=== PATIENT | female | born 1955 | race Native Hawaiian/Other Pacific Islander ===

== ENCOUNTER → 2018-02-12 09:27 | Outpatient (CLI) | payer OTHER, MEDICAID, SELFPAY ==
--- NOTE | 2018-02-12 09:29 | DI.NM.S_ITS ---
PROCEDURE: NM BONE SCAN WHOLE BODY RADIOPHARMACEUTICAL: 21.7 mCi Tc-99m MDP IV. INDICATIONS: LEFT KIDNEY MASS TECHNIQUE: Delayed whole-body scintigrams were obtained approximately 3-4 hours after intravenous injection of radiotracer. Anterior and posterior views were acquired from vertex to feet. COMPARISON: None. FINDINGS: A over the axial and appendicular skeleton no abnormal isotope uptake is seen that would indicate presence of metastatic disease. There is urine contamination at the groin area bilaterally, right greater than left, and at the perineum area. A single focus overlying the soft tissues of the lateral right midabdomen is present, presumably urine contamination given the absence of osseous structures in that area. IMPRESSION: No osseous metastatic disease found. Urine contamination at the groin area and presumably also at the right mid abdomen is present. Dictated by: Alexandr Conteh M.D. on 02/12/2018 at 15:34 Approved by: Alexandr Conteh M.D. on 02/12/2018 at 15:48
--- NOTE | 2018-02-12 10:10 | DI.CT.S_ITS ---
PROCEDURE: CT CHEST ABD PEL W CON INDICATIONS: possible metastasis, staging TECHNIQUE: After the administration of oral and intravenous contrast, 5 mm thick sections acquired from the lung apices to the symphysis. 5 mm coronal and sagittal reformats were performed, with additional 7 mm coronal MIP reformats through the lungs. For radiation dose reduction, the following was used: automated exposure control, adjustment of mA and/or kV according to patient size. COMPARISON: [facility], , CT ABDOMEN/PELVIS WITH CONTRAST, 01/08/2018, 14:22. FINDINGS: Image quality: Excellent. CHEST: Lungs and pleura: 1.5 x 1.1 by 1.2 cm nodule with irregular margins is noted in the right lung base (series 3, image 35) which is increased in size compared to prior examination the lesion measured approximately 9 mm in diameter. No pleural effusions or pneumothorax. Central and peripheral airways appear patent and normal in caliber. Mediastinum: Heart size is normal. No pericardial effusion. No mediastinal or hilar adenopathy by size criteria. Thoracic aorta and central pulmonary arteries are normal in size. Esophagus is normal in caliber. No hiatal hernia. Chest wall: No axillary or supraclavicular adenopathy by size criteria. Thyroid gland is within normal limits were visualized. ABDOMEN: Solid organs: Liver is normal in size and enhancement. Gallbladder is absent. Biliary system is non dilated. Pancreas enhances normally. Spleen is normal in size and enhancement. No adrenal nodules. There is a large heterogeneously enhancing mass involving the left kidney which is stable in size and contour compared to 01/08/18 measuring approximately 12.3 x 3.2 x 11.5 cm. Right kidney demonstrates normal size and enhancement, without hydronephrosis. Peritoneum and bowel: Small hiatal hernia is noted. Bowel loops demonstrate normal wall thickness and caliber. Scattered colonic diverticuli without evidence of diverticulitis. No free fluid or air. The appendix is normal. Nodes and vessels: Enlarged left periaortic lymph nodes are noted with largest node measuring 1.4 cm in short axis. Enlarged left common iliac lymph nodes are noted with largest node measuring 1.6 cm in the short axis. No mesenteric adenopathy by size criteria. Aorta and inferior vena cava are normal in size. Scattered atherosclerotic calcifications involving the abdominal and pelvic vasculature. The left renal vein demonstrates normal postcontrast enhancement. Miscellaneous: No ventral hernias. PELVIS: Genitourinary: Bladder wall thickness is normal. Miscellaneous: No inguinal hernias or adenopathy. Bones: No suspicious bony lesions. No vertebral body compression fractures. Spine degenerative disc disease and facet arthropathy. Grade I L4-L5 degenerative spondylolisthesis. IMPRESSION: 1. Large heterogeneously enhancing left renal mass not significantly changed in size or contour compared to 01/08/2018. Lesion has imaging characteristics highly suspicious for renal cell carcinoma. 2. Left leif-aortic retroperitoneal and left common iliac pelvic metastatic lymphadenopathy. 3. 1.5 x 1.1 x 1.2 cm right lower lobe nodule which is increased in size compared to 01/08/2018. Lesion is highly suspicious for lung metastatic disease. Dictated by: Elif Freeman MD, PhD on 02/13/2018 at 16:05 Approved by: Elif Freeman MD, PhD on 02/13/2018 at 16:21
== END ==
PROVIDERS: PCP Family Medicine; Visit Provider Internal Medicine Hematology & Oncology
DX: N28.89 Other specified disorders of kidney and ureter (principal); R91.1 Solitary pulmonary nodule; R59.1 Generalized enlarged lymph nodes
CPT/HCPCS: 71260; 74177; 78306; A9503; Q9967

== ENCOUNTER → 2018-06-24 09:54 | Outpatient (CLI) | payer OTHER, MEDICAID, SELFPAY ==
[2018-06-24 10:58] LABS: Add Manual Diff / Slide Review NO; Basophils Absolute Auto 0 /uL (0-100); Basophils Percent Auto 0.6 % (0-2); Eosinophils Absolute Auto 100 /uL (0-450); Eosinophils Percent Auto 1.5 % (2-4); Hematocrit 40.8 % (36-46); Hemoglobin 13.2 g/dL (12.0-16.0); Lymphocytes Absolute Auto 2100 /uL (1100-4500); Lymphocytes Percent Auto 32.7 % (25-40); Mean Corpuscular HGB Conc 32.4 % (30-36); Mean Corpuscular Hemoglobin 29.7 PG (26-34); Mean Corpuscular Volume 91.6 fL (80-100); Monocytes Absolute Auto 500 /uL (0-900); Monocytes Percent Auto 7.8 % (3-14); Neutrophils Absolute Auto 3700 /uL (1500-7000); Neutrophils Percent Auto 57.4 % (50-75); Platelet Count 245 X10^3/uL (150-400); Red Blood Cell Count 4.46 X10^6/uL (4.0-5.2); Red Cell Distribution Width 14.7 % (11.6-14.8); White Blood Cell Count 6.5 X10^3/uL (4.5-11.0)
[2018-06-24 11:19] LABS: Alanine Aminotransferase 47 IU/L (9-52); Albumin 3.6 g/dL (3.5-5.0); Albumin Globulin Ratio 1.1 (1.0-2.8); Alkaline Phosphatase 84 U/L (38-126); Aspartate Aminotransferase 42 IU/L (14-36); BUN Creatinine Ratio 23.6 (6-22); Bilirubin Total 0.1 mg/dL (0.2-1.3); Blood Urea Nitrogen 26 mg/dL (7-17); Calcium 8.6 mg/dL (8.4-10.2); Carbon Dioxide 26 mmol/L (22-32); Chloride 107 mmol/L (98-107); Estimated Glomerular Filt Rate 50.7 mL/min (>60); Globulin 3.2 g/dL (1.7-4.1); Glucose 82 mg/dL (80-110); HEMOLYSIS < 15 (0-50); Lactate Dehydrogenase 658 U/L (313-618); Potassium 4.3 mmol/L (3.4-5.1); Sodium 141 mmol/L (137-145); Total Protein 6.8 g/dL (6.3-8.2)
== END ==
PROVIDERS: Visit Provider Internal Medicine Hematology & Oncology
DX: D64.9 Anemia, unspecified (principal)
CPT/HCPCS: 36415; 80053; 83615; 85025

== ENCOUNTER 2018-07-13 14:32 | Emergency (ER) | payer OTHER, MEDICAID, SELFPAY ==
[2018-07-13 14:44] VITALS: BP 185/102; PULSE 85; RESP 20; TEMP 37.1; O2SAT 99; BMI 56.2
--- NOTE | 2018-07-13 15:05 | DI.US.S_ITS ---
PROCEDURE: US EXTREMITY NONVASC LOWER RT INDICATIONS: WORSENING HEMATOMA; ON ANTICOAGULANTS TECHNIQUE: Real-time scanning was performed of the right thigh, with image documentation. COMPARISON: None. FINDINGS: At the area of clinical concern, there is a nonvascular hypoechoic focus seen that measures 4.8 x 3 x 10.8 cm. No abnormal vascularity is seen. IMPRESSION: These imaging findings are compatible with a large thigh hematoma, particularly given the patient history. If there is strong clinical concern for active extravasation, please consider a dedicated CT study for further evaluation, as clinically appropriate. Dictated by: Norberto Fritz M.D. on 07/13/2018 at 15:07 Approved by: Norberto Fritz M.D. on 07/13/2018 at 15:08
[2018-07-13] MEDS: OXYCODONE/ACETAMINOPHEN 5/325 TABLET 1 TAB PO (15:14)
--- NOTE | 2018-07-13 15:16 | ED_ITS ---
HPI - Extremity Problem <Elizabeth Adam PA-C - Last Filed: 07/13/18 17:44> General Chief complaint: Extremity Problem,Nontraumatic Stated complaint: Rt leg hematoma Time Seen by Provider: 07/13/18 14:43 Source: patient and family Mode of arrival: ambulatory Limitations: no limitations History of Present Illness HPI Narrative: This 62-year-old female comes to ED secondary to worsening pain from hematoma on her right thigh. She states that this started as a painful lump more in the center of the thigh. Now the lump is better, however the area below it is more bruised, swollen and painful, today worse than before. She states that she was seen at another local ED for this yesterday, along with chest pain from panic attack, and was given some sort of medication to make the swelling go down. She does not know what that was. She states the area underneath the bruising is somewhat more red today, not sure whether from the Wilfred wrap. She had pain and numbness in her foot and calf yesterday but denies any today (also part of the reason for her emergency room visit yesterday). She states that she has been taking Percocet for the pain which does help somewhat. She currently denies any new chest pain or dyspnea, leg does not feel weak or numb, denies other new complaints on systems review. She does note that she had been on Lovenox due to coincidentally discovered PE and had allergic reaction to that with rash, so changed to Xarelto yesterday. Related Data Home Medications Medication Instructions Recorded Confirmed apremilast [Otezla] 30 mg PO DAILY 02/07/18 05/22/18 fluticasone propionate [Flovent 1 puff INHALATION Q12H 02/07/18 05/22/18 HFA] hydroxyzine HCl 25 mg PO QID PRN 02/07/18 05/22/18 minocycline 100 mg PO BID 02/07/18 05/22/18 pramipexole 0.125 mg PO BEDTIME 02/07/18 05/22/18 ranitidine HCl 150 mg PO DAILY 02/07/18 05/22/18 temazepam 15 mg PO BEDTIME PRN 02/07/18 05/22/18 vitamin H41-nrfcw acid 1 tab PO DAILY 04/24/18 05/22/18 citalopram 40 mg PO Q OTHER DAY 07/03/18 07/03/18 Previous Rx's Medication Instructions Recorded cabozantinib [Cabometyx] 60 mg PO DAILY #15 tab 06/05/18 amlodipine 5 mg PO DAILY #30 tab 06/26/18 cyclobenzaprine 5 mg PO TID PRN #30 tab 06/26/18 enoxaparin [Lovenox] 120 mg SUBCUT Q12H 30 Days #48 ml 07/03/18 lidocaine 2 patch TOP Q24H #30 each 07/13/18 Allergies Allergy/AdvReac Type Severity Reaction Status Date / Time bee venom protein (honey bee) Allergy Unknown Verified 07/13/18 14:44 iodine AdvReac Unknown Verified 07/13/18 14:44 MICRO AdvReac Unknown Uncoded 07/13/18 14:44 Review of Systems <Elizabeth Adam PA-C - Last Filed: 07/13/18 17:44> Review of Systems ROS Unobtainable: All systems reviewed & are unremarkable except as noted in HPI and below PFSH <Elizabeth Adam PA-C - Last Filed: 07/13/18 17:44> Medical History (Updated 07/13/18 @ 16:44 by Elizabeth Adam PA-C) Morbid obesity (Chronic) CKD (chronic kidney disease) (Chronic) Renal carcinoma (Chronic) Panic attacks (Chronic) Pulmonary emboli (Acute) Sleep apnea (Chronic) Hypertension (Chronic) Asthma (Chronic) Obesity (Acute) Arthritis (Chronic) Depression (Chronic) Anemia (Chronic) Psoriasis (Chronic) Rheumatoid arthritis (Chronic) Neuropathy (Chronic) Surgical History (Updated 07/13/18 @ 15:11 by Elizabeth Adam PA-C) H/O hernia repair (Resolved) H/O hysterectomy with oophorectomy (Resolved) History of tonsillectomy and adenoidectomy (Resolved) Family History (Updated 02/07/18 @ 11:03 by Marty Burden MD) Unknown Breast cancer Father Colon cancer Social History Smoking Status: Former smoker alcohol intake: current (holiday drinker) substance use type: marijuana Family History (Updated 02/07/18 @ 11:03 by Marty Burden MD) Unknown Breast cancer Father Colon cancer Social History Smoking Status: Former smoker alcohol intake: current (holiday drinker) substance use type: marijuana Exam <Elizabeth Adam PA-C - Last Filed: 07/13/18 17:44> Narrative Exam Narrative: GENERAL APPEARANCE: Patient sitting comfortably, in no distress. NECK/THYROID: Neck supple LUNGS: Clear to auscultation bilaterally. HEART: Regular rate and rhythm without murmur, normal S1, S2, no S3 or S4. EXTREMITIES: No cyanosis, extremities of large girth, no clear pedal or calf edema, no calf tenderness. Pedal pulses intact bilaterally. On the right medial thigh there is an area of circumscribed nodular tenderness, inferior to which there is yellow to purple ecchymoses and the skin is tender. Some faint, pink, erythema inferior to the ecchymoses which is cool to touch NEUROLOGIC: Alert and oriented, normal speech, and coordination. Initial Vital Signs Initial Vital Signs: Vital Signs Temperature 98.7 F 07/13/18 14:44 Pulse Rate 85 07/13/18 14:44 Respiratory Rate 20 07/13/18 14:44 Blood Pressure 185/102 H 07/13/18 14:44 Pulse Oximetry 99 07/13/18 14:44 <Sharon Foote MD - Last Filed: 07/13/18 18:26> Initial Vital Signs Initial Vital Signs: Vital Signs Temperature 98.7 F 07/13/18 14:44 Pulse Rate 85 07/13/18 14:44 Respiratory Rate 20 07/13/18 14:44 Blood Pressure 185/102 H 07/13/18 14:44 Pulse Oximetry 99 07/13/18 14:44 Course <Elizabeth Adam PA-C - Last Filed: 07/13/18 17:44> Additional Information: Records were eventually received, patient has had 6 ED visits in the last week, for abdominal hematoma, which was previously drained and this thigh hematoma, states she was concerned because she was told she had a ?blood clot?. Ultrasound was done and there does not appear to be any acute surgical issue. Discussed findings with her, and she does think she may have had some very minor trauma because of the way she was sitting in a chair, and discussed this can be exacerbated by her blood thinners. She changed to Xarelto 2 days ago. Continue compression dressing as needed. She has Percocet at home as needed for pain. She was given a prescription for Lidoderm patches and will try those today to see if they are helpful. She will return to ED if any acutely worsening symptoms, has follow-up with primary care in a few days. Orders Ordered: ED Orders 07/13/18 15:05 US extremity nonvasc lower rt Stat Discontinued Medications Lidocaine (Lidoderm) 2 each TOP NOW ONE Stop: 07/13/18 15:57 Last Admin: 07/13/18 16:19 Dose: 2 each Oxycodone/Acetaminophen (Percocet 5/325) 1 tab PO NOW ONE Stop: 07/13/18 15:06 Last Admin: 07/13/18 15:14 Dose: 1 tab Vital Signs - 8 hr 07/13/18 14:44 07/13/18 15:39 07/13/18 16:30 Temperature 98.7 F Pulse Rate 85 76 74 Respiratory Rate 20 15 17 Blood Pressure 185/102 H Blood Pressure [Left Wrist] 135/78 142/75 H Pulse Oximetry 99 93 97 <Sharon Foote MD - Last Filed: 07/13/18 18:26> Orders Ordered: ED Orders 07/13/18 15:05 US extremity nonvasc lower rt Stat Discontinued Medications Lidocaine (Lidoderm) 2 each TOP NOW ONE Stop: 07/13/18 15:57 Last Admin: 07/13/18 16:19 Dose: 2 each Oxycodone/Acetaminophen (Percocet 5/325) 1 tab PO NOW ONE Stop: 07/13/18 15:06 Last Admin: 07/13/18 15:14 Dose: 1 tab Vital Signs - 8 hr 07/13/18 14:44 07/13/18 15:39 07/13/18 16:30 Temperature 98.7 F Pulse Rate 85 76 74 Respiratory Rate 20 15 17 Blood Pressure 185/102 H Blood Pressure [Left Wrist] 135/78 142/75 H Pulse Oximetry 99 93 97 MDM - Extremity (Nontraumatic) <Elizabeth Adam PA-C - Last Filed: 07/13/18 17:44> Imaging Data extremity us: Radiologist's impression: [address] [place] [address] Ultrasound Report Signed Patient: Belgica Da Silva R#: [id number] : 8Acct:[id number] Age/Sex: 62 / FDate of Service: 07/13/18 Loc: ED Accession Number: [id number] Procedure: US extremity nonvasc lower rt Ordering Provider: Elizabeth Adam P.A-C PROCEDURE: US EXTREMITY NONVASC LOWER RT INDICATIONS: WORSENING HEMATOMA; ON ANTICOAGULANTS TECHNIQUE: Real-time scanning was performed of the right thigh, with image documentation. COMPARISON: None. FINDINGS: At the area of clinical concern, there is a nonvascular hypoechoic focus seen that measures 4.8 x 3 x 10.8 cm. No abnormal vascularity is seen. IMPRESSION: These imaging findings are compatible with a large thigh hematoma, particularly given the patient history. If there is strong clinical concern for active extravasation, please consider a dedicated CT study for further evaluation, as clinically appropriate. Dictated by: Norberto Fritz M.D. on 07/13/2018 at 15:07 Approved by: Norberto Fritz M.D. on 07/13/2018 at 15:08 Discharge Plan Departure Patient Disposition: Home Clinical Impression: Hematoma of right thigh Qualifiers: Encounter type: initial encounter Qualified Code(s): S70.11XA - Contusion of right thigh, initial encounter Discharge Date/Time: 07/13/18 17:04 Interventions: ED Discharge Assessment Last Done: 07/13/18 17:03 Instructions: DI for Hematoma (Bruise) Activity Restrictions/Additional Instructions: You have a hematoma, a deep bruised area under the skin where the blood has seeped out. This is exacerbated by your blood thinners, and could be caused by very minimal trauma as you were describing, like a minor bump or positioning in a chair. At this time, this does not appear to need any drainage or surgical intervention. Please continue her Percocet as needed for pain. Continue the compression wrap as helpful. Try the Lidoderm patches that we gave you through today as you can wear those for 12 hours daily, and I have today prescription for you to fill if you find these helpful. Please follow-up with your PCP in a few days as you have planned. Please return to the ED if any acutely worsening problems in the interim Prescriptions: New lidocaine 5 % adhesive patch,medicated 2 patch TOP Q24H Qty: 30 RF: 0 No Action minocycline 100 mg Capsule 100 mg PO BID RF: 0 temazepam 15 mg Capsule 15 mg PO BEDTIME PRN (Reason: Pain (Scale Score 1-3)) RF: 0 pramipexole 0.125 mg Tablet 0.125 mg PO BEDTIME RF: 0 hydroxyzine HCl 25 mg Tablet 25 mg PO QID PRN (Reason: Muscle Spasm) RF: 0 ranitidine HCl 150 mg Capsule 150 mg PO DAILY RF: 0 Flovent HFA 110 mcg/actuation Hfa Aerosol Inhaler 1 puff INHALATION Q12H RF: 0 Otezla 30 mg Tablet 30 mg PO DAILY RF: 0 vitamin H17-nabmt acid 500-400 mcg Tablet 1 tab PO DAILY RF: 0 Cabometyx 60 mg Tablet 60 mg PO DAILY Qty: 15 RF: 0 amlodipine 5 mg Tablet 5 mg PO DAILY Qty: 30 RF: 3 cyclobenzaprine 5 mg Tablet 5 mg PO TID PRN (Reason: muscle cramps) Qty: 30 RF: 0 citalopram 40 mg Tablet 40 mg PO Q OTHER DAY RF: 0 enoxaparin [Lovenox] 120 mg/0.8 mL Syringe 120 mg SUBCUT Q12H 30 Days Qty: 48 RF: 1 Referrals: Jurgen Griffin MD [Primary Care Provider] -
[2018-07-13 15:39] VITALS: BP 135/78; PULSE 76; RESP 15; O2SAT 93
[2018-07-13] MEDS: LIDOCAINE PATCH 1 EACH ADH..PATCH 2 EACH TOP (16:19)
[2018-07-13 16:30] VITALS: BP 142/75; PULSE 74; RESP 17; O2SAT 97
--- NOTE | 2018-07-15 10:17 | ONC.SCHED ---
Authoriztion for Enoxaparin from 07/10/18 to 07/10/2019
== END 2018-07-13 17:04 | disposition home or self-care (01) ==
PROVIDERS: Emergency Provider Internal Medicine; PCP Family Medicine
DX: S70.11XA Contusion of right thigh, initial encounter (principal); Z79.01 Long term (current) use of anticoagulants
CPT/HCPCS: 76882; 99282; 99283

== ENCOUNTER → 2018-08-12 13:24 | Outpatient (CLI) | payer OTHER, MEDICAID, SELFPAY | PROVIDERS: Family Provider Family Medicine; PCP Family Medicine; Visit Provider Family Medicine | DX: S31.103A Unspecified open wound of abdominal wall, right lower quadrant without penetration into peritoneal cavity, initial encounter (principal); C64.2 Malignant neoplasm of left kidney, except renal pelvis; Z79.01 Long term (current) use of anticoagulants; Z79.899 Other long term (current) drug therapy; Z92.25 Personal history of immunosuppression therapy | CPT/HCPCS: 87070; 87075; 87077; 87186; 87205; 97597; 99203; 99214 ==

== ENCOUNTER → 2018-08-26 09:47 | Outpatient (CLI) | payer OTHER, MEDICAID, SELFPAY | PROVIDERS: Family Provider Family Medicine; PCP Family Medicine; Visit Provider Family Medicine | DX: S31.103A Unspecified open wound of abdominal wall, right lower quadrant without penetration into peritoneal cavity, initial encounter (principal); C64.2 Malignant neoplasm of left kidney, except renal pelvis; Z79.01 Long term (current) use of anticoagulants; Z79.899 Other long term (current) drug therapy; Z92.25 Personal history of immunosuppression therapy | CPT/HCPCS: 11042; 99213 ==

== ENCOUNTER → 2018-09-02 09:57 | Outpatient (CLI) | payer OTHER, MEDICAID, SELFPAY | PROVIDERS: Family Provider Family Medicine; PCP Family Medicine; Visit Provider Family Medicine | DX: S31.103A Unspecified open wound of abdominal wall, right lower quadrant without penetration into peritoneal cavity, initial encounter (principal); C64.2 Malignant neoplasm of left kidney, except renal pelvis; Z79.01 Long term (current) use of anticoagulants; Z79.899 Other long term (current) drug therapy; Z92.25 Personal history of immunosuppression therapy | CPT/HCPCS: 11042 ==

== ENCOUNTER → 2018-09-09 09:44 | Outpatient (CLI) | payer OTHER, MEDICAID, SELFPAY | PROVIDERS: Family Provider Family Medicine; PCP Family Medicine; Visit Provider Family Medicine | DX: S31.103A Unspecified open wound of abdominal wall, right lower quadrant without penetration into peritoneal cavity, initial encounter (principal); C64.2 Malignant neoplasm of left kidney, except renal pelvis; Z79.01 Long term (current) use of anticoagulants; Z79.899 Other long term (current) drug therapy; Z92.25 Personal history of immunosuppression therapy | CPT/HCPCS: 11043 ==

== ENCOUNTER → 2018-09-11 11:05 | Outpatient (CLI) | payer OTHER, MEDICAID, SELFPAY | PROVIDERS: Family Provider Family Medicine; PCP Family Medicine; Visit Provider Family Medicine | DX: S31.103A Unspecified open wound of abdominal wall, right lower quadrant without penetration into peritoneal cavity, initial encounter (principal) | CPT/HCPCS: 97607 ==

== ENCOUNTER → 2018-09-16 10:27 | Outpatient (CLI) | payer OTHER, MEDICAID, SELFPAY | PROVIDERS: Family Provider Family Medicine; PCP Family Medicine; Visit Provider Family Medicine | DX: S31.103D Unspecified open wound of abdominal wall, right lower quadrant without penetration into peritoneal cavity, subsequent encounter (principal); C64.2 Malignant neoplasm of left kidney, except renal pelvis; Z79.01 Long term (current) use of anticoagulants; Z79.899 Other long term (current) drug therapy; Z92.25 Personal history of immunosuppression therapy | CPT/HCPCS: 99213; 99214 ==

== ENCOUNTER → 2018-09-19 10:56 | Outpatient (CLI) | payer OTHER, MEDICAID, SELFPAY | PROVIDERS: Family Provider Family Medicine; PCP Family Medicine; Visit Provider Family Medicine | DX: T81.31XA Disruption of external operation (surgical) wound, not elsewhere classified, initial encounter (principal); S31.103A Unspecified open wound of abdominal wall, right lower quadrant without penetration into peritoneal cavity, initial encounter | CPT/HCPCS: 97607 ==

== ENCOUNTER → 2018-09-23 13:46 | Outpatient (CLI) | payer OTHER, MEDICAID, SELFPAY | PROVIDERS: Family Provider Family Medicine; PCP Family Medicine; Visit Provider Family Medicine | DX: T81.31XA Disruption of external operation (surgical) wound, not elsewhere classified, initial encounter (principal); S31.103A Unspecified open wound of abdominal wall, right lower quadrant without penetration into peritoneal cavity, initial encounter | CPT/HCPCS: 97607 ==

== ENCOUNTER → 2018-09-26 09:02 | Outpatient (CLI) | payer OTHER, MEDICAID, SELFPAY | PROVIDERS: Family Provider Family Medicine; PCP Family Medicine; Visit Provider Family Medicine | DX: T81.31XA Disruption of external operation (surgical) wound, not elsewhere classified, initial encounter (principal); S31.103A Unspecified open wound of abdominal wall, right lower quadrant without penetration into peritoneal cavity, initial encounter; D64.2 Secondary sideroblastic anemia due to drugs and toxins; Z79.01 Long term (current) use of anticoagulants; Z79.899 Other long term (current) drug therapy; Z92.25 Personal history of immunosuppression therapy | CPT/HCPCS: 97597; 97607 ==

== ENCOUNTER → 2018-09-30 08:52 | Outpatient (CLI) | payer OTHER, MEDICAID, SELFPAY | PROVIDERS: Family Provider Family Medicine; PCP Family Medicine; Visit Provider Family Medicine | DX: S31.103A Unspecified open wound of abdominal wall, right lower quadrant without penetration into peritoneal cavity, initial encounter (principal); C64.2 Malignant neoplasm of left kidney, except renal pelvis; Z79.01 Long term (current) use of anticoagulants; Z79.899 Other long term (current) drug therapy; Z92.25 Personal history of immunosuppression therapy | CPT/HCPCS: 97597; 97607 ==

== ENCOUNTER → 2018-10-03 10:35 | Outpatient (CLI) | payer OTHER, MEDICAID, SELFPAY | PROVIDERS: Family Provider Family Medicine; PCP Family Medicine; Visit Provider Family Medicine | DX: T81.31XA Disruption of external operation (surgical) wound, not elsewhere classified, initial encounter (principal); S31.103A Unspecified open wound of abdominal wall, right lower quadrant without penetration into peritoneal cavity, initial encounter; D64.2 Secondary sideroblastic anemia due to drugs and toxins; Z79.01 Long term (current) use of anticoagulants; Z79.899 Other long term (current) drug therapy; Z92.25 Personal history of immunosuppression therapy; G89.18 Other acute postprocedural pain | CPT/HCPCS: 97607; 99213 ==

== ENCOUNTER → 2018-10-07 10:05 | Outpatient (CLI) | payer OTHER, MEDICAID, SELFPAY | PROVIDERS: Family Provider Family Medicine; PCP Family Medicine; Visit Provider Family Medicine | DX: S31.109A Unspecified open wound of abdominal wall, unspecified quadrant without penetration into peritoneal cavity, initial encounter (principal) | CPT/HCPCS: 99212 ==

== ENCOUNTER → 2018-10-10 09:11 | Outpatient (CLI) | payer OTHER, MEDICAID, SELFPAY | PROVIDERS: Family Provider Family Medicine; PCP Family Medicine; Visit Provider Family Medicine | DX: S31.103A Unspecified open wound of abdominal wall, right lower quadrant without penetration into peritoneal cavity, initial encounter (principal); C64.2 Malignant neoplasm of left kidney, except renal pelvis; Z79.01 Long term (current) use of anticoagulants; Z79.899 Other long term (current) drug therapy; Z92.25 Personal history of immunosuppression therapy | CPT/HCPCS: 11042; 97607 ==

== ENCOUNTER → 2018-10-14 09:23 | Outpatient (CLI) | payer OTHER, MEDICAID, SELFPAY ==
[2018-10-14 10:03] LABS: Add Manual Diff / Slide Review NO; Basophils Absolute Auto 0 /uL (0-100); Basophils Percent Auto 0.4 % (0-2); Eosinophils Absolute Auto 100 /uL (0-450); Eosinophils Percent Auto 0.8 % (2-4); Hematocrit 38.9 % (36-46); Hemoglobin 12.9 g/dL (12.0-16.0); Lymphocytes Absolute Auto 1700 /uL (1100-4500); Lymphocytes Percent Auto 21.5 % (25-40); Mean Corpuscular HGB Conc 33.2 % (30-36); Mean Corpuscular Hemoglobin 34.6 PG (26-34); Mean Corpuscular Volume 104.2 fL (80-100); Monocytes Absolute Auto 700 /uL (0-900); Monocytes Percent Auto 8.6 % (3-14); Neutrophils Absolute Auto 5300 /uL (1500-7000); Neutrophils Percent Auto 68.7 % (50-75); Platelet Count 248 X10^3/uL (150-400); Red Blood Cell Count 3.73 X10^6/uL (4.0-5.2); Red Cell Distribution Width 14.8 % (11.6-14.8); White Blood Cell Count 7.7 X10^3/uL (4.5-11.0)
[2018-10-14 10:40] LABS: Alanine Aminotransferase 28 IU/L (9-52); Albumin 3.7 g/dL (3.5-5.0); Albumin Globulin Ratio 1.2 (1.0-2.8); Alkaline Phosphatase 61 U/L (38-126); Aspartate Aminotransferase 29 IU/L (14-36); Bilirubin Total 0.4 mg/dL (0.2-1.3); Blood Urea Nitrogen 15 mg/dL (7-17); Calcium 9.3 mg/dL (8.4-10.2); Carbon Dioxide 29 mmol/L (22-32); Chloride 107 mmol/L (98-107); Estimated Glomerular Filt Rate 56.4 mL/min (>60); Glucose 79 mg/dL (80-110); HEMOLYSIS < 15 (0-50); Potassium 4.2 mmol/L (3.4-5.1); Sodium 141 mmol/L (137-145); Total Protein 6.7 g/dL (6.3-8.2)
== END ==
PROVIDERS: Family Provider Family Medicine; PCP Family Medicine; Visit Provider Internal Medicine Hematology & Oncology
DX: C64.2 Malignant neoplasm of left kidney, except renal pelvis (principal); D64.9 Anemia, unspecified; I26.99 Other pulmonary embolism without acute cor pulmonale
CPT/HCPCS: 36415; 80053; 85025

== ENCOUNTER → 2018-10-14 09:43 | Outpatient (CLI) | payer OTHER, MEDICAID, SELFPAY | PROVIDERS: Family Provider Family Medicine; PCP Family Medicine; Visit Provider Family Medicine | DX: S31.103A Unspecified open wound of abdominal wall, right lower quadrant without penetration into peritoneal cavity, initial encounter (principal) | CPT/HCPCS: 97607 ==

== ENCOUNTER → 2018-10-17 09:01 | Outpatient (CLI) | payer OTHER, MEDICAID, SELFPAY | PROVIDERS: Family Provider Family Medicine; PCP Family Medicine; Visit Provider Family Medicine | DX: S31.103A Unspecified open wound of abdominal wall, right lower quadrant without penetration into peritoneal cavity, initial encounter (principal); C64.2 Malignant neoplasm of left kidney, except renal pelvis; Z79.01 Long term (current) use of anticoagulants; Z79.899 Other long term (current) drug therapy; Z92.25 Personal history of immunosuppression therapy | CPT/HCPCS: 11042; 97607; 99212 ==

== ENCOUNTER → 2018-10-21 08:32 | Outpatient (CLI) | payer OTHER, MEDICAID, SELFPAY | PROVIDERS: Family Provider Family Medicine; PCP Family Medicine; Visit Provider Family Medicine | DX: E11.621 Type 2 diabetes mellitus with foot ulcer (principal); L97.524 Non-pressure chronic ulcer of other part of left foot with necrosis of bone; M14.672 Charcot's joint, left ankle and foot; Z79.4 Long term (current) use of insulin; L08.9 Local infection of the skin and subcutaneous tissue, unspecified | CPT/HCPCS: 97607; 99213 ==

== ENCOUNTER → 2018-10-24 09:19 | Outpatient (CLI) | payer OTHER, MEDICAID, SELFPAY | PROVIDERS: Family Provider Family Medicine; PCP Family Medicine; Visit Provider Family Medicine | DX: S31.103A Unspecified open wound of abdominal wall, right lower quadrant without penetration into peritoneal cavity, initial encounter (principal); C64.2 Malignant neoplasm of left kidney, except renal pelvis; Z79.01 Long term (current) use of anticoagulants; Z79.899 Other long term (current) drug therapy; Z92.25 Personal history of immunosuppression therapy | CPT/HCPCS: 11042 ==

== ENCOUNTER → 2018-10-31 09:11 | Outpatient (CLI) | payer OTHER, MEDICAID, SELFPAY | PROVIDERS: Family Provider Family Medicine; PCP Family Medicine; Visit Provider Family Medicine | DX: S31.103A Unspecified open wound of abdominal wall, right lower quadrant without penetration into peritoneal cavity, initial encounter (principal); C64.2 Malignant neoplasm of left kidney, except renal pelvis; Z79.01 Long term (current) use of anticoagulants; Z79.899 Other long term (current) drug therapy; Z92.25 Personal history of immunosuppression therapy | CPT/HCPCS: 99213 ==

== ENCOUNTER → 2018-11-07 09:00 | Outpatient (CLI) | payer OTHER, MEDICAID, SELFPAY | PROVIDERS: Family Provider Family Medicine; PCP Family Medicine; Visit Provider Family Medicine | DX: S31.103A Unspecified open wound of abdominal wall, right lower quadrant without penetration into peritoneal cavity, initial encounter (principal); Z79.01 Long term (current) use of anticoagulants; Z79.899 Other long term (current) drug therapy; Z92.25 Personal history of immunosuppression therapy | CPT/HCPCS: 99212 ==

== ENCOUNTER → 2018-11-13 09:08 | Outpatient (CLI) | payer OTHER, MEDICAID, SELFPAY ==
--- NOTE | 2018-11-13 09:22 | DI.CT.S_ITS ---
PROCEDURE: CT CHEST ABD PEL W CON INDICATIONS: KIDNEY CANCER RESTAGING TECHNIQUE: After the administration of oral and intravenous contrast, 5 mm thick sections acquired from the lung apices to the symphysis. 5 mm coronal and sagittal reformats were performed, with additional 7 mm coronal MIP reformats through the lungs. For radiation dose reduction, the following was used: automated exposure control, adjustment of mA and/or kV according to patient size. COMPAR[place]: [facility] ABDOMEN/PELVIS WITH CONTRAST, 01/08/2018, 14:22. [place], [place] BONE SCAN WHOLE BODY, 02/12/2018, 13:12. [place] PET CT FUSION SKULL 2 THIGH, 02/19/2018, 16:51. [facility], CT, CT CHEST ABD PEL W CON, 02/12/2018, 10:20. FINDINGS: Image quality: Excellent. CHEST: Lungs and pleura: The lung 1.5 x 1.1 cm pulmonary nodule in the right lower lobe seen on 02/12/2018 is no longer visualized. No acute airspace opacities. No pleural effusions or pneumothorax. Central and peripheral airways appear patent and normal in caliber. Mediastinum: Heart size is normal. No pericardial effusion. No mediastinal or hilar adenopathy by size criteria. Thoracic aorta and central pulmonary arteries are normal in size. Esophagus is normal in caliber. No hiatal hernia. Chest wall: No axillary or supraclavicular adenopathy by size criteria. Thyroid gland is normal. ABDOMEN: Solid organs: Liver is normal in size and enhancement. Gallbladder is of interest. Biliary system is non dilated. Pancreas enhances normally. Spleen is normal in size and enhancement. No adrenal nodules. Left kidney is surgically resected. Right kidney demonstrates normal size and enhancement, without hydronephrosis. Peritoneum and bowel: Bowel loops demonstrate normal wall thickness and caliber. No free fluid or air. Nodes and vessels: The previously seen enlarged left para-aortic lymph nodes and left common duct lymph nodes are no longer identified. No retroperitoneal or mesenteric adenopathy by size criteria. Aorta and inferior vena cava are normal in size. Miscellaneous: No ventral hernias. PELVIS: Genitourinary: Bladder wall thickness is normal. Miscellaneous: No inguinal hernias or adenopathy. Bones: No suspicious bony lesions. No vertebral body compression fractures. Degenerative changes are noted in thoracic and lumbar spine. IMPRESSION: 1. Left nephrectomy. 2. Resolution of left para-aortic and left common iliac charlene disease. 3. Resolution of right lower lobe lung nodule. 4. No evidence for residual or recurrent disease. Dictated by: Bailey Loo M.D. on 11/13/2018 at 17:22 Approved by: Bailey Loo M.D. on 11/13/2018 at 18:24
[2018-11-13 09:45] LABS: Hematocrit 42.3 % (36-46); Hemoglobin 14.5 g/dL (12.0-16.0); Mean Corpuscular HGB Conc 34.1 % (30-36); Mean Corpuscular Volume 102.5 fL (80-100); Platelet Count 238 X10^3/uL (150-400); Red Blood Cell Count 4.13 X10^6/uL (4.0-5.2); Red Cell Distribution Width 13.2 % (11.6-14.8)
[2018-11-13 10:07] LABS: Alanine Aminotransferase 37 IU/L (9-52); Albumin 4.1 g/dL (3.5-5.0); Albumin Globulin Ratio 1.2 (1.0-2.8); Alkaline Phosphatase 76 U/L (38-126); Aspartate Aminotransferase 38 IU/L (14-36); BUN Creatinine Ratio 16.3 (6-22); Bilirubin Total 0.4 mg/dL (0.2-1.3); Blood Urea Nitrogen 13 mg/dL (7-17); Calcium 9.3 mg/dL (8.4-10.2); Carbon Dioxide 25 mmol/L (22-32); Chloride 108 mmol/L (98-107); Estimated Glomerular Filt Rate > 60.0 mL/min (>60); Globulin 3.5 g/dL (1.7-4.1); Glucose 169 mg/dL (80-110); HEMOLYSIS < 15 (0-50); Lactate Dehydrogenase 591 U/L (313-618); Potassium 3.9 mmol/L (3.4-5.1); Sodium 142 mmol/L (137-145); Total Protein 7.6 g/dL (6.3-8.2)
[2018-11-13 10:19] LABS: Neutrophils Absolute Manual 4000 /uL (3000-5900); Total Cells Counted 100
[2018-11-13 10:22] LABS: Anisocytosis 1+
== END ==
PROVIDERS: Visit Provider Internal Medicine Hematology & Oncology
DX: C64.2 Malignant neoplasm of left kidney, except renal pelvis (principal); D64.9 Anemia, unspecified; Z90.5 Acquired absence of kidney
CPT/HCPCS: 36415; 71260; 74177; 80053; 83615; 85025; Q9967

== ENCOUNTER → 2019-01-20 13:02 | Outpatient (CLI) | payer OTHER, MEDICAID, SELFPAY ==
--- NOTE | 2019-01-20 13:04 | DI.CT.S_ITS ---
PROCEDURE: CT CHEST ABD PEL W CON INDICATIONS: kidney cancer, now with abdominal pain TECHNIQUE: After the administration of oral and intravenous contrast, 5 mm thick sections acquired from the lung apices to the symphysis. 5 mm coronal and sagittal reformats were performed, with additional 7 mm coronal MIP reformats through the lungs. For radiation dose reduction, the following was used: automated exposure control, adjustment of mA and/or kV according to patient size. COMPARISON: [facility], CT, CT CHEST ABD PEL W CON, 02/12/2018, 10:20. [facility], CT, CT CHEST ABD PEL W CON, 11/13/2018, 10:11. FINDINGS: Image quality: Excellent. CHEST: Lungs and pleura: No acute airspace opacities. No pleural effusions or pneumothorax. Central and peripheral airways appear patent and normal in caliber. Mediastinum: Heart size is normal. No pericardial effusion. No mediastinal or hilar adenopathy by size criteria. Thoracic aorta and central pulmonary arteries are normal in size. Esophagus is normal in caliber. No hiatal hernia. Chest wall: No axillary or supraclavicular adenopathy by size criteria. Thyroid gland is unremarkable. ABDOMEN: Solid organs: Liver is normal in size and enhancement. Gallbladder is not visualized and possibly surgically absent. Biliary system is non dilated. Pancreas enhances normally. Spleen is normal in size and enhancement. No adrenal nodules. Right kidney is normal in appearance without hydronephrosis or suspicious mass lesions. Right ureter is normal in course and caliber. Stable postoperative changes from left nephrectomy. No suspicious mass lesions identified in the left renal fossa. No evidence for retroperitoneal adenopathy. Peritoneum and bowel: Extensive scattered colonic diverticulosis without evidence for acute inflammatory changes. Remaining bowel loops demonstrate normal wall thickness and caliber. No free fluid or air. Nodes and vessels: No retroperitoneal or mesenteric adenopathy by size criteria. Aorta and inferior vena cava are normal in size. Miscellaneous: No ventral hernias. PELVIS: Genitourinary: Bladder wall thickness is normal. Miscellaneous: No inguinal hernias or adenopathy. Bones: No suspicious bony lesions. No acute vertebral body compression fractures. Multilevel spondylitic changes throughout the imaged spine. Stable grade 1 anterolisthesis of L4 on L5. IMPRESSION: 1. CT chest, abdomen, and pelvis without acute abnormalities. 2. Status post left nephrectomy. 3. No evidence for residual or recurrent disease. Dictated by: Barrett Reed M.D. on 01/20/2019 at 18:37 Approved by: Barrett Reed M.D. on 01/20/2019 at 18:50
[2019-01-20 13:59] LABS: Alanine Aminotransferase 30 IU/L (<35); Albumin 4.2 g/dL (3.5-5.0); Albumin Globulin Ratio 1.4 (1.0-2.8); Alkaline Phosphatase 61 U/L (38-126); Aspartate Aminotransferase 34 IU/L (14-36); Bilirubin Total 0.6 mg/dL (0.2-1.3); Blood Urea Nitrogen 20 mg/dL (7-17); Calcium 9.5 mg/dL (8.4-10.2); Carbon Dioxide 23 mmol/L (22-32); Chloride 110 mmol/L (98-107); Estimated Glomerular Filt Rate 56.4 mL/min (>60); Globulin 3.1 g/dL (1.7-4.1); Glucose 176 mg/dL (80-110); HEMOLYSIS < 15 (0-50); Potassium 4.6 mmol/L (3.4-5.1); Sodium 141 mmol/L (137-145); Total Protein 7.3 g/dL (6.3-8.2)
== END ==
PROVIDERS: Visit Provider Internal Medicine Hematology & Oncology
DX: C64.2 Malignant neoplasm of left kidney, except renal pelvis (principal); R10.9 Unspecified abdominal pain; K57.90 Diverticulosis of intestine, part unspecified, without perforation or abscess without bleeding; D64.9 Anemia, unspecified; Z90.5 Acquired absence of kidney
CPT/HCPCS: 36415; 71260; 74177; 80053; Q9967

== ENCOUNTER → 2019-07-15 12:20 | Outpatient (CLI) | payer OTHER, MEDICAID, SELFPAY ==
--- NOTE | 2019-07-15 12:27 | DI.CT.S_ITS ---
PROCEDURE: CT CHEST ABD PEL W CON INDICATIONS: metastatic renal cell cancer TECHNIQUE: After the administration of oral and intravenous contrast, 5 mm thick sections acquired from the lung apices to the symphysis. 5 mm coronal and sagittal reformats were performed, with additional 7 mm coronal MIP reformats through the lungs. For radiation dose reduction, the following was used: automated exposure control, adjustment of mA and/or kV according to patient size. COMPARISON: [facility], CT, CT CHEST ABD PEL W CON, 01/20/2019, 14:12. FINDINGS: Image quality: Excellent. CHEST: Lungs and pleura: No acute airspace opacities. No pleural effusions or pneumothorax. Central and peripheral airways appear patent and normal in caliber. Mediastinum: Heart size is normal. No pericardial effusion. No mediastinal or hilar adenopathy by size criteria. Thoracic aorta and central pulmonary arteries are normal in size. Esophagus is normal in caliber. No hiatal hernia. Chest wall: No axillary or supraclavicular adenopathy by size criteria. Thyroid gland is within normal limits. ABDOMEN: Solid organs: Liver is normal in size and enhancement. Gallbladder is absent. Biliary system is non dilated. Pancreas enhances normally. Spleen is normal in size and enhancement. No adrenal nodules. Status post left nephrectomy, as before. Right kidney is within normal limits. Peritoneum and bowel: Bowel loops demonstrate normal wall thickness and caliber. No free fluid or air. Nodes and vessels: No retroperitoneal or mesenteric adenopathy by size criteria. Aorta and inferior vena cava are normal in size. Miscellaneous: No ventral hernias. PELVIS: Genitourinary: Bladder wall thickness is normal. Miscellaneous: No inguinal hernias or adenopathy. Bones: No suspicious bony lesions. No vertebral body compression fractures. IMPRESSION: 1. No evidence of malignancy. Dictated by: Kristy Ram M.D. on 07/15/2019 at 17:07 Approved by: Kristy Ram M.D. on 07/15/2019 at 17:09
[2019-07-15 12:45] LABS: Add Manual Diff / Slide Review NO; Basophils Absolute Auto 0 /uL (0-100); Basophils Percent Auto 0.5 % (0-2); Eosinophils Absolute Auto 200 /uL (0-450); Eosinophils Percent Auto 3.5 % (2-4); Hematocrit 37.8 % (36-46); Hemoglobin 12.5 g/dL (12.0-16.0); Lymphocytes Absolute Auto 2200 /uL (1100-4500); Lymphocytes Percent Auto 35.2 % (25-40); Mean Corpuscular HGB Conc 33.2 % (30-36); Mean Corpuscular Hemoglobin 34.5 PG (26-34); Monocytes Absolute Auto 500 /uL (0-900); Monocytes Percent Auto 8.1 % (3-14); Neutrophils Absolute Auto 3300 /uL (1500-7000); Neutrophils Percent Auto 52.7 % (50-75); Platelet Count 206 X10^3/uL (150-400); Red Blood Cell Count 3.64 X10^6/uL (4.0-5.2); White Blood Cell Count 6.3 X10^3/uL (4.5-11.0)
[2019-07-15 13:02] LABS: Alanine Aminotransferase 37 IU/L (<35); Albumin 3.7 g/dL (3.5-5.0); Albumin Globulin Ratio 1.2 (1.0-2.8); Alkaline Phosphatase 68 U/L (38-126); Aspartate Aminotransferase 40 IU/L (14-36); BUN Creatinine Ratio 16.8 (6-22); Bilirubin Total 0.4 mg/dL (0.2-1.3); Blood Urea Nitrogen 18 mg/dL (7-17); Calcium 9.4 mg/dL (8.4-10.2); Carbon Dioxide 30 mmol/L (22-32); Chloride 107 mmol/L (98-107); Estimated Glomerular Filt Rate 52.1 mL/min (>60); Globulin 3.1 g/dL (1.7-4.1); Glucose 99 mg/dL (80-110); HEMOLYSIS < 15 (0-50); Lactate Dehydrogenase 721 U/L (313-618); Potassium 5.2 mmol/L (3.4-5.1); Sodium 140 mmol/L (137-145); Total Protein 6.8 g/dL (6.3-8.2)
== END ==
PROVIDERS: PCP Family Medicine; Referring Provider Internal Medicine Hematology & Oncology; Visit Provider Internal Medicine Hematology & Oncology
DX: C64.2 Malignant neoplasm of left kidney, except renal pelvis (principal); I26.99 Other pulmonary embolism without acute cor pulmonale; Z90.49 Acquired absence of other specified parts of digestive tract; Z90.5 Acquired absence of kidney
CPT/HCPCS: 36415; 71260; 74177; 80053; 83615; 85025; Q9967

== ENCOUNTER → 2019-09-01 15:28 | Outpatient (CLI) | payer OTHER, MEDICAID, SELFPAY | PROVIDERS: PCP Family Medicine; Referring Provider Family Medicine; Visit Provider Family Medicine | DX: B35.4 Tinea corporis (principal); E66.01 Morbid (severe) obesity due to excess calories; Z79.01 Long term (current) use of anticoagulants; Z79.899 Other long term (current) drug therapy; Z92.25 Personal history of immunosuppression therapy; S81.002A Unspecified open wound, left knee, initial encounter; S31.000A Unspecified open wound of lower back and pelvis without penetration into retroperitoneum, initial encounter | CPT/HCPCS: 11042; 87070; 87075; 87077; 87102; 87205; 99214 ==

== ENCOUNTER → 2019-09-08 16:22 | Outpatient (CLI) | payer OTHER, MEDICAID, SELFPAY | PROVIDERS: PCP Family Medicine; Referring Provider Family Medicine; Visit Provider Family Medicine | DX: B35.4 Tinea corporis (principal); E66.01 Morbid (severe) obesity due to excess calories; Z79.01 Long term (current) use of anticoagulants; Z79.899 Other long term (current) drug therapy; Z92.25 Personal history of immunosuppression therapy; S81.002A Unspecified open wound, left knee, initial encounter; S31.000A Unspecified open wound of lower back and pelvis without penetration into retroperitoneum, initial encounter | CPT/HCPCS: 99213 ==

== ENCOUNTER → 2019-09-15 15:01 | Outpatient (CLI) | payer OTHER, MEDICAID, SELFPAY | PROVIDERS: PCP Family Medicine; Referring Provider Family Medicine; Visit Provider Family Medicine | DX: B35.4 Tinea corporis (principal); E66.01 Morbid (severe) obesity due to excess calories; Z79.01 Long term (current) use of anticoagulants; Z79.899 Other long term (current) drug therapy; Z92.25 Personal history of immunosuppression therapy; S81.002A Unspecified open wound, left knee, initial encounter; S31.000A Unspecified open wound of lower back and pelvis without penetration into retroperitoneum, initial encounter | CPT/HCPCS: 99213 ==

== ENCOUNTER → 2019-09-22 14:37 | Outpatient (CLI) | payer OTHER, MEDICAID, SELFPAY | PROVIDERS: PCP Family Medicine; Referring Provider Family Medicine; Visit Provider Family Medicine | DX: Z48.00 Encounter for change or removal of nonsurgical wound dressing (principal); R21 Rash and other nonspecific skin eruption | CPT/HCPCS: 99212; 99213 ==

== ENCOUNTER → 2019-11-08 13:17 | Outpatient (CLI) | payer OTHER, MEDICAID, SELFPAY ==
[2019-11-09 14:41] LABS: COVID19 Sendout Not Detected (Not Detect)
== END ==
PROVIDERS: PCP Family Medicine; Visit Provider Physician Assistant
DX: Z11.59 Encounter for screening for other viral diseases (principal)
CPT/HCPCS: 87635

== ENCOUNTER 2019-11-11 10:07 | Day surgery (SDC) | payer OTHER, MEDICAID, SELFPAY ==
[2019-11-11] VITALS (7 sets, daily range): BP systolic 123–155; BP diastolic 67–94; PULSE 70–95; RESP 10–18; TEMP 36–36.9; O2SAT 98–100; BMI 61.5
--- NOTE | 2019-11-11 | PATH_ITS ---
[facility] Accession Number: [id number] . 01 Material submitted: . PART A: colon - COLON POLYPS X 2 AT 90 CM PART B: colon - COLON POLYP AT 25 CM . 01 Clinical history: . DX COLONOSCOPY . 02 Diagnosis: A. Colon, Polyps x2 at 90 cm, Biopsy: Sessile serrated adenomas. . B. Colon, Polyp at 25 cm, Biopsy: Hyperplastic polyp. MRV 11/13/2019 1306 Local . 02 Electronically signed: . Taylor Patricia MD, Pathologist NPI- [id number] . 01 Gross description: . Part A: COLON POLYPS X 2 AT 90 CM: Received in formalin are 2 fragment(s) of sorenson, soft tissue measuring 0.2 x 0.2 x 0.2 cm to 0.3 x 0.2 x 0.2 cm submitted entirely in 1 cassette(s) Part B: COLON POLYP AT 25 CM: Received in formalin is 1 fragment(s) of sorenson, soft tissue measuring 0.3 x 0.3 x 0.3 cm submitted entirely in 1 cassette(s) /ERNST 11/12/20192053 Local . 02 Pathologist provided ICD-10: D12.6 . 02 CPT . 912505, [id number] Performed at: 01 [facility] [address], [place], [place] [id number] MD Inocencio Dowd MD Phone: [phone] Performed at: 02 [facility] [address] [place], [place] [id number] MD Taylor Patricia MD Phone: [phone]
--- NOTE | 2019-11-11 12:43 | PM.PREOP ---
Pre-operative Note COVID-19 COVID-19 status: Negative Result date/Date tested (Pos, Neg/Pending): 11/08/19 Interval Note History & Physical reviewed/Exam performed by Physician: Yes Changes to H&P: No
--- NOTE | 2019-11-11 13:41 | P.OP.ENDO_ITS ---
Operative Date/Time/Diagnoses Date of procedure: 11/11/19 Time of procedure: 13:50 Pre-op diagnosis: anemia, history of colon polyps Post-op diagnosis: other (few small colon polyps, extensive diverticulosis) Procedure & Clinicians Study performed: colonoscopy cold forceps biopsy of multiple colon polyps Same procedure as scheduled: Yes Indications: personal history of colon polyps Surgeon: Josee Pérez Procedure Notes SCOAP/Timeout: Performed Procedure in detail: The patient was brought to the room and placed in left lateral decubitus position with all bony prominences padded. A time-out was performed and then the patient was given MAC anesthesia by Dr. Mcnair. Once adequately sedated, the procedure was begun. A rectal exam was performed revealing no abnormalities. The colonoscope was then introduced to the rectum and advanced through the rectum to the sigmoid colon. The patient had extensive diverticulosis, and at the rectosigmoid junction it was quite difficult to insufflate her colon both due to a field of diverticula creating false passages, and due to her body habitus. With prolonged insufflation I was not able to insufflate the colon adequately to identify the lumen. After multiple positio lynda changes, using the stiffener, and counter pressure on the abdomen, I finally switched to a pediatric scope. I tried once again with counter pressure, the stiffener, and it ongoing insufflation pressure, and was finally able to safely traverse this area. Beyond that I was able to get through the rest of the colon and into the distal ileum. The cecum was identified by the appendiceal orifice, the mucosal tri-fold, and the ileocecal valve. The scope was then retracted while rotating side to side and examining each mucosal fold. 2 polyps were removed at 90 cm. They were sent for pathology. An additional polyp was removed at 25 cm. At the conclusion of the procedure retroflexion was performed and moderate grade 2-3 internal hemorrhoids without stigmata of bleeding were seen. The scope was then withdrawn from the rectum the procedure was concluded. The patient tolerated the procedure well and was transferred to the PACU in stable condition. Scope withdrawal time: 15 Findings: diverticulosis (Extensive, involving the sigmoid and descending colon) Specimen(s): other (Polyps from 90 cm, and 25 cm) Complications: none Impression: Very difficult colonoscopy due to severe morbid obesity, and extensive diverticulosis. Polyps appeared small and likely precancerous. Ideally repeat colonoscopy would be done in 5 years, but this is a very difficult procedure and must be done with anesthesiologist. Post-procedure Recommendations: Colonscopy in 5 years (If patient healthy enough to undergo the procedure at that time) Plan for aftercare: We recommend using a fiber supplement due to extensive diverticulosis. Follow up: as needed Disposition: PACU
== END 2019-11-11 14:43 | disposition home or self-care (01) ==
PROVIDERS: PCP Family Medicine; Referring Provider Surgery; Visit Provider Surgery
PROC: 0DJD8ZZ Inspection of Lower Intestinal Tract, Via Natural or Artificial Opening Endoscopic (ICD-10-PCS; CPT 45378; principal; 2019-11-11 12:15)
DX: Z12.11 Encounter for screening for malignant neoplasm of colon (principal); Z86.010 Personal history of colon polyps; J44.9 Chronic obstructive pulmonary disease, unspecified; Z79.01 Long term (current) use of anticoagulants; E66.01 Morbid (severe) obesity due to excess calories; Z68.43 Body mass index [BMI] 50.0-59.9, adult; Z86.711 Personal history of pulmonary embolism; Z85.528 Personal history of other malignant neoplasm of kidney; G47.33 Obstructive sleep apnea (adult) (pediatric); D64.9 Anemia, unspecified; K57.30 Diverticulosis of large intestine without perforation or abscess without bleeding; K64.1 Second degree hemorrhoids; D12.6 Benign neoplasm of colon, unspecified
CPT/HCPCS: 45380; J2250; J2704; J3010

== ENCOUNTER 2019-11-17 14:30 | Outpatient (RCR) | payer OTHER, MEDICAID, SELFPAY ==
--- NOTE | 2019-11-10 11:13 | PT.OIE ---
Current Diagnoses Lymphedema, not elsewhere classified (11/10/19) Difficulty in walking, not elsewhere classified (11/10/19) Weakness (11/10/19) Past Medical History (Last Reviewed 10/29/19 @ 16:54 by Josee Pérez MD) Asthma (Chronic) Depression (Chronic) Hypertension (Chronic) Neuropathy (Chronic) Panic attacks (Chronic) Psoriasis (Chronic) Rheumatoid arthritis (Chronic) Sleep apnea (Chronic) Past Surgical History (Last Reviewed 10/29/19 @ 16:54 by Josee Pérez MD) H/O hernia repair (Resolved) H/O hysterectomy with oophorectomy (Resolved) History of tonsillectomy and adenoidectomy (Resolved) Visit Care Team Role Provider Type Danny Mccullough MD Attending Provider Non-Staff Primary Care Provider Referring Provider Specialty: Family Practice Address: [address] [place] [address], [id number] Email: Physical Therapy Initial Evaluation PT-OP-A Visit Information Start: 11/09/19 16:22 Freq: Status: Active Protocol: Document 11/10/19 14:34 SAK (Rec: 11/10/19 14:[address] [facility] [id number]) Out-Patient Physical Therapy Visit Information Visit Information Visit Type Initial Evaluation Visit Start Time 14:35 Visit Stop Time 15:50 Total Visit Minutes 75 Visit Number 1 Number of LANDSCAPE ENGINEER Visits 0 Evaluation Information Evaluation Date 11/10/19 Precautions Precautions PMH: renal cancer, arthritis, HTN, depression, blood clot lungs, PT-OP-B Current Condition Start: 11/09/19 16:22 Freq: Status: Active Protocol: Document 11/10/19 14:34 SAK (Rec: 11/10/19 14:[address] [facility] [id number]) Current Condition History of Current Condition Onset Date 3 yr Current Complaints 3 yr history jhonny LE swellling History of Current Condition 3 year history of swelling bilateral LE's, no known cause . Was treated with complete decongestive therapy and aquatic therapy at [facility]. States the wraps wore out, was issued some compression stockings and they didn't fit so she hasn't worn any compression stockings. Hasn't been able to get into a pool since Covid19 started. Had wound on each LE behind knee, rquiring wound care, left LE most recently. Noted increase in her LE swelling in June 2019 [place] in [facility], hasn't been able to get it to decrease, can't wear her shoes . Activity level very low due to severe arthritis in knees, sister is caregiver. Patient reports her sister has previously done the lymphedema wrapping for her and would be able to do again to help with home management. Patient able to do bathing and dressing otherwise requires help with everything. Has Brianda power wheelchair, w/c, walker. Prior Treatments and Tests Nephrectomy 2018 due to renal cancer, on jail medication. Treatment Goals Patient/Caregiver Goals Decrease her swelling to allow increase in mobility. PT-OP-C Subjective Start: 11/09/19 16:22 Freq: Status: Active Protocol: Document 11/10/19 14:[address] [facility] (Rec: 11/12/19 11:[address] [facility] [id number]) Patient Questionnaires Lymphedema Life Impact Score Lymphedema Score 68% OP-PT Pain Assessment Location bilateral LE Pain Location Details knees to toes Intensity 9 PT-OP-G Mobility & Gait Start: 11/09/19 16:22 Freq: Status: Active Protocol: Document 11/10/19 14:[address] [facility] (Rec: 11/12/19 11:[address] [facility] [id number]) OP Mobility Evaluation Bed Mobility Rolling SBA Supine to and from Sit min assist Transfers Sit to Stand SBA Bed to Chair Transfers SBA OP Gait Assessment Gait Gait Assistance Required: Standby Assistance Assistive Devices Assistive Device Front Wheeled Walker Gait Deviations General Gait Pattern Antalgic,Decreased Stride Length,Decreased Feet Clearance Factors Limiting Gait Function Factors Limiting Gait Function Decreased Strength PT-OP-M Strength Start: 11/09/19 16:22 Freq: Status: Active Protocol: Document 11/10/19 14:[address] [facility] (Rec: 11/12/19 11:[address] [facility] [id number]) Hip Strength Hip Manual Muscle Testing jhonny Flexion (L2) 3- Fair- Extension (S1) 2+ Poor+ Abduction 3- Fair- External Rotation 3- Fair- Internal Rotation 3- Fair- Knee Strength Knee Manual Muscle Testing jhonny Flexion (S2) 3 Fair Extension (L3) 3 Fair Comments refuses resistance due to pain Ankle/Foot Strength Ankle and Foot Manual Muscle Testing jhonny Dorsiflexion (L4) 4- Good- Plantarflexion (S1) 4- Good- PT-OP-N Lymphedema Start: 11/09/19 16:22 Freq: Status: Active Protocol: Document 11/10/19 14:[address] [facility] (Rec: 11/12/19 11:[address] [facility] [id number]) Lymphedema Measurements Lower Extremity Circumference Measurements Left Affected MT Heads 24.3 cm Medial Malleolus 30.3 cm 10 cm From Medial Malleolus 36.5 cm 20 cm From Medial Malleolus 49.7 cm 30 cm From Medial Malleolus 52 cm 40 cm From Medial Malleolus 68 cm 50 cm From Medial Malleolus 77 cm 60 cm From Medial Malleolus 85.5 cm Right Affected MT Heads 25.2 cm Medial Malleolus 30.8 cm 10 cm From Medial Malleolus 36 cm 20 cm From Medial Malleolus 51.2 cm 30 cm From Medial Malleolus 57.2 cm 40 cm From Medial Malleolus 70.1 cm 50 cm From Medial Malleolus 81.2 cm 60 cm From Medial Malleolus 85 cm PT-OP-Q Treatments Start: 11/09/19 16:22 Freq: Status: Active Protocol: Document 11/10/19 14:[address] [facility] (Rec: 11/12/19 11:[address] [facility] [id number]) Lymphedema Treatment Lymphedema Wrapping Materials Provided patient with Tricofix size G, Artiflex, and Comprilan for bilateral LE wrapping at home; refused wrapping today due to having to drive and not feeling she can when she is wearing the wraps. States her sister will wrap her. Advised patient that PT department provides first set of wraps, and she will need to obtain second set . Sequential Lymphedema Exercises Comments Patient reports exercises hurt too much at this time Patient Education Compression Garments given information about [employer] [facility] [place] for compression garment fittin PT-OP-T Assessment and Plan Start: 11/09/19 16:22 Freq: Status: Active Protocol: Document 11/10/19 14:[address] [facility] (Rec: 11/12/19 11:[address] [facility] [id number]) Physical Therapy Assessment Rehab Potential Rehabilitation Potential Good Evaluation Complexity Number of Personal Factors/Comorbidities 1-2 Number of Body Systems Impaired 3 Clinical Presentation at Evaluation Evolving Impairments Impairments Activity Tolerance,Edema, Functional Mobility,Strength Goals Two Impairment patient limited to use of wheelchair for mobility within her home Assisted Goal (LTG) Patient will be able to ambulate short household distances with appropriate assistive device with SBA LTG Duration 02/10/20 One Impairment lymphedema bilateral LE's Wrapping Machine Tender Goal (LTG) Decrease lymphedema bilateral LE's to stable level (no increase or decrease more than 1 cm over the course of 1 week), patient to be fit with appropriate compression garments and be able to self- manage her lymphedema at home with the assistanc of caregiver. LTG Duration 02/10/20 Assessment Summary Assessment Patient presents to PT with exacerbation of her lymphedema bilateral LE's and history of poor self-management of her lymphedema. She would benefit from physical therapy to decrease her lymphedema, help her to be able to self-manage, and improve her functional mobility for overall health and facilitation of lymphatic flow to prevent complications. Physical Therapy Plan Frequency and Duration Frequency of Treatment 20 visits Duration of Treatment 12 weeks Plan of Care Start Date 11/12/19 Plan of Care End Date 02/10/20 Therapeutic Interventions Therapeutic Interventions Aquatic Therapy,Home Exercise Program,Lymphedema Management, Manual Therapy,Patient/ Caregiver Education,Self-Care/ Home Management,Therapeutic Exercises Next Visit Focus/Plan Next Note Type Treatment Note Next Visit Plan MLD, sequential lymphedema exercises as tolerated, lymphedema wrapping. Further discussion of compression stocking options.
--- NOTE | 2019-11-10 11:14 | PT.OPPOC ---
Physical, Occupational & Speech Therapy At [facility] Current Diagnoses Lymphedema, not elsewhere classified (11/10/19) Difficulty in walking, not elsewhere classified (11/10/19) Weakness (11/10/19) Visit Care Team Role Provider Type Danny Mccullough MD Attending Provider Non-Staff Primary Care Provider Referring Provider Specialty: Family Practice Address: [address] [place] [address], [facility] Email: Plan Of Care PT-OP-T Assessment and Plan Start: 11/09/19 16:22 Freq: Status: Active Protocol: Document 11/10/19 14:34 VITALIY (Rec: 11/12/19 11:03 VITALIY [id number]) Physical Therapy Assessment Rehab Potential Rehabilitation Potential Good Evaluation Complexity Number of Personal Factors/Comorbidities 1-2 Number of Body Systems Impaired 3 Clinical Presentation at Evaluation Evolving Impairments Impairments Activity Tolerance,Edema, Functional Mobility,Strength Goals Two Impairment patient limited to use of wheelchair for mobility within her home Project Coach Goal (LTG) Patient will be able to ambulate short household distances with appropriate assistive device with SBA LTG Duration 02/10/20 One Impairment lymphedema bilateral LE's Project Coach Goal (LTG) Decrease lymphedema bilateral LE's to stable level (no increase or decrease more than 1 cm over the course of 1 week), patient to be fit with appropriate compression garments and be able to self- manage her lymphedema at home with the assistanc of caregiver. LTG Duration 02/10/20 Assessment Summary Assessment Patient presents to PT with exacerbation of her lymphedema bilateral LE's and history of poor self-management of her lymphedema. She would benefit from physical therapy to decrease her lymphedema, help her to be able to self-manage, and improve her functional mobility for overall health and facilitation of lymphatic flow to prevent complications. Physical Therapy Plan Frequency and Duration Frequency of Treatment 20 visits Duration of Treatment 12 weeks Plan of Care Start Date 11/12/19 Plan of Care End Date 02/10/20 Therapeutic Interventions Therapeutic Interventions Aquatic Therapy,Home Exercise Program,Lymphedema Management, Manual Therapy,Patient/ Caregiver Education,Self-Care/ Home Management,Therapeutic Exercises Next Visit Focus/Plan Next Note Type Treatment Note Next Visit Plan MLD, sequential lymphedema exercises as tolerated, lymphedema wrapping. Further discussion of compression stocking options. Plan of Care Dates Plan of Care Start Date 11/12/19 Plan of Care End Date 02/10/20 Electronically Signed by: Aga Irvin, BREANA 11/12/19 2354 Please Sign and Return: I have reviewed this Plan of Care and certify that the skilled therapy services above are required to meet the patient?s needs. Physician Signature Date Printed Name and Credentials Clinical Instructor Signature Printed Name and Credentials
--- NOTE | 2019-11-12 11:04 | PT.OIE ---
Current Diagnoses Lymphedema, not elsewhere classified (11/10/19) Difficulty in walking, not elsewhere classified (11/10/19) Weakness (11/10/19) Past Medical History (Last Reviewed 10/29/19 @ 16:54 by Josee Pérez MD) Asthma (Chronic) Depression (Chronic) Hypertension (Chronic) Neuropathy (Chronic) Panic attacks (Chronic) Psoriasis (Chronic) Rheumatoid arthritis (Chronic) Sleep apnea (Chronic) Past Surgical History (Last Reviewed 10/29/19 @ 16:54 by Josee Pérez MD) H/O hernia repair (Resolved) H/O hysterectomy with oophorectomy (Resolved) History of tonsillectomy and adenoidectomy (Resolved) Visit Care Team Role Provider Type Danny Mccullough MD Attending Provider Non-Staff Primary Care Provider Referring Provider Specialty: Family Practice Address: [address] [place] [address], [id number] Email: Physical Therapy Initial Evaluation PT-OP-A Visit Information Start: 11/09/19 16:22 Freq: Status: Active Protocol: Document 11/10/19 14:34 SAK (Rec: 11/10/19 14:57 [facility] [id number]) Out-Patient Physical Therapy Visit Information Visit Information Visit Type Initial Evaluation Visit Start Time 14:35 Visit Stop Time 15:50 Total Visit Minutes 75 Visit Number 1 Number of FURNACE MAINTENANCE Visits 0 Evaluation Information Evaluation Date 11/10/19 Precautions Precautions PMH: renal cancer, arthritis, HTN, depression, blood clot lungs, PT-OP-B Current Condition Start: 11/09/19 16:22 Freq: Status: Active Protocol: Document 11/10/19 14:34 SAK (Rec: 11/10/19 14:57 [facility] [id number]) Current Condition History of Current Condition Onset Date 3 yr Current Complaints 3 yr history jhonny LE swellling History of Current Condition 3 year history of swelling bilateral LE's, no known cause . Was treated with complete decongestive therapy and aquatic therapy at [facility]. States the wraps wore out, was issued some compression stockings and they didn't fit so she hasn't worn any compression stockings. Hasn't been able to get into a pool since Covid19 started. Had wound on each LE behind knee, rquiring wound care, left LE most recently. Noted increase in her LE swelling in June 2019 [place] in [facility], hasn't been able to get it to decrease, can't wear her shoes . Activity level very low due to severe arthritis in knees, sister is caregiver. Patient reports her sister has previously done the lymphedema wrapping for her and would be able to do again to help with home management. Patient able to do bathing and dressing otherwise requires help with everything. Has Brianda power wheelchair, w/c, walker. Prior Treatments and Tests Nephrectomy 2018 due to renal cancer, on fci medication. Treatment Goals Patient/Caregiver Goals Decrease her swelling to allow increase in mobility. PT-OP-C Subjective Start: 11/09/19 16:22 Freq: Status: Active Protocol: Document 11/10/19 14:34 [facility] (Rec: 11/12/19 11:03 [facility] [id number]) Patient Questionnaires Lymphedema Life Impact Score Lymphedema Score 68% OP-PT Pain Assessment Location bilateral LE Pain Location Details knees to toes Intensity 9 PT-OP-G Mobility & Gait Start: 11/09/19 16:22 Freq: Status: Active Protocol: Document 11/10/19 14:34 [facility] (Rec: 11/12/19 11:03 [facility] [id number]) OP Mobility Evaluation Bed Mobility Rolling SBA Supine to and from Sit min assist Transfers Sit to Stand SBA Bed to Chair Transfers SBA OP Gait Assessment Gait Gait Assistance Required: Standby Assistance Assistive Devices Assistive Device Front Wheeled Walker Gait Deviations General Gait Pattern Antalgic,Decreased Stride Length,Decreased Feet Clearance Factors Limiting Gait Function Factors Limiting Gait Function Decreased Strength PT-OP-M Strength Start: 11/09/19 16:22 Freq: Status: Active Protocol: Document 11/10/19 14:34 [facility] (Rec: 11/12/19 11:03 [facility] [id number]) Hip Strength Hip Manual Muscle Testing jhonny Flexion (L2) 3- Fair- Extension (S1) 2+ Poor+ Abduction 3- Fair- External Rotation 3- Fair- Internal Rotation 3- Fair- Knee Strength Knee Manual Muscle Testing jhonny Flexion (S2) 3 Fair Extension (L3) 3 Fair Comments refuses resistance due to pain Ankle/Foot Strength Ankle and Foot Manual Muscle Testing jhonny Dorsiflexion (L4) 4- Good- Plantarflexion (S1) 4- Good- PT-OP-N Lymphedema Start: 11/09/19 16:22 Freq: Status: Active Protocol: Document 11/10/19 14:34 [facility] (Rec: 11/12/19 11:03 [facility] [id number]) Lymphedema Measurements Lower Extremity Circumference Measurements Left Affected MT Heads 24.3 cm Medial Malleolus 30.3 cm 10 cm From Medial Malleolus 36.5 cm 20 cm From Medial Malleolus 49.7 cm 30 cm From Medial Malleolus 52 cm 40 cm From Medial Malleolus 68 cm 50 cm From Medial Malleolus 77 cm 60 cm From Medial Malleolus 85.5 cm Right Affected MT Heads 25.2 cm Medial Malleolus 30.8 cm 10 cm From Medial Malleolus 36 cm 20 cm From Medial Malleolus 51.2 cm 30 cm From Medial Malleolus 57.2 cm 40 cm From Medial Malleolus 70.1 cm 50 cm From Medial Malleolus 81.2 cm 60 cm From Medial Malleolus 85 cm PT-OP-Q Treatments Start: 11/09/19 16:22 Freq: Status: Active Protocol: Document 11/10/19 14:34 [facility] (Rec: 11/12/19 11:03 [facility] [id number]) Lymphedema Treatment Lymphedema Wrapping Materials Provided patient with Tricofix size G, Artiflex, and Comprilan for bilateral LE wrapping at home; refused wrapping today due to having to drive and not feeling she can when she is wearing the wraps. States her sister will wrap her. Advised patient that PT department provides first set of wraps, and she will need to obtain second set . Sequential Lymphedema Exercises Comments Patient reports exercises hurt too much at this time Patient Education Compression Garments given information about [employer] for compression garment fittin PT-OP-T Assessment and Plan Start: 11/09/19 16:22 Freq: Status: Active Protocol: Document 11/10/19 14:34 [facility] (Rec: 11/12/19 11:03 [facility] [id number]) Physical Therapy Assessment Rehab Potential Rehabilitation Potential Good Evaluation Complexity Number of Personal Factors/Comorbidities 1-2 Number of Body Systems Impaired 3 Clinical Presentation at Evaluation Evolving Impairments Impairments Activity Tolerance,Edema, Functional Mobility,Strength Goals Two Impairment patient limited to use of wheelchair for mobility within her home Custodial Goal (LTG) Patient will be able to ambulate short household distances with appropriate assistive device with SBA LTG Duration 02/10/20 One Impairment lymphedema bilateral LE's Maintenance Planner Goal (LTG) Decrease lymphedema bilateral LE's to stable level (no increase or decrease more than 1 cm over the course of 1 week), patient to be fit with appropriate compression garments and be able to self- manage her lymphedema at home with the assistanc of caregiver. LTG Duration 02/10/20 Assessment Summary Assessment Patient presents to PT with exacerbation of her lymphedema bilateral LE's and history of poor self-management of her lymphedema. She would benefit from physical therapy to decrease her lymphedema, help her to be able to self-manage, and improve her functional mobility for overall health and facilitation of lymphatic flow to prevent complications. Physical Therapy Plan Frequency and Duration Frequency of Treatment 20 visits Duration of Treatment 12 weeks Plan of Care Start Date 11/12/19 Plan of Care End Date 02/10/20 Therapeutic Interventions Therapeutic Interventions Aquatic Therapy,Home Exercise Program,Lymphedema Management, Manual Therapy,Patient/ Caregiver Education,Self-Care/ Home Management,Therapeutic Exercises Next Visit Focus/Plan Next Note Type Treatment Note Next Visit Plan MLD, sequential lymphedema exercises as tolerated, lymphedema wrapping. Further discussion of compression stocking options.
--- NOTE | 2019-11-12 11:04 | PT.OPPOC ---
Physical, Occupational & Speech Therapy At [facility] Current Diagnoses Lymphedema, not elsewhere classified (11/10/19) Difficulty in walking, not elsewhere classified (11/10/19) Weakness (11/10/19) Visit Care Team Role Provider Type Danny Mccullough MD Attending Provider Non-Staff Primary Care Provider Referring Provider Specialty: Family Practice Address: [address] [place] [address], [facility] Email: Plan Of Care PT-OP-T Assessment and Plan Start: 11/09/19 16:22 Freq: Status: Active Protocol: Document 11/10/19 14:34 VITALIY (Rec: 11/12/19 11:03 VITALIY [id number]) Physical Therapy Assessment Rehab Potential Rehabilitation Potential Good Evaluation Complexity Number of Personal Factors/Comorbidities 1-2 Number of Body Systems Impaired 3 Clinical Presentation at Evaluation Evolving Impairments Impairments Activity Tolerance,Edema, Functional Mobility,Strength Goals Two Impairment patient limited to use of wheelchair for mobility within her home Automation Mechanic Goal (LTG) Patient will be able to ambulate short household distances with appropriate assistive device with SBA LTG Duration 02/10/20 One Impairment lymphedema bilateral LE's Automation Mechanic Goal (LTG) Decrease lymphedema bilateral LE's to stable level (no increase or decrease more than 1 cm over the course of 1 week), patient to be fit with appropriate compression garments and be able to self- manage her lymphedema at home with the assistanc of caregiver. LTG Duration 02/10/20 Assessment Summary Assessment Patient presents to PT with exacerbation of her lymphedema bilateral LE's and history of poor self-management of her lymphedema. She would benefit from physical therapy to decrease her lymphedema, help her to be able to self-manage, and improve her functional mobility for overall health and facilitation of lymphatic flow to prevent complications. Physical Therapy Plan Frequency and Duration Frequency of Treatment 20 visits Duration of Treatment 12 weeks Plan of Care Start Date 11/12/19 Plan of Care End Date 02/10/20 Therapeutic Interventions Therapeutic Interventions Aquatic Therapy,Home Exercise Program,Lymphedema Management, Manual Therapy,Patient/ Caregiver Education,Self-Care/ Home Management,Therapeutic Exercises Next Visit Focus/Plan Next Note Type Treatment Note Next Visit Plan MLD, sequential lymphedema exercises as tolerated, lymphedema wrapping. Further discussion of compression stocking options. Plan of Care Dates Plan of Care Start Date 11/12/19 Plan of Care End Date 02/10/20 Electronically Signed by: Aga Irvin, BREANA 11/12/19 4235 Please Sign and Return: I have reviewed this Plan of Care and certify that the skilled therapy services above are required to meet the patient?s needs. Physician Signature Date Printed Name and Credentials Clinical Instructor Signature Printed Name and Credentials
--- NOTE | 2019-11-17 16:04 | PT.OTN ---
Current Diagnoses Lymphedema, not elsewhere classified (11/17/19) Difficulty in walking, not elsewhere classified (11/17/19) Weakness (11/17/19) Physical Therapy Treatment Note PT-OP-A Visit Information Start: 11/09/19 16:22 Freq: Status: Active Protocol: Document 11/17/19 14:41 SAK (Rec: 11/17/19 16:03 SAK [id number]) Out-Patient Physical Therapy Visit Information Visit Information Visit Type Treatment Note Visit Start Time 14:34 Visit Stop Time 15:49 Total Visit Minutes 74 Visit Number 2 Evaluation Information Evaluation Date 11/10/19 Precautions Precautions PMH: renal cancer, arthritis, HTN, depression, blood clot lungs, PT-OP-B Current Condition Start: 11/09/19 16:22 Freq: Status: Active Protocol: Document 11/17/19 14:41 SAK (Rec: 11/17/19 16:03 SAK [id number]) Current Condition Treatment Goals Patient/Caregiver Goals Decrease her swelling to allow increase in mobility. PT-OP-C Subjective Start: 11/09/19 16:22 Freq: Status: Active Protocol: Document 11/17/19 14:41 SAK (Rec: 11/17/19 14:43 [facility]AK [id number]) OP-PT Subjective Patient Comments Patient Comments Sister has been wrapping her, can't come as often for PT has has been recommended, sister will wrap her at home. Making appointment with wound care due to sores opening back up behind her knees, doesn't want to be wrapped over knees over above due to discomfort. PT-OP-G Mobility & Gait Start: 11/09/19 16:22 Freq: Status: Active Protocol: Document 11/10/19 14:34 SAK (Rec: 11/12/19 11:03 SAK [id number]) OP Mobility Evaluation Bed Mobility Rolling SBA Supine to and from Sit min assist Transfers Sit to Stand SBA Bed to Chair Transfers SBA OP Gait Assessment Gait Gait Assistance Required: Standby Assistance Assistive Devices Assistive Device Front Wheeled Walker Gait Deviations General Gait Pattern Antalgic,Decreased Stride Length,Decreased Feet Clearance Factors Limiting Gait Function Factors Limiting Gait Function Decreased Strength PT-OP-M Strength Start: 11/09/19 16:22 Freq: Status: Active Protocol: Document 11/10/19 14:34 SAK (Rec: 11/12/19 11:03 [facility] [id number]) Hip Strength Hip Manual Muscle Testing jhonny Flexion (L2) 3- Fair- Extension (S1) 2+ Poor+ Abduction 3- Fair- External Rotation 3- Fair- Internal Rotation 3- Fair- Knee Strength Knee Manual Muscle Testing jhonny Flexion (S2) 3 Fair Extension (L3) 3 Fair Comments refuses resistance due to pain Ankle/Foot Strength Ankle and Foot Manual Muscle Testing jhonny Dorsiflexion (L4) 4- Good- Plantarflexion (S1) 4- Good- PT-OP-N Lymphedema Start: 11/09/19 16:22 Freq: Status: Active Protocol: Document 11/17/19 14:41 [facility] (Rec: 11/17/19 16:03 [facility] [id number]) Lymphedema Measurements Lower Extremity Circumference Measurements Left Affected MT Heads 24.8 cm Medial Malleolus 31.5 cm 10 cm From Medial Malleolus 37.3 cm 20 cm From Medial Malleolus 49.4 cm 30 cm From Medial Malleolus 52.3 cm 40 cm From Medial Malleolus 69.7 cm 50 cm From Medial Malleolus 79.9 cm 60 cm From Medial Malleolus 85.9 cm Right Affected MT Heads 25.3 cm Medial Malleolus 31.2 cm 10 cm From Medial Malleolus 37.3 cm 20 cm From Medial Malleolus 52.9 cm 30 cm From Medial Malleolus 54.9 cm 40 cm From Medial Malleolus 71 cm 50 cm From Medial Malleolus 83.5 cm 60 cm From Medial Malleolus 86.5 cm PT-OP-Q Treatments Start: 11/09/19 16:22 Freq: Status: Active Protocol: Document 11/17/19 14:41 [facility] (Rec: 11/17/19 16:03 [facility] [id number]) Lymphedema Treatment Manual Lymphatic Drainage Location bilateral LE's Lymphedema Wrapping Other refused wrapping, reports her sister will wrap her at home. Trial kinesiotape left medial thigh; 2 fan strips with base at femoral triangle Sequential Lymphedema Exercises Location bilateral LE's Duration 10 reps ea Comments deep breathing, glut sets, quad sets, heel slides, ankle pumps and circles Patient Education Self Manual Lymphatic Drainage sister given written information for review; has done previously PT-OP-T Assessment and Plan Start: 11/09/19 16:22 Freq: Status: Active Protocol: Document 11/17/19 14:41 [facility] (Rec: 11/17/19 16:03 [facility] [id number]) Physical Therapy Assessment Goals Two Impairment patient limited to use of wheelchair for mobility within her home Usp Goal (LTG) Patient will be able to ambulate short household distances with appropriate assistive device with SBA LTG Duration 02/10/20 One Impairment lymphedema bilateral LE's Usp Goal (LTG) Decrease lymphedema bilateral LE's to stable level (no increase or decrease more than 1 cm over the course of 1 week), patient to be fit with appropriate compression garments and be able to self- manage her lymphedema at home with the assistanc of caregiver. LTG Duration 02/10/20 Assessment Summary Assessment Patient states her sister has been wrapping her, prefers to do that at home. Circumferential measurements mostly increased today except decrease noted bilateral proximal calves. Patient didn 't arrive wrapped. Agreed to keep appointment on 11/22 due to increase in measurements today, assure progress with self-management, otherwise will recommend more frequent appointments. Physical Therapy Plan Frequency and Duration Frequency of Treatment 20 visits Duration of Treatment 12 weeks Plan of Care Start Date 11/12/19 Plan of Care End Date 02/10/20 Therapeutic Interventions Therapeutic Interventions Aquatic Therapy,Home Exercise Program,Lymphedema Management, Manual Therapy,Patient/ Caregiver Education,Self-Care/ Home Management,Therapeutic Exercises Next Visit Focus/Plan Next Note Type Treatment Note Next Visit Plan circumferential measurements, MLD, possible more extensive kinesiotape if tolerated well. Determine POC moving forward .
--- NOTE | 2019-11-23 10:01 | PT-OP ANOTE ---
cancelled due to ill
--- NOTE | 2019-12-28 13:37 | PT.OTN ---
Current Diagnoses Lymphedema, not elsewhere classified (11/17/19) Difficulty in walking, not elsewhere classified (11/17/19) Weakness (11/17/19) Physical Therapy Treatment Note PT-OP-A Visit Information Start: 11/09/19 16:22 Freq: Status: Active Protocol: Document 12/28/19 13:36 SAK (Rec: 12/28/19 13:37 SAK [id number]) Out-Patient Physical Therapy Visit Information Visit Information Visit Type Other Visit Note DNS PT-OP-B Current Condition Start: 11/09/19 16:22 Freq: Status: Active Protocol: Document 11/17/19 14:41 SAK (Rec: 11/17/19 16:03 SAK [id number]) Current Condition Treatment Goals Patient/Caregiver Goals Decrease her swelling to allow increase in mobility. PT-OP-C Subjective Start: 11/09/19 16:22 Freq: Status: Active Protocol: Document 11/17/19 14:41 SAK (Rec: 11/17/19 14:43 SAK [id number]) OP-PT Subjective Patient Comments Patient Comments Sister has been wrapping her, can't come as often for PT has has been recommended, sister will wrap her at home. Making appointment with wound care due to sores opening back up behind her knees, doesn't want to be wrapped over knees over above due to discomfort. PT-OP-G Mobility & Gait Start: 11/09/19 16:22 Freq: Status: Active Protocol: Document 11/10/19 14:34 SAK (Rec: 11/12/19 11:03 SAK [id number]) OP Mobility Evaluation Bed Mobility Rolling SBA Supine to and from Sit min assist Transfers Sit to Stand SBA Bed to Chair Transfers SBA OP Gait Assessment Gait Gait Assistance Required: Standby Assistance Assistive Devices Assistive Device Front Wheeled Walker Gait Deviations General Gait Pattern Antalgic,Decreased Stride Length,Decreased Feet Clearance Factors Limiting Gait Function Factors Limiting Gait Function Decreased Strength PT-OP-M Strength Start: 11/09/19 16:22 Freq: Status: Active Protocol: Document 11/10/19 14:34 SAK (Rec: 11/12/19 11:03 SAK [id number]) Hip Strength Hip Manual Muscle Testing jhonny Flexion (L2) 3- Fair- Extension (S1) 2+ Poor+ Abduction 3- Fair- External Rotation 3- Fair- Internal Rotation 3- Fair- Knee Strength Knee Manual Muscle Testing jhonny Flexion (S2) 3 Fair Extension (L3) 3 Fair Comments refuses resistance due to pain Ankle/Foot Strength Ankle and Foot Manual Muscle Testing jhonny Dorsiflexion (L4) 4- Good- Plantarflexion (S1) 4- Good- PT-OP-N Lymphedema Start: 11/09/19 16:22 Freq: Status: Active Protocol: Document 11/17/19 14:41 [facility] (Rec: 11/17/19 16:03 [facility] [id number]) Lymphedema Measurements Lower Extremity Circumference Measurements Left Affected MT Heads 24.8 cm Medial Malleolus 31.5 cm 10 cm From Medial Malleolus 37.3 cm 20 cm From Medial Malleolus 49.4 cm 30 cm From Medial Malleolus 52.3 cm 40 cm From Medial Malleolus 69.7 cm 50 cm From Medial Malleolus 79.9 cm 60 cm From Medial Malleolus 85.9 cm Right Affected MT Heads 25.3 cm Medial Malleolus 31.2 cm 10 cm From Medial Malleolus 37.3 cm 20 cm From Medial Malleolus 52.9 cm 30 cm From Medial Malleolus 54.9 cm 40 cm From Medial Malleolus 71 cm 50 cm From Medial Malleolus 83.5 cm 60 cm From Medial Malleolus 86.5 cm PT-OP-Q Treatments Start: 11/09/19 16:22 Freq: Status: Active Protocol: Document 11/17/19 14:41 [facility] (Rec: 11/17/19 16:03 [facility] [id number]) Lymphedema Treatment Manual Lymphatic Drainage Location bilateral LE's Lymphedema Wrapping Other refused wrapping, reports her sister will wrap her at home. Trial kinesiotape left medial thigh; 2 fan strips with base at femoral triangle Sequential Lymphedema Exercises Location bilateral LE's Duration 10 reps ea Comments deep breathing, glut sets, quad sets, heel slides, ankle pumps and circles Patient Education Self Manual Lymphatic Drainage sister given written information for review; has done previously PT-OP-T Assessment and Plan Start: 11/09/19 16:22 Freq: Status: Active Protocol: Document 11/17/19 14:41 [facility] (Rec: 11/17/19 16:03 [facility] [id number]) Physical Therapy Assessment Goals Two Impairment patient limited to use of wheelchair for mobility within her home Halfway Goal (LTG) Patient will be able to ambulate short household distances with appropriate assistive device with SBA LTG Duration 02/10/20 One Impairment lymphedema bilateral LE's Terrazzo Helper Goal (LTG) Decrease lymphedema bilateral LE's to stable level (no increase or decrease more than 1 cm over the course of 1 week), patient to be fit with appropriate compression garments and be able to self- manage her lymphedema at home with the assistanc of caregiver. LTG Duration 02/10/20 Assessment Summary Assessment Patient states her sister has been wrapping her, prefers to do that at home. Circumferential measurements mostly increased today except decrease noted bilateral proximal calves. Patient didn 't arrive wrapped. Agreed to keep appointment on 11/22 due to increase in measurements today, assure progress with self-management, otherwise will recommend more frequent appointments. Physical Therapy Plan Frequency and Duration Frequency of Treatment 20 visits Duration of Treatment 12 weeks Plan of Care Start Date 11/12/19 Plan of Care End Date 02/10/20 Therapeutic Interventions Therapeutic Interventions Aquatic Therapy,Home Exercise Program,Lymphedema Management, Manual Therapy,Patient/ Caregiver Education,Self-Care/ Home Management,Therapeutic Exercises Next Visit Focus/Plan Next Note Type Treatment Note Next Visit Plan circumferential measurements, MLD, possible more extensive kinesiotape if tolerated well. Determine POC moving forward .
--- NOTE | 2020-02-08 14:00 | PT-OP ANOTE ---
cancelled due to being in ER last night. No more scheduled visits, patient told front office staff she will call back to reschedule
== END 2020-06-24 09:04 | disposition home or self-care (01) ==
LOC: PHYS 14:30
PROVIDERS: PCP Family Medicine; Referring Provider Family Medicine; Visit Provider Family Medicine
DX: I89.0 Lymphedema, not elsewhere classified (principal); R53.1 Weakness; R26.2 Difficulty in walking, not elsewhere classified
CPT/HCPCS: 97140; 97162; 97535

== ENCOUNTER 2019-12-14 15:02 | Emergency (ER) | payer OTHER, MEDICAID, SELFPAY ==
[2019-12-14] VITALS (7 sets, daily range): BP systolic 167–200; BP diastolic 80–84; PULSE 78–90; RESP 14; TEMP 37.1; O2SAT 98–100; BMI 63.8
--- NOTE | 2019-12-14 15:20 | ED_ITS ---
HPI - GI Bleed General Chief complaint: GI Bleed Stated complaint: BLOOD IN STOOL Time Seen by Provider: 12/14/19 15:05 Source: patient Mode of arrival: Wheelchair Limitations: no limitations History of Present Illness HPI Narrative: 64-year-old female nonsmoker with extensive medical history including renal cell carcinoma, status post nephrectomy, status post postsurgical PE on anticoagulation presents with family in the chief complaint of a few days of lower abdominal discomfort, cramping, and passage of bloody stool. She seems to have these episodes every time she eats. She is not dizzy nor weak or lightheaded. She denies any fever or chills. She recently had a colonoscopy, about 1 month ago with some questionable appearing polyps and significant presence of diverticulosis. Related Data Home Medications Medication Instructions Recorded Confirmed Flovent HFA 1 puff INHALATION Q12H 02/07/18 06/04/19 Otezla 30 mg PO DAILY 02/07/18 10/29/19 hydroxyzine HCl 25 mg PO QID PRN 02/07/18 06/04/19 pramipexole 0.125 mg PO BEDTIME 02/07/18 06/04/19 temazepam 15 mg PO BEDTIME PRN 02/07/18 06/04/19 vitamin Z32-feoux acid 1 tab PO DAILY 04/24/18 06/04/19 Xarelto 20 mg PO DAILY 08/07/18 06/04/19 Previous Rx's Medication Instructions Recorded amlodipine 5 mg PO DAILY #30 tab 06/26/18 cabozantinib 20 mg PO DAILY #30 tab 09/11/18 hydrocortisone-aloe vera 1 applic TOPICAL BID #2 tube 06/04/19 [Anti-Itch(hydrocortisone)-Aloe] Allergies Allergy/AdvReac Type Severity Reaction Status Date / Time adhesive tape Allergy Severe Rash Verified 11/11/19 10:50 bee venom protein (honey bee) Allergy Unknown Verified 11/08/19 13:16 enoxaparin [From Lovenox] Allergy Unknown Verified 11/08/19 13:16 iodine AdvReac Unknown Verified 11/08/19 13:16 MICRO AdvReac Unknown Uncoded 11/08/19 13:16 Review of Systems Constitutional Constitutional: Denies chills, Denies fatigue, Denies fever(s), Denies frequent falls, Denies lethargy and Denies weakness Eyes Eyes: Denies change in vision, Denies eye discharge, Denies irritation and Denies loss of vision ENT Ears, Nose, Mouth, and Throat: Denies change in voice, Denies dizziness, Denies neck pain, Denies sore throat and Denies throat swelling Cardiovascular Cardiovascular: Denies chest pain, Denies irregular heart rhythm, Denies lightheadedness, Denies palpitations, Denies dyspnea, Denies dyspnea on exertion and Denies orthopnea Respiratory Respiratory: Denies cough, Denies dyspnea, Denies dyspnea on exertion and Denies wheezing Gastrointestinal Gastrointestinal: Reports abdominal pain, Reports hematochezia, Denies change in bowel habits, Denies diarrhea, Reports nausea and Denies vomiting Musculoskeletal Musculoskeletal: Denies neck pain and Denies numbness Integumentary/Breasts Skin/Breast: Denies pruritus, Denies erythema, Denies rash and Denies wounds Neurologic Neurologic: Denies behavioral changes, Denies confusion, Denies dizziness, Denies frequent falls, Denies loss of vision, Denies numbness and Denies weakness Psychiatric Psychiatric: Denies anxiety, Denies behavioral changes, Denies confusion, Denies depression, Denies homicidal ideation and Denies suicidal ideation Endocrine Endocrine: Denies fatigue, Denies flushing and Denies palpitations Hematologic/Lymphatic Hematologic/Lymphatic: Denies easy bruising Allergic/Immunologic Allergic/Immunologic: Denies urticaria, Denies throat swelling and Denies wheezing Patient History Medical History Asthma (Chronic) Depression (Chronic) Hypertension (Chronic) Neuropathy (Chronic) Panic attacks (Chronic) Psoriasis (Chronic) Rheumatoid arthritis (Chronic) Sleep apnea (Chronic) Surgical History H/O hernia repair (Resolved) H/O hysterectomy with oophorectomy (Resolved) History of tonsillectomy and adenoidectomy (Resolved) Family History Unknown Breast cancer Father Colon cancer Social History marital status: unknown household members: none Smoking Status: Former smoker alcohol intake: current substance use type: marijuana Smoking Status: Former smoker alcohol intake frequency: holidays/special occasions only Substance Use Type: marijuana Exam Narrative Exam Narrative: GENERAL: [64] year old patient appears stated age. Well- nourished, well-developed patient, in mild distress. HEAD: Atraumatic. Normocephalic. EYES: Pupils equal round and reactive. Extraocular motions intact. No scleral icterus. No injection or drainage. ENT: Nose without bleeding, purulent drainage. Throat without erythema, tonsillar hypertrophy or exudate. Airway patent. NECK: Trachea midline. Non tender CARDIOVASCULAR: Regular rate and rhythm without murmurs, gallops, or rubs. RESPIRATORY: Clear to auscultation. Breath sounds equal bilaterally. No wheezes, rales, or rhonchi. GASTROINTESTINAL: Abdomen soft, non-tender, nondistended. RECTAL: no pain, obvious hemorrhoid, no gross bleeding. Heme NEG EXTREMITIES: No edema or joint tenderness. BACK: Nontender without deformity or crepitance. No flank tenderness. NEURO: AOx3. SKIN: No rash or erythema of visible areas Initial Vital Signs Initial Vital Signs: Vital Signs Pulse Rate 90 12/14/19 15:14 Pulse Oximetry 99 12/14/19 15:14 Course Orders Ordered: ED Orders 12/14/19 15:29 CT abdomen pelvis w con Stat 12/14/19 15:37 Complete Blood Count AUTO DIFF Stat Comprehensive Metabolic Panel Stat Partial Thromboplastin Time Stat Prothrombin Time INR Stat Type and Screen Stat 12/14/19 15:59 Urinalysis and Microscopic Stat Discontinued Medications Acetaminophen (Tylenol) 650 mg PO NOW ONE Stop: 12/14/19 19:11 Hydromorphone HCl (Dilaudid) 0.5 mg IV NOW ONE Stop: 12/14/19 15:30 Last Admin: 12/14/19 15:49 Dose: 0.5 mg Documented by: CAESAR Ondansetron HCl (Zofran) 4 mg IV NOW ONE Stop: 12/14/19 15:20 Last Admin: 12/14/19 15:49 Dose: 4 mg Documented by: CAESAR Ondansetron HCl (Zofran) 4 mg IV NOW ONE Stop: 12/14/19 15:30 Last Admin: 12/14/19 15:49 Dose: Not Given Documented by: CAESAR Pantoprazole Sodium (Protonix) 40 mg IV NOW ONE Stop: 12/14/19 15:20 Last Admin: 12/14/19 15:49 Dose: 40 mg Documented by: CAESAR Mcdonald Consultation #1: Extensive discussion with Dr. Goldman. We have reviewed the patient's history, physical exam, today's imaging, recent colonoscopy. Recommendation to discharge on clear liquid diet, close follow-up and hope to obtain stool sample. Vital Signs Vital signs: Vital Signs - 8 hr 12/14/19 15:14 12/14/19 15:15 12/14/19 15:30 Temperature 98.7 F Pulse Rate 90 90 78 Respiratory Rate 14 Blood Pressure 200/84 H Pulse Oximetry 99 99 100 12/14/19 15:31 12/14/19 16:00 12/14/19 16:09 Temperature Pulse Rate 80 79 78 Respiratory Rate Blood Pressure 167/81 H 178/81 H Pulse Oximetry 99 98 98 MDM - GI Bleed Lab Data Result diagrams: 12/14/19 15:37 12/14/19 15:37 Labs: Lab Results 12/14/19 12/14/19 12/14/19 Range/Units 15:37 15:37 15:37 WBC 6.2 (4.5-11.0) X10^3/uL RBC 3.42 L (4.0-5.2) X10^6/uL Hgb 12.1 (12.0-16.0) g/dL Hct 35.9 L (36-46) % MCV 105.2 H (80-100) fL MCH 35.3 H (26-34) PG MCHC 33.5 (30-36) % RDW 14.4 (11.6-14.8) % Plt Count 196 (150-400) X10^3/uL Neut % (Auto) 59.8 (50-75) % Lymph % (Auto) 28.0 (25-40) % [place] % (Auto) 9.9 (3-14) % Eos % (Auto) 1.5 L (2-4) % Baso % (Auto) 0.8 (0-2) % Neut # (Auto) 3700 (0963-2090) /uL Lymph # (Auto) 1700 (3991-2883) /uL [place]hen[place] # (Auto) 600 (0-900) /uL Eos # (Auto) 100 (0-450) /uL Baso # (Auto) 0 (0-100) /uL PT 10.9 (10.1-12.7) SECONDS INR 1.0 (0.9-1.3) APTT 34 (26.4-36.2) SECONDS Sodium 143 (137-145) mmol/L Potassium 4.5 (3.4-5.1) mmol/L Chloride 111 H (98-107) mmol/L Carbon Dioxide 29 (22-32) mmol/L BUN 21 H (7-17) mg/dL Creatinine 0.95 (0.52-1.04) mg/dL Estimated GFR 59.6 L (>60) mL/min BUN/Creatinine Ratio 22.1 H (6-22) Glucose 90 (80-110) mg/dL Calcium 8.7 (8.4-10.2) mg/dL Total Bilirubin 0.5 (0.2-1.3) mg/dL AST 43 H (14-36) IU/L ALT 40 H (<35) IU/L Alkaline Phosphatase 71 (38-126) U/L Total Protein 6.0 L (6.3-8.2) g/dL Albumin 3.2 L (3.5-5.0) g/dL Globulin 2.8 (1.7-4.1) g/dL Albumin/Globulin Ratio 1.1 (1.0-2.8) Urine Color Urine Appearance Urine pH (4.5-8.0) Ur Specific [place] (1.000-1.035) Urine Protein (Negative) Urine Glucose (UA) (Negative) g/dL Urine Ketones (NEGATIVE) Urine Occult Blood (Negative) Urine Nitrate (Negative) Urine Bilirubin (NEGATIVE) Urine Urobilinogen (0.2) E.U./dL Ur Leukocyte Esterase (NEGATIVE) Urine RBC (0-5/HPF) Urine WBC (0-5/HPF) Ur Squamous Epith Cells (0-5/HPF) Urine Bacteria (None) Hyaline Casts (None) Ur Culture Indicated? Blood Type Antibody Screen 12/14/19 12/14/19 Range/Units 15:37 15:59 WBC (4.5-11.0) X10^3/uL RBC (4.0-5.2) X10^6/uL Hgb (12.0-16.0) g/dL Hct (36-46) % MCV (80-100) fL MCH (26-34) PG MCHC (30-36) % RDW (11.6-14.8) % Plt Count (150-400) X10^3/uL Neut % (Auto) (50-75) % Lymph % (Auto) (25-40) % [place]hen[place] % (Auto) (3-14) % Eos % (Auto) (2-4) % Baso % (Auto) (0-2) % Neut # (Auto) (4523-3683) /uL Lymph # (Auto) (8484-3657) /uL Mchenry # (Auto) (0-900) /uL Eos # (Auto) (0-450) /uL Baso # (Auto) (0-100) /uL PT (10.1-12.7) SECONDS INR (0.9-1.3) APTT (26.4-36.2) SECONDS Sodium (137-145) mmol/L Potassium (3.4-5.1) mmol/L Chloride (98-107) mmol/L Carbon Dioxide (22-32) mmol/L BUN (7-17) mg/dL Creatinine (0.52-1.04) mg/dL Estimated GFR (>60) mL/min BUN/Creatinine Ratio (6-22) Glucose (80-110) mg/dL Calcium (8.4-10.2) mg/dL Total Bilirubin (0.2-1.3) mg/dL AST (14-36) IU/L ALT (<35) IU/L Alkaline Phosphatase (38-126) U/L Total Protein (6.3-8.2) g/dL Albumin (3.5-5.0) g/dL Globulin (1.7-4.1) g/dL Albumin/Globulin Ratio (1.0-2.8) Urine Color Yellow Urine Appearance Clear Urine pH 6.0 (4.5-8.0) Ur Specific [place] 1.020 (1.000-1.035) Urine Protein 2+ H (Negative) Urine Glucose (UA) Negative (Negative) g/dL Urine Ketones Negative (NEGATIVE) Urine Occult Blood 1+ H (Negative) Urine Nitrate Negative (Negative) Urine Bilirubin Negative (NEGATIVE) Urine Urobilinogen 0.2 (0.2) E.U./dL Ur Leukocyte Esterase Negative (NEGATIVE) Urine RBC 1-5/hpf (0-5/HPF) Urine WBC 0-1/hpf (0-5/HPF) Ur Squamous Epith Cells 1-5 /hpf (0-5/HPF) Urine Bacteria None seen (None) Hyaline Casts 0-1/lpf (None) Ur Culture Indicated? Cult not indicated Blood Type A Positive Antibody Screen Negative Urine Dip Bedside Urine Glucose Negative Bedside Urine Bilirubin - Negative Bedside Urine Ketone - Negative Urine Specific [place] 1.025 Bedside Urine Occult Blood +/- Bedside Urine pH 6.0 Bedside Urine Protein ++ 100 Bedside Urine Urobilinogen - Negative Bedside Urine Nitrite - Negative Bedside Urine Leukocytes - Negative Esterase MDM Narrative Medical decision making narrative: Multiple etiologies for patient's symptoms considered including: [Rectal bleeding from anticoagulation versus diverticulosis versus infectious process versus other] Patient's symptoms improved over duration of stay with above-stated therapies. Findings and discharge diagnosis discussed with patient/family followed by verbalization of understanding Return precautions discussed with patient/family whom verbalize understanding. Discharge Plan Departure Patient Disposition: Home Clinical Impression: Bright red rectal bleeding Instructions: DI for Rectal Bleeding Activity Restrictions/Additional Instructions: 1. Drink plenty of fluids with frequent small sips. 2. For the next 24 hours a clear liquid diet is advised. After that please employ a B.R.A.T. diet which would include bananas, rice, apples, toast and other mild food items 3. Please take medications as directed. 4. Please follow-up with your doctor in the next 1-2 days. Call the office for an appointment. Also, please contact Dr. Leblanc's office. Per my discussion with Dr. Goldman it would be helpful to have them order an outpatient stool sample for evaluation. 5. Please return to the emergency Department for any worsening or persistent symptoms, such as increasing pain or fever. Prescriptions: No Action temazepam 15 mg Capsule 15 mg PO BEDTIME PRN (Reason: Pain (Scale Score 1-3)) RF: 0 pramipexole 0.125 mg Tablet 0.125 mg PO BEDTIME RF: 0 hydroxyzine HCl 25 mg Tablet 25 mg PO QID PRN (Reason: Muscle Spasm) RF: 0 Flovent HFA 110 mcg/actuation Hfa Aerosol Inhaler 1 puff INHALATION Q12H RF: 0 Otezla 30 mg Tablet 30 mg PO DAILY RF: 0 vitamin N81-[id number] acid 500-400 mcg Tablet 1 tab PO DAILY RF: 0 amlodipine 5 mg Tablet 5 mg PO DAILY Qty: 30 RF: 3 Xarelto 20 mg Tablet 20 mg PO DAILY RF: 0 cabozantinib 20 mg Tablet 20 mg PO DAILY Qty: 30 RF: 0 hydrocortisone-aloe vera [Anti-Itch(hydrocortisone)-Aloe] 1 % Cream 1 applic TOPICAL BID Qty: 2 RF: 0 Referrals: Danny Mccullough MD [Primary Care Provider] - Josee Pérez MD [Physician] -
--- NOTE | 2019-12-14 15:29 | DI.CT.S_ITS ---
PROCEDURE: CT ABDOMEN PELVIS W CON INDICATIONS: abdominal pain, rectal bleeding, back pain, xarelto TECHNIQUE: After the administration of intravenous contrast, 5 mm thick sections acquired from the diaphragm to the symphysis. 5 mm coronal and sagittal reformats were acquired. For radiation dose reduction, the following was used: automated exposure control, adjustment of mA and/or kV according to patient size. COMPARISON: [facility], CT, CT CHEST ABD PEL W CON, 11/13/2018, 10:11. [facility], CT, CT CHEST ABD PEL W CON, 01/20/2019, 14:12. [facility], CT, CT CHEST ABD PEL W CON, 07/15/2019, 13:44. [facility], CT, CT CHEST ABD PEL W CON, 02/12/2018, 10:20. [facility], RG, CT ABDOMEN/PELVIS WITH CONTRAST, 01/08/2018, 14:22. FINDINGS: Image quality: Excellent. ABDOMEN: Lung bases: Lung bases are clear. Heart size is normal. Solid organs: Liver is normal in size and enhancement. Gallbladder is not seen and is presumed to have been previously removed. Biliary system is non dilated. Pancreas enhances normally. Spleen is normal in size and enhancement. No adrenal nodules. This patient is status post left nephrectomy. No abnormal soft tissue can be seen within the nephrectomy bed to suggest local recurrence. The right kidney is unremarkable, without hydronephrosis. Peritoneum and bowel: Bowel loops demonstrate normal wall thickness and caliber. No free fluid or air. Colonic diverticulosis is seen, without findings of active diverticulitis. A normal appendix is incidentally noted. Nodes and vessels: No retroperitoneal or mesenteric adenopathy by size criteria. Aorta and inferior vena cava are normal in size. Miscellaneous: No ventral hernias. Mild fatty stranding can be seen involving the anterior abdominal wall superficially. PELVIS: Genitourinary: Bladder wall thickness is normal. Miscellaneous: No inguinal hernias or adenopathy. Bones: No suspicious bony lesions. No vertebral body compression fractures. Minimal S shaped scoliotic curvature is seen. Degenerative changes are seen, which are most prominent involving the lower lumbar spine. IMPRESSION: No findings of hematoma are seen. Left nephrectomy, without findings of local recurrence or metastatic disease. Incidental note is made of: Cholecystectomy Diverticulosis, without active diverticulitis Hysterectomy Normal appendix Dictated by: Norberto Fritz M.D. on 12/14/2019 at 15:50 Approved by: Norberto Fritz M.D. on 12/14/2019 at 15:53
[2019-12-14] MEDS: HYDROMORPHONE 0.5 MG INJ IV (15:49)
[2019-12-14] MEDS: PANTOPRAZOLE 40 MG VIAL IV (15:49)
[2019-12-14] MEDS: ONDANSETRON 4 MG/2 ML INJ IV (15:49)
[2019-12-14 15:56] LABS: Prothrombin Time 10.9 SECONDS (10.1-12.7)
[2019-12-14 15:57] LABS: Add Manual Diff / Slide Review NO; Basophils Absolute Auto 0 /uL (0-100); Basophils Percent Auto 0.8 % (0-2); Eosinophils Absolute Auto 100 /uL (0-450); Eosinophils Percent Auto 1.5 % (2-4); Hematocrit 35.9 % (36-46); Hemoglobin 12.1 g/dL (12.0-16.0); Lymphocytes Absolute Auto 1700 /uL (1100-4500); Mean Corpuscular HGB Conc 33.5 % (30-36); Mean Corpuscular Hemoglobin 35.3 PG (26-34); Mean Corpuscular Volume 105.2 fL (80-100); Monocytes Absolute Auto 600 /uL (0-900); Monocytes Percent Auto 9.9 % (3-14); Neutrophils Absolute Auto 3700 /uL (1500-7000); Neutrophils Percent Auto 59.8 % (50-75); Platelet Count 196 X10^3/uL (150-400); Red Blood Cell Count 3.42 X10^6/uL (4.0-5.2); Red Cell Distribution Width 14.4 % (11.6-14.8); White Blood Cell Count 6.2 X10^3/uL (4.5-11.0)
[2019-12-14 15:59] LABS: PTT Partial Thromboplastin Tim 34 SECONDS (26.4-36.2)
[2019-12-14 16:01] LABS: Alanine Aminotransferase 40 IU/L (<35); Albumin 3.2 g/dL (3.5-5.0); Albumin Globulin Ratio 1.1 (1.0-2.8); Alkaline Phosphatase 71 U/L (38-126); Aspartate Aminotransferase 43 IU/L (14-36); BUN Creatinine Ratio 22.1 (6-22); Bilirubin Total 0.5 mg/dL (0.2-1.3); Blood Urea Nitrogen 21 mg/dL (7-17); Calcium 8.7 mg/dL (8.4-10.2); Carbon Dioxide 29 mmol/L (22-32); Chloride 111 mmol/L (98-107); Estimated Glomerular Filt Rate 59.6 mL/min (>60); Globulin 2.8 g/dL (1.7-4.1); Glucose 90 mg/dL (80-110); HEMOLYSIS 33 (0-50); Potassium 4.5 mmol/L (3.4-5.1); Sodium 143 mmol/L (137-145)
[2019-12-14 16:10] LABS: Bacteria Urine None Seen
[2019-12-14 16:11] LABS: Appearance Urine UA CLEAR; Bilirubin Urine UA NEGATIVE (NEGATIVE); Color Urine UA YELLOW; Glucose Urine UA NEGATIVE (Negative); Ketones Urine UA NEGATIVE (NEGATIVE); Leukocyte Esterase Urine UA NEGATIVE (NEGATIVE); Nitrite Urine UA NEGATIVE (Negative); Occult Blood Urine UA 1+ (Negative); Protein Urine UA 2+ (Negative); Urobilinogen Urine UA 0.2 E.U./dL (0.2)
--- NOTE | 2019-12-14 16:15 | PC.NURSE ---
patient complains of diarrhea and yellow discharge followed by red colored blood in her toilet. She also complains of abd pain
[2019-12-14 16:20] LABS: Culture Indicated Urine Cult Not Indicated; Hyaline Casts Urine 0-1/LPF; RBC Urine 1-5/HPF (0-5/HPF); Squamous Epithelial Cell Urine 1-5 /HPF (0-5/HPF); WBC Urine 0-1/HPF (0-5/HPF)
[2019-12-14] MEDS: ACETAMINOPHEN 325 MG TABLET 650 MG PO (19:45)
== END 2019-12-14 19:58 | disposition home or self-care (01) ==
PROVIDERS: Emergency Provider Emergency Medicine; PCP Family Medicine
DX: K62.5 Hemorrhage of anus and rectum (principal); R10.30 Lower abdominal pain, unspecified
CPT/HCPCS: 36415; 74177; 80053; 81001; 81003; 85025; 85610; 85730; 86850; 86900; 86901; 96374; 96375; 99284; C9113; J1170; J2405; Q9967

== ENCOUNTER → 2019-12-21 10:58 | Outpatient (CLI) | payer OTHER, MEDICAID, SELFPAY | PROVIDERS: PCP Family Medicine; Referring Provider Family Medicine; Visit Provider Family Medicine | DX: S41.101A Unspecified open wound of right upper arm, initial encounter (principal); E66.01 Morbid (severe) obesity due to excess calories; Z79.01 Long term (current) use of anticoagulants; Z79.899 Other long term (current) drug therapy; Z92.25 Personal history of immunosuppression therapy; L08.9 Local infection of the skin and subcutaneous tissue, unspecified | CPT/HCPCS: 11042; 87070; 87075; 87077; 87205; 99213; 99214 ==

== ENCOUNTER → 2020-01-04 09:17 | Outpatient (CLI) | payer OTHER, MEDICAID, SELFPAY | PROVIDERS: PCP Family Medicine; Referring Provider Family Medicine; Visit Provider Family Medicine | DX: S41.101A Unspecified open wound of right upper arm, initial encounter (principal); E66.01 Morbid (severe) obesity due to excess calories; Z79.01 Long term (current) use of anticoagulants; Z79.899 Other long term (current) drug therapy; Z92.25 Personal history of immunosuppression therapy | CPT/HCPCS: 99213 ==

== ENCOUNTER → 2020-01-28 11:50 | Outpatient (CLI) | payer OTHER, MEDICAID, SELFPAY | PROVIDERS: PCP Family Medicine; Referring Provider Family Medicine; Visit Provider Family Medicine | DX: B37.2 Candidiasis of skin and nail (principal); E66.01 Morbid (severe) obesity due to excess calories; Z79.01 Long term (current) use of anticoagulants; Z79.899 Other long term (current) drug therapy; Z92.25 Personal history of immunosuppression therapy | CPT/HCPCS: 99213; 99214 ==

== ENCOUNTER → 2020-05-02 10:28 | Outpatient (CLI) | payer OTHER, MEDICAID, SELFPAY ==
[2020-05-02 10:59] LABS: Add Manual Diff / Slide Review NO; Basophils Absolute Auto 0 /uL (0-100); Basophils Percent Auto 0.5 % (0-2); Eosinophils Absolute Auto 100 /uL (0-450); Eosinophils Percent Auto 2.3 % (2-4); Hematocrit 38.1 % (36-46); Hemoglobin 12.6 g/dL (12.0-16.0); Lymphocytes Absolute Auto 2000 /uL (1100-4500); Lymphocytes Percent Auto 32.6 % (25-40); Mean Corpuscular HGB Conc 33.2 % (30-36); Mean Corpuscular Hemoglobin 34.6 PG (26-34); Monocytes Absolute Auto 600 /uL (0-900); Monocytes Percent Auto 9.2 % (3-14); Neutrophils Absolute Auto 3400 /uL (1500-7000); Neutrophils Percent Auto 55.4 % (50-75); Platelet Count 206 X10^3/uL (150-400); Red Blood Cell Count 3.66 X10^6/uL (4.0-5.2); Red Cell Distribution Width 14.3 % (11.6-14.8); White Blood Cell Count 6.1 X10^3/uL (4.5-11.0)
[2020-05-02 11:11] LABS: Alanine Aminotransferase 30 IU/L (<35); Albumin 3.5 g/dL (3.5-5.0); Albumin Globulin Ratio 1.3 (1.0-2.8); Alkaline Phosphatase 49 U/L (38-126); Aspartate Aminotransferase 28 IU/L (14-36); BUN Creatinine Ratio 23.9 (6-22); Bilirubin Total 0.2 mg/dL (0.2-1.3); Blood Urea Nitrogen 27 mg/dL (7-17); Calcium 9.2 mg/dL (8.4-10.2); Carbon Dioxide 33 mmol/L (22-32); Chloride 106 mmol/L (98-107); Estimated Glomerular Filt Rate 48.8 mL/min (>60); Globulin 2.8 g/dL (1.7-4.1); Glucose 100 mg/dL (80-110); HEMOLYSIS 19 (0-50); Lactate Dehydrogenase 655 U/L (313-618); Potassium 4.2 mmol/L (3.4-5.1); Sodium 142 mmol/L (137-145); Total Protein 6.3 g/dL (6.3-8.2)
--- NOTE | 2020-05-02 12:02 | DI.CT.S_ITS ---
PROCEDURE: CT CHEST ABD PEL WO CON INDICATIONS: metastatic kidney cancer TECHNIQUE: After the administration of oral contrast, 5 mm thick sections acquired from the lung apices to the symphysis pubis. 5 mm thick coronal and sagittal reformats acquired, with additional 7 mm coronal MIP reformats through the lungs. For radiation dose reduction, the following was used: automated exposure control, adjustment of mA and/or kV according to patient size. COMPARISON: [facility], CT, CT ABDOMEN PELVIS W CON, 12/14/2019, 16:33. [facility], CT, CT CHEST ABD PEL W CON, 07/15/2019, 13:44. [facility], CT, CT CHEST ABD PEL W CON, 01/20/2019, 14:12. FINDINGS: Image quality: Excellent. CHEST: 4-5 mm pulmonary nodule involving the right middle lobe is grossly unchanged dating back to 01/20/19, therefore considered benign. No pleural effusions or pneumothorax. Central and peripheral airways are patent are normal in caliber. Mediastinum: Heart size is normal. No pericardial effusion. No mediastinal adenopathy by CT size criteria. Thoracic aorta and central pulmonary arteries are normal in size. Esophagus is normal in caliber. No hiatal hernia. Chest wall: No axillary or supraclavicular adenopathy by size criteria. Thyroid is grossly unremarkable ABDOMEN: Solid organs: Liver is normal in size. Gallbladder is not seen, presumably surgically absent. Pancreas is normal in contours. Spleen is normal in size. No adrenal nodules. There is postsurgical change related to left nephrectomy. Right kidney unenhanced appearance is grossly unremarkable. No hydronephrosis. No perinephric stranding. Peritoneum and bowel: Small and large bowel loops are normal in caliber and wall thickness. No free fluid or air. Colonic diverticulosis is seen without evidence of acute complication. Large amount of stool present in the rectal vault. Nodes and vessels: No retroperitoneal or mesenteric adenopathy by size criteria. Aorta and inferior vena cava are normal in size. Miscellaneous: No ventral hernias. There are areas of subcutaneous increased attenuation within the left anterior abdominal wall, possibly related to prior injections and grossly unchanged since 01/20/19 PELVIS: Genitourinary: Bladder wall thickness is normal. Miscellaneous: No inguinal hernias or adenopathy. Bones: No vertebral body compression fracture. Spondylytic changes and facet arthropathy. IMPRESSION: Status post left nephrectomy. No specific evidence of active metastatic disease. Dictated by: Vinh Cano M.D. on 05/02/2020 at 13:59 Approved by: Vinh Cano M.D. on 05/02/2020 at 14:11
== END ==
PROVIDERS: Referring Provider Internal Medicine Hematology & Oncology; Visit Provider Internal Medicine Hematology & Oncology
DX: C64.2 Malignant neoplasm of left kidney, except renal pelvis (principal); Z90.5 Acquired absence of kidney
CPT/HCPCS: 36415; 71250; 74176; 80053; 83615; 85025

== ENCOUNTER → 2020-07-25 11:12 | Outpatient (CLI) | payer OTHER, MEDICAID, SELFPAY ==
[2020-07-25 11:54] LABS: Add Manual Diff / Slide Review NO; Basophils Absolute Auto 0 /uL (0-100); Basophils Percent Auto 0.5 % (0-2); Eosinophils Absolute Auto 100 /uL (0-450); Eosinophils Percent Auto 1.5 % (2-4); Hematocrit 39.1 % (36-46); Lymphocytes Absolute Auto 1900 /uL (1100-4500); Lymphocytes Percent Auto 32.3 % (25-40); Mean Corpuscular HGB Conc 33.2 % (30-36); Mean Corpuscular Hemoglobin 33.9 PG (26-34); Mean Corpuscular Volume 102.2 fL (80-100); Monocytes Absolute Auto 600 /uL (0-900); Monocytes Percent Auto 9.3 % (3-14); Neutrophils Absolute Auto 3400 /uL (1500-7000); Neutrophils Percent Auto 56.4 % (50-75); Platelet Count 203 X10^3/uL (150-400); Red Blood Cell Count 3.83 X10^6/uL (4.0-5.2); Red Cell Distribution Width 14.5 % (11.6-14.8)
[2020-07-25 12:07] LABS: Alanine Aminotransferase 24 IU/L (<35); Albumin 3.3 g/dL (3.5-5.0); Albumin Globulin Ratio 1.1 (1.0-2.8); Alkaline Phosphatase 58 U/L (38-126); Aspartate Aminotransferase 26 IU/L (14-36); BUN Creatinine Ratio 16.1 (6-22); Bilirubin Total 0.3 mg/dL (0.2-1.3); Blood Urea Nitrogen 20 mg/dL (7-17); Carbon Dioxide 29 mmol/L (22-32); Chloride 110 mmol/L (98-107); Estimated Glomerular Filt Rate 43.8 mL/min (>60); Globulin 2.9 g/dL (1.7-4.1); Glucose 93 mg/dL (80-110); HEMOLYSIS < 15 (0-50); Potassium 4.6 mmol/L (3.4-5.1); Sodium 142 mmol/L (137-145); Total Protein 6.2 g/dL (6.3-8.2)
[2020-07-25 15:49] LABS: Protein (Total) Urine Random 914 mg/dL (0-12); Protein Creatinine Ratio Urine 3.46 GRAM/24H
== END ==
PROVIDERS: Internal Medicine Hematology & Oncology; PCP Internal Medicine; Referring Provider Internal Medicine Nephrology; Visit Provider Internal Medicine Nephrology
DX: R80.9 Proteinuria, unspecified (principal); C64.2 Malignant neoplasm of left kidney, except renal pelvis
CPT/HCPCS: 80053; 82570; 84156; 85025

== ENCOUNTER → 2020-09-14 11:19 | Outpatient (CLI) | payer OTHER, MEDICAID, SELFPAY ==
--- NOTE | 2020-09-14 11:22 | DI.CT.S_ITS ---
PROCEDURE: CT CHEST ABD PEL WO CON INDICATIONS: metastatic kidney cancer TECHNIQUE: After the administration of oral contrast, 5 mm thick sections acquired from the lung apices to the symphysis pubis. 5 mm thick coronal and sagittal reformats acquired, with additional 7 mm coronal MIP reformats through the lungs. For radiation dose reduction, the following was used: automated exposure control, adjustment of mA and/or kV according to patient size. COMPARISON: [facility], CT, CT CHEST ABD PEL WO CON, 05/02/2020, 11:58. FINDINGS: Image quality: Excellent. CHEST: Lungs and pleura: No acute air space opacities. No pleural effusions or pneumothorax. Central and peripheral airways are patent and normal in caliber. Mediastinum: Heart size is normal. No pericardial effusion. No mediastinal adenopathy by size criteria. The thoracic aorta has atherosclerotic calcifications with no aneurysmal dilatation.. Esophagus is normal in caliber. No hiatal hernia. Chest wall: No axillary or supraclavicular adenopathy by size criteria. Thyroid gland is normal . ABDOMEN: Solid organs: Liver: The liver has no mass or intrahepatic biliary ductal dilatation. The portal vein and hepatic veins are patent. Biliary: The gallbladder is not seen. Pancreas: The pancreas has no mass or ductal dilatation. There is no surrounding inflammation. Spleen: Normal size. There are no masses. Adrenals: No hypertrophy or nodules. Kidneys: Status post left nephrectomy. The right kidney has no solid mass. No stones or hydronephrosis. There is no evidence of recurrence disease within the left nephrectomy bed. Bowel: The distal esophagus and stomach are normal. The small bowel has a normal caliber and appearance. The terminal ileum is normal. The large bowel has diverticulosis with no evidence of diverticulitis. The appendix is normal. No free fluid or air. Nodes and vessels: No retroperitoneal or mesenteric adenopathy by size criteria. Aorta and inferior vena cava are normal in size. Abdominal wall: No abdominal wall mass or hernia. PELVIS: Genitourinary: The bladder has no wall thickening or mass. No bladder calcifications. Abdominal wall: No inguinal hernias or adenopathy. BONES: Multilevel degenerative changes of the thoracolumbar spine with no focal lesions to suggest metastatic disease. No vertebral body compression fractures. IMPRESSION: 1. Status post left nephrectomy. 2. No evidence of recurrence neoplasm or metastasis. Dictated by: Gibson Minaya M.D. on 09/14/2020 at 14:29 Approved by: Gibson Minaya M.D. on 09/14/2020 at 14:50
== END ==
PROVIDERS: PCP Family Medicine; Referring Provider Internal Medicine Hematology & Oncology; Visit Provider Internal Medicine Hematology & Oncology
DX: C64.2 Malignant neoplasm of left kidney, except renal pelvis (principal); Z90.5 Acquired absence of kidney
CPT/HCPCS: 71250; 74176

== ENCOUNTER → 2020-10-25 16:25 | Outpatient (CLI) | payer OTHER, MEDICAID, SELFPAY ==
[2020-10-25 17:40] LABS: COVID19 -Nasal RAPID Negative (Negative)
[2020-10-25 19:02] LABS: Alanine Aminotransferase 24 IU/L (<35); Albumin 3.3 g/dL (3.5-5.0); Albumin Globulin Ratio 1.3 (1.0-2.8); Alkaline Phosphatase 56 U/L (38-126); Aspartate Aminotransferase 28 IU/L (14-36); BUN Creatinine Ratio 15.7 (6-22); Bilirubin Total 0.3 mg/dL (0.2-1.3); Blood Urea Nitrogen 21 mg/dL (7-17); Calcium 8.7 mg/dL (8.4-10.2); Carbon Dioxide 27 mmol/L (22-32); Chloride 109 mmol/L (98-107); Estimated Glomerular Filt Rate 39.9 mL/min (>60); Globulin 2.6 g/dL (1.7-4.1); Glucose 107 mg/dL (80-110); HEMOLYSIS < 15 (0-50); Sodium 140 mmol/L (137-145); Total Protein 5.9 g/dL (6.3-8.2)
== END ==
PROVIDERS: PCP Family Medicine; Visit Provider Physician Assistant
DX: R19.7 Diarrhea, unspecified (principal); Z20.822 Contact with and (suspected) exposure to COVID-19
CPT/HCPCS: 36415; 80053; 87635

== ENCOUNTER → 2020-10-31 09:40 | Outpatient (CLI) | payer OTHER, MEDICAID, SELFPAY ==
[2020-10-31 12:33] LABS: Adenovirus F 40/41 Not Detected (Not Detect); Astrovirus Not Detected (Not Detect); Campylobacter Not Detected (Not Detect); Clostridium difficile toxin AB Not Detected (Not Detect); Cryptosporidium Not Detected (Not Detect); Cyclospora cayetanensis Not Detected (Not Detect); Entamoeba histolytica Not Detected (Not Detect); Enteroaggregative E.coli Not Detected (Not Detect); Enteropathogenic E.coli Not Detected (Not Detect); Enterotoxigenic E.coli It/st Not Detected (Not Detect); Giardia lamblia Not Detected (Not Detect); Norovirus GI/GII Not Detected (Not Detect); Plesiomonsa shigelloides Not Detected (Not Detect); Rotavirus A Not Detected (Not Detect); Salmonella Not Detected (Not Detect); Sapovirus Not Detected (Not Detect); Shiga-like toxin-prod E.coli Not Detected (Not Detect); Shigella/Enteroinvasive E.coli Not Detected (Not Detect); Vibrio Not Detected (Not Detect); Vibrio cholerae Not Detected (Not Detect); Yersinia enterocolitica Not Detected (Not Detect)
== END ==
PROVIDERS: PCP Family Medicine; Referring Provider Physician Assistant; Visit Provider Physician Assistant
DX: R19.7 Diarrhea, unspecified (principal)
CPT/HCPCS: 87045; 87177; 87507; 87899

== ENCOUNTER → 2020-11-30 12:25 | Outpatient (CLI) | payer OTHER, MEDICAID, SELFPAY ==
[2020-11-30 14:09] LABS: Alanine Aminotransferase 38 IU/L (<35); Albumin Globulin Ratio 1.2 (1.0-2.8); Alkaline Phosphatase 83 U/L (38-126); Aspartate Aminotransferase 38 IU/L (14-36); Bilirubin Total 0.4 mg/dL (0.2-1.3); Blood Urea Nitrogen 23 mg/dL (7-17); Calcium 9.3 mg/dL (8.4-10.2); Carbon Dioxide 28 mmol/L (22-32); Chloride 109 mmol/L (98-107); Estimated Glomerular Filt Rate 42.1 mL/min (>60); Globulin 2.5 g/dL (1.7-4.1); Glucose 82 mg/dL (80-110); HEMOLYSIS < 15 (0-50); Potassium 4.9 mmol/L (3.4-5.1); Sodium 141 mmol/L (137-145); Total Protein 5.5 g/dL (6.3-8.2)
[2020-11-30 14:10] LABS: NT-proBNP (BNP-Adult 18+) 661 pg/mL (<125)
== END ==
PROVIDERS: Family Provider Family Medicine; PCP Family Medicine; Referring Provider Family Medicine; Visit Provider Family Medicine
DX: I10 Essential (primary) hypertension (principal); N18.2 Chronic kidney disease, stage 2 (mild); R63.5 Abnormal weight gain
CPT/HCPCS: 36415; 80053; 83880

== ENCOUNTER → 2020-12-02 09:53 | Outpatient (CLI) | payer OTHER, MEDICAID, SELFPAY | PROVIDERS: Family Provider Family Medicine; PCP Family Medicine; Referring Provider Family Medicine; Visit Provider Nurse Practitioner Family | DX: L02.92 Furuncle, unspecified (principal); L08.9 Local infection of the skin and subcutaneous tissue, unspecified; Z79.899 Other long term (current) drug therapy | CPT/HCPCS: 87070; 87075; 87186; 87205; 97597; 99213 ==

== ENCOUNTER → 2020-12-09 09:50 | Outpatient (CLI) | payer OTHER, MEDICAID, SELFPAY | PROVIDERS: Family Provider Family Medicine; PCP Family Medicine; Referring Provider Family Medicine; Visit Provider Nurse Practitioner Family | DX: L02.92 Furuncle, unspecified (principal); L08.9 Local infection of the skin and subcutaneous tissue, unspecified; Z79.899 Other long term (current) drug therapy | CPT/HCPCS: 97597 ==

== ENCOUNTER → 2020-12-12 13:10 | Outpatient (CLI) | payer OTHER, MEDICAID, SELFPAY ==
[2020-12-12 15:04] LABS: Appearance Urine UA CLEAR; Bilirubin Urine UA NEGATIVE (NEGATIVE); Color Urine UA YELLOW; Glucose Urine UA NEGATIVE (Negative); Ketones Urine UA NEGATIVE (NEGATIVE); Leukocyte Esterase Urine UA NEGATIVE (NEGATIVE); Nitrite Urine UA NEGATIVE (Negative); Occult Blood Urine UA TRACE-LYSED (Negative); Protein Urine UA 2+ (Negative); Specific Gravity Urine UA 1.015 (1.000-1.035); Urobilinogen Urine UA 0.2 E.U./dL (0.2)
[2020-12-12 15:06] LABS: Blood Urea Nitrogen 23 mg/dL (7-17); Calcium 9.2 mg/dL (8.4-10.2); Carbon Dioxide 28 mmol/L (22-32); Chloride 106 mmol/L (98-107); Estimated Glomerular Filt Rate 39.6 mL/min (>60); Glucose 87 mg/dL (80-110); HEMOLYSIS < 15 (0-50); Phosphorous 3.7 mg/dL (2.8-4.1); Potassium 4.8 mmol/L (3.4-5.1); Sodium 140 mmol/L (137-145)
[2020-12-12 15:07] LABS: Bacteria Urine None Seen; RBC Urine 0-1/HPF (0-5/HPF); Squamous Epithelial Cell Urine 5-10 /HPF (0-5/HPF); WBC Urine 0-1/HPF (0-5/HPF)
[2020-12-12 15:08] LABS: Culture Indicated Urine Cult Not Indicated
[2020-12-12 15:09] LABS: pH Urine UA 6.5 (4.5-8.0)
[2020-12-12 15:39] LABS: Creatinine Urine Random 43.8 mg/dL; Protein (Total) Urine Random 78 mg/dL (0-12); Protein Creatinine Ratio Urine 1.78 GRAM/24H
[2020-12-13 05:17] LABS: Parathyroid Hormone Int 87 pg/mL (15-65)
[2020-12-13 15:21] LABS: DNA (DS) Antibody 2 IU/mL (0-9)
[2020-12-14 12:24] LABS: Alpha-1 Globulin, Ur 5.6 % (.); Gamma Globulin, Ur 4.9 % (.); M-Spike % Not Observed % (Not Observed); Urine Total Protein 67.2 mg/dL (Not Estab.)
[2020-12-14 12:59] LABS: Cytoplasmic C-ANCA <1:20 titer (Neg:<1:20); Immunoglobulin A, Serum 179 mg/dL (87-352); Immunoglobulin G,Serum 709 mg/dL (586-1602); Immunoglobulin M, Serum 39 mg/dL (26-217); Perinuclear P-ANCA <1:20 titer (Neg:<1:20)
[2020-12-14 15:58] LABS: Albumin 2.9 g/dL (2.9-4.4); Alpha-1-Globulin 0.2 g/dL (0.0-0.4); Alpha-2-Globulin 0.9 g/dL (0.4-1.0); Gamma Globulin 0.7 g/dL (0.4-1.8); Globulin Total 2.9 g/dL (2.2-3.9); Protein, Total 5.8 g/dL (6.0-8.5)
[2020-12-14 17:17] LABS: ANA Screen, IFA Negative (.)
== END ==
PROVIDERS: Family Provider Family Medicine; PCP Family Medicine; Referring Provider Student in an Organized Health Care Education/Training Program; Visit Provider Student in an Organized Health Care Education/Training Program
DX: R80.9 Proteinuria, unspecified (principal); M31.30 Wegener's granulomatosis without renal involvement; M32.10 Systemic lupus erythematosus, organ or system involvement unspecified; N00.9 Acute nephritic syndrome with unspecified morphologic changes; D64.9 Anemia, unspecified; E83.30 Disorder of phosphorus metabolism, unspecified; N25.81 Secondary hyperparathyroidism of renal origin; D47.2 Monoclonal gammopathy; N30.00 Acute cystitis without hematuria
CPT/HCPCS: 36415; 80048; 81001; 82570; 82784; 83516; 83970; 84100; 84155; 84156; 84165; 84166; 85014; 85018; 86038; 86225; 86256; 86334; 86335

== ENCOUNTER → 2020-12-16 11:02 | Outpatient (CLI) | payer OTHER, MEDICAID, SELFPAY | PROVIDERS: Family Provider Family Medicine; PCP Family Medicine; Referring Provider Family Medicine; Visit Provider Family Medicine | DX: L02.92 Furuncle, unspecified (principal); Z79.899 Other long term (current) drug therapy | CPT/HCPCS: 97597 ==

== ENCOUNTER → 2020-12-23 15:10 | Outpatient (CLI) | payer OTHER, MEDICAID, SELFPAY | PROVIDERS: Family Provider Family Medicine; PCP Family Medicine; Referring Provider Family Medicine; Visit Provider Family Medicine | DX: L02.224 Furuncle of groin (principal); L40.9 Psoriasis, unspecified; M06.9 Rheumatoid arthritis, unspecified; D84.821 Immunodeficiency due to drugs | CPT/HCPCS: 97597 ==

== ENCOUNTER → 2020-12-30 13:54 | Outpatient (CLI) | payer OTHER, MEDICAID, SELFPAY | PROVIDERS: Family Provider Family Medicine; PCP Family Medicine; Referring Provider Family Medicine; Visit Provider Family Medicine | DX: L02.224 Furuncle of groin (principal); M06.9 Rheumatoid arthritis, unspecified; L40.52 Psoriatic arthritis mutilans; Z79.899 Other long term (current) drug therapy; D84.821 Immunodeficiency due to drugs | CPT/HCPCS: 97597 ==

== ENCOUNTER → 2021-01-06 14:01 | Outpatient (CLI) | payer OTHER, MEDICAID, SELFPAY | PROVIDERS: Family Provider Family Medicine; PCP Family Medicine; Referring Provider Family Medicine; Visit Provider Family Medicine | DX: Z87.828 Personal history of other (healed) physical injury and trauma (principal); Z79.899 Other long term (current) drug therapy | CPT/HCPCS: 99212; 99213 ==

== ENCOUNTER → 2021-01-30 07:10 | Outpatient (CLI) | payer OTHER, MEDICAID, SELFPAY ==
--- NOTE | 2021-01-30 07:11 | DI.ECHO.S_ITS ---
[facility]---------+ [facility] +---------+ : : [address] : [place] : : : : [id number] : : : : Phone: [phone]---------+ Echocardiogram Report + + :Name: SAMIR MCCARTHY Study Date: 01/30/2021 Height: 60 in : :[facility] ReadingLocation: Weight: 325 lb : : Gender: Female BSA: 2.3 m2 : :: 1955 Age: 65 yrs BP: 149/92 mmHg: :Reason For Study: Hypertension : :Ordering Physician: : :YARON Performed By: Arnold Rosen : :Referring: TORI MENDEZ : + + Interpretation Summary The ejection fraction is estimated to be 60-65%. There is no significant valvular heart disease. Procedure: A two-dimensional transthoracic echocardiogram with color flow and Doppler was performed. Comparison is made with the echocardiogram of 04/06/2010. A contrast injection of Definity was performed to improve assessment of LV function. The patient was in normal sinus rhythm during the exam. Left Ventricle: The left ventricle is normal in size. There is borderline asymmetric left ventricular hypertrophy. The ejection fraction is estimated to be 60-65%. Left ventricular wall motion is normal. Right Ventricle: The right ventricle is grossly normal size. The right ventricular systolic function is normal. Atria: The left atrial size is normal. Right atrial size is normal. There is no Doppler evidence for an interatrial shunt. Mitral Valve: There is mild mitral annular calcification. Aortic Valve: The aortic valve is trileaflet. The aortic valve opens well. No aortic regurgitation is present. Tricuspid Valve: The tricuspid valve is normal. There is trace tricuspid regurgitation. Pulmonary artery pressures cannot be estimated because of the lack of a measurable TR jet velocity but the IVC suggests a CVP of around 3 mmHg. Pulmonic Valve: The pulmonic valve is normal in structure and function. Great Vessels: The aortic root is normal size. The ascending aorta is normal in size. The aortic arch is normal in size. The IVC is of normal diameter and collapses greater than 50% with a sniff. This suggests a low right atrial pressure of 3 mm Hg. Pericardium/ Pleura There is no pericardial effusion. There is no pleural effusion. MMode/2D Measurements & Calculations LVIDd: 5.0 cm LVOT diam: 1.7 cm LVIDs: 3.5 cm Ao root diam: 2.5 cm FS: 30.0 % asc Aorta Diam: 3.5 cm IVSd: 1.1 cm Ao Arch Diam (Prox Trans): 2.9 cm LVPWd: 1.2 cm LV frey. diameter/BSA (cm/m^2): 2.2 LV sys. diameter/BSA (cm/m^2): 1.5 LA A2 area: 22.9 cm2 RA long axis: 6.1 cm LA A4 area: 23.9 cm2 LA length (vol): 6.4 cm LA vol: 72.7 ml LA vol index: 31.7 ml/m2 LVLs ap4: 7.2 cm LVLd ap2: 8.7 cm LVLs ap2: 6.7 cm TAPSE_phl: 3.2 cm Doppler Measurements & Calculations Ao V2 max: 158.0 cm/sec LVOT Max Preston: 115.0 cm/sec Ao V2 mean: 117.0 cm/sec LV V1 max P.3 mmHg Ao max P.0 mmHg LV V1 VTI: 26.7 cm Ao mean P.0 mmHg LOBO(I,D): 1.7 cm2 Ao V2 VTI: 35.1 cm LOBO(V,D): 1.7 cm2 sev ratio: 0.76 LOBO indexed to BSA (cm^2/m^2): 0.75 MV E max preston: 86.3 cm/sec PA V2 max: 106.0 cm/sec MV A max preston: 130.0 cm/sec PA V2 mean: 71.0 cm/sec MV E/A: 0.66 PA mean P.0 mmHg Med Peak E' Preston: 6.0 cm/sec PA pr(Accel): 40.8 mmHg E/E' med: 14.4 Lat Peak E' Preston: 9.9 cm/sec E/E' lat: 8.8 E/e' average: 11.6 MV dec time: 0.26 sec SV(LVOT): 60.6 ml AV VR_phl: 0.73 LOBO(VTI)/BSA_phl: 0.76 MV P1/2t-pr_phl: 76.0 msec Reading Physician:03:50 PM
== END ==
PROVIDERS: Family Provider Family Medicine; PCP Family Medicine; Referring Provider Family Medicine; Visit Provider Family Medicine
DX: I12.9 Hypertensive chronic kidney disease with stage 1 through stage 4 chronic kidney disease, or unspecified chronic kidney disease (principal); N18.2 Chronic kidney disease, stage 2 (mild); R63.5 Abnormal weight gain
CPT/HCPCS: C8929; Q9957

== ENCOUNTER → 2021-04-26 11:13 | Outpatient (CLI) | payer OTHER, MEDICAID, SELFPAY ==
--- NOTE | 2021-04-26 11:19 | DI.CT.S_ITS ---
PROCEDURE: CT CHEST ABD PEL WO CON INDICATIONS: metastatic clear cell renal cancer TECHNIQUE: After the administration of oral contrast, 5 mm thick sections acquired from the lung apices to the symphysis pubis. 5 mm thick coronal and sagittal reformats acquired, with additional 7 mm coronal MIP reformats through the lungs. For radiation dose reduction, the following was used: automated exposure control, adjustment of mA and/or kV according to patient size. COMPARISON: [facility], CT, CT CHEST ABD PEL WO CON, 09/14/2020, 12:46. FINDINGS: Image quality: Excellent. CHEST: Lungs and pleura: No acute pulmonary opacities. No pleural effusions or pneumothorax. Central and peripheral airways are patent are normal in caliber. Mediastinum: Heart size is normal. No pericardial effusion. No mediastinal adenopathy by CT size criteria. Thoracic aorta and central pulmonary arteries are normal in size. Esophagus is normal in caliber. No hiatal hernia. Chest wall: No axillary or supraclavicular adenopathy by size criteria. Thyroid gland demonstrates homogeneous attenuation. ABDOMEN: Solid organs: Liver is normal in size. Gallbladder is surgically absent versus contracted . Pancreas is normal in contours. Spleen is normal in size. No adrenal nodules. The right kidney appears normal in size, without hydronephrosis or nephrolithiasis. Left nephrectomy. Peritoneum and bowel: Small and large bowel loops are normal in caliber and wall thickness. Descending/sigmoid diverticulosis No free fluid or air. Normal appearance of the appendix. Nodes and vessels: No retroperitoneal or mesenteric adenopathy by size criteria. Aorta and inferior vena cava are normal in size. Miscellaneous: No ventral hernias. Soft tissue densities in the left flank subcutaneous fat, compatible with injection granulomas. PELVIS: Genitourinary: Bladder wall thickness is normal. Miscellaneous: No inguinal hernias or adenopathy. Bones: No suspicious bony lesions. Multifocal degenerative change with grade 1 anterolisthesis at L4-5. No vertebral body compression fractures. IMPRESSION: 1. No significant interval change or evidence of neoplasm. Dictated by: Sudheer Dorsey M.D. on 04/26/2021 at 14:48 Approved by: Sudheer Dorsey M.D. on 04/26/2021 at 14:55
[2021-04-26 12:41] LABS: Add Manual Diff / Slide Review NO; Basophils Absolute Auto 0 /uL (0-100); Basophils Percent Auto 0.4 % (0-2); Eosinophils Absolute Auto 200 /uL (0-450); Eosinophils Percent Auto 3.8 % (2-4); Hematocrit 38.2 % (36-46); Hemoglobin 12.4 g/dL (12.0-16.0); Lymphocytes Absolute Auto 1900 /uL (1100-4500); Lymphocytes Percent Auto 33.1 % (25-40); Mean Corpuscular HGB Conc 32.5 % (30-36); Mean Corpuscular Hemoglobin 33.7 PG (26-34); Mean Corpuscular Volume 103.9 fL (80-100); Monocytes Absolute Auto 500 /uL (0-900); Monocytes Percent Auto 8.8 % (3-14); Neutrophils Absolute Auto 3000 /uL (1500-7000); Neutrophils Percent Auto 53.9 % (50-75); Platelet Count 220 X10^3/uL (150-400); Red Blood Cell Count 3.67 X10^6/uL (4.0-5.2); Red Cell Distribution Width 13.5 % (11.6-14.8); White Blood Cell Count 5.6 X10^3/uL (4.5-11.0)
[2021-04-26 13:10] LABS: Alanine Aminotransferase 22 IU/L (<35); Albumin 3.6 g/dL (3.5-5.0); Albumin Globulin Ratio 1.2 (1.0-2.8); Alkaline Phosphatase 41 U/L (38-126); Aspartate Aminotransferase 26 IU/L (14-36); BUN Creatinine Ratio 14.7 (6-22); Bilirubin Total 0.4 mg/dL (0.2-1.3); Blood Urea Nitrogen 20 mg/dL (7-17); Calcium 9.2 mg/dL (8.4-10.2); Carbon Dioxide 29 mmol/L (22-32); Chloride 110 mmol/L (98-107); Estimated Glomerular Filt Rate 39.3 mL/min (>60); Globulin 2.9 g/dL (1.7-4.1); Glucose 92 mg/dL (80-110); HEMOLYSIS < 15 (0-50); Lactate Dehydrogenase 551 U/L (313-618); Sodium 142 mmol/L (137-145); Total Protein 6.5 g/dL (6.3-8.2)
[2021-04-27 12:32] LABS: Calcium 9.1 mg/dL (8.7-10.3); Parathyroid Hormone, Intact 76 pg/mL (15-65)
== END ==
PROVIDERS: Family Provider Family Medicine; PCP Family Medicine; Referring Provider Internal Medicine Hematology & Oncology; Visit Provider Internal Medicine Hematology & Oncology
DX: C64.2 Malignant neoplasm of left kidney, except renal pelvis (principal); N18.2 Chronic kidney disease, stage 2 (mild); E21.3 Hyperparathyroidism, unspecified; Z90.5 Acquired absence of kidney; Z90.49 Acquired absence of other specified parts of digestive tract; K57.30 Diverticulosis of large intestine without perforation or abscess without bleeding
CPT/HCPCS: 71250; 74176; 80053; 82310; 83615; 83970; 85025

== ENCOUNTER 2021-05-05 13:01 | Emergency (ER) | payer OTHER, MEDICAID, SELFPAY ==
[2021-05-05] VITALS (10 sets, daily range): BP systolic 147–200; BP diastolic 76–152; PULSE 71–92; RESP 16–20; TEMP 37.2; O2SAT 93–100; BMI 63.1
--- NOTE | 2021-05-05 13:29 | ED_ITS ---
HPI - Extremity Problem <Kentrell Chris PA-C - Last Filed: 05/05/21 18:21> General Chief complaint: Extremity Problem,Nontraumatic Stated complaint: Muscle cramps right side Time Seen by Provider: 05/05/21 12:45 Source: patient Mode of arrival: EMS History of Present Illness HPI Narrative: 65-year-old female presents to emergency department due to reported muscle cramping onset just prior to arrival. Patient states the muscle cramping in her right lower extremity radiating up to her right oblique area as well as some cramping to the left ribs. Patient states that she has a history of this and was last seen at [facility] and treated with Toradol which she felt great? After. Patient states that it is she does not have any acute chest pain, shortness of breath, abdominal pain, or any other concerning signs or symptoms. Patient states that she has a history of these muscular cramps. Patient reports being mostly sedentary as well. Related Data Home Medications Medication Instructions Recorded Confirmed apremilast 30 mg tablet (Otezla) 30 mg PO DAILY 02/07/18 02/06/21 fluticasone propionate 110 1 puff INHALATION Q12H 02/07/18 02/06/21 mcg/actuation HFA aerosol inhaler (Flovent HFA) Albuterol Inhaler 1 puff INHALATION BID 09/27/20 02/06/21 prazosin 2 mg capsule 2 mg PO BEDTIME 09/27/20 02/06/21 amlodipine 10 mg tablet 10 mg PO DAILY 05/04/21 05/04/21 cyclobenzaprine 10 mg tablet 10 mg PO BEDTIME 05/04/21 05/04/21 epinephrine 0.3 mg/0.3 mL 0.3 mg IM Q5-15M PRN 05/04/21 05/04/21 injection syringe furosemide 20 mg tablet 20 mg PO DAILY 05/04/21 05/04/21 Previous Rx's Medication Instructions Recorded INCONTINENCE SUPPLIES #140 ea 09/28/20 minocycline 100 mg capsule 100 mg PO BID #180 cap 10/31/20 mupirocin 2 % topical ointment 1 applic TOPICAL BID #22 g 10/31/20 nifedipine 30 mg tablet,extended 30 mg PO .qhs #90 tab 02/27/21 release hydroxyzine HCl 25 mg tablet 25 mg PO QID PRN #30 tab 02/28/21 lisinopril 20 1 tab PO DAILY #90 tab 03/01/21 mg-hydrochlorothiazide 25 mg tablet pantoprazole 40 mg tablet,delayed 40 mg PO DAILY #90 tab 03/01/21 release (Protonix) cabozantinib 20 mg tablet 20 mg PO DAILY #30 tab 03/09/21 hydrocodone 5 mg-acetaminophen 325 1 tab PO TID PRN #60 tab 03/10/21 mg tablet cyclobenzaprine 10 mg tablet 10 mg PO Q8H 10 Days #30 tab 05/05/21 Allergies Allergy/AdvReac Type Severity Reaction Status Date / Time adhesive tape Allergy Severe Rash Verified 05/05/21 13:08 bee venom protein (honey bee) Allergy Unknown Verified 05/05/21 13:08 enoxaparin [From Lovenox] Allergy Unknown Verified 05/05/21 13:08 rivaroxaban [From Xarelto] AdvReac Severe Difficulty Verified 05/05/21 13:08 Breathing iodine AdvReac Unknown Verified 05/05/21 13:08 MICRO AdvReac Unknown Uncoded 02/06/21 10:10 Review of Systems <Kentrell Chris PA-C - Last Filed: 05/05/21 18:21> Review of Systems Narrative: See HPI. Patient History <Kentrell Chris PA-C - Last Filed: 05/05/21 18:21> Medical History (Updated 05/05/21 @ 16:15 by Kentrell Chris PA-C) Asthma Chronic knee pain COPD (chronic obstructive pulmonary disease) Depression Hyperparathyroidism Hypertension Neuropathy Panic attacks Plantar wart, left foot Psoriasis Renal carcinoma Rheumatoid arthritis Right knee sprain Sleep apnea Surgical History Anesthesia H/O hernia repair H/O hysterectomy with oophorectomy (~1991) History of carpal tunnel release History of section (~1982) History of cholecystectomy (~1982) History of kidney surgery (~2018) History of tonsillectomy and adenoidectomy Family History Unknown Breast cancer Father Colon cancer Hypertension History of heart disease Mother Congestive heart failure Grandmother Diabetes mellitus Hypertension Social History marital status: unknown household members: none Smoking Status: Former smoker Tobacco: How many years used: 46 second hand exposure: No alcohol intake: current (rare) substance use type: marijuana Smoking Status: Former smoker alcohol intake frequency: holidays/special occasions only Substance Use Type: marijuana Exam <Kentrell Chris PA-C - Last Filed: 05/05/21 18:21> Initial Vital Signs Initial Vital Signs: Vital Signs Temperature 98.9 F 05/05/21 13:07 Pulse Rate 86 05/05/21 13:07 Respiratory Rate 16 05/05/21 13:07 Blood Pressure 147/76 H 05/05/21 13:07 Pulse Oximetry 99 05/05/21 13:07 Const General: cooperative, healthy appearing and other (Mild distress) Extrem Other: Mild tenderness to palpation to the right hip as well as right lower extremity <Kevin Bergman DO - Last Filed: 05/06/21 08:04> Initial Vital Signs Initial Vital Signs: Vital Signs Temperature 98.9 F 05/05/21 13:07 Pulse Rate 86 05/05/21 13:07 Respiratory Rate 16 05/05/21 13:07 Blood Pressure 147/76 H 05/05/21 13:07 Pulse Oximetry 99 05/05/21 13:07 Course <JEFF Jane Last Filed: 05/05/21 18:21> Orders Ordered: Discontinued Medications Sodium Chloride (Normal Saline 0.9%) 1,000 mls @ 1,000 mls/hr IV BOLUS ONE Stop: 05/05/21 14:20 Last Infusion: 05/05/21 15:45 Dose: 0 mls/hr Documented by: Admin: 05/05/21 13:45 Dose: 1,000 mls/hr Documented by: SAMEER Ketorolac Tromethamine (Ketorolac 30 Mg/Ml Vial) 15 mg IV NOW ONE Stop: 05/05/21 13:28 Last Admin: 05/05/21 13:44 Dose: 15 mg Documented by: SAMEER Vital Signs Vital signs: Vital Signs - 8 hr 05/05/21 13:07 05/05/21 13:30 05/05/21 14:00 Temperature 98.9 F Pulse Rate 86 83 92 H Respiratory Rate 16 18 16 Blood Pressure 147/76 H 159/96 H 155/92 H Pulse Oximetry 99 98 93 05/05/21 14:30 05/05/21 14:43 05/05/21 15:00 Temperature Pulse Rate 78 81 76 Respiratory Rate 20 Blood Pressure 171/89 H 166/83 H Pulse Oximetry 99 100 100 05/05/21 15:09 05/05/21 15:30 05/05/21 15:43 Temperature Pulse Rate 86 75 75 Respiratory Rate Blood Pressure 200/152 H 169/79 H Pulse Oximetry 99 100 100 05/05/21 16:00 Temperature Pulse Rate 71 Respiratory Rate Blood Pressure 172/88 H Pulse Oximetry 99 <Kevin Bergman DO - Last Filed: 05/06/21 08:04> Orders Ordered: Discontinued Medications Sodium Chloride (Normal Saline 0.9%) 1,000 mls @ 1,000 mls/hr IV BOLUS ONE Stop: 05/05/21 14:20 Last Infusion: 05/05/21 15:45 Dose: 0 mls/hr Documented by: Admin: 05/05/21 13:45 Dose: 1,000 mls/hr Documented by: SAMEER Ketorolac Tromethamine (Ketorolac 30 Mg/Ml Vial) 15 mg IV NOW ONE Stop: 05/05/21 13:28 Last Admin: 05/05/21 13:44 Dose: 15 mg Documented by: SAMEER Vital Signs Vital signs: Vital Signs - 8 hr 05/05/21 13:07 05/05/21 13:30 05/05/21 14:00 Temperature 98.9 F Pulse Rate 86 83 92 H Respiratory Rate 16 18 16 Blood Pressure 147/76 H 159/96 H 155/92 H Pulse Oximetry 99 98 93 05/05/21 14:30 05/05/21 14:43 05/05/21 15:00 Temperature Pulse Rate 78 81 76 Respiratory Rate 20 Blood Pressure 171/89 H 166/83 H Pulse Oximetry 99 100 100 05/05/21 15:09 05/05/21 15:30 05/05/21 15:43 Temperature Pulse Rate 86 75 75 Respiratory Rate Blood Pressure 200/152 H 169/79 H Pulse Oximetry 99 100 100 05/05/21 16:00 Temperature Pulse Rate 71 Respiratory Rate Blood Pressure 172/88 H Pulse Oximetry 99 MDM - Extremity (Nontraumatic) <Kentrell Aries, PA-C - Last Filed: 05/05/21 18:21> Lab Data Result diagrams: 05/05/21 14:32 Labs: Lab Results 05/05/21 05/05/21 05/05/21 Range/Units 14:32 14:32 15:07 Sodium 142 (137-145) mmol/L Potassium 3.9 (3.4-5.1) mmol/L Chloride 108 H (98-107) mmol/L Carbon Dioxide 29 (22-32) mmol/L BUN 21 H (7-17) mg/dL Creatinine 1.61 H (0.52-1.04) mg/dL Estimated GFR 32.3 L (>60) mL/min BUN/Creatinine Ratio 13.0 (6-22) Glucose 94 (80-110) mg/dL Calcium 8.8 (8.4-10.2) mg/dL Total Bilirubin 0.3 (0.2-1.3) mg/dL AST 27 (14-36) IU/L ALT 23 (<35) IU/L Alkaline Phosphatase 44 (38-126) U/L Total Creatine Kinase 96 (30-135) U/L Total Protein 6.5 (6.3-8.2) g/dL Albumin 3.6 (3.5-5.0) g/dL Globulin 2.9 (1.7-4.1) g/dL Albumin/Globulin Ratio 1.2 (1.0-2.8) Urine RBC 5-10/hpf H (0-5/HPF) Urine WBC 1-5/hpf (0-5/HPF) Ur Squamous Epith Cells 10-30 /hpf H (0-5/HPF) Urine Bacteria Many (>30) H (None) Ur Culture Indicated? Cult not indicated Urine Dip Bedside Urine Glucose Negative Bedside Urine Bilirubin - Negative Bedside Urine Ketone - Negative Urine Specific [place] 1.030 Bedside Urine Occult Blood +/- Bedside Urine pH 6.0 Bedside Urine Protein +++ 300 Bedside Urine Urobilinogen - Negative Bedside Urine Nitrite + Positive Bedside Urine Leukocytes - Negative Esterase MDM Narrative Medical decision making narrative: This is a 65-year-old female presents to the emergency department due to acute muscular cramping. Patient states she has a history of this which has improved with ?injections? when seen at [facility] previously. CMP showed no electrolyte abnormalities and CK was within normal limits. Patient's pain improved slightly with his Toradol and IV fluids. Patient was noted to have elevated blood pressure readings during the visit but does describe having a chronic history of hypertension that she will speak to her primary care provider about next week. Patient will be discharged with prescription for Flexeril the follow-up with primary care for long-term management of her blood pressure. <Kevin Bergman DO - Last Filed: 05/06/21 08:04> Lab Data Labs: Lab Results 05/05/21 05/05/21 05/05/21 Range/Units 14:32 14:32 15:07 Sodium 142 (137-145) mmol/L Potassium 3.9 (3.4-5.1) mmol/L Chloride 108 H (98-107) mmol/L Carbon Dioxide 29 (22-32) mmol/L BUN 21 H (7-17) mg/dL Creatinine 1.61 H (0.52-1.04) mg/dL Estimated GFR 32.3 L (>60) mL/min BUN/Creatinine Ratio 13.0 (6-22) Glucose 94 (80-110) mg/dL Calcium 8.8 (8.4-10.2) mg/dL Total Bilirubin 0.3 (0.2-1.3) mg/dL AST 27 (14-36) IU/L ALT 23 (<35) IU/L Alkaline Phosphatase 44 (38-126) U/L Total Creatine Kinase 96 (30-135) U/L Total Protein 6.5 (6.3-8.2) g/dL Albumin 3.6 (3.5-5.0) g/dL Globulin 2.9 (1.7-4.1) g/dL Albumin/Globulin Ratio 1.2 (1.0-2.8) Urine RBC 5-10/hpf H (0-5/HPF) Urine WBC 1-5/hpf (0-5/HPF) Ur Squamous Epith Cells 10-30 /hpf H (0-5/HPF) Urine Bacteria Many (>30) H (None) Ur Culture Indicated? Cult not indicated Urine Dip Bedside Urine Glucose Negative Bedside Urine Bilirubin - Negative Bedside Urine Ketone - Negative Urine Specific [place] 1.030 Bedside Urine Occult Blood +/- Bedside Urine pH 6.0 Bedside Urine Protein +++ 300 Bedside Urine Urobilinogen - Negative Bedside Urine Nitrite + Positive Bedside Urine Leukocytes - Negative Esterase Discharge Plan Departure Patient Disposition: Home Clinical Impression: Cramp in muscle Instructions: Dehydration Activity Restrictions/Additional Instructions: Thank you for coming to the [facility] Emergency department. Your lab work show no evidence of any acute electrolyte abnormalities. Hydration, healthy diet, and very light exercise may help to help avoid further cramping like this in the future. You may also use the muscle relaxant prescribed to help relax the muscles to avoid any cramping. As we discussed please follow-up with the primary care provider regarding your blood pressure readings as there is best people to manage this group home. I hope you feel better soon. Prescriptions: New cyclobenzaprine 10 mg tablet 10 mg PO Q8H 10 Days Qty: 30 0RF No Action (DME) INCONTINENCE SUPPLIES EXTRA LARGE package See Rx Instructions .Route .MEDSUPPLY Qty: 140 0RF Rx Instructions: ADULT SIZED DISPOSABLE INCONTINENCE PRODUCT PROTECTIVE UNDERWEAR/PULL-ON nifedipine 30 mg tablet extended release 30 mg PO .qhs Qty: 90 0RF hydroxyzine HCl 25 mg tablet 25 mg PO QID PRN (Reason: Muscle Spasm) Qty: 30 1RF lisinopril-hydrochlorothiazide 20-25 mg tablet 1 tab PO DAILY Qty: 90 1RF pantoprazole [Protonix] 40 mg tablet,delayed release (DR/EC) 40 mg PO DAILY Qty: 90 1RF hydrocodone-acetaminophen 5-325 mg tablet 1 tab PO TID PRN (Reason: pain) Qty: 60 0RF Rx Instructions: Treatment of acute right knee sprain, exempt Albuterol Inhaler 1 puff inhalation BID 0RF prazosin 2 mg capsule 2 mg PO BEDTIME 0RF minocycline 100 mg capsule 100 mg PO BID Qty: 180 1RF mupirocin 2 % ointment 1 applic topical BID Qty: 22 1RF Flovent HFA 110 mcg/actuation Hfa Aerosol Inhaler 1 puff INHALATION Q12H 0RF Otezla 30 mg Tablet 30 mg PO DAILY 0RF cabozantinib 20 mg Tablet 20 mg PO DAILY Qty: 30 11RF Rx Instructions: must take on an empty stomach;no food 2 hours before or 1 hour after dose cyclobenzaprine 10 mg Tablet 10 mg PO BEDTIME 0RF amlodipine 10 mg Tablet 10 mg PO DAILY 0RF furosemide 20 mg Tablet 20 mg PO DAILY 0RF epinephrine 0.3 mg/0.3 mL Syringe 0.3 mg IM Q5-15M PRN (Reason: Allergic Reaction) 0RF Rx Instructions: do not exceed 3 doses per episode Referrals: Gibran Baker DO [Primary Care Provider] - <Kevin Bergman DO - Last Filed: 05/06/21 08:04> Cosign ED Attending Cosignature Attestation: I was immediately available in the department for consultation. This do cumentation has been reviewed and I agree with assessment and plan. Supervised by Kevin Bergman DO
[2021-05-05] MEDS: KETOROLAC 30 MG/ML VIAL 15 MG IV (13:44)
[2021-05-05] MEDS: SODIUM CHLORIDE 0.9% 1,000 ML 1000 ML IV (13:45)
[2021-05-05 14:52] LABS: Alanine Aminotransferase 23 IU/L (<35); Albumin 3.6 g/dL (3.5-5.0); Albumin Globulin Ratio 1.2 (1.0-2.8); Alkaline Phosphatase 44 U/L (38-126); Aspartate Aminotransferase 27 IU/L (14-36); Bilirubin Total 0.3 mg/dL (0.2-1.3); Blood Urea Nitrogen 21 mg/dL (7-17); Calcium 8.8 mg/dL (8.4-10.2); Carbon Dioxide 29 mmol/L (22-32); Chloride 108 mmol/L (98-107); Estimated Glomerular Filt Rate 32.3 mL/min (>60); Globulin 2.9 g/dL (1.7-4.1); Glucose 94 mg/dL (80-110); HEMOLYSIS < 15 (0-50); Potassium 3.9 mmol/L (3.4-5.1); Sodium 142 mmol/L (137-145); Total Protein 6.5 g/dL (6.3-8.2)
[2021-05-05 14:57] LABS: Creatine Kinase 96 U/L (30-135)
[2021-05-05 15:32] LABS: Bacteria Urine Many (>30); Culture Indicated Urine Cult Not Indicated; RBC Urine 5-10/HPF (0-5/HPF); Squamous Epithelial Cell Urine 10-30 /HPF (0-5/HPF); WBC Urine 1-5/HPF (0-5/HPF)
== END 2021-05-05 16:35 | disposition home or self-care (01) ==
PROVIDERS: Emergency Provider Physician Assistant Medical; Family Provider Family Medicine; PCP Family Medicine
DX: R25.2 Cramp and spasm (principal); Z87.891 Personal history of nicotine dependence
CPT/HCPCS: 36415; 80053; 81003; 81015; 82550; 96361; 96374; 99284; J1885

== ENCOUNTER → 2021-05-11 10:40 | Outpatient (CLI) | payer OTHER, MEDICAID, SELFPAY ==
[2021-05-11 12:27] LABS: BUN Creatinine Ratio 15.4 (6-22); Blood Urea Nitrogen 22 mg/dL (7-17); Calcium 8.8 mg/dL (8.4-10.2); Carbon Dioxide 29 mmol/L (22-32); Chloride 107 mmol/L (98-107); Estimated Glomerular Filt Rate 37.1 mL/min (>60); Glucose 90 mg/dL (80-110); HEMOLYSIS < 15 (0-50); Potassium 3.8 mmol/L (3.4-5.1); Sodium 141 mmol/L (137-145)
[2021-05-11 14:58] LABS: Creatinine Urine Random 88.6 mg/dL; Protein (Total) Urine Random 163 mg/dL (0-12); Protein Creatinine Ratio Urine 1.83 GRAM/24H
[2021-05-12 05:18] LABS: Parathyroid Hormone Int 92 pg/mL (15-65)
== END ==
PROVIDERS: Family Provider Family Medicine; PCP Family Medicine; Referring Provider Student in an Organized Health Care Education/Training Program; Visit Provider Student in an Organized Health Care Education/Training Program
DX: N05.9 Unspecified nephritic syndrome with unspecified morphologic changes (principal); N25.81 Secondary hyperparathyroidism of renal origin; R80.9 Proteinuria, unspecified
CPT/HCPCS: 36415; 80048; 82570; 83970; 84156

== ENCOUNTER → 2021-05-22 13:15 | Outpatient (CLI) | payer OTHER, MEDICAID, SELFPAY | PROVIDERS: Family Provider Family Medicine; PCP Family Medicine; Referring Provider Family Medicine; Visit Provider Family Medicine | DX: L02.92 Furuncle, unspecified (principal); S31.109A Unspecified open wound of abdominal wall, unspecified quadrant without penetration into peritoneal cavity, initial encounter; E11.628 Type 2 diabetes mellitus with other skin complications; E66.01 Morbid (severe) obesity due to excess calories; L40.9 Psoriasis, unspecified; Z79.01 Long term (current) use of anticoagulants; Z79.899 Other long term (current) drug therapy; Z92.25 Personal history of immunosuppression therapy; Z85.528 Personal history of other malignant neoplasm of kidney; Z90.5 Acquired absence of kidney; Z68.44 Body mass index [BMI] 60.0-69.9, adult | CPT/HCPCS: 87070; 87075; 87077; 87186; 87205; 97597; 99213; 99214 ==

== ENCOUNTER → 2021-06-06 14:29 | Outpatient (CLI) | payer OTHER, MEDICAID, SELFPAY | PROVIDERS: Family Provider Family Medicine; PCP Family Medicine; Referring Provider Family Medicine; Visit Provider Family Medicine | DX: L73.8 Other specified follicular disorders (principal); E11.628 Type 2 diabetes mellitus with other skin complications; L40.9 Psoriasis, unspecified; E66.01 Morbid (severe) obesity due to excess calories; Z79.899 Other long term (current) drug therapy; Z92.25 Personal history of immunosuppression therapy; Z85.528 Personal history of other malignant neoplasm of kidney; Z68.44 Body mass index [BMI] 60.0-69.9, adult | CPT/HCPCS: 99212; 99213 ==

== ENCOUNTER → 2021-06-19 09:24 | Outpatient (CLI) | payer OTHER, MEDICAID, SELFPAY ==
[2021-06-19 11:10] LABS: Hemoglobin 12.8 g/dL (12.0-16.0)
[2021-06-19 11:37] LABS: BUN Creatinine Ratio 11.5 (6-22); Blood Urea Nitrogen 15 mg/dL (7-17); Calcium 8.8 mg/dL (8.4-10.2); Carbon Dioxide 30 mmol/L (22-32); Chloride 110 mmol/L (98-107); Estimated Glomerular Filt Rate 46 mL/min (>60); Glucose 88 mg/dL (80-110); HEMOLYSIS < 15 (0-50); Potassium 3.9 mmol/L (3.4-5.1); Sodium 145 mmol/L (137-145)
[2021-06-19 16:30] LABS: Creatinine Urine Random 105.6 mg/dL
[2021-06-19 16:48] LABS: Protein (Total) Urine Random 422 mg/dL (0-12); Protein Creatinine Ratio Urine 3.99 GRAM/24H
[2021-06-20 09:36] LABS: Parathyroid Hormone Int 109 pg/mL (15-65)
== END ==
PROVIDERS: Family Provider Family Medicine; PCP Family Medicine; Referring Provider Student in an Organized Health Care Education/Training Program; Visit Provider Student in an Organized Health Care Education/Training Program
DX: N05.9 Unspecified nephritic syndrome with unspecified morphologic changes (principal); D64.9 Anemia, unspecified; N25.81 Secondary hyperparathyroidism of renal origin; R80.9 Proteinuria, unspecified
CPT/HCPCS: 36415; 80048; 82570; 83970; 84156; 85014; 85018

== ENCOUNTER → 2021-08-03 16:53 | Outpatient (CLI) | payer OTHER, MEDICAID, SELFPAY ==
[2021-08-03 22:04] LABS: BUN Creatinine Ratio 15.6 (6-22); Blood Urea Nitrogen 19 mg/dL (7-17); Calcium 8.2 mg/dL (8.4-10.2); Carbon Dioxide 26 mmol/L (22-32); Chloride 111 mmol/L (98-107); Estimated Glomerular Filt Rate 50 mL/min (>60); Glucose 99 mg/dL (80-110); HEMOLYSIS < 15 (0-50); Sodium 141 mmol/L (137-145)
[2021-08-03 23:12] LABS: Creatinine Urine Random 56.5 mg/dL; Protein (Total) Urine Random 293 mg/dL (0-12); Protein Creatinine Ratio Urine 5.18 GRAM/24H
== END ==
PROVIDERS: Family Provider Family Medicine; PCP Family Medicine; Referring Provider Student in an Organized Health Care Education/Training Program; Visit Provider Student in an Organized Health Care Education/Training Program
DX: N05.9 Unspecified nephritic syndrome with unspecified morphologic changes (principal); R80.9 Proteinuria, unspecified
CPT/HCPCS: 36415; 80048; 82570; 84156

== ENCOUNTER → 2021-09-06 09:56 | Outpatient (CLI) | payer OTHER, MEDICAID, SELFPAY ==
[2021-09-06 10:48] LABS: Creatinine Urine Random 322.1 mg/dL
[2021-09-06 11:57] LABS: Protein (Total) Urine Random 1343 mg/dL (0-12); Protein Creatinine Ratio Urine 4.16 GRAM/24H
[2021-09-06 12:07] LABS: BUN Creatinine Ratio 15.9 (6-22); Blood Urea Nitrogen 25 mg/dL (7-17); Calcium 8.5 mg/dL (8.4-10.2); Carbon Dioxide 28 mmol/L (22-32); Chloride 106 mmol/L (98-107); Estimated Glomerular Filt Rate 37 mL/min (>60); Glucose 91 mg/dL (80-110); HEMOLYSIS < 15 (0-50); Potassium 3.8 mmol/L (3.4-5.1); Sodium 140 mmol/L (137-145)
[2021-09-07 09:57] LABS: Parathyroid Hormone Int 91 pg/mL (15-65)
== END ==
PROVIDERS: Family Provider Family Medicine; PCP Family Medicine; Referring Provider Student in an Organized Health Care Education/Training Program; Visit Provider Student in an Organized Health Care Education/Training Program
DX: N05.9 Unspecified nephritic syndrome with unspecified morphologic changes (principal); N25.81 Secondary hyperparathyroidism of renal origin; R80.9 Proteinuria, unspecified
CPT/HCPCS: 36415; 80048; 82570; 83970; 84156

== ENCOUNTER → 2021-10-25 11:46 | Outpatient (CLI) | payer OTHER, MEDICAID, SELFPAY ==
--- NOTE | 2021-10-25 11:47 | DI.CT.S_ITS ---
PROCEDURE: CT CHEST ABDOMEN WO CON INDICATIONS: clear cell renal cell carcinoma TECHNIQUE: After the administration of oral contrast, 5 mm thick sections acquired from the pulmonary apices to the iliac crests. 5 mm thick coronal and sagittal reformats acquired, with additional 7 mm coronal MIP reformats through the lungs. For radiation dose reduction, the following was used: automated exposure control, adjustment of mA and/or kV according to patient size. No intravenous contrast administered. COMPARISON: [facility], CT, CT CHEST ABD PEL W CON, 01/20/2019, 14:12. [facility], CT, CT CHEST ABD PEL WO CON, 09/14/2020, 12:46. [facility], CT, CT CHEST ABD PEL WO CON, 04/26/2021, 12:59. FINDINGS: Image quality: Excellent. CHEST: Lungs and pleura: No acute pulmonary opacities. No pleural effusions or pneumothorax. Central and peripheral airways are patent and normal in caliber. 7 mm solid nodule at the left lower lobe superior segment (6/102) not significantly changed since at least 01/20/2019, probably benign. Mediastinum: No pericardial effusion. No mediastinal adenopathy by size criteria. Thoracic aorta and central pulmonary arteries are normal in size. Esophagus is normal in caliber. No hiatal hernia. Chest wall: No axillary or supraclavicular adenopathy by size criteria. ABDOMEN: Solid organs: Liver is normal in size. Gallbladder is not visualized, presumed surgically absent. Pancreas is normal in contours. Spleen is normal in size. No adrenal nodules. Postsurgical changes from prior left nephrectomy. No definite suspicious findings visualized in the surgical bed. No right hydronephrosis. Peritoneum and bowel: Visualized large and small bowel is non-dilated. A few duodenal diverticula are present. No free air or substantial free fluid. Nodes and vessels: No retroperitoneal or mesenteric adenopathy by size criteria. Aorta and inferior vena cava are normal in caliber. Miscellaneous: No ventral hernias. Multilevel degenerative change of the visualized spine. IMPRESSION: No definite evidence of metastatic disease in the chest or abdomen. Dictated by: Chad Eller M.D. on 10/26/2021 at 13:45 Approved by: Chad Eller M.D. on 10/26/2021 at 14:40
== END ==
PROVIDERS: Family Provider Family Medicine; PCP Family Medicine; Referring Provider Internal Medicine Hematology & Oncology; Visit Provider Internal Medicine Hematology & Oncology
DX: C64.2 Malignant neoplasm of left kidney, except renal pelvis (principal)
CPT/HCPCS: 71250; 74150

== ENCOUNTER → 2021-11-03 12:02 | Outpatient (CLI) | payer OTHER, MEDICAID, SELFPAY ==
[2021-11-03 12:47] LABS: Creatinine Urine Random 136.7 mg/dL
[2021-11-03 12:54] LABS: Protein (Total) Urine Random 531 mg/dL (0-12); Protein Creatinine Ratio Urine 3.88 GRAM/24H
[2021-11-03 13:36] LABS: Hematocrit 37.3 % (36-46); Hemoglobin 12.7 g/dL (12.0-16.0)
[2021-11-03 13:46] LABS: BUN Creatinine Ratio 13.3 (6-22); Blood Urea Nitrogen 18 mg/dL (7-17); Calcium 8.7 mg/dL (8.4-10.2); Carbon Dioxide 26 mmol/L (22-32); Chloride 109 mmol/L (98-107); Estimated Glomerular Filt Rate 44 mL/min (>60); Glucose 104 mg/dL (80-110); HEMOLYSIS < 15 (0-50); Potassium 3.8 mmol/L (3.4-5.1); Sodium 144 mmol/L (137-145)
[2021-11-04 08:16] LABS: Parathyroid Hormone Int 64 pg/mL (15-65)
== END ==
PROVIDERS: Family Provider Family Medicine; PCP Family Medicine; Referring Provider Student in an Organized Health Care Education/Training Program; Visit Provider Student in an Organized Health Care Education/Training Program
DX: N05.9 Unspecified nephritic syndrome with unspecified morphologic changes (principal); D64.9 Anemia, unspecified; N25.81 Secondary hyperparathyroidism of renal origin; R80.9 Proteinuria, unspecified
CPT/HCPCS: 36415; 80048; 82570; 83970; 84156; 85014; 85018

== ENCOUNTER → 2022-03-15 12:46 | Outpatient (CLI) | payer OTHER, MEDICAID, SELFPAY ==
[2022-03-15 13:45] LABS: Hematocrit 37.8 % (36-46); Hemoglobin 12.2 g/dL (12.0-16.0)
[2022-03-15 14:01] LABS: BUN Creatinine Ratio 20.8 (6-22); Blood Urea Nitrogen 27 mg/dL (7-17); Calcium 8.8 mg/dL (8.4-10.2); Carbon Dioxide 26 mmol/L (22-32); Chloride 107 mmol/L (98-107); Estimated Glomerular Filt Rate 46 mL/min (>60); Glucose 89 mg/dL (80-110); HEMOLYSIS < 15 (0-50); Potassium 4.8 mmol/L (3.4-5.1); Sodium 140 mmol/L (137-145)
[2022-03-15 15:30] LABS: Creatinine Urine Random 95.4 mg/dL
[2022-03-15 15:50] LABS: Protein (Total) Urine Random 544 mg/dL (0-12)
[2022-03-16 10:49] LABS: Parathyroid Hormone Int 113 pg/mL (15-65)
== END ==
PROVIDERS: Family Provider Family Medicine; PCP Family Medicine; Referring Provider Student in an Organized Health Care Education/Training Program; Visit Provider Student in an Organized Health Care Education/Training Program
DX: N05.9 Unspecified nephritic syndrome with unspecified morphologic changes (principal); D64.9 Anemia, unspecified; N25.81 Secondary hyperparathyroidism of renal origin; R80.9 Proteinuria, unspecified
CPT/HCPCS: 36415; 80048; 82570; 83970; 84156; 85014; 85018

== ENCOUNTER → 2022-04-23 10:20 | Outpatient (CLI) | payer OTHER, MEDICAID, SELFPAY ==
--- NOTE | 2022-04-23 10:25 | DI.CT.S_ITS ---
PROCEDURE: CT CHEST ABDOMEN WO CON INDICATIONS: kidney cancer TECHNIQUE: After the administration of oral contrast, 5 mm thick sections acquired from the pulmonary apices to the iliac crests. 5 mm thick coronal and sagittal reformats acquired, with additional 7 mm coronal MIP reformats through the lungs. For radiation dose reduction, the following was used: automated exposure control, adjustment of mA and/or kV according to patient size. COMPARISON: [facility], CT, CT CHEST ABDOMEN WO [facility], 10/25/2021, 13:21. FINDINGS: Image quality: Excellent. CHEST: Lungs and pleura: No acute pulmonary opacities. Chronic 7 mm part solid nodule in superior segment left lower lobe. Passive atelectatic changes towards the lung bases. No new nodules or masses. No pleural effusions or pneumothorax. Central and peripheral airways are patent and normal in caliber. Mediastinum: Heart size is normal. No pericardial effusion. No mediastinal adenopathy by size criteria. Thoracic aorta and central pulmonary arteries are normal in size. Esophagus is normal in caliber. No hiatal hernia. Chest wall: No axillary or supraclavicular adenopathy by size criteria. Thyroid gland is normal ABDOMEN: Solid organs: There are surgical changes of left nephrectomy. The tail of the pancreas and adrenal gland are present in the left renal fossa. No other suspicious soft tissue masses. The spleen, adrenal glands, pancreas, liver, and right kidney have a normal noncontrast appearance. The gallbladder is absent. No nephrolithiasis or hydronephrosis. Peritoneum and bowel: Stomach and visible bowel loops are normal in caliber and wall thickness. Normal appendix. No free fluid or air. Nodes and vessels: Surgical clips along the left retroperitoneum. No adenopathy. No retroperitoneal or mesenteric adenopathy by size criteria. Aorta and inferior vena cava are normal in caliber. Miscellaneous: No ventral hernias. Bones: Multilevel endplate osteophytosis throughout the thoracic spine. Facet degeneration and mild anterolisthesis at L4-5. No suspicious bone lesions. IMPRESSION: 1. No evidence of residual, locally recurrent, or metastatic disease in the chest or abdomen following left nephrectomy. Dictated by: Joie Wright M.D. on 04/23/2022 at 15:47 Approved by: Joie Wright M.D. on 04/23/2022 at 15:57
== END ==
PROVIDERS: Family Provider Family Medicine; PCP Family Medicine; Referring Provider Internal Medicine Hematology & Oncology; Visit Provider Internal Medicine Hematology & Oncology
DX: C64.2 Malignant neoplasm of left kidney, except renal pelvis (principal); N05.9 Unspecified nephritic syndrome with unspecified morphologic changes; D64.9 Anemia, unspecified; N25.81 Secondary hyperparathyroidism of renal origin; R80.9 Proteinuria, unspecified; Z90.5 Acquired absence of kidney
CPT/HCPCS: 71250; 74150

== ENCOUNTER → 2022-06-15 11:13 | Outpatient (CLI) | payer OTHER, MEDICAID, SELFPAY | PROVIDERS: Family Provider Family Medicine; PCP Family Medicine; Referring Provider Nurse Practitioner Family; Visit Provider Nurse Practitioner Family | DX: S71.101D Unspecified open wound, right thigh, subsequent encounter (principal); I10 Essential (primary) hypertension | CPT/HCPCS: 99212; 99213 ==

== ENCOUNTER → 2022-08-27 13:40 | Outpatient (CLI) | payer MEDICARE, OTHER, MEDICAID, SELFPAY ==
[2022-08-27 14:40] LABS: Hematocrit 36.4 % (36-46); Hemoglobin 12.2 g/dL (12.0-16.0)
[2022-08-27 15:16] LABS: Blood Urea Nitrogen 34 mg/dL (7-17); Calcium 8.4 mg/dL (8.4-10.2); Carbon Dioxide 26 mmol/L (22-32); Chloride 110 mmol/L (98-107); Estimated Glomerular Filt Rate 33 mL/min (>60); Glucose 88 mg/dL (80-110); HEMOLYSIS < 15 (0-50); Potassium 4.6 mmol/L (3.4-5.1); Sodium 142 mmol/L (137-145)
[2022-08-27 15:34] LABS: Creatinine Urine Random 169.8 mg/dL
[2022-08-27 15:55] LABS: Protein (Total) Urine Random 794 mg/dL (0-12); Protein Creatinine Ratio Urine 4.67 GRAM/24H
[2022-08-29 10:00] LABS: Parathyroid Hormone Int 188 pg/mL (15-65)
== END ==
PROVIDERS: Family Provider Family Medicine; PCP Family Medicine; Referring Provider Student in an Organized Health Care Education/Training Program; Visit Provider Student in an Organized Health Care Education/Training Program
DX: N05.9 Unspecified nephritic syndrome with unspecified morphologic changes (principal); D64.9 Anemia, unspecified; N25.81 Secondary hyperparathyroidism of renal origin; R80.9 Proteinuria, unspecified
CPT/HCPCS: 36415; 80048; 82570; 83970; 84156; 85014; 85018

== ENCOUNTER → 2022-10-01 10:48 | Oncology outpatient (ONC) | payer OTHER, MEDICAID, SELFPAY ==
[2018-02-07 10:31] VITALS: BP 148/73; PULSE 76; RESP 18; TEMP 37.1; O2SAT 98
--- NOTE | 2018-02-07 10:33 | ONC.CONS ---
History of Present Illness - Data of Consult Patient: new to practice Consult date: 02/07/18 Requesting Physician: Joce Palmer MD Primary Care Provider: Joce Palmer MD - Consult Narrative Reason for consult: Left kidney mass Narrative: Ms Belgica Da Silva is a 62 year old female with a long list of medical comorbidities most notable for morbid obesity, sleep apnea on CPAP, hypertension, rheumatoid arthritis, and psoriasis on Otezla(apremilast). [facility] December,, she developed headache, nausea, and vomiting. She was evaluated by Dr. Goel on 01/08/2018. Patient said that the next day, she had a call from the nurse asking her to go to the emergency room due to serum calcium level of about 13. Patient stayed at the [facility] for about 3 days. Patient recalled that they gave her medications through the intravenous line. She also underwent CT scan on 01/08/2018. The CT scan showed an left infiltrative lower/midpole originating heterogeneous isoattenuating mass measuring at least 9.7 cm, pelvic retroperitoneal node cluster largest of which measuring 1.4 x 2.6 cm, and the most prominent nearby retroperitoneal lymph node measuring 2.2 x 1.2 cm. Sigmoid diverticulosis was also noted. On 02/03/2018, she was seen as post ER follow up at [facility]. Her calcium level has decreased to 11.5. Patient requested to be referred to [facility]. Patient clinically reports left-sided back pain, 7/10 in severity, comes and goes. She also reported right-sided back pain which has been present for a long time, constant, associated with the right groin. She said she never has had headache until December of this year. She denies any chest pain. She does report shortness of breath every now and then. She said that her appetite sometimes better and sometimes worse. Her weight has been stable. She denies ever seeing visible gross hematuria. She has a history of constipation. Her sister Remedios was with her today. Patient is in wheelchair. According to patient and patient's sister, patient has been using walker at home for a long time because of severe osteoarthritis. CC: Marty Burden MD Patient reports pain?: Yes Home Medications and Allergies Home Medications Medication Instructions Recorded Confirmed Type apremilast [Otezla] 30 mg PO BID 12/21/18 12/21/18 History citalopram 40 mg PO DAILY 02/07/18 02/07/18 History clobetasol 1 applic TOPICAL BID 02/07/18 02/07/18 History ergocalciferol (vitamin D2) 50,000 unit PO QWEEK 02/07/18 02/07/18 History fluticasone [Flovent HFA] 1 puff INHALATION Q12H 02/07/18 02/07/18 History furosemide [Lasix] 40 mg PO DAILY 02/07/18 02/07/18 History hydroxyzine HCl 25 mg PO QID PRN 02/07/18 02/07/18 History minocycline 100 mg PO BID 02/07/18 02/07/18 History naproxen 500 mg PO PRN PRN 02/07/18 02/07/18 History potassium chloride 20 meq PO DAILY 02/07/18 02/07/18 History pramipexole 0.125 mg PO BEDTIME 02/07/18 02/07/18 History prazosin 2 mg PO BID 02/07/18 02/07/18 History ranitidine HCl 150 mg PO DAILY 02/07/18 02/07/18 History temazepam 15 mg PO BEDTIME PRN 02/07/18 02/07/18 History trazodone 100 mg PO DAILY 02/07/18 02/07/18 History Allergies Allergy/AdvReac Type Severity Reaction Status Date / Time bee venom protein (honey bee) Allergy Unknown Verified 02/07/18 11:09 iodine AdvReac Unknown Verified 02/07/18 11:09 MICRO AdvReac Unknown Uncoded 02/07/18 11:09 Medical History - Medical, Surgical, Family History Medical History: Medical History (Last Updated 02/07/18 @ 10:59 by Marty Burden MD) Anemia Arthritis Asthma Depression Hypertension Neuropathy Obesity Psoriasis Rheumatoid arthritis Sleep apnea Surgical History: Surgical History (Last Updated 02/07/18 @ 11:01 by Marty Burden MD) H/O hernia repair H/O hysterectomy with oophorectomy History of tonsillectomy and adenoidectomy Family History: Family History (Last Updated 02/07/18 @ 11:03 by Marty Burden MD) Unknown Breast cancer Father Colon cancer - Social History Smoking Status: Former smoker Smoking packs per day: 1 Years smoked: 38 Quit Date: 09/01/09 Substance Use Type: marijuana Alcohol Intake: current (holiday drinker) Review of Systems All systems PM: reviewed and no additional remarkable complaints except as stated Exam Vital signs: Last Vital Signs Temp 98.7 F 02/07/18 10:31 Pulse 76 02/07/18 10:31 Resp 18 02/07/18 10:31 BP 148/73 H 02/07/18 10:31 Pulse Ox 98 02/07/18 10:31 ECOG 1 Narrative: Constitutional: WDWN, NAD, morbid obese, cooperative, in wheelchair, accompanied by her sister Anatoly HEENT: NCAT, EOMI, PERRLA, anicteric sclera, no hearing difficulty; oral mucus membrane moist and without ulcers. Neck: Supple, symmetrical, and tracheal midline; No palpable thyromegaly and no palpable lymph nodes. Respiratory: No use of accessory muscles. Clear to auscultation, and no wheezes or rales or rubs. Cardiovascular: Regular rate and rhythm, S1 and S2 normal, 2/6 SM aortic valve, no gallops or rubs. No JVD. No pitting edema of lower extremities. Abdomen: Soft, mild tender upon palpation. no muscle guard, no rebounds. Tenderness in the left and right lower back upon tapping. Lower extremities: No palpable pedal edema. Lymphatic: no palpable lymph nodes in the neck, axillae, or groins. Skin: no rashes, no ulcers, no petechiae Neurological: Awake and alert and oriented x3. CN II-XII grossly intact. No focal motor or sensory deficit. Psychiatric: Good judgment, good insight, normal affect, normal thought process, cooperative, no depression, no anxiety. Results - Labs Laboratory Last Values WBC 5.8 X10^3/uL (4.5-11.0) 02/07/18 11:23 RBC 3.43 X10^6/uL (4.0-5.2) L 02/07/18 11:23 Hgb 10.0 g/dL (12.0-16.0) L 02/07/18 11:23 Hct 31.0 % (36-46) L 02/07/18 11:23 MCV 90.4 fL (80-100) 02/07/18 11:23 MCH 29.1 PG (26-34) 02/07/18 11:23 MCHC 32.2 % (30-36) 02/07/18 11:23 RDW 14.5 % (11.6-14.8) 02/07/18 11:23 Plt Count 377 X10^3/uL (150-400) 02/07/18 11:23 Neut % (Auto) 59.2 % (50-75) 02/07/18 11:23 Lymph % (Auto) 26.2 % (25-40) 02/07/18 11:23 [place] % (Auto) 12.7 % (3-14) 02/07/18 11:23 Eos % (Auto) 1.1 % (2-4) L 02/07/18 11:23 Baso % (Auto) 0.8 % (0-2) 02/07/18 11:23 Neut # (Auto) 3400 /uL (3559-1689) 02/07/18 11:23 Sodium 143 mmol/L (137-145) 02/07/18 11:23 Potassium 4.7 mmol/L (3.4-5.1) 02/07/18 11:23 Chloride 105 mmol/L (98-107) 02/07/18 11:23 Carbon Dioxide 28 mmol/L (22-32) 02/07/18 11:23 BUN 18 mg/dL (7-17) H 02/07/18 11:23 Creatinine 1.00 mg/dL (0.52-1.04) 02/07/18 11:23 Estimated GFR 56.6 mL/min (>60) L 02/07/18 11:23 BUN/Creatinine Ratio 18.0 (6-22) 02/07/18 11:23 Glucose 87 mg/dL (80-110) 02/07/18 11:23 Calcium 11.5 mg/dL (8.4-10.2) H 02/07/18 14:42 Total Bilirubin 0.4 mg/dL (0.2-1.3) 02/07/18 11:23 AST 17 IU/L (14-36) 02/07/18 11:23 ALT 19 IU/L (9-52) 02/07/18 11:23 Alkaline Phosphatase 72 U/L (38-126) 02/07/18 11:23 Lactate Dehydrogenase 339 U/L (313-618) 02/07/18 11:23 Total Protein 7.1 g/dL (6.3-8.2) 02/07/18 11:23 Albumin 3.8 g/dL (3.5-5.0) 02/07/18 11:23 Globulin 3.3 g/dL (1.7-4.1) 02/07/18 11:23 Albumin/Globulin Ratio 1.2 (1.0-2.8) 02/07/18 11:23 Assessment and Plan (1) Left kidney mass Problem details: Presented with hypercalcemia with headache, nausea and vomiting. CT 01/08/2018: left renal mass at least 9.7 cm with prominent retroperitoneal lymphadneopathy. Assessment: I talked with the patient and patient's sister about the CT findings. The mass is located in the left lower kidney measuring at least more than 9 cm in size with nearby lymphadenopathy and pelvic lymphadenopathy. Based on the imaging characteristics, it is highly suspicious for possible kidney cancer. Patient's previous scan was about a month ago. I will obtain a restaging studies including PET-CT as well as CT scan of the chest abdomen pelvis with contrast. I discussed on the phone with Dr. Jolynn Morales, our urologist at the [facility]. Dr. Morales recommended that the patient be referred to [facility] for further evaluation given the size of the tumor and comorbidities Plan: 1. Stat CBC, CMP, LDH 2. PET/CT 3. CT CAP w/contrast 4. Urology referral [facility] 5. RTC after scan (2) Hypercalcemia Problem details: Most likely malignancy related hypercalcemia. She has low PTH and high PTHRP. Assessment and Plan: Stat CBC, and CMP were obtained. Her calcium level was 12.6. Therefore, she was given at the clinical NS 2000 cc. Post infusion repeat test showed calcium level decreased to 11.5. Patient was instructed to drink enough fluids over the weekend. She is to come back on 02/10/2018 for recheck of BMP with calciums. (3) Morbid obesity No immediate intervention indicated. (4) Chronic anemia Normocytic. Likely related to multiple chronic disease. Need surveillance. (5) CKD (chronic kidney disease) stage 2, GFR 60-89 ml/min Need active surveillance.
--- NOTE | 2018-02-07 10:42 | P.CONONC_ITS ---
History of Present Illness - Data of Consult Patient: new to practice Consult date: 02/07/18 Requesting Physician: Joce Palmer MD Primary Care Provider: Joce Palmer MD - Consult Narrative Reason for consult: Left kidney mass Narrative: Ms Belgica Da Silva is a 62 year old female with a long list of medical comorbidities most notable for morbid obesity, sleep apnea on CPAP, hypertension , rheumatoid arthritis, and psoriasis on Otezla(apremilast). [facility] she developed headache, nausea, and vomiting. She was evaluated by Dr. Gole on 01/08/2018. Patient said that the next day, she had a call from the nurse asking her to go to the emergency room due to serum calcium level of about 13. Patient stayed at the [facility] for about 3 days. Patient recalled that they gave her medications through the intravenous line. She also underwent CT scan on 01/08/2018. The CT scan showed an left infiltrative lower/midpole originating heterogeneous isoattenuating mass measuring at least 9.7 cm, pelvic retroperitoneal node cluster largest of which measuring 1.4 x 2.6 cm, and the most prominent nearby retroperitoneal lymph node measuring 2.2 x 1.2 cm. Sigmoid diverticulosis was also noted. On 2017, she was seen as post ER follow up at [facility]. Her calcium level has decreased to 11.5. Patient requested to be referred to [facility]. Patient clinically reports left-sided back pain, 7/10 in severity, comes and goes. She also reported right-sided back pain which has been present for a long time, constant, associated with the right groin. She said she never has had headache until December of this year. She denies any chest pain. She does report shortness of breath every now and then. She said that her appetite sometimes better and sometimes worse. Her weight has been stable. She denies ever seeing visible gross hematuria. She has a history of constipation. Her sister Remedios was with her today. Patient is in wheelchair. According to patient and patient's sister, patient has been using walker at home for a long time because of severe osteoarthritis. CC: Marty Burden MD Patient reports pain?: Yes Home Medications and Allergies Home Medications Medication Instructions Recorded Confirmed Type apremilast [Otezla] 30 mg PO BID 12/21/18 12/21/18 History citalopram 40 mg PO DAILY 02/07/18 02/07/18 History clobetasol 1 applic TOPICAL BID 02/07/18 02/07/18 History ergocalciferol (vitamin D2) 50,000 unit PO QWEEK 02/07/18 02/07/18 History fluticasone [Flovent HFA] 1 puff INHALATION Q12H 02/07/18 02/07/18 History furosemide [Lasix] 40 mg PO DAILY 02/07/18 02/07/18 History hydroxyzine HCl 25 mg PO QID PRN 02/07/18 02/07/18 History minocycline 100 mg PO BID 02/07/18 02/07/18 History naproxen 500 mg PO PRN PRN 02/07/18 02/07/18 History potassium chloride 20 meq PO DAILY 02/07/18 02/07/18 History pramipexole 0.125 mg PO BEDTIME 02/07/18 02/07/18 History prazosin 2 mg PO BID 02/07/18 02/07/18 History ranitidine HCl 150 mg PO DAILY 02/07/18 02/07/18 History temazepam 15 mg PO BEDTIME PRN 02/07/18 02/07/18 History trazodone 100 mg PO DAILY 02/07/18 02/07/18 History Allergies Allergy/AdvReac Type Severity Reaction Status Date / Time bee venom protein (honey bee) Allergy Unknown Verified 02/07/18 11:09 iodine AdvReac Unknown Verified 02/07/18 11:09 MICRO AdvReac Unknown Uncoded 02/07/18 11:09 Medical History - Medical, Surgical, Family History Medical History: Medical History (Last Updated 02/07/18 @ 10:59 by Marty Burden MD) Anemia Arthritis Asthma Depression Hypertension Neuropathy Obesity Psoriasis Rheumatoid arthritis Sleep apnea Surgical History: Surgical History (Last Updated 02/07/18 @ 11:01 by Marty Burden MD) H/O hernia repair H/O hysterectomy with oophorectomy History of tonsillectomy and adenoidectomy Family History: Family History (Last Updated 02/07/18 @ 11:03 by Marty Burden MD) Unknown Breast cancer Father Colon cancer - Social History Smoking Status: Former smoker Smoking packs per day: 1 Years smoked: 38 Quit Date: 09/01/09 Substance Use Type: marijuana Alcohol Intake: current (holiday drinker) Review of Systems All systems PM: reviewed and no additional remarkable complaints except as stated Exam Vital signs: Last Vital Signs Temp 98.7 F 02/07/18 10:31 Pulse 76 02/07/18 10:31 Resp 18 02/07/18 10:31 BP 148/73 H 02/07/18 10:31 Pulse Ox 98 02/07/18 10:31 ECOG 1 Narrative: Constitutional: WDWN, NAD, morbid obese, cooperative, in wheelchair, accompanied by her sister Anatoly HEENT: NCAT, EOMI, PERRLA, anicteric sclera, no hearing difficulty; oral mucus membrane moist and without ulcers. Neck: Supple, symmetrical, and tracheal midline; No palpable thyromegaly and no palpable lymph nodes. Respiratory: No use of accessory muscles. Clear to auscultation, and no wheezes or rales or rubs. Cardiovascular: Regular rate and rhythm, S1 and S2 normal, 2/6 SM aortic valve , no gallops or rubs. No JVD. No pitting edema of lower extremities. Abdomen: Soft, mild tender upon palpation. no muscle guard, no rebounds. Tenderness in the left and right lower back upon tapping. Lower extremities: No palpable pedal edema. Lymphatic: no palpable lymph nodes in the neck, axillae, or groins. Skin: no rashes, no ulcers, no petechiae Neurological: Awake and alert and oriented x3. CN II-XII grossly intact. No focal motor or sensory deficit. Psychiatric: Good judgment, good insight, normal affect, normal thought process , cooperative, no depression, no anxiety. Results - Labs Laboratory Last Values WBC 5.8 X10^3/uL (4.5-11.0) 02/07/18 11:23 RBC 3.43 X10^6/uL (4.0-5.2) L 02/07/18 11:23 Hgb 10.0 g/dL (12.0-16.0) L 02/07/18 11:23 Hct 31.0 % (36-46) L 02/07/18 11:23 MCV 90.4 fL (80-100) 02/07/18 11:23 MCH 29.1 PG (26-34) 02/07/18 11:23 MCHC 32.2 % (30-36) 02/07/18 11:23 RDW 14.5 % (11.6-14.8) 02/07/18 11:23 Plt Count 377 X10^3/uL (150-400) 02/07/18 11:23 Neut % (Auto) 59.2 % (50-75) 02/07/18 11:23 Lymph % (Auto) 26.2 % (25-40) 02/07/18 11:23 [place]aines % (Auto) 12.7 % (3-14) 02/07/18 11:23 Eos % (Auto) 1.1 % (2-4) L 02/07/18 11:23 Baso % (Auto) 0.8 % (0-2) 02/07/18 11:23 Neut # (Auto) 3400 /uL (8821-4496) 02/07/18 11:23 Sodium 143 mmol/L (137-145) 02/07/18 11:23 Potassium 4.7 mmol/L (3.4-5.1) 02/07/18 11:23 Chloride 105 mmol/L (98-107) 02/07/18 11:23 Carbon Dioxide 28 mmol/L (22-32) 02/07/18 11:23 BUN 18 mg/dL (7-17) H 02/07/18 11:23 Creatinine 1.00 mg/dL (0.52-1.04) 02/07/18 11:23 Estimated GFR 56.6 mL/min (>60) L 02/07/18 11:23 BUN/Creatinine Ratio 18.0 (6-22) 02/07/18 11:23 Glucose 87 mg/dL (80-110) 02/07/18 11:23 Calcium 11.5 mg/dL (8.4-10.2) H 02/07/18 14:42 Total Bilirubin 0.4 mg/dL (0.2-1.3) 02/07/18 11:23 AST 17 IU/L (14-36) 02/07/18 11:23 ALT 19 IU/L (9-52) 02/07/18 11:23 Alkaline Phosphatase 72 U/L (38-126) 02/07/18 11:23 Lactate Dehydrogenase 339 U/L (313-618) 02/07/18 11:23 Total Protein 7.1 g/dL (6.3-8.2) 02/07/18 11:23 Albumin 3.8 g/dL (3.5-5.0) 02/07/18 11:23 Globulin 3.3 g/dL (1.7-4.1) 02/07/18 11:23 Albumin/Globulin Ratio 1.2 (1.0-2.8) 02/07/18 11:23 Assessment and Plan (1) Left kidney mass Problem details: Presented with hypercalcemia with headache, nausea and vomiting. CT 01/08/2018: left renal mass at least 9.7 cm with prominent retroperitoneal lymphadneopathy. Assessment: I talked with the patient and patient's sister about the CT findings. The mass is located in the left lower kidney measuring at least more than 9 cm in size with nearby lymphadenopathy and pelvic lymphadenopathy. Based on the imaging characteristics, it is highly suspicious for possible kidney cancer. Patient's previous scan was about a month ago. I will obtain a restaging studies including PET-CT as well as CT scan of the chest abdomen pelvis with contrast. I discussed on the phone with Dr. Jolynn Morales, our urologist at the [facility]. Dr. Morales recommended that the patient be referred to [facility] for further evaluation given the size of the tumor and comorbidities Plan: 1. Stat CBC, CMP, LDH 2. PET/CT 3. CT CAP w/contrast 4. Urology referral [facility] 5. RTC after scan (2) Hypercalcemia Problem details: Most likely malignancy related hypercalcemia. She has low PTH and high PTHRP. Assessment and Plan: Stat CBC, and CMP were obtained. Her calcium level was 12.6. Therefore, she was given at the clinical NS 2000 cc. Post infusion repeat test showed calcium level decreased to 11.5. Patient was instructed to drink enough fluids over the weekend. She is to come back on 02/10/2018 for recheck of BMP with calciums. (3) Morbid obesity No immediate intervention indicated. (4) Chronic anemia Normocytic. Likely related to multiple chronic disease. Need surveillance. (5) CKD (chronic kidney disease) stage 2, GFR 60-89 ml/min Need active surveillance.
[2018-02-07 11:51] LABS: Add Manual Diff / Slide Review NO; Basophils Percent Auto 0.8 % (0-2); Eosinophils Percent Auto 1.1 % (2-4); Lymphocytes Percent Auto 26.2 % (25-40); Mean Corpuscular HGB Conc 32.2 % (30-36); Mean Corpuscular Hemoglobin 29.1 PG (26-34); Mean Corpuscular Volume 90.4 fL (80-100); Monocytes Percent Auto 12.7 % (3-14); Neutrophils Absolute Auto 3400 /uL (1500-7000); Neutrophils Percent Auto 59.2 % (50-75); Platelet Count 377 X10^3/uL (150-400); Red Blood Cell Count 3.43 X10^6/uL (4.0-5.2); Red Cell Distribution Width 14.5 % (11.6-14.8); White Blood Cell Count 5.8 X10^3/uL (4.5-11.0)
[2018-02-07 12:02] LABS: Alanine Aminotransferase 19 IU/L (9-52); Albumin 3.8 g/dL (3.5-5.0); Albumin Globulin Ratio 1.2 (1.0-2.8); Alkaline Phosphatase 72 U/L (38-126); Aspartate Aminotransferase 17 IU/L (14-36); Bilirubin Total 0.4 mg/dL (0.2-1.3); Blood Urea Nitrogen 18 mg/dL (7-17); Calcium 12.6 mg/dL (8.4-10.2); Carbon Dioxide 28 mmol/L (22-32); Chloride 105 mmol/L (98-107); Estimated Glomerular Filt Rate 56.6 mL/min (>60); Globulin 3.3 g/dL (1.7-4.1); Glucose 87 mg/dL (80-110); HEMOLYSIS < 15 (0-50); Lactate Dehydrogenase 339 U/L (313-618); Potassium 4.7 mmol/L (3.4-5.1); Sodium 143 mmol/L (137-145); Total Protein 7.1 g/dL (6.3-8.2)
[2018-02-07] MEDS: SODIUM CHLORIDE 0.9% 1,000 ML 1000 ML IV ×2 (12:58→13:55)
[2018-02-07 15:37] LABS: Calcium 11.5 mg/dL (8.4-10.2)
[2018-02-10 09:22] LABS: Blood Urea Nitrogen 16 mg/dL (7-17); Calcium 12.7 mg/dL (8.4-10.2); Carbon Dioxide 27 mmol/L (22-32); Chloride 104 mmol/L (98-107); Estimated Glomerular Filt Rate 56.6 mL/min (>60); Glucose 91 mg/dL (80-110); HEMOLYSIS < 15 (0-50); Sodium 142 mmol/L (137-145)
--- NOTE | 2018-02-10 10:00 | PC.NURSE ---
Zoledronic acid [id number] does not require prior authorization per [employer] website. Marivel Coleman RPh
[2018-02-10] MEDS: ZOLEDRONIC ACID 4 MG in SODIUM CHLORIDE 0.9% 100 ML 315 ML IV (10:37)
[2018-02-10] MEDS: SODIUM CHLORIDE 0.9% 1,000 ML 1000 ML IV ×2 (10:38→12:18)
[2018-02-10 12:35] VITALS: BP 122/73; PULSE 75; RESP 20; TEMP 37.2; O2SAT 96
[2018-02-12 09:31] LABS: Blood Urea Nitrogen 20 mg/dL (7-17); Calcium 11.4 mg/dL (8.4-10.2); Carbon Dioxide 24 mmol/L (22-32); Chloride 108 mmol/L (98-107); Estimated Glomerular Filt Rate 56.6 mL/min (>60); Glucose 87 mg/dL (80-110); HEMOLYSIS < 15 (0-50); Potassium 4.3 mmol/L (3.4-5.1); Sodium 143 mmol/L (137-145)
[2018-02-12] MEDS: SODIUM CHLORIDE 0.9% 1,000 ML 1000 ML IV ×2 (11:48→14:01)
--- NOTE | 2018-02-12 13:38 | PC.NURSE ---
Addendum entered by Taylor Gutierrez R.N. 02/12/18 15:20: Iv bolus completed. pt up to bathroom, IV removed once patient returned. Original Note: Addendum entered by Taylor Gutierrez R.N. 02/12/18 14:25: 1400- pt arrived back to clinic for second bolus infusion. Original Note: Addendum entered by Taylor Gutierrez R.N. 02/12/18 14:24: pt states when asked how she is feeling/if she has any pain, I feel fine, I'm doing pretty good Original Note: Pt arrived to onc clinic around 1100 this day. Pt to receive 2, 1L bolus. pt to go for scan afterwards. [id number]- first liter bolus infusing. pt had lunch and drank some water. Pt tolerated bolus well. Pt disconnected and sister took pt in wheelchair to appointment. Pt will be returning later for second liter bolus.
[2018-02-12 14:18] VITALS: BP 122/76; PULSE 72; RESP 18; TEMP 36.9; O2SAT 97
--- NOTE | 2018-02-13 15:28 | PC.NURSE ---
You have asked for this pt to be scheduled for a PET/CT. Pt is claustrophobic and would like something to help her before this test. We can administer either Ativan PO/IV 30 min prior in clinic if you would like or you can issue an Rx for her to self administer. Please indicate your preference.
[2018-02-19] MEDS: LORazepam 0.5 MG TABLET PO (15:18)
[2018-02-27 16:13] VITALS: BP 128/66; PULSE 71; RESP 18; TEMP 37; O2SAT 97
--- NOTE | 2018-02-27 17:18 | ONC.PN ---
PN -Subjective Interval history: Ms Belgica Da Silva is a 62 year old female with a long list of medical co-morbidities most notable for morbid obesity, sleep apnea on CPAP, hypertension, rheumatoid arthritis, and psoriasis on Otezla (apremilast). In early December,, she developed headache, nausea, and vomiting. She was evaluated by Dr. Goel on 01/08/2018. The next day, she had a call from the nurse asking her to go to the emergency room due to serum calcium level of about 13. Patient stayed at the [facility] for about 3 days. Patient recalled that they gave her medications through the intravenous line. She underwent CT scan on 01/08/2018, that showed an left infiltrative lower/midpole originating heterogeneous iso-attenuating mass measuring at least 9.7 cm, pelvic retroperitoneal node cluster largest of which measuring 1.4 x 2.6 cm, and the most prominent nearby retroperitoneal lymph node measuring 2.2 x 1.2 cm. Sigmoid diverticulosis was also noted. On 02/03/2018, she was seen as post ER follow up at [facility]. Her calcium level has decreased to 11.5. Patient requested to be referred to [facility]. I first saw the patient on 02/07/2018. I referred the patient to [facility] for evaluation of possible surgical resection of left suspicious kidney cancer. In addition patient underwent staging studies as follows. On 02/12/2018, bone scan showed no osseous metastatic disease. Same day CT scan of the chest abdomen pelvis showed the large heterogeneously enhancing left renal mass with imaging characteristics highly suspicious for renal cell carcinoma, left leif aortic retroperitoneal and left common iliac pelvic metastatic lymphadenopathy, and a 1.5 x 1.1 x 1.2 cm right lower lobe nodule highly suspicious for possible lung metastasis. And on 02/19/2018, PET-CT showed a large left renal mass involving nearly the entire left kidney demonstrating abnormal FDG activity consistent with malignancy, a 1.4 x 2.1 cm left para-aortic lymph node demonstrating maximum SUV 2.3, additional enlarged retroperitoneal, mesenteric, and left iliac lymph node and bilateral inguinal lymph nodes demonstrating low FDG activity suggesting benign etiology and the 1.6 x 0.8 mc bilobed lung mass in the right lower lobe with low level increasing uptake with SUV 2.1 and a tiny 5 mm right middle lobe nodule with SUV maximum 0.8. Clinically, patient said that she is doing slightly better. Patient denies any worsening shortness breath or chest pain. Patient said that she does not have nausea or vomiting. Patient has some mild abdominal weakness but is very much tolerable. He denies diarrhea or constipation. Patient admitted that she has been drinking lots of fluids and also she has lot of urine. She denies fever or chills. Patient has already scheduled to see physicians for consult at [facility] tomorrow. - Patient Self-Reported Symptoms SR Constitution: Fatigue/Malaise SR ears, nose, mouth, throat issues: Ears ringing, Changes in taste SR Cardiovascular issues: Dizzy/lightheaded SR Skin issues: Hair loss or scalp prob SR Gastrointestinal issues: Change in bowel pattern, Nausea, Vomiting SR Genitourinary issues: Frequent urination, Incontinence SR Musculoskeletal issues: Joint pain or swelling, Muscle weakness, Muscle pain or cramps, Difficulty walking, Bone pain SR Neuro issues: Headache, Lightheaded/dizzy SR Hematologic issues: Bleeding/bruising SR Endocrine issues: Excessive urination - Additional ROS All systems PM: reviewed and no additional remarkable complaints except as stated Home Medications and Allergies Home Medications Medication Instructions Recorded Confirmed Type apremilast [Otezla] 30 mg PO BID 02/07/18 02/07/18 History citalopram 40 mg PO DAILY 02/07/18 02/07/18 History clobetasol 1 applic TOPICAL BID 02/07/18 02/07/18 History ergocalciferol (vitamin D2) 50,000 unit PO QWEEK 02/07/18 02/07/18 History fluticasone [Flovent HFA] 1 puff INHALATION Q12H 02/07/18 02/07/18 History furosemide [Lasix] 40 mg PO DAILY 02/07/18 02/07/18 History hydroxyzine HCl 25 mg PO QID PRN 02/07/18 02/07/18 History minocycline 100 mg PO BID 02/07/18 02/07/18 History naproxen 500 mg PO PRN PRN 02/07/18 02/07/18 History potassium chloride 20 meq PO DAILY 02/07/18 02/07/18 History pramipexole 0.125 mg PO BEDTIME 02/07/18 02/07/18 History prazosin 2 mg PO BID 02/07/18 02/07/18 History ranitidine HCl 150 mg PO DAILY 02/07/18 02/07/18 History temazepam 15 mg PO BEDTIME PRN 02/07/18 02/07/18 History trazodone 100 mg PO DAILY 02/07/18 02/07/18 History Allergies Allergy/AdvReac Type Severity Reaction Status Date / Time bee venom protein (honey bee) Allergy Unknown Verified 02/07/18 11:09 iodine AdvReac Unknown Verified 02/07/18 11:09 MICRO AdvReac Unknown Uncoded 02/07/18 11:09 Exam Vital signs: Last Vital Signs Temp 98.6 F 02/27/18 16:13 Pulse 71 02/27/18 16:13 Resp 18 02/27/18 16:13 BP 128/66 02/27/18 16:13 Pulse Ox 97 02/27/18 16:13 ECOG 1 Narrative: Constitutional: WDWN, NAD, morbid obese, cooperative, in wheelchair, accompanied by her sister Anatoly HEENT: NCAT, EOMI, PERRLA, anicteric sclera, no hearing difficulty; oral mucus membrane moist and without ulcers. Neck: Supple, symmetrical, and tracheal midline; No palpable thyromegaly and no palpable lymph nodes. Respiratory: No use of accessory muscles. Clear to auscultation, and no wheezes or rales or rubs. Cardiovascular: Regular rate and rhythm, S1 and S2 normal, 2/6 SM aortic valve, no gallops or rubs. No JVD. No pitting edema of lower extremities. Abdomen: Soft, mild tender upon palpation. no muscle guard, no rebounds. Tenderness in the left and right lower back upon tapping. Lower extremities: No palpable pedal edema. Lymphatic: no palpable lymph nodes in the neck, axillae, or groins. Skin: no rashes, no ulcers, no petechiae Neurological: Awake and alert and oriented x3. CN II-XII grossly intact. No focal motor or sensory deficit. Psychiatric: Good judgment, good insight, normal affect, normal thought process, cooperative, no depression, no anxiety. Results - Labs Laboratory Last Values WBC 5.8 X10^3/uL (4.5-11.0) 02/07/18 11:23 RBC 3.43 X10^6/uL (4.0-5.2) L 02/07/18 11:23 Hgb 10.0 g/dL (12.0-16.0) L 02/07/18 11:23 Hct 31.0 % (36-46) L 02/07/18 11:23 MCV 90.4 fL (80-100) 02/07/18 11:23 MCH 29.1 PG (26-34) 02/07/18 11:23 MCHC 32.2 % (30-36) 02/07/18 11:23 RDW 14.5 % (11.6-14.8) 02/07/18 11:23 Plt Count 377 X10^3/uL (150-400) 02/07/18 11:23 Neut % (Auto) 59.2 % (50-75) 02/07/18 11:23 Lymph % (Auto) 26.2 % (25-40) 02/07/18 11:23 [place] % (Auto) 12.7 % (3-14) 02/07/18 11:23 Eos % (Auto) 1.1 % (2-4) L 02/07/18 11:23 Baso % (Auto) 0.8 % (0-2) 02/07/18 11:23 Neut # (Auto) 3400 /uL (4860-0013) 02/07/18 11:23 Sodium 143 mmol/L (137-145) 02/12/18 09:00 Potassium 4.3 mmol/L (3.4-5.1) 02/12/18 09:00 Chloride 108 mmol/L (98-107) H 02/12/18 09:00 Carbon Dioxide 24 mmol/L (22-32) 02/12/18 09:00 BUN 20 mg/dL (7-17) H 02/12/18 09:00 Creatinine 1.00 mg/dL (0.52-1.04) 02/12/18 09:00 Estimated GFR 56.6 mL/min (>60) L 02/12/18 09:00 BUN/Creatinine Ratio 20.0 (6-22) 02/12/18 09:00 Glucose 87 mg/dL (80-110) 02/12/18 09:00 Calcium 11.4 mg/dL (8.4-10.2) H 02/12/18 09:00 Total Bilirubin 0.4 mg/dL (0.2-1.3) 02/07/18 11:23 AST 17 IU/L (14-36) 02/07/18 11:23 ALT 19 IU/L (9-52) 02/07/18 11:23 Alkaline Phosphatase 72 U/L (38-126) 02/07/18 11:23 Lactate Dehydrogenase 339 U/L (313-618) 02/07/18 11:23 Total Protein 7.1 g/dL (6.3-8.2) 02/07/18 11:23 Albumin 3.8 g/dL (3.5-5.0) 02/07/18 11:23 Globulin 3.3 g/dL (1.7-4.1) 02/07/18 11:23 Albumin/Globulin Ratio 1.2 (1.0-2.8) 02/07/18 11:23 Assessment and Plan (1) Left kidney mass Problem details: Presented with hypercalcemia with headache, nausea and vomiting. CT 01/08/2018: left renal mass at least 9.7 cm with prominent retroperitoneal lymphadneopathy. Staging imagines (CT CAP, bone scan and PET) showed the know left kidney mass, and suspicious retroperitoneal and pelvic lymphadenopathy and right lower lung nodules. Assessment: First of all, I reviewed all the imaging studies including CT scan of the chest abdomen and pelvis, PET CT, and bone scan. I explained the results to the patient and patient's sister. I talked with them that the left kidney has been almost completely replaced by the malignancy. Patient will need radical left nephrectomy. In addition the scans showed suspicious retroperitoneal lymph nodes and pelvic lymph nodes metastasis. Finally there is a questionable right lower lobe non nodule. However the nodule has a low PET SUV. Our radiologist deemed it indeterminate and recommended 3 months follow-up visit. I talked with the patient and patient's sister that the all these imaging studies will also be reviewed at the [facility]. Plan: 1. Located within [facility] visit tomorrow 2. RTC in 2 months. (2) Hypercalcemia Problem details: Most likely malignancy related hypercalcemia. She has low PTH and high PTHRP. Assessment and Plan: The patient and patient's sister said that the patient has been drinking lots of fluids every day and is also making lot of urine. Clinically patient has a clear mental status. Patient will be evaluated tomorrow morning and however view [facility]. (3) Morbid obesity No immediate intervention indicated. (4) Chronic anemia Normocytic. Likely related to multiple chronic disease. Need surveillance. (5) CKD (chronic kidney disease) stage 2, GFR 60-89 ml/min Need active surveillance.
[2018-04-24 13:10] LABS: Add Manual Diff / Slide Review NO; Basophils Absolute Auto 0 /uL (0-100); Eosinophils Absolute Auto 100 /uL (0-450); Eosinophils Percent Auto 3.6 % (2-4); Hematocrit 35.3 % (36-46); Hemoglobin 11.1 g/dL (12.0-16.0); Lymphocytes Absolute Auto 1100 /uL (1100-4500); Lymphocytes Percent Auto 34.5 % (25-40); Mean Corpuscular HGB Conc 31.4 % (30-36); Mean Corpuscular Hemoglobin 28.8 PG (26-34); Mean Corpuscular Volume 91.9 fL (80-100); Monocytes Absolute Auto 500 /uL (0-900); Monocytes Percent Auto 15.3 % (3-14); Neutrophils Absolute Auto 1500 /uL (1500-7000); Neutrophils Percent Auto 45.6 % (50-75); Platelet Count 259 X10^3/uL (150-400); Red Blood Cell Count 3.85 X10^6/uL (4.0-5.2); Red Cell Distribution Width 17.9 % (11.6-14.8); White Blood Cell Count 3.2 X10^3/uL (4.5-11.0)
[2018-04-24 13:16] LABS: Alanine Aminotransferase 27 IU/L (9-52); Albumin 3.9 g/dL (3.5-5.0); Albumin Globulin Ratio 1.2 (1.0-2.8); Alkaline Phosphatase 58 U/L (38-126); Aspartate Aminotransferase 25 IU/L (14-36); Bilirubin Total 0.2 mg/dL (0.2-1.3); Blood Urea Nitrogen 15 mg/dL (7-17); Calcium 9.1 mg/dL (8.4-10.2); Carbon Dioxide 24 mmol/L (22-32); Chloride 108 mmol/L (98-107); Estimated Glomerular Filt Rate 56.6 mL/min (>60); Globulin 3.2 g/dL (1.7-4.1); Glucose 92 mg/dL (80-110); HEMOLYSIS < 15 (0-50); Lactate Dehydrogenase 472 U/L (313-618); Sodium 143 mmol/L (137-145); Total Protein 7.1 g/dL (6.3-8.2)
--- NOTE | 2018-04-24 13:17 | P.PNONC_ITS ---
PN -Subjective Interval history: Since last visit, the patient was seen by Rylie Peña MD urologist at [facility]. The patient then underwent left nephrectomy on 03/07/2018. Thereafter, she was referred to and scheduled to see Dr. Ribeiro on 05/06/2018. I have not received any surgical and pathology report from [facility] yet. Patient came in here today accompanied by her sister. Patient said that after the surgery, the patient's symptoms have improved especially urinary incontinence has improved quite a bit. According to patient's sister, her calcium level also improved back to normal. Patient denies any new pain except the right old back pain. Patient is wondering if she is able to get care here at the [facility] with the guidance of expert's opinion at the [facility]. She said she feels it is too much stress to travel back and forth to [place]. Otherwise, she is doing good, got her appetite back, but got moments that she did not eat. No shortness of breath and no chest pain. Oncology History Ms Belgica Da Silva is a 62 year old female with a long list of medical co-morbidities most notable for morbid obesity, sleep apnea on CPAP, hypertension, rheumatoid arthritis, and psoriasis on Otezla (apremilast). In early December,, she developed headache, nausea, and vomiting. She was evaluated by Dr. Goel on 01/08/2018. The next day, she had a call from the nurse asking her to go to the emergency room due to serum calcium level of about 13. Patient stayed at the [facility] for about 3 days. Patient recalled that they gave her medications through the intravenous line. She underwent CT scan on 01/08/2018, that showed an left infiltrative lower/midpole originating heterogeneous iso-attenuating mass measuring at least 9.7 cm, pelvic retroperitoneal node cluster largest of which measuring 1.4 x 2.6 cm, and the most prominent nearby retroperitoneal lymph node measuring 2.2 x 1.2 cm. Sigmoid diverticulosis was also noted. On 02/03/2018, she was seen as post ER follow up at [facility]. Her calcium level has decreased to 11.5. Patient requested to be referred to [facility]. I first saw the patient on 02/07/2018. I referred the patient to [facility] for evaluation of possible surgical resection of left suspicious kidney cancer. In addition patient underwent staging studies as follows. On 02/12/2018, bone scan showed no osseous metastatic disease. Same day CT scan of the chest abdomen pelvis showed the large heterogeneously enhancing left renal mass with imaging characteristics highly suspicious for renal cell carcinoma, left leif aortic retroperitoneal and left common iliac pelvic metastatic lymphadenopathy, and a 1.5 x 1.1 x 1.2 cm right lower lobe nodule highly suspicious for possible lung metastasis. And on 02/19/2018, PET-CT showed a large left renal mass involving nearly the entire left kidney demonstrating abnormal FDG activity consistent with malignancy, a 1.4 x 2.1 cm left para-aortic lymph node demonstrating maximum SUV 2.3, additional enlarged retroperitoneal, mesenteric, and left iliac lymph node and bilateral inguinal lymph nodes demonstrating low FDG activity suggesting benign etiology and the 1.6 x 0.8 mc bilobed lung mass in the right lower lobe with low level increasing uptake with SUV 2.1 and a tiny 5 mm right middle lobe nodule with SUV maximum 0.8. - Patient Self-Reported Symptoms SR Constitution: Fatigue/Malaise SR ears, nose, mouth, throat issues: Ears ringing, Changes in taste SR Cardiovascular issues: Dizzy/lightheaded SR Skin issues: Hair loss or scalp prob SR Gastrointestinal issues: Change in bowel pattern, Nausea, Vomiting SR Genitourinary issues: Frequent urination, Incontinence SR Musculoskeletal issues: Joint pain or swelling, Muscle weakness, Muscle pain or cramps, Difficulty walking, Bone pain SR Neuro issues: Headache, Lightheaded/dizzy SR Hematologic issues: Bleeding/bruising SR Endocrine issues: Excessive urination - Additional ROS All systems PM: reviewed and no additional remarkable complaints except as stated Home Medications and Allergies Home Medications Medication Instructions Recorded Confirmed Type apremilast [Otezla] 30 mg PO BID 02/07/18 02/07/18 History citalopram 40 mg PO DAILY 02/07/18 02/07/18 History fluticasone [Flovent HFA] 1 puff INHALATION Q12H 02/07/18 02/07/18 History hydroxyzine HCl 25 mg PO QID PRN 02/07/18 02/07/18 History minocycline 100 mg PO BID 02/07/18 02/07/18 History pramipexole 0.125 mg PO BEDTIME 02/07/18 02/07/18 History ranitidine HCl 150 mg PO DAILY 02/07/18 02/07/18 History temazepam 15 mg PO BEDTIME PRN 02/07/18 02/07/18 History vitamin [id number] 1 tab PO DAILY 04/24/18 04/24/18 History Allergies Allergy/AdvReac Type Severity Reaction Status Date / Time bee venom protein (honey bee) Allergy Unknown Verified 02/07/18 11:09 iodine AdvReac Unknown Verified 02/07/18 11:09 MICRO AdvReac Unknown Uncoded 02/07/18 11:09 Exam Vital signs: Intake and Output 04/23/18 04/24/18 04/24/18 23:59 07:59 15:59 Other: Weight 131.3 kg Narrative: Constitutional: WDWN, NAD, morbid obese, cooperative, in wheelchair, accompanied by her sister Anatoly HEENT: NCAT, EOMI, PERRLA, anicteric sclera, no hearing difficulty; oral mucus membrane moist and without ulcers. Neck: Supple, symmetrical, and tracheal midline; No palpable thyromegaly and no palpable lymph nodes. Respiratory: No use of accessory muscles. Clear to auscultation, and no wheezes or rales or rubs. Cardiovascular: Regular rate and rhythm, S1 and S2 normal, 2/6 SM aortic valve, no gallops or rubs. No JVD. No pitting edema of lower extremities. Abdomen: Soft, mild tender upon palpation. no muscle guard, no rebounds. Tenderness in the left and right lower back upon tapping. Lower extremities: No palpable pedal edema. Neurological: Awake and alert and oriented x3. CN II-XII grossly intact. No focal motor or sensory deficit. Psychiatric: Good judgment, good insight, normal affect, normal thought process, cooperative, no depression, no anxiety. Results - Labs Laboratory Last Values WBC 3.2 X10^3/uL (4.5-11.0) L 04/24/18 12:57 RBC 3.85 X10^6/uL (4.0-5.2) L 04/24/18 12:57 Hgb 11.1 g/dL (12.0-16.0) L 04/24/18 12:57 Hct 35.3 % (36-46) L 04/24/18 12:57 MCV 91.9 fL (80-100) 04/24/18 12:57 MCH 28.8 PG (26-34) 04/24/18 12:57 MCHC 31.4 % (30-36) 04/24/18 12:57 RDW 17.9 % (11.6-14.8) H 04/24/18 12:57 Plt Count 259 X10^3/uL (150-400) 04/24/18 12:57 Neut % (Auto) 45.6 % (50-75) L 04/24/18 12:57 Lymph % (Auto) 34.5 % (25-40) 04/24/18 12:57 [place] % (Auto) 15.3 % (3-14) H 04/24/18 12:57 Eos % (Auto) 3.6 % (2-4) 04/24/18 12:57 Baso % (Auto) 1.0 % (0-2) 04/24/18 12:57 Neut # (Auto) 1500 /uL (5928-4353) 04/24/18 12:57 Lymph # (Auto) 1100 /uL (0625-0206) 04/24/18 12:57 [place] # (Auto) 500 /uL (0-900) 04/24/18 12:57 Eos # (Auto) 100 /uL (0-450) 04/24/18 12:57 Baso # (Auto) 0 /uL (0-100) 04/24/18 12:57 Sodium 143 mmol/L (137-145) 02/12/18 09:00 Potassium 4.3 mmol/L (3.4-5.1) 02/12/18 09:00 Chloride 108 mmol/L (98-107) H 02/12/18 09:00 Carbon Dioxide 24 mmol/L (22-32) 02/12/18 09:00 BUN 20 mg/dL (7-17) H 02/12/18 09:00 Creatinine 1.00 mg/dL (0.52-1.04) 02/12/18 09:00 Estimated GFR 56.6 mL/min (>60) L 02/12/18 09:00 BUN/Creatinine Ratio 20.0 (6-22) 02/12/18 09:00 Glucose 87 mg/dL (80-110) 02/12/18 09:00 Calcium 11.4 mg/dL (8.4-10.2) H 02/12/18 09:00 Total Bilirubin 0.4 mg/dL (0.2-1.3) 02/07/18 11:23 AST 17 IU/L (14-36) 02/07/18 11:23 ALT 19 IU/L (9-52) 02/07/18 11:23 Alkaline Phosphatase 72 U/L (38-126) 02/07/18 11:23 Lactate Dehydrogenase 339 U/L (313-618) 02/07/18 11:23 Total Protein 7.1 g/dL (6.3-8.2) 02/07/18 11:23 Albumin 3.8 g/dL (3.5-5.0) 02/07/18 11:23 Globulin 3.3 g/dL (1.7-4.1) 02/07/18 11:23 Albumin/Globulin Ratio 1.2 (1.0-2.8) 02/07/18 11:23 Assessment and Plan (1) Left kidney mass Problem details: Presented with hypercalcemia with headache, nausea and vomiting. CT 01/08/2018: left renal mass at least 9.7 cm with prominent retroperitoneal lymphadneopathy. Staging imagines (CT CAP, bone scan and PET) showed the know left kidney mass, and suspicious retroperitoneal and pelvic lymphadenopathy and right lower lung nodules. status post left nephrectomy 03/07/2018. Assessment and Plan: I talked at encouraged the patient to keep the appointment with Dr. Ribeiro. I will try to get all the medical records from [facility]. Talked with them that I am very happy to work with [facility]. We briefly touched base about how we treat metastatic kidney cancer. We talked about tyrosine kinase inhibitors and possibly immunotherapy. Talked with them that I will wait until she sees Dr. Ribeiro and go from there. Patient voiced understanding. Plan: 1. Records from 2. Visit with Dr. Ribeiro as scheduled 05/06/2018 3. RTC in 4 weeks (2) Hypercalcemia Problem details: Most likely malignancy related hypercalcemia. She has low PTH and high PTHRP. Assessment and Plan: Her calcium level today is 9.1. We will continue to follow. (3) Morbid obesity No immediate intervention indicated. (4) Chronic anemia Normocytic. Likely related to multiple chronic disease. Stable. Need surveillance. (5) CKD (chronic kidney disease) stage 2, GFR 60-89 ml/min Need active surveillance. Creatinine level 1.0 today.
[2018-04-24 13:20] VITALS: BP 146/87; PULSE 75; RESP 18; TEMP 36.4; O2SAT 99
[2018-05-22 14:28] VITALS: BP 112/77; PULSE 82; RESP 20; TEMP 36.6; O2SAT 99
--- NOTE | 2018-05-22 14:38 | P.PNONC_ITS ---
PN -Subjective Interval history: The patient was seen by Natalie العراقي MD urologist at [facility] on 02/28/2018. The patient then underwent open left radical nephrectomy on 03/07/2018. 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 There was 10% rhabdoid change and there was necrosis within the tumor. Nuclear grade was 4. There was tumor extension into perinephric tissues, the renal sinus, a major vein and the pelvicalyceal system. All surgical margins were negative. One of 1 lymph node in the surgical specimen was involved by carcinoma with a 4 cm deposit. Final pathologic staging was pT3a N1. She was referred to and was evaluated by Dr. Ribeiro on 05/06/2018. Dr. Ribeiro did not think that the patient was a suitable candidate for high-dose interleukin 2 treatment. No open frontline clinical trials were available either at this moment. Dr. Gómez discussed variety of treatment options including immunotherapy ipilimumab plus nivolumab vs oral targeted drug cabozaninib. Given patient autoimmune disease history including psoriasis which is actively managed with Otezla as well as diagnosis of rheumatoid arthritis, and that immunotherapy has a high likelihood of exacerbating these underlying autoimmune syndrome, Dr. Gómez recommneded targeted drug cabozantinib. Patient came here today accompanied by her sister for discussing of initiating cabozantinib. Clinically, she reports no headache. She admits to exertional sob. She is using wheelchair with her knees or obesity. She reports no chest pain, no cough. She also reported a pea sized nodule along the abdominal surgical wound. She has a follow up appointment with Dr. Natalie العراقي comming up Oncology History Ms Belgica Da Silva is a 62 year old female with a long list of medical co- morbidities most notable for morbid obesity, sleep apnea on CPAP, hypertension, rheumatoid arthritis, and psoriasis on Otezla (apremilast). In early December,, she developed headache, nausea, and vomiting. She was evaluated by Dr. Goel on 01/08/2018. The next day, she had a call from the nurse asking her to go to the emergency room due to serum calcium level of about 13. Patient stayed at the [facility] for about 3 days. Patient recalled that they gave her medications through the intravenous line. She underwent CT scan on 01/08/2018, that showed an left infiltrative lower/midpole originating heterogeneous iso-attenuating mass measuring at least 9.7 cm, pelvic retroperitoneal node cluster largest of which measuring 1.4 x 2.6 cm, and the most prominent nearby retroperitoneal lymph node measuring 2.2 x 1.2 cm. Sigmoid diverticulosis was also noted. On 02/03/2018, she was seen as post ER follow up at [facility]. Her calcium level has decreased to 11.5. Patient requested to be referred to [facility]. I first saw the patient on 02/07/2018. I referred the patient to [facility] for evaluation of possible surgical resection of left suspicious kidney cancer. In addition patient underwent staging studies as follows. On 02/12/2018, bone scan showed no osseous metastatic disease. Same day CT scan of the chest abdomen pelvis showed the large heterogeneously enhancing left renal mass with imaging characteristics highly suspicious for renal cell carcinoma, left leif aortic retroperitoneal and left common iliac pelvic metastatic lymphadenopathy, and a 1.5 x 1.1 x 1.2 cm right lower lobe nodule highly suspicious for possible lung metastasis. And on 02/19/2018, PET-CT showed a large left renal mass involving nearly the entire left kidney demonstrating abnormal FDG activity consistent with malignancy, a 1.4 x 2.1 cm left para-aortic lymph node demonstrating maximum SUV 2.3, additional enlarged retroperitoneal, mesenteric, and left iliac lymph node and bilateral inguinal lymph nodes demonstrating low FDG activity suggesting benign etiology and the 1.6 x 0.8 mc bilobed lung mass in the right lower lobe with low level increasing uptake with SUV 2.1 and a tiny 5 mm right middle lobe nodule with SUV maximum 0.8. - Patient Self-Reported Symptoms SR Constitution: Fatigue/Malaise SR ears, nose, mouth, throat issues: Changes in taste SR respiratory issues: Shortness of breath SR Cardiovascular issues: Dizzy/lightheaded SR Skin issues: Hair loss or scalp prob SR Gastrointestinal issues: Change in bowel pattern, Nausea, Vomiting SR Genitourinary issues: Frequent urination, Incontinence SR Musculoskeletal issues: Joint pain or swelling, Muscle weakness, Muscle pain or cramps, Difficulty walking, Bone pain SR Neuro issues: Difficulty balancing SR Hematologic issues: Bleeding/bruising SR Endocrine issues: Excessive urination - Additional ROS All systems PM: reviewed and no additional remarkable complaints except as stated Home Medications and Allergies Home Medications Medication Instructions Recorded Confirmed Type apremilast [Otezla] 30 mg PO DAILY 02/07/18 05/22/18 History fluticasone propionate [Flovent 1 puff INHALATION Q12H 02/07/18 05/22/18 History HFA] hydroxyzine HCl 25 mg PO QID PRN 02/07/18 05/22/18 History minocycline 100 mg PO BID 02/07/18 05/22/18 History pramipexole 0.125 mg PO BEDTIME 02/07/18 05/22/18 History ranitidine HCl 150 mg PO DAILY 02/07/18 05/22/18 History temazepam 15 mg PO BEDTIME PRN 02/07/18 05/22/18 History vitamin Q51-btiiw acid 1 tab PO DAILY 04/24/18 05/22/18 History cabozantinib [Cabometyx] 60 mg PO DAILY 11 Days #30 tab 05/22/18 Rx Allergies Allergy/AdvReac Type Severity Reaction Status Date / Time bee venom protein (honey bee) Allergy Unknown Verified 02/07/18 11:09 iodine AdvReac Unknown Verified 02/07/18 11:09 MICRO AdvReac Unknown Uncoded 02/07/18 11:09 Exam Vital signs: Vital Signs Temp Pulse Resp BP Pulse Ox 05/22/18 14:28 97.9 F 82 20 112/77 99 Intake and Output 05/21/18 05/22/18 05/22/18 23:59 07:59 15:59 Other: Weight 129.6 kg Patient Weight 05/22/18 23:59 Weight 129.6 kg ECOG 2 Narrative: Constitutional: WDWN, NAD, morbid obese, cooperative, in wheelchair, accompanied by her sister Anatoly HEENT: NCAT, EOMI, PERRLA, anicteric sclera. Neck: Supple, No palpable thyromegaly and no palpable lymph nodes. Respiratory: No use of accessory muscles. CTAB, no wheezes. Cardiovascular: RRR, S1 and S2 normal, 2/6 SM aortic valve, no gallops or rubs. . Abdomen: Soft, NTND, midline surgical wound noted, that is well healed. A tiny 2 mm nodule in the middle of the healed wound likely representing suture reaction. Lower extremities: No palpable pedal edema. Neurological: AOx3, CN II-XII grossly intact. No focal motor or sensory deficit. Psychiatric: Good judgment, good insight, normal affect, normal thought process, cooperative, no depression, no anxiety. Results - Labs Laboratory Last Values WBC 3.2 X10^3/uL (4.5-11.0) L 04/24/18 12:57 RBC 3.85 X10^6/uL (4.0-5.2) L 04/24/18 12:57 Hgb 11.1 g/dL (12.0-16.0) L 04/24/18 12:57 Hct 35.3 % (36-46) L 04/24/18 12:57 MCV 91.9 fL (80-100) 04/24/18 12:57 MCH 28.8 PG (26-34) 04/24/18 12:57 MCHC 31.4 % (30-36) 04/24/18 12:57 RDW 17.9 % (11.6-14.8) H 04/24/18 12:57 Plt Count 259 X10^3/uL (150-400) 04/24/18 12:57 Neut % (Auto) 45.6 % (50-75) L 04/24/18 12:57 Lymph % (Auto) 34.5 % (25-40) 04/24/18 12:57 [place] % (Auto) 15.3 % (3-14) H 04/24/18 12:57 Eos % (Auto) 3.6 % (2-4) 04/24/18 12:57 Baso % (Auto) 1.0 % (0-2) 04/24/18 12:57 Neut # (Auto) 1500 /uL (3293-7676) 04/24/18 12:57 Lymph # (Auto) 1100 /uL (6917-3730) 04/24/18 12:57 [place] # (Auto) 500 /uL (0-900) 04/24/18 12:57 Eos # (Auto) 100 /uL (0-450) 04/24/18 12:57 Baso # (Auto) 0 /uL (0-100) 04/24/18 12:57 Sodium 143 mmol/L (137-145) 04/24/18 12:57 Potassium 4.0 mmol/L (3.4-5.1) 04/24/18 12:57 Chloride 108 mmol/L (98-107) H 04/24/18 12:57 Carbon Dioxide 24 mmol/L (22-32) 04/24/18 12:57 BUN 15 mg/dL (7-17) 04/24/18 12:57 Creatinine 1.00 mg/dL (0.52-1.04) 04/24/18 12:57 Estimated GFR 56.6 mL/min (>60) L 04/24/18 12:57 BUN/Creatinine Ratio 15.0 (6-22) 04/24/18 12:57 Glucose 92 mg/dL (80-110) 04/24/18 12:57 Calcium 9.1 mg/dL (8.4-10.2) 04/24/18 12:57 Total Bilirubin 0.2 mg/dL (0.2-1.3) 04/24/18 12:57 AST 25 IU/L (14-36) 04/24/18 12:57 ALT 27 IU/L (9-52) 04/24/18 12:57 Alkaline Phosphatase 58 U/L (38-126) 04/24/18 12:57 Lactate Dehydrogenase 472 U/L (313-618) 04/24/18 12:57 Total Protein 7.1 g/dL (6.3-8.2) 04/24/18 12:57 Albumin 3.9 g/dL (3.5-5.0) 04/24/18 12:57 Globulin 3.2 g/dL (1.7-4.1) 04/24/18 12:57 Albumin/Globulin Ratio 1.2 (1.0-2.8) 04/24/18 12:57 Assessment and Plan (1) 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 She originally presented with hypercalcemia with headache, nausea and vomiting. CT 01/08/2018: left renal mass at least 9.7 cm with prominent retroperitoneal lymphadneopathy. Staging imagines (CT CAP, bone scan and PET) showed the known left kidney mass, and suspicious retroperitoneal and pelvic lymphadenopathy and right lower lung nodules. Status post left nephrectomy on 03/07/2018. Surgical pathology showed clear cell renal cell carcinoma. Patient has recovered very nicely from most recent surgical resection. And she was evaluated at [facility] by Dr. Ribeiro. Treatment with cabozantinib was recommended. Plan: 1. Cabozatinib 60 mg daily x 30 days, 11 refills, start once received. 2. Continue follow-up with urologist Dr. Natalie العراقي as scheduled. 3. RTC in 3 weeks, CBC, CMP, LDH to evaluate tolerability to cabozantinib (2) Morbid obesity No immediate intervention indicated. I encourage patient to think about weight control (3) Chronic anemia Normocytic. Likely related to multiple chronic disease. Stable. Need surveillance. (4) CKD (chronic kidney disease) stage 2, GFR 60-89 ml/min Need active surveillance. Stable.
--- NOTE | 2018-05-29 14:31 | ONC.SCHED ---
SENT AUTH TO COVER MY MEDS 05/22/18 AND FOLLOWED UP WITH THEM ON THE STATUS OF THE AUTH FOR THE ORAL MED CABOMETYX. THEY THEN DIRECTED ME TO [employer] @ [phone] AUTH #[id number]. SPOKE WITH SHANNAN THERE AND SHE TOLD ME THAT THEY WOULD HAVE A TURN AROUND WITHIN 24 HOURS AND THEY WILL FAX US THE AUTH/DECISION ON THIS MEDICATION.
--- NOTE | 2018-06-04 09:54 | PC.NURSE ---
Pt was last seen on 05/22. Script issued for cabozantinib 60mg tabs oral daily. However, there is a conflict found on the script. No refills are noted, dispense 30, # of days 11. Per NCCN guidelines, this medication has a 28 day cycle so 30 tabs to be issued is correct. The question is # of days 11 and no refills. This needs to be clarified by provider as it states in his dictation there should be 11 refills. The script and the dictation must match in order for this to pass authorization by pts insurance company. Note to provider for either a new script, an addendum to the dictation, or both so authorization can be completed.
--- NOTE | 2018-06-04 17:07 | ONC.SCHED ---
CALLED THE 4TH TIME TO GET IN TOUCH WITH SOMEONE ON THIS PRIOR AUTH AND NOW THEY CAN'T FIND IT. I'VE BEEN DIRECTED 4 DIFFERENT PLACES THIS AFTERNOON AND THEN THE LAST PLACE SAID THEY WERE CLOSED. I WILL FOLLOW UP WITH DR. MABRY IN THE MORNING HE IS IN TO LET HIM KNOW INSURANCE WON'T APPROVE THIS YET. I'LL TRY FIRST TO GET IN TOUCH WITH PA AGAIN. I WAS GIVEN A NEW PHONE NUMBER OF [phone].
--- NOTE | 2018-06-05 09:46 | ONC.SCHED ---
SPOKE WITH AMY Pearl PHARMACIST @ [phone] WHERE HER CHEMO DRUG WILL GO TO THIS SPECIALTY PHARMACY CALLED [facility]. HE SAID TO VIVIAN IT URGENT AND FAX TO [phone]. I GAVE THE MESSAGE TO DR. MABRY TO RE WRITE THE PRESCRIPTION PER WHAT THE INSURANCE WILL COVER AND NO PRE AUTH WAS NEEDED. THE PRESCRIPTION NEEDS TO BE CHANGED TO 15 DAYS FOR THE FIRST REFILL @ THE 60 MG AND THEN 30 THEREAFTER. THE PRESCRIPTION WILL BE MAILED TO THE PATIENT. I CALLED THE PATIENT AND LET HER KNOW AND SHE WAS HAPPY THAT IT DID NOT NEED A PRIOR AUTH AND WOULD BE APPROVED. SHE ASKED IF WE NEEDED TO RESCHEDULE HER APT. DUE TO THE FACT THAT HER UP COMING APT IS TO TRACK HOW SHE IS DOING ON THE MEDICATION. I LEFT THIS URGENT MESSAGE WITH BOTH ISSUES ON DR. MABRY'S KEYBOARD JUST NOW. I WILL FOLLOW UP WITH HIM BEFORE END OF DAY REGARDING GETTING THIS WRITTEN SO TRIAGE OR I OR WHOEVER CAN TAKE CARE OF THIS CECELIA. THE PATIENT WAS OK WITH CHANGING HER APT TO COORDINATE TRACKING AFTER 2 WEEKS ON THE MEDICATION. CURRENTLY WAITING ON DR. MABRY TO GET THE MED CHANGED.
--- NOTE | 2018-06-09 11:18 | ONC.SCHED ---
Spoke with Belgica today and her prescription will be delivered to her tomorrow for her chemo med. Finally the approval happened. She has a follow up on June 26 and will get labs drawn on June 23 which will be 2 weeks on the medication. Her follow up will be timely for her to be checked by Dr. Burden with her on the medication. She will need the next prescription written for 30 days going forward to be faxed to her specialty pharmacy [facility]. This will of course will need to be authorized by Dr. Burden after checking her blood work on how she's doing on the med.
--- NOTE | 2018-06-24 12:31 | ONC.MSW ---
Description: Resources, Support, Mouth Sores Activity: Pt presented in the clinic waiting area in tears, was requesting some information about wigs/hair loss resources. [employer] met with patient, offered teaching, information and resources specific to hair loss, as well as information about the availability of the [facility] Fund for reimbursement for these types of supplies. Offered information about the Women's Cancer Support Group, as well as next month's group-Looking and Feeling Your Best During Cancer Treatment. Pt shared how she is feeling alone and having difficulty coping with the side-effects of chemo. [employer]IST offered counseling for emotional/coping support, as well as encouraged her to attend the women's group this coming . Plan: [employer]IST will plan to meet with patient prior to her provider appointment next in order to schedule a time where she can come and have a wig fitting here in clinic.
--- NOTE | 2018-06-24 17:20 | PC.NURSE ---
Patient complaining of soreness at roof of mouth, on tongue, and inside of cheeks. No obvious sores visible. Patient advised to avoid sharp, spicy and hot foods and to rinse with a baking soda and salt solution twice per day. Written tips for eating form [employer] given to patient to take home after reviewing the pages covering mouth sores with her. She was advised to call in here if the condition worsens despite these precautions and efforts.
[2018-06-26 13:17] VITALS: BP 155/98; PULSE 68; RESP 18; TEMP 36.4; O2SAT 97
--- NOTE | 2018-06-26 13:21 | ONC.PN ---
PN -Subjective Interval history: She started Cabozantinib 60 mg daily on 06/11/2018. She is complaining of taste different. Her tongue and lips are rough. Her abdomen sore after taking cabzantinib. She has sob but not anything different than before. She denies any new pain. She has some muscle cramp in the upper abdomen. Oncology History Ms Belgica Da Silva is a 62 year old female with a long list of medical co-morbidities most notable for morbid obesity, sleep apnea on CPAP, hypertension, rheumatoid arthritis, and psoriasis on Otezla (apremilast). In early December,, she developed headache, nausea, and vomiting. She was evaluated by Dr. Goel on 01/08/2018. The next day, she had a call from the nurse asking her to go to the emergency room due to serum calcium level of about 13. Patient stayed at the [facility] for about 3 days. Patient recalled that they gave her medications through the intravenous line. She underwent CT scan on 01/08/2018, that showed an left infiltrative lower/midpole originating heterogeneous iso-attenuating mass measuring at least 9.7 cm, pelvic retroperitoneal node cluster largest of which measuring 1.4 x 2.6 cm, and the most prominent nearby retroperitoneal lymph node measuring 2.2 x 1.2 cm. Sigmoid diverticulosis was also noted. On 02/03/2018, she was seen as post ER follow up at [facility]. Her calcium level has decreased to 11.5. Patient requested to be referred to [facility]. I first saw the patient on 02/07/2018. I referred the patient to [facility] for evaluation of possible surgical resection of left suspicious kidney cancer. In addition patient underwent staging studies as follows. On 02/12/2018, bone scan showed no osseous metastatic disease. Same day CT scan of the chest abdomen pelvis showed the large heterogeneously enhancing left renal mass with imaging characteristics highly suspicious for renal cell carcinoma, left leif aortic retroperitoneal and left common iliac pelvic metastatic lymphadenopathy, and a 1.5 x 1.1 x 1.2 cm right lower lobe nodule highly suspicious for possible lung metastasis. And on 02/19/2018, PET-CT showed a large left renal mass involving nearly the entire left kidney demonstrating abnormal FDG activity consistent with malignancy, a 1.4 x 2.1 cm left para-aortic lymph node demonstrating maximum SUV 2.3, additional enlarged retroperitoneal, mesenteric, and left iliac lymph node and bilateral inguinal lymph nodes demonstrating low FDG activity suggesting benign etiology and the 1.6 x 0.8 mc bilobed lung mass in the right lower lobe with low level increasing uptake with SUV 2.1 and a tiny 5 mm right middle lobe nodule with SUV maximum 0.8. The patient was seen by Natalie العراقي MD urologist at [facility] on 02/28/2018. The patient then underwent open left radical nephrectomy on 03/07/2018. 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 There was 10% rhabdoid change and there was necrosis within the tumor. Nuclear grade was 4. There was tumor extension into perinephric tissues, the renal sinus, a major vein and the pelvicalyceal system. All surgical margins were negative. One of 1 lymph node in the surgical specimen was involved by carcinoma with a 4 cm deposit. Final pathologic staging was pT3a N1. She was referred to and was evaluated by Dr. Ribeiro on 05/06/2018. Dr. Ribeiro did not think that the patient was a suitable candidate for high-dose interleukin 2 treatment. No open frontline clinical trials were available either at this moment. Dr. Gómez discussed variety of treatment options including immunotherapy ipilimumab plus nivolumab vs oral targeted drug cabozaninib. Given patient autoimmune disease history including psoriasis which is actively managed with Otezla as well as diagnosis of rheumatoid arthritis, and that immunotherapy has a high likelihood of exacerbating these underlying autoimmune syndrome, Dr. Gómez recommneded targeted drug cabozantinib. - Patient Self-Reported Symptoms SR Constitution: Fatigue/Malaise SR ears, nose, mouth, throat issues: Changes in taste SR respiratory issues: Shortness of breath SR Cardiovascular issues: Dizzy/lightheaded SR Skin issues: Hair loss or scalp prob SR Gastrointestinal issues: Change in bowel pattern, Nausea, Vomiting SR Genitourinary issues: Frequent urination, Incontinence SR Musculoskeletal issues: Joint pain or swelling, Muscle weakness, Muscle pain or cramps, Difficulty walking, Bone pain SR Neuro issues: Difficulty balancing SR Hematologic issues: Bleeding/bruising SR Endocrine issues: Excessive urination - Additional ROS All systems PM: reviewed and no additional remarkable complaints except as stated Home Medications and Allergies Home Medications Medication Instructions Recorded Confirmed Type apremilast [Otezla] 30 mg PO DAILY 02/07/18 05/22/18 History fluticasone propionate [Flovent 1 puff INHALATION Q12H 02/07/18 05/22/18 History HFA] hydroxyzine HCl 25 mg PO QID PRN 02/07/18 05/22/18 History minocycline 100 mg PO BID 02/07/18 05/22/18 History pramipexole 0.125 mg PO BEDTIME 02/07/18 05/22/18 History ranitidine HCl 150 mg PO DAILY 02/07/18 05/22/18 History temazepam 15 mg PO BEDTIME PRN 02/07/18 05/22/18 History vitamin [id number] acid 1 tab PO DAILY 04/24/18 05/22/18 History cabozantinib [Cabometyx] 60 mg PO DAILY #15 tab 06/05/18 Rx amlodipine 5 mg PO DAILY #30 tab 06/26/18 Rx cyclobenzaprine 5 mg PO TID PRN #30 tab 06/26/18 Rx Allergies Allergy/AdvReac Type Severity Reaction Status Date / Time bee venom protein (honey bee) Allergy Unknown Verified 02/07/18 11:09 iodine AdvReac Unknown Verified 02/07/18 11:09 MICRO AdvReac Unknown Uncoded 02/07/18 11:09 Exam Vital signs: Last Vital Signs Temp 97.5 F L 06/26/18 13:17 Pulse 68 06/26/18 13:17 Resp 18 06/26/18 13:17 BP 155/98 H 06/26/18 13:17 Pulse Ox 97 06/26/18 13:17 ECOG 1 Narrative: Constitutional: WDWN, NAD, morbid obese, cooperative, in wheelchair, accompanied by her sister Anatoly HEENT: NCAT, EOMI, PERRLA, anicteric sclera. Neck: Supple, No palpable thyromegaly and no palpable lymph nodes. Respiratory: No use of accessory muscles. CTAB, no wheezes. Cardiovascular: RRR, S1 and S2 normal, 2/6 SM aortic valve, no gallops or rubs. . Abdomen: Soft, NTND, midline surgical wound noted, that is well healed. Lower extremities: No palpable pedal edema. Neurological: AOx3, CN II-XII grossly intact. No focal motor or sensory deficit. Psychiatric: Good judgment, good insight, normal affect, normal thought process, cooperative, no depression, no anxiety. Results - Labs Laboratory Last Values WBC 3.2 X10^3/uL (4.5-11.0) L 04/24/18 12:57 RBC 3.85 X10^6/uL (4.0-5.2) L 04/24/18 12:57 Hgb 11.1 g/dL (12.0-16.0) L 04/24/18 12:57 Hct 35.3 % (36-46) L 04/24/18 12:57 MCV 91.9 fL (80-100) 04/24/18 12:57 MCH 28.8 PG (26-34) 04/24/18 12:57 MCHC 31.4 % (30-36) 04/24/18 12:57 RDW 17.9 % (11.6-14.8) H 04/24/18 12:57 Plt Count 259 X10^3/uL (150-400) 04/24/18 12:57 Neut % (Auto) 45.6 % (50-75) L 04/24/18 12:57 Lymph % (Auto) 34.5 % (25-40) 04/24/18 12:57 [place] % (Auto) 15.3 % (3-14) H 04/24/18 12:57 Eos % (Auto) 3.6 % (2-4) 04/24/18 12:57 Baso % (Auto) 1.0 % (0-2) 04/24/18 12:57 Neut # (Auto) 1500 /uL (6473-5771) 04/24/18 12:57 Lymph # (Auto) 1100 /uL (8321-6159) 04/24/18 12:57 [place] # (Auto) 500 /uL (0-900) 04/24/18 12:57 Eos # (Auto) 100 /uL (0-450) 04/24/18 12:57 Baso # (Auto) 0 /uL (0-100) 04/24/18 12:57 Sodium 143 mmol/L (137-145) 04/24/18 12:57 Potassium 4.0 mmol/L (3.4-5.1) 04/24/18 12:57 Chloride 108 mmol/L (98-107) H 04/24/18 12:57 Carbon Dioxide 24 mmol/L (22-32) 04/24/18 12:57 BUN 15 mg/dL (7-17) 04/24/18 12:57 Creatinine 1.00 mg/dL (0.52-1.04) 04/24/18 12:57 Estimated GFR 56.6 mL/min (>60) L 04/24/18 12:57 BUN/Creatinine Ratio 15.0 (6-22) 04/24/18 12:57 Glucose 92 mg/dL (80-110) 04/24/18 12:57 Calcium 9.1 mg/dL (8.4-10.2) 04/24/18 12:57 Total Bilirubin 0.2 mg/dL (0.2-1.3) 04/24/18 12:57 AST 25 IU/L (14-36) 04/24/18 12:57 ALT 27 IU/L (9-52) 04/24/18 12:57 Alkaline Phosphatase 58 U/L (38-126) 04/24/18 12:57 Lactate Dehydrogenase 472 U/L (313-618) 04/24/18 12:57 Total Protein 7.1 g/dL (6.3-8.2) 04/24/18 12:57 Albumin 3.9 g/dL (3.5-5.0) 04/24/18 12:57 Globulin 3.2 g/dL (1.7-4.1) 04/24/18 12:57 Albumin/Globulin Ratio 1.2 (1.0-2.8) 04/24/18 12:57 Assessment and Plan (1) Clear cell adenocarcinoma of left kidney Overview: Metastatic clear cell renal cell carcinoma, pT3a N1 Mx. She originally presented with hypercalcemia with headache, nausea and vomiting. CT 01/08/2018: left renal mass at least 9.7 cm with prominent retroperitoneal lymphadneopathy. Staging imagines (CT CAP, bone scan and PET) showed the known left kidney mass, and suspicious retroperitoneal and pelvic lymphadenopathy and right lower lung nodules. Status post left nephrectomy on 03/07/2018. Surgical pathology showed clear cell renal cell carcinoma. Assessment: She was evaluated at [facility] by Dr. Ribeiro. Treatment with cabozantinib was recommended. She started Cabozatinib 60 mg daily on 06/11/2018. She tolerated very well except elevated blood pressure (see below). Plan: 1. Continue Cabozatinib 60 mg daily 2. Continue follow-up with urologist Dr. Natalie العراقي as scheduled. 3. RTC in 6 weeks, CBC, CMP, LDH (2) Hypertension Patient has increased blood pressure. It might be related to the use of the cabozantinib. I will start the patient low-dose amlodipine 5 mg once a day. I instructed the patient to check blood pressure often at home. (3) Morbid obesity No immediate intervention indicated. I encourage patient to think about weight control (4) Chronic anemia Normocytic. Likely related to multiple chronic disease. Stable. Need surveillance. (5) CKD (chronic kidney disease) stage 2, GFR 60-89 ml/min Need active surveillance. Stable.
--- NOTE | 2018-06-26 13:27 | P.PNONC_ITS ---
PN -Subjective Interval history: She started Cabozantinib 60 mg daily on 06/11/2018. She is complaining of taste different. Her tongue and lips are rough. Her abdomen sore after taking cabzantinib. She has sob but not anything different than before. She denies any new pain. She has some muscle cramp in the upper abdomen. Oncology History Ms Belgica Da Silva is a 62 year old female with a long list of medical co- morbidities most notable for morbid obesity, sleep apnea on CPAP, hypertension, rheumatoid arthritis, and psoriasis on Otezla (apremilast). In early December,, she developed headache, nausea, and vomiting. She was evaluated by Dr. Goel on 01/08/2018. The next day, she had a call from the nurse asking her to go to the emergency room due to serum calcium level of about 13. Patient stayed at the [facility] for about 3 days. Patient recalled that they gave her medications through the intravenous line. She underwent CT scan on 01/08/2018, that showed an left infiltrative lower/midpole originating heterogeneous iso-attenuating mass measuring at least 9.7 cm, pelvic retrope ritoneal node cluster largest of which measuring 1.4 x 2.6 cm, and the most prominent nearby retroperitoneal lymph node measuring 2.2 x 1.2 cm. Sigmoid diverticulosis was also noted. On 02/03/2018, she was seen as post ER follow up at [facility]. Her calcium level has decreased to 11.5. Patient requested to be referred to [facility]. I first saw the patient on 02/07/2018. I referred the patient to [facility] for evaluation of possible surgical resection of left suspicious kidney cancer. In addition patient underwent staging studies as follows. On 02/12/2018, bone scan showed no osseous metastatic disease. Same day CT scan of the chest abdomen pelvis showed the large heterogeneously enhancing left renal mass with imaging characteristics highly suspicious for renal cell carcinoma, left leif aortic retroperitoneal and left common iliac pelvic metastatic lymphadenopathy, and a 1.5 x 1.1 x 1.2 cm right lower lobe nodule highly suspic ious for possible lung metastasis. And on 02/19/2018, PET-CT showed a large left renal mass involving nearly the entire left kidney demonstrating abnormal FDG activity consistent with malignancy, a 1.4 x 2.1 cm left para-aortic lymph node demonstrating maximum SUV 2.3, additional enlarged retroperitoneal, mesenteric, and left iliac lymph node and bilateral inguinal lymph nodes demonstrating low FDG activity suggesting benign etiology and the 1.6 x 0.8 mc bilobed lung mass in the right lower lobe with low level increasing uptake with SUV 2.1 and a tiny 5 mm right middle lobe nodule with SUV maximum 0.8. The patient was seen by Natalie العراقي MD urologist at [facility] on 02/28/2018. The patient then underwent open left radical nephrectomy on 03/07/2018. 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 There was 10% rhabdoid change and there was necrosis within the tumor. Nuclear grade was 4. There was tumor extension into perinephric tissues, the renal sinus, a major vein and the pelvicalyceal system. All surgical margins were negative. One of 1 lymph node in the surgical specimen was involved by carcinoma with a 4 cm deposit. Final pathologic staging was pT3a N1. She was referred to and was evaluated by Dr. Ribeiro on 05/06/2018. Dr. Ribeiro did not think that the patient was a suitable candidate for high-dose interleukin 2 treatment. No open frontline clinical trials were available either at this moment. Dr. Gómez discussed variety of treatment options including immunotherapy ipilimumab plus nivolumab vs oral targeted drug cabozaninib. Given patient autoimmune disease history including psoriasis which is actively managed with Otezla as well as diagnosis of rheumatoid arthritis, and that immunotherapy has a high likelihood of exacerbating these underlying autoimmune syndrome, Dr. Gómez recommneded targeted drug cabozantinib. - Patient Self-Reported Symptoms SR Constitution: Fatigue/Malaise SR ears, nose, mouth, throat issues: Changes in taste SR respiratory issues: Shortness of breath SR Cardiovascular issues: Dizzy/lightheaded SR Skin issues: Hair loss or scalp prob SR Gastrointestinal issues: Change in bowel pattern, Nausea, Vomiting SR Genitourinary issues: Frequent urination, Incontinence SR Musculoskeletal issues: Joint pain or swelling, Muscle weakness, Muscle pain or cramps, Difficulty walking, Bone pain SR Neuro issues: Difficulty balancing SR Hematologic issues: Bleeding/bruising SR Endocrine issues: Excessive urination - Additional ROS All systems PM: reviewed and no additional remarkable complaints except as stated Home Medications and Allergies Home Medications Medication Instructions Recorded Confirmed Type apremilast [Otezla] 30 mg PO DAILY 02/07/18 05/22/18 History fluticasone propionate [Flovent 1 puff INHALATION Q12H 02/07/18 05/22/18 History HFA] hydroxyzine HCl 25 mg PO QID PRN 02/07/18 05/22/18 History minocycline 100 mg PO BID 02/07/18 05/22/18 History pramipexole 0.125 mg PO BEDTIME 02/07/18 05/22/18 History ranitidine HCl 150 mg PO DAILY 02/07/18 05/22/18 History temazepam 15 mg PO BEDTIME PRN 02/07/18 05/22/18 History vitamin Q21-puvjb acid 1 tab PO DAILY 04/24/18 05/22/18 History cabozantinib [Cabometyx] 60 mg PO DAILY #15 tab 06/05/18 Rx amlodipine 5 mg PO DAILY #30 tab 06/26/18 Rx cyclobenzaprine 5 mg PO TID PRN #30 tab 06/26/18 Rx Allergies Allergy/AdvReac Type Severity Reaction Status Date / Time bee venom protein (honey bee) Allergy Unknown Verified 02/07/18 11:09 iodine AdvReac Unknown Verified 02/07/18 11:09 MICRO AdvReac Unknown Uncoded 02/07/18 11:09 Exam Vital signs: Last Vital Signs Temp 97.5 F L 06/26/18 13:17 Pulse 68 06/26/18 13:17 Resp 18 06/26/18 13:17 BP 155/98 H 06/26/18 13:17 Pulse Ox 97 06/26/18 13:17 ECOG 1 Narrative: Constitutional: WDWN, NAD, morbid obese, cooperative, in wheelchair, accompanied by her sister Anatoly HEENT: NCAT, EOMI, PERRLA, anicteric sclera. Neck: Supple, No palpable thyromegaly and no palpable lymph nodes. Respiratory: No use of accessory muscles. CTAB, no wheezes. Cardiovascular: RRR, S1 and S2 normal, 2/6 SM aortic valve, no gallops or rubs. . Abdomen: Soft, NTND, midline surgical wound noted, that is well healed. Lower extremities: No palpable pedal edema. Neurological: AOx3, CN II-XII grossly intact. No focal motor or sensory deficit. Psychiatric: Good judgment, good insight, normal affect, normal thought process, cooperative, no depression, no anxiety. Results - Labs Laboratory Last Values WBC 3.2 X10^3/uL (4.5-11.0) L 04/24/18 12:57 RBC 3.85 X10^6/uL (4.0-5.2) L 04/24/18 12:57 Hgb 11.1 g/dL (12.0-16.0) L 04/24/18 12:57 Hct 35.3 % (36-46) L 04/24/18 12:57 MCV 91.9 fL (80-100) 04/24/18 12:57 MCH 28.8 PG (26-34) 04/24/18 12:57 MCHC 31.4 % (30-36) 04/24/18 12:57 RDW 17.9 % (11.6-14.8) H 04/24/18 12:57 Plt Count 259 X10^3/uL (150-400) 04/24/18 12:57 Neut % (Auto) 45.6 % (50-75) L 04/24/18 12:57 Lymph % (Auto) 34.5 % (25-40) 04/24/18 12:57 [place] % (Auto) 15.3 % (3-14) H 04/24/18 12:57 Eos % (Auto) 3.6 % (2-4) 04/24/18 12:57 Baso % (Auto) 1.0 % (0-2) 04/24/18 12:57 Neut # (Auto) 1500 /uL (4614-6215) 04/24/18 12:57 Lymph # (Auto) 1100 /uL (1523-8284) 04/24/18 12:57 [place] # (Auto) 500 /uL (0-900) 04/24/18 12:57 Eos # (Auto) 100 /uL (0-450) 04/24/18 12:57 Baso # (Auto) 0 /uL (0-100) 04/24/18 12:57 Sodium 143 mmol/L (137-145) 04/24/18 12:57 Potassium 4.0 mmol/L (3.4-5.1) 04/24/18 12:57 Chloride 108 mmol/L (98-107) H 04/24/18 12:57 Carbon Dioxide 24 mmol/L (22-32) 04/24/18 12:57 BUN 15 mg/dL (7-17) 04/24/18 12:57 Creatinine 1.00 mg/dL (0.52-1.04) 04/24/18 12:57 Estimated GFR 56.6 mL/min (>60) L 04/24/18 12:57 BUN/Creatinine Ratio 15.0 (6-22) 04/24/18 12:57 Glucose 92 mg/dL (80-110) 04/24/18 12:57 Calcium 9.1 mg/dL (8.4-10.2) 04/24/18 12:57 Total Bilirubin 0.2 mg/dL (0.2-1.3) 04/24/18 12:57 AST 25 IU/L (14-36) 04/24/18 12:57 ALT 27 IU/L (9-52) 04/24/18 12:57 Alkaline Phosphatase 58 U/L (38-126) 04/24/18 12:57 Lactate Dehydrogenase 472 U/L (313-618) 04/24/18 12:57 Total Protein 7.1 g/dL (6.3-8.2) 04/24/18 12:57 Albumin 3.9 g/dL (3.5-5.0) 04/24/18 12:57 Globulin 3.2 g/dL (1.7-4.1) 04/24/18 12:57 Albumin/Globulin Ratio 1.2 (1.0-2.8) 04/24/18 12:57 Assessment and Plan (1) Clear cell adenocarcinoma of left kidney Overview: Metastatic clear cell renal cell carcinoma, pT3a N1 Mx. She originally presented with hypercalcemia with headache, nausea and vomiting. CT 01/08/2018: left renal mass at least 9.7 cm with prominent retroperitoneal lymphadneopathy. Staging imagines (CT CAP, bone scan and PET) showed the known left kidney mass, and suspicious retroperitoneal and pelvic lymphadenopathy and right lower lung nodules. Status post left nephrectomy on 03/07/2018. Surgical pathology showed clear cell renal cell carcinoma. Assessment: She was evaluated at [facility] by Dr. Ribeiro. Treatment with cabozantinib was recommended. She started Cabozatinib 60 mg daily on 06/11/2018. She tolerated v oscar well except elevated blood pressure (see below). Plan: 1. Continue Cabozatinib 60 mg daily 2. Continue follow-up with urologist Dr. Natalie العراقي as scheduled. 3. RTC in 6 weeks, CBC, CMP, LDH (2) Hypertension Patient has increased blood pressure. It might be related to the use of the cabozantinib. I will start the patient low-dose amlodipine 5 mg once a day. I instructed the patient to check blood pressure often at home. (3) Morbid obesity No immediate intervention indicated. I encourage patient to think about weight control (4) Chronic anemia Normocytic. Likely related to multiple chronic disease. Stable. Need surveillance. (5) CKD (chronic kidney disease) stage 2, GFR 60-89 ml/min Need active surveillance. Stable.
--- NOTE | 2018-07-03 10:03 | P.PNONC_ITS ---
PN -Subjective Interval history: She started Cabozantinib 60 mg daily on 06/11/2018. On 06/27/2018, patient went to [facility] and was evaluated by Dr. Natalie العراقي. CT of the head was performed that showed no acute intracranial abnormality. CT of the chest abdomen and pelvis showed that the previously seen right lower lobe nodule has resolved. But there were increased size of para- aortic lymph nodes. Incidentally pulmonary emboli in the right main pulmonary artery bifurcation and the right upper and lower lobar pulmonary arteries were identified. Patient therefore was called back to the emergency room of [facility] where patient was initiated Lovenox injection 120 mg twice daily. Patient has been doing the injection herself. There is some bruises around the injection sites. Remarkably, patient did not have any shortness of breath or chest pain or palpitation. Patient denies any lower extremity swelling. Oncology History Ms Belgica Da Silva is a 62 year old female with a long list of medical co- morbidities most notable for morbid obesity, sleep apnea on CPAP, hypertension, rheumatoid arthritis, and psoriasis on Otezla (apremilast). In early December,, she developed headache, nausea, and vomiting. She was evaluated by Dr. Goel on 01/08/2018. The next day, she had a call from the nurse asking her to go to the emergency room due to serum calcium level of about 13. Patient stayed at the [facility] for about 3 days. Patient recalled that they gave her medications through the intravenous line. She underwent CT scan on 01/08/2018, that showed an left infiltrative lower/midpole originating heterogeneous iso-attenuating mass measuring at least 9.7 cm, pelvic retroperitoneal node cluster largest of which measuring 1.4 x 2.6 cm, and the most prominent nearby retroperitoneal lymph node measuring 2.2 x 1.2 cm. Sigmoid diverticulosis was also noted. On 02/03/2018, she was seen as post ER follow up at [facility]. Her calcium level has decreased to 11.5. Patient requested to be referred to [facility]. I first saw the patient on 02/07/2018. I referred the patient to [facility] for evaluation of possible surgical resection of left suspicious kidney cancer. In addition patient underwent staging studies as follows. On 02/12/2018, bone scan showed no osseous metastatic disease. Same day CT scan of the chest abdomen pelvis showed the large heterogeneously enhancing left renal mass with imaging characteristics highly suspicious for renal cell carcinoma, left leif aortic retroperitoneal and left common iliac pelvic metastatic lymphadenopathy, and a 1.5 x 1.1 x 1.2 cm right lower lobe nodule highly suspicious for possible lung metastasis. And on 02/19/2018, PET-CT showed a large left renal mass involving nearly the entire left kidney demonstrating abnormal FDG activity consistent with malignancy, a 1.4 x 2.1 cm left para-aortic lymph node demonstrating maximum SUV 2.3, additional enlarged retroperitoneal, mesenteric, and left iliac lymph node and bilateral inguinal lymph nodes demonstrating low FDG activity suggesting benign etiology and the 1.6 x 0.8 mc bilobed lung mass in the right lower lobe with low level increasing uptake with SUV 2.1 and a tiny 5 mm right middle lobe nodule with SUV maximum 0.8. The patient was seen by Natalie العراقي MD urologist at [facility] on 02/28/2018. The patient then underwent open left radical nephrectomy on 03/07/2018. The pat hology showed a 13.5 cm clear cell renal cell carcinoma. There was 10% rhabdoid change and there was necrosis within the tumor. Nuclear grade was 4. There was tumor extension into perinephric tissues, the renal sinus, a major vein and the pelvicalyceal system. All surgical margins were negative. One of 1 lymph node in the surgical specimen was involved by carcinoma with a 4 cm deposit. Final patho logic staging was pT3a N1. She was referred to and was evaluated by Dr. Ribeiro on 05/06/2018. Dr. Ribeiro did not think that the patient was a suitable candidate for high-dose interleukin 2 treatment. No open frontline clinical trials were available either at this moment. Dr. Gómez discussed variety of treatment options including immunotherapy ipilimumab plus nivolumab vs oral targeted drug cabozaninib. Given patient autoimmune disease history including psoriasis which is actively managed with Otezla as well as diagnosis of rheumatoid arthritis, and that immunotherapy has a high likelihood of exacerbating these underlying autoimmune syndrome, Dr. Gómez recommneded targeted drug cabozantinib. - Patient Self-Reported Symptoms SR Constitution: Fatigue/Malaise SR ears, nose, mouth, throat issues: Changes in taste SR respiratory issues: Shortness of breath SR Cardiovascular issues: Dizzy/lightheaded SR Skin issues: Hair loss or scalp prob SR Gastrointestinal issues: Change in bowel pattern, Nausea, Vomiting SR Genitourinary issues: Frequent urination, Incontinence SR Musculoskeletal issues: Joint pain or swelling, Muscle weakness, Muscle pain or cramps, Difficulty walking, Bone pain SR Neuro issues: Difficulty balancing SR Hematologic issues: Bleeding/bruising SR Endocrine issues: Excessive urination - Additional ROS All systems PM: reviewed and no additional remarkable complaints except as stated Home Medications and Allergies Home Medications Medication Instructions Recorded Confirmed Type apremilast [Otezla] 30 mg PO DAILY 02/07/18 05/22/18 History fluticasone propionate [Flovent 1 puff INHALATION Q12H 02/07/18 05/22/18 History HFA] hydroxyzine HCl 25 mg PO QID PRN 02/07/18 05/22/18 History minocycline 100 mg PO BID 02/07/18 05/22/18 History pramipexole 0.125 mg PO BEDTIME 02/07/18 05/22/18 History ranitidine HCl 150 mg PO DAILY 02/07/18 05/22/18 History temazepam 15 mg PO BEDTIME PRN 02/07/18 05/22/18 History vitamin U16-httld acid 1 tab PO DAILY 04/24/18 05/22/18 History cabozantinib [Cabometyx] 60 mg PO DAILY #15 tab 06/05/18 Rx amlodipine 5 mg PO DAILY #30 tab 06/26/18 Rx cyclobenzaprine 5 mg PO TID PRN #30 tab 06/26/18 Rx citalopram 40 mg PO Q OTHER DAY 07/03/18 07/03/18 History enoxaparin [Lovenox] 120 mg SUBCUT Q12H 30 Days #48 ml 07/03/18 Rx Allergies Allergy/AdvReac Type Severity Reaction Status Date / Time bee venom protein (honey bee) Allergy Unknown Verified 02/07/18 11:09 iodine AdvReac Unknown Verified 02/07/18 11:09 MICRO AdvReac Unknown Uncoded 02/07/18 11:09 Exam Vital signs: Last Vital Signs Temp 97.2 F L 07/03/18 11:06 Pulse 88 07/03/18 11:06 Resp 22 07/03/18 11:06 BP 134/88 07/03/18 11:06 Pulse Ox 96 07/03/18 11:06 ECOG 1 Narrative: Constitutional: WDWN, NAD, morbid obese, cooperative, in wheelchair, accompanied by her sister Anatoly HEENT: NCAT, EOMI, PERRLA, anicteric sclera. Neck: Supple, No palpable thyromegaly and no palpable lymph nodes. Respiratory: No use of accessory muscles. CTAB, no wheezes. Cardiovascular: RRR, S1 and S2 normal, 2/6 SM aortic valve, no gallops or rubs. . Abdomen: Soft, NTND, midline surgical wound noted, that is well healed. Lower extremities: No palpable pedal edema. Neurological: AOx3, CN II-XII grossly intact. No focal motor or sensory deficit. Psychiatric: Good judgment, good insight, normal affect, normal thought process, cooperative, no depression, no anxiety. Results - Labs Lab tests from [facility] 06/27/2018 were reviewed. WBC 5.18, hemoglobin 12.8, hematocrit 39, platelets 229. Sodium 138, Potassium 4.3, creatinine 0.99, BUN 21, AST 47, ALT 53, alk-phos 69, albumin 3.4. Assessment and Plan (1) Clear cell adenocarcinoma of left kidney Overview: Metastatic clear cell renal cell carcinoma, pT3a N1 Mx. She originally presented with hypercalcemia with headache, nausea and vomiting. CT 01/08/2018: left renal mass at least 9.7 cm with prominent retroperitoneal lymphadneopathy. Staging imagines (CT CAP, bone scan and PET) showed the known left kidney mass, and suspicious retroperitoneal and pelvic lymphadenopathy and right lower lung nodules. Status post left nephrectomy on 03/07/2018. Surgical pathology showed clear cell renal cell carcinoma. Assessment: She was evaluated at [facility] by Dr. Ribeiro. Treatment with cabozantinib was recommended. She started Cabozatinib 60 mg daily on 06/11/2018. She underwent a repeat CT scan of the chest abdomen pelvis on 06/27/2018 at [facility]. The right lower lung nodule has resolved. The left para-aortic lymph nodes slightly increased in size with central necrosis. Incidentally pulmonary embolism was identified (see below). I explained to the patient about the CT scan results. In my opinion patient has responded to the treatment with cabozantinib. I will continue current treatment and also encourage the patient continue follow-up with the urologist Dr. Natalie العراقي. Plan: 1. Continue Cabozatinib 60 mg daily 2. Continue follow-up with urologist Dr. Natalie العراقي as scheduled. 3. RTC in 4-6 weeks, CBC, CMP, LDH (2) Pulmonary embolism Overview: Incidental diagnosis of right lung pulmonary embolism in the right main pulmonary artery bifurcation and the right upper and lower lobar pulmonary arteries on 06/27/2018 during a workup for restaging of her clear cell renal cell carcinoma. Patient was adequately started on Lovenox 120 mg Q 12. Clinically patient does not have any pulmonary symptoms or lower extremity swelling. Assessment: I talked with the patient that the etiology of the pulmonary embolism is difficult to determine at this moment. I am somewhat worried about it may be related to the underlying malignancy especially the kidney cancer. I definitely agree with the use of Lovenox. Studies have shown the Lovenox has a better outcome compared to Coumadin. I talked with the patient that we will continue the treatment at least for 3 months and may be much longer. Plan: 1. Continue Lovenox 120 mg q12h subQ 2. RTC in 4-6 weeks. (3) Hypertension Patient has increased blood pressure. It might be related to the use of the cabozantinib. I will start the patient low-dose amlodipine 5 mg once a day. I instructed the patient to check blood pressure often at home. (4) Morbid obesity No immediate intervention indicated. I encourage patient to think about weight control (5) Chronic anemia Normocytic. Likely related to multiple chronic disease. Stable. Need surveillance. (6) CKD (chronic kidney disease) stage 2, GFR 60-89 ml/min Need active surveillance. Stable.
[2018-07-03 11:06] VITALS: BP 134/88; PULSE 88; RESP 22; TEMP 36.2; O2SAT 96
--- NOTE | 2018-07-07 10:51 | PC.NURSE ---
Received VVO from Dr. Burden for refill of Cabozantinib 60mg tablet PO #30 with 12 refills. Called in refill to [facility] and order given to [place] Pharmacist, order read back and confirmed. Called pt to let her know RX had been called in, pt verbalized understanding. While on the phone with pt, pt expressed concern r/t a blood thinner injection they gave me down at [facility] [facility] Pt reports site of injection is Hard and tender. There is there's a bump, it's about two inches by three inches. Pt reports injection was given about a week ago. Instructed pt to call PCP as soon as she hangs up with this underwriter. PCP is located in [place], where pt lives, and let them know right away so they call assess pt. Pt verbalizes understanding and states I will. Call ended
--- NOTE | 2018-07-10 15:45 | ONC.SCHED ---
Per [employer] website pre-certification is not required for Lovenox [id number]
--- NOTE | 2018-07-10 17:35 | PC.NURSE ---
Patient had called in yesterday saying pharmacy would not release her Lovenox prescription (due to limit by insurance on monthly amount). She had only received a 15 day supply from [facility] (although a one month supply was written in discharge summary from ER), [facility] in [place] stated to this nurse that per insurance they cannot release her new prescription from Dr. Burden until July 23. This nurse called patient's insurance and put in a preauthorization application so that the patient can receive her prescription tomorrow as she will run out after tomorrow am's inj. Since the preauth required a 24 hour turn around time arrangements were made for patient to receive the Lovenox on the acute care floor over the weekend in the case that the application is rejected. This nurse called patient and communicated to her that she should call her pharmacy tomorrow noon and ask if the preauth came through and she can diamond picker the lovenox. She was also informed that if they do not approve she should come in q 12 hours starting at 8 pm on 07/11 to receive her injection on acute care. Also that the remaining injections will be done here until 07/23 if Lovenox still not released for her. Patient repeated these instructions back to me correctly.
--- NOTE | 2018-07-15 15:03 | PC.NURSE ---
Per pt I had an allergic reaction to the lovenox injections. Pt reports she was seen in the ED and they switched my to Xarelto. Pt wanting Dr. Burden to be aware and to see if he wants me to do anything else? Informed pt that this ticket writer would place note in Dr. Burden's box informing him of the medication change and would notify her if any additional orders were added.
[2018-08-04 11:26] LABS: Add Manual Diff / Slide Review NO; Basophils Absolute Auto 0 /uL (0-100); Basophils Percent Auto 0.5 % (0-2); Eosinophils Absolute Auto 200 /uL (0-450); Eosinophils Percent Auto 3.2 % (2-4); Hematocrit 35.4 % (36-46); Hemoglobin 11.8 g/dL (12.0-16.0); Lymphocytes Absolute Auto 1700 /uL (1100-4500); Lymphocytes Percent Auto 33.1 % (25-40); Mean Corpuscular HGB Conc 33.2 % (30-36); Mean Corpuscular Volume 93.5 fL (80-100); Monocytes Absolute Auto 300 /uL (0-900); Monocytes Percent Auto 6.6 % (3-14); Neutrophils Absolute Auto 2900 /uL (1500-7000); Neutrophils Percent Auto 56.6 % (50-75); Platelet Count 247 X10^3/uL (150-400); Red Blood Cell Count 3.79 X10^6/uL (4.0-5.2); White Blood Cell Count 5.2 X10^3/uL (4.5-11.0)
[2018-08-04 11:37] LABS: Alanine Aminotransferase 69 IU/L (9-52); Albumin 3.4 g/dL (3.5-5.0); Alkaline Phosphatase 82 U/L (38-126); Aspartate Aminotransferase 60 IU/L (14-36); BUN Creatinine Ratio 16.7 (6-22); Bilirubin Total 0.6 mg/dL (0.2-1.3); Blood Urea Nitrogen 15 mg/dL (7-17); Calcium 8.7 mg/dL (8.4-10.2); Carbon Dioxide 28 mmol/L (22-32); Chloride 111 mmol/L (98-107); Estimated Glomerular Filt Rate > 60.0 mL/min (>60); Globulin 3.3 g/dL (1.7-4.1); Glucose 112 mg/dL (80-110); HEMOLYSIS 29 (0-50); Lactate Dehydrogenase 1043 U/L (313-618); Potassium 4.1 mmol/L (3.4-5.1); Sodium 142 mmol/L (137-145); Total Protein 6.7 g/dL (6.3-8.2)
--- NOTE | 2018-08-07 12:09 | ONC.PN ---
PN -Subjective Interval history: She started Cabozantinib 60 mg daily on 06/11/2018. On 06/27/2018, patient went to [facility] and was evaluated by Dr. Natalie العراقي. CT of the head was performed that showed no acute intracranial abnormality. CT of the chest abdomen and pelvis showed that the previously seen right lower lobe nodule has resolved. But there were increased size of para-aortic lymph nodes. Incidentally pulmonary emboli in the right main pulmonary artery bifurcation and the right upper and lower lobar pulmonary arteries were identified. Patient therefore was called back to the emergency room of [facility] where patient was initiated Lovenox injection 120 mg twice daily. Patient has been doing the injection herself. There is some bruises around the injection sites. Remarkably, patient did not have any shortness of breath or chest pain or palpitation. Patient denies any lower extremity swelling. About a week ago, patient developed abdominal wall hematoma. She was evaluated at the [facility] emergency room. Her Lovenox was then switched to Xarelto. Since then patient said that the hematoma has improved. However while at the emergency room, a small incision was cut into the hematoma. Since then the wound has not healed yet. She reported seen in blood mixed up with reddish and yellowish secretions. She denies any fever or chills. In addition, during the past 1 week, patient also noticed papular rashes on the hands feet back and face. The rash is on the hands are painful. Oncology History Ms Belgica Da Silva is a 62 year old female with a long list of medical co-morbidities most notable for morbid obesity, sleep apnea on CPAP, hypertension, rheumatoid arthritis, and psoriasis on Otezla (apremilast). In early December,, she developed headache, nausea, and vomiting. She was evaluated by Dr. Goel on 01/08/2018. The next day, she had a call from the nurse asking her to go to the emergency room due to serum calcium level of about 13. Patient stayed at the [facility] for about 3 days. Patient recalled that they gave her medications through the intravenous line. She underwent CT scan on 01/08/2018, that showed an left infiltrative lower/midpole originating heterogeneous iso-attenuating mass measuring at least 9.7 cm, pelvic retroperitoneal node cluster largest of which measuring 1.4 x 2.6 cm, and the most prominent nearby retroperitoneal lymph node measuring 2.2 x 1.2 cm. Sigmoid diverticulosis was also noted. On 02/03/2018, she was seen as post ER follow up at [facility]. Her calcium level has decreased to 11.5. Patient requested to be referred to [facility]. I first saw the patient on 02/07/2018. I referred the patient to [facility] for evaluation of possible surgical resection of left suspicious kidney cancer. In addition patient underwent staging studies as follows. On 02/12/2018, bone scan showed no osseous metastatic disease. Same day CT scan of the chest abdomen pelvis showed the large heterogeneously enhancing left renal mass with imaging characteristics highly suspicious for renal cell carcinoma, left leif aortic retroperitoneal and left common iliac pelvic metastatic lymphadenopathy, and a 1.5 x 1.1 x 1.2 cm right lower lobe nodule highly suspicious for possible lung metastasis. And on 02/19/2018, PET-CT showed a large left renal mass involving nearly the entire left kidney demonstrating abnormal FDG activity consistent with malignancy, a 1.4 x 2.1 cm left para-aortic lymph node demonstrating maximum SUV 2.3, additional enlarged retroperitoneal, mesenteric, and left iliac lymph node and bilateral inguinal lymph nodes demonstrating low FDG activity suggesting benign etiology and the 1.6 x 0.8 mc bilobed lung mass in the right lower lobe with low level increasing uptake with SUV 2.1 and a tiny 5 mm right middle lobe nodule with SUV maximum 0.8. The patient was seen by Natalie العراقي MD urologist at [facility] on 02/28/2018. The patient then underwent open left radical nephrectomy on 03/07/2018. 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 There was 10% rhabdoid change and there was necrosis within the tumor. Nuclear grade was 4. There was tumor extension into perinephric tissues, the renal sinus, a major vein and the pelvicalyceal system. All surgical margins were negative. One of 1 lymph node in the surgical specimen was involved by carcinoma with a 4 cm deposit. Final pathologic staging was pT3a N1. She was referred to and was evaluated by Dr. Ribeiro on 05/06/2018. Dr. Ribeiro did not think that the patient was a suitable candidate for high-dose interleukin 2 treatment. No open frontline clinical trials were available either at this moment. Dr. Gómez discussed variety of treatment options including immunotherapy ipilimumab plus nivolumab vs oral targeted drug cabozaninib. Given patient autoimmune disease history including psoriasis which is actively managed with Otezla as well as diagnosis of rheumatoid arthritis, and that immunotherapy has a high likelihood of exacerbating these underlying autoimmune syndrome, Dr. Gómez recommneded targeted drug cabozantinib. - Patient Self-Reported Symptoms SR Constitution: Fatigue/Malaise SR ears, nose, mouth, throat issues: Changes in taste SR respiratory issues: Shortness of breath SR Cardiovascular issues: Dizzy/lightheaded SR Skin issues: Hair loss or scalp prob SR Gastrointestinal issues: Change in bowel pattern, Nausea, Vomiting SR Genitourinary issues: Frequent urination, Incontinence SR Musculoskeletal issues: Joint pain or swelling, Muscle weakness, Muscle pain or cramps, Difficulty walking, Bone pain SR Neuro issues: Difficulty balancing SR Hematologic issues: Bleeding/bruising SR Endocrine issues: Excessive urination - Additional ROS All systems PM: reviewed and no additional remarkable complaints except as stated Home Medications and Allergies Home Medications Medication Instructions Recorded Confirmed Type apremilast [Otezla] 30 mg PO DAILY 02/07/18 08/07/18 History fluticasone propionate [Flovent 1 puff INHALATION Q12H 02/07/18 08/07/18 History HFA] hydroxyzine HCl 25 mg PO QID PRN 02/07/18 08/07/18 History minocycline 100 mg PO BID 02/07/18 08/07/18 History pramipexole 0.125 mg PO BEDTIME 02/07/18 08/07/18 History ranitidine HCl 150 mg PO DAILY 02/07/18 08/07/18 History temazepam 15 mg PO BEDTIME PRN 02/07/18 08/07/18 History vitamin I39-oiyga acid 1 tab PO DAILY 04/24/18 08/07/18 History cabozantinib [Cabometyx] 60 mg PO DAILY #15 tab 06/05/18 08/07/18 Rx amlodipine 5 mg PO DAILY #30 tab 06/26/18 Rx citalopram 40 mg PO Q OTHER DAY 07/03/18 08/07/18 History lidocaine 2 patch TOP Q24H #30 each 07/13/18 08/07/18 Rx rivaroxaban [Xarelto] 20 mg PO DAILY 08/07/18 08/07/18 History Allergies Allergy/AdvReac Type Severity Reaction Status Date / Time bee venom protein (honey bee) Allergy Unknown Verified 07/13/18 14:44 iodine AdvReac Unknown Verified 07/13/18 14:44 MICRO AdvReac Unknown Uncoded 07/13/18 14:44 Exam Vital signs: Last Vital Signs Temp 98.1 F 08/07/18 14:01 Pulse 86 08/07/18 14:01 Resp 20 08/07/18 14:01 BP 137/88 08/07/18 14:01 Pulse Ox 96 08/07/18 14:01 ECOG 1 Narrative: Constitutional: WDWN, NAD, morbid obese, cooperative, in wheelchair, accompanied by her sister Anatoly HEENT: NCAT, EOMI, PERRLA, anicteric sclera. Neck: Supple, No palpable thyromegaly and no palpable lymph nodes. Respiratory: No use of accessory muscles. CTAB, no wheezes. Cardiovascular: RRR, S1 and S2 normal, 2/6 SM aortic valve, no gallops or rubs. . Abdomen: Soft, NTND, right lower abdomen surgical wound noted. Lower extremities: No palpable pedal edema. Neurological: AOx3, CN II-XII grossly intact. No focal motor or sensory deficit. Psychiatric: Good judgment, good insight, normal affect, normal thought process, cooperative, no depression, no anxiety. Skin: Scattered papular reddish rash is noted on the back of the hands, face, and upper trunk Results - Labs Laboratory Last Values WBC 5.2 X10^3/uL (4.5-11.0) 08/04/18 11:15 RBC 3.79 X10^6/uL (4.0-5.2) L 08/04/18 11:15 Hgb 11.8 g/dL (12.0-16.0) L 08/04/18 11:15 Hct 35.4 % (36-46) L 08/04/18 11:15 MCV 93.5 fL (80-100) 08/04/18 11:15 MCH 31.0 PG (26-34) 08/04/18 11:15 MCHC 33.2 % (30-36) 08/04/18 11:15 RDW 18.0 % (11.6-14.8) H 08/04/18 11:15 Plt Count 247 X10^3/uL (150-400) 08/04/18 11:15 Neut % (Auto) 56.6 % (50-75) 08/04/18 11:15 Lymph % (Auto) 33.1 % (25-40) 08/04/18 11:15 [place] % (Auto) 6.6 % (3-14) 08/04/18 11:15 Eos % (Auto) 3.2 % (2-4) 08/04/18 11:15 Baso % (Auto) 0.5 % (0-2) 08/04/18 11:15 Neut # (Auto) 2900 /uL (6360-7985) 08/04/18 11:15 Lymph # (Auto) 1700 /uL (7792-6500) 08/04/18 11:15 [place] # (Auto) 300 /uL (0-900) 08/04/18 11:15 Eos # (Auto) 200 /uL (0-450) 08/04/18 11:15 Baso # (Auto) 0 /uL (0-100) 08/04/18 11:15 Sodium 142 mmol/L (137-145) 08/04/18 11:15 Potassium 4.1 mmol/L (3.4-5.1) 08/04/18 11:15 Chloride 111 mmol/L (98-107) H 08/04/18 11:15 Carbon Dioxide 28 mmol/L (22-32) 08/04/18 11:15 BUN 15 mg/dL (7-17) 08/04/18 11:15 Creatinine 0.90 mg/dL (0.52-1.04) 08/04/18 11:15 Estimated GFR > 60.0 mL/min (>60) 08/04/18 11:15 BUN/Creatinine Ratio 16.7 (6-22) 08/04/18 11:15 Glucose 112 mg/dL (80-110) H 08/04/18 11:15 Calcium 8.7 mg/dL (8.4-10.2) 08/04/18 11:15 Total Bilirubin 0.6 mg/dL (0.2-1.3) 08/04/18 11:15 AST 60 IU/L (14-36) H 08/04/18 11:15 ALT 69 IU/L (9-52) H 08/04/18 11:15 Alkaline Phosphatase 82 U/L (38-126) 08/04/18 11:15 Lactate Dehydrogenase 1043 U/L (313-618) H 08/04/18 11:15 Total Protein 6.7 g/dL (6.3-8.2) 08/04/18 11:15 Albumin 3.4 g/dL (3.5-5.0) L 08/04/18 11:15 Globulin 3.3 g/dL (1.7-4.1) 08/04/18 11:15 Albumin/Globulin Ratio 1.0 (1.0-2.8) 08/04/18 11:15 Assessment and Plan (1) Clear cell adenocarcinoma of left kidney Overview: Metastatic clear cell renal cell carcinoma, pT3a N1 Mx. She originally presented with hypercalcemia with headache, nausea and vomiting. CT 01/08/2018: left renal mass at least 9.7 cm with prominent retroperitoneal lymphadneopathy. Staging imagines (CT CAP, bone scan and PET) showed the known left kidney mass, and suspicious retroperitoneal and pelvic lymphadenopathy and right lower lung nodules. Status post left nephrectomy on 03/07/2018. Surgical pathology showed clear cell renal cell carcinoma. She was evaluated at [facility] by Dr. Ribeiro. Treatment with cabozantinib was recommended. She started Cabozatinib 60 mg daily on 06/11/2018. Assessment: Clinically I think patient tolerated the cabozantinib relatively well. Patient did develop known side effects related to cabozantinib including macular papular rashes. In addition, laboratory tests result showed elevated AST and ALT but less than 3 times upper limit of normal. Talked with the patient that I will bring her back in about 2-3 weeks and review the rashes as well as the laboratory tests. If the rashes are getting worse or the AST/ALT are higher than today, I would recommend reduce the dosage to Cabozatinib 40 mg once a day. Plan: 1. Continue Cabozatinib 60 mg daily 2. RTC in 2-3 weeks, CBC, CMP, LDH (2) Pulmonary embolism Overview: Incidental diagnosis of right lung pulmonary embolism in the right main pulmonary artery bifurcation and the right upper and lower lobar pulmonary arteries on 06/27/2018 during a workup for restaging of her clear cell renal cell carcinoma. Patient was adequately started on Lovenox 120 mg Q 12. However during the past 1 week, due to development of abdominal wall hematoma at the site of injection, Lovenox was switched to Xarelto. Plan: Continue Xarelto 20 mg daily for now. (3) Hypertension Patient has increased blood pressure. It might be related to the use of the cabozantinib. I will start the patient low-dose amlodipine 5 mg once a day. I once again instructed the patient to check blood pressure often at home. (4) Morbid obesity No immediate intervention indicated. I encourage patient to think about weight control (5) Chronic anemia Normocytic. Likely related to multiple chronic disease. Stable. Need surveillance. (6) CKD (chronic kidney disease) stage 2, GFR 60-89 ml/min Need active surveillance. Stable. (7) Wound, open, abdominal wall, lateral The right lower quadrant abdominal wound is related to recent surgical incision for hematoma. Based on patient's description, there are secretions coming out. In the size of the wound is a dime size. I will refer the patient to our wound care center for evaluation and treatment.
--- NOTE | 2018-08-07 12:13 | P.PNONC_ITS ---
PN -Subjective Interval history: She started Cabozantinib 60 mg daily on 06/11/2018. On 06/27/2018, patient went to [facility] and was evaluated by Dr. Natalie العراقي. CT of the head was performed that showed no acute intracranial abnormality. CT of the chest abdomen and pelvis showed that the previously seen right lower lobe nodule has resolved. But there were increased size of para- aortic lymph nodes. Incidentally pulmonary emboli in the right main pulmonary artery bifurcation and the right upper and lower lobar pulmonary arteries were identified. Patient therefore was called back to the emergency room of [facility] where patient was initiated Lovenox injection 120 mg twice daily. Patient has been doing the injection herself. There is some bruises around the injection sites. Remarkably, patient did not have any shortness of breath or chest pain or palpitation. Patient denies any lower extremity swelling. About a week ago, patient developed abdominal wall hematoma. She was evaluated at the [facility] emergency room. Her Lovenox was then switched to Xarelto. Since then patient said that the hematoma has improved. However while at the emergency room, a small incision was cut into the hematoma. Since then the wound has not healed yet. She reported seen in blood mixed up with reddish and yellowish secretions. She denies any fever or chills. In addition, during the past 1 week, patient also noticed papular rashes on the hands feet back and face. The rash is on the hands are painful. Oncology History Ms Belgica Da Silva is a 62 year old female with a long list of medical co- morbidities most notable for morbid obesity, sleep apnea on CPAP, hypertension, rheumatoid arthritis, and psoriasis on Otezla (apremilast). In early December,, she developed headache, nausea, and vomiting. She was evaluated by Dr. Goel on 01/08/2018. The next day, she had a call from the nurse asking her to go to the emergency room due to serum calcium level of about 13. Patient stayed at the [facility] for about 3 days. Patient recalled that they gave her medications through the intravenous line. She underwent CT scan on 01/08/2018, that showed an left infiltrative lower/midpole originating heterogeneous iso-attenuating mass measuring at least 9.7 cm, pelvic retroperitoneal node cluster largest of which measuring 1.4 x 2.6 cm, and the most prominent nearby retroperitoneal lymph node measuring 2.2 x 1.2 cm. Sigmoid diverticulosis was also noted. On 02/03/2018, she was seen as post ER follow up at [facility]. Her calcium level has decreased to 11.5. Patient requested to be referred to [email or web address] I first saw the patient on 02/07/2018. I referred the patient to [facility] for evaluation of possible surgical resection of left suspicious kidney cancer. In addition patient underwent staging studies as follows. On 02/12/2018, bone scan showed no osseous metastatic disease. Same day CT scan of the chest abdomen pelvis showed the large heterogeneously enhancing left renal mass with imaging characteristics highly suspicious for renal cell carcinoma, left leif aortic retroperitoneal and left common iliac pelvic metastatic lymphadenopathy, and a 1.5 x 1.1 x 1.2 cm right lower lobe nodule highly suspicious for possible lung metastasis. And on 02/19/2018, PET-CT showed a large left renal mass involving nearly the entire left kidney demonstrating abnormal FDG activity consistent with malignancy, a 1.4 x 2.1 cm left para-aortic lymph node demonstrating maximum SUV 2.3, additional enlarged retroperitoneal, mesenteric, and left iliac lymph node and bilateral inguinal lymph nodes demonstrating low FDG activity suggesting benign etiology and the 1.6 x 0.8 mc bilobed lung mass in the right lower lobe with low level increasing uptake with SUV 2.1 and a tiny 5 mm right middle lobe nodule with SUV maximum 0.8. The patient was seen by Natalie العراقي MD urologist at [facility] on 02/28/2018. The patient then underwent open left radical nephrectomy on 03/07/2018. 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 There was 10% rhabdoid change and there was necrosis within the tumor. Nuclear grade was 4. There was tumor extension into perinephric tissues, the renal sinus, a major vein and the pelvicalyceal system. All surgical margins were negative. One of 1 lymph node in the surgical specimen was involved by carcinoma with a 4 cm deposit. Final pathologic staging was pT3a N1. She was referred to and was evaluated by Dr. Ribeiro on 05/06/2018. Dr. Ribeiro did not think that the patient was a suitable candidate for high-dose interleukin 2 treatment. No open frontline clinical trials were available either at this moment. Dr. Gómez discussed variety of treatment options including immunotherapy ipilimumab plus nivolumab vs oral targeted drug cabozaninib. Given patient autoimmune disease history including psoriasis which is actively managed with Otezla as well as diagnosis of rheumatoid arthritis, and that immunotherapy has a high likelihood of exacerbating these underlying autoimmune syndrome, Dr. Gómez recommneded targeted drug cabozantinib. - Patient Self-Reported Symptoms SR Constitution: Fatigue/Malaise SR ears, nose, mouth, throat issues: Changes in taste SR respiratory issues: Shortness of breath SR Cardiovascular issues: Dizzy/lightheaded SR Skin issues: Hair loss or scalp prob SR Gastrointestinal issues: Change in bowel pattern, Nausea, Vomiting SR Genitourinary issues: Frequent urination, Incontinence SR Musculoskeletal issues: Joint pain or swelling, Muscle weakness, Muscle pain or cramps, Difficulty walking, Bone pain SR Neuro issues: Difficulty balancing SR Hematologic issues: Bleeding/bruising SR Endocrine issues: Excessive urination - Additional ROS All systems PM: reviewed and no additional remarkable complaints except as stated Home Medications and Allergies Home Medications Medication Instructions Recorded Confirmed Type apremilast [Otezla] 30 mg PO DAILY 02/07/18 08/07/18 History fluticasone propionate [Flovent 1 puff INHALATION Q12H 02/07/18 08/07/18 History HFA] hydroxyzine HCl 25 mg PO QID PRN 02/07/18 08/07/18 History minocycline 100 mg PO BID 02/07/18 08/07/18 History pramipexole 0.125 mg PO BEDTIME 02/07/18 08/07/18 History ranitidine HCl 150 mg PO DAILY 02/07/18 08/07/18 History temazepam 15 mg PO BEDTIME PRN 02/07/18 08/07/18 History vitamin D66-[id number] acid 1 tab PO DAILY 04/24/18 08/07/18 History cabozantinib [Cabometyx] 60 mg PO DAILY #15 tab 06/05/18 08/07/18 Rx amlodipine 5 mg PO DAILY #30 tab 06/26/18 Rx citalopram 40 mg PO Q OTHER DAY 07/03/18 08/07/18 History lidocaine 2 patch TOP Q24H #30 each 07/13/18 08/07/18 Rx rivaroxaban [Xarelto] 20 mg PO DAILY 08/07/18 08/07/18 History Allergies Allergy/AdvReac Type Severity Reaction Status Date / Time bee venom protein (honey bee) Allergy Unknown Verified 07/13/18 14:44 iodine AdvReac Unknown Verified 07/13/18 14:44 MICRO AdvReac Unknown Uncoded 07/13/18 14:44 Exam Vital signs: Last Vital Signs Temp 98.1 F 08/07/18 14:01 Pulse 86 08/07/18 14:01 Resp 20 08/07/18 14:01 BP 137/88 08/07/18 14:01 Pulse Ox 96 08/07/18 14:01 ECOG 1 Narrative: Constitutional: WDWN, NAD, morbid obese, cooperative, in wheelchair, accompanied by her sister Anatoly HEENT: NCAT, EOMI, PERRLA, anicteric sclera. Neck: Supple, No palpable thyromegaly and no palpable lymph nodes. Respiratory: No use of accessory muscles. CTAB, no wheezes. Cardiovascular: RRR, S1 and S2 normal, 2/6 SM aortic valve, no gallops or rubs. . Abdomen: Soft, NTND, right lower abdomen surgical wound noted. Lower extremities: No palpable pedal edema. Neurological: AOx3, CN II-XII grossly intact. No focal motor or sensory deficit. Psychiatric: Good judgment, good insight, normal affect, normal thought process, cooperative, no depression, no anxiety. Skin: Scattered papular reddish rash is noted on the back of the hands, face, and upper trunk Results - Labs Laboratory Last Values WBC 5.2 X10^3/uL (4.5-11.0) 08/04/18 11:15 RBC 3.79 X10^6/uL (4.0-5.2) L 08/04/18 11:15 Hgb 11.8 g/dL (12.0-16.0) L 08/04/18 11:15 Hct 35.4 % (36-46) L 08/04/18 11:15 MCV 93.5 fL (80-100) 08/04/18 11:15 MCH 31.0 PG (26-34) 08/04/18 11:15 MCHC 33.2 % (30-36) 08/04/18 11:15 RDW 18.0 % (11.6-14.8) H 08/04/18 11:15 Plt Count 247 X10^3/uL (150-400) 08/04/18 11:15 Neut % (Auto) 56.6 % (50-75) 08/04/18 11:15 Lymph % (Auto) 33.1 % (25-40) 08/04/18 11:15 Towner % (Auto) 6.6 % (3-14) 08/04/18 11:15 Eos % (Auto) 3.2 % (2-4) 08/04/18 11:15 Baso % (Auto) 0.5 % (0-2) 08/04/18 11:15 Neut # (Auto) 2900 /uL (1934-5891) 08/04/18 11:15 Lymph # (Auto) 1700 /uL (1889-4521) 08/04/18 11:15 Towner # (Auto) 300 /uL (0-900) 08/04/18 11:15 Eos # (Auto) 200 /uL (0-450) 08/04/18 11:15 Baso # (Auto) 0 /uL (0-100) 08/04/18 11:15 Sodium 142 mmol/L (137-145) 08/04/18 11:15 Potassium 4.1 mmol/L (3.4-5.1) 08/04/18 11:15 Chloride 111 mmol/L (98-107) H 08/04/18 11:15 Carbon Dioxide 28 mmol/L (22-32) 08/04/18 11:15 BUN 15 mg/dL (7-17) 08/04/18 11:15 Creatinine 0.90 mg/dL (0.52-1.04) 08/04/18 11:15 Estimated GFR > 60.0 mL/min (>60) 08/04/18 11:15 BUN/Creatinine Ratio 16.7 (6-22) 08/04/18 11:15 Glucose 112 mg/dL (80-110) H 08/04/18 11:15 Calcium 8.7 mg/dL (8.4-10.2) 08/04/18 11:15 Total Bilirubin 0.6 mg/dL (0.2-1.3) 08/04/18 11:15 AST 60 IU/L (14-36) H 08/04/18 11:15 ALT 69 IU/L (9-52) H 08/04/18 11:15 Alkaline Phosphatase 82 U/L (38-126) 08/04/18 11:15 Lactate Dehydrogenase 1043 U/L (313-618) H 08/04/18 11:15 Total Protein 6.7 g/dL (6.3-8.2) 08/04/18 11:15 Albumin 3.4 g/dL (3.5-5.0) L 08/04/18 11:15 Globulin 3.3 g/dL (1.7-4.1) 08/04/18 11:15 Albumin/Globulin Ratio 1.0 (1.0-2.8) 08/04/18 11:15 Assessment and Plan (1) Clear cell adenocarcinoma of left kidney Overview: Metastatic clear cell renal cell carcinoma, pT3a N1 Mx. She originally presented with hypercalcemia with headache, nausea and vomiting. CT 01/08/2018: left renal mass at least 9.7 cm with prominent retroperitoneal lymphadneopathy. Staging imagines (CT CAP, bone scan and PET) showed the known left kidney mass, and suspicious retroperitoneal and pelvic lymphadenopathy and right lower lung nodules. Status post left nephrectomy on 03/07/2018. Surgical pathology showed clear cell renal cell carcinoma. She was evaluated at [facility] by Dr. Ribeiro. Treatment with cabozantinib was recommended. She started Cabozatinib 60 mg daily on 06/11/2018. Assessment: Clinically I think patient tolerated the cabozantinib relatively well. Patient did develop known side effects related to cabozantinib including macular papular rashes. In addition, laboratory tests result showed elevated AST and ALT but less than 3 times upper limit of normal. Talked with the patient that I will bring her back in about 2-3 weeks and review the rashes as well as the laboratory tests. If the rashes are getting worse or the AST/ALT are higher than today, I would recommend reduce the dosage to Cabozatinib 40 mg once a day. Plan: 1. Continue Cabozatinib 60 mg daily 2. RTC in 2-3 weeks, CBC, CMP, LDH (2) Pulmonary embolism Overview: Incidental diagnosis of right lung pulmonary embolism in the right main pu lmonary artery bifurcation and the right upper and lower lobar pulmonary arteries on 06/27/2018 during a workup for restaging of her clear cell renal cell carcinoma. Patient was adequately started on Lovenox 120 mg Q 12. However during the past 1 week, due to development of abdominal wall hematoma at the site of injection, Lovenox was switched to Xarelto. Plan: Continue Xarelto 20 mg daily for now. (3) Hypertension Patient has increased blood pressure. It might be related to the use of the cabozantinib. I will start the patient low-dose amlodipine 5 mg once a day. I once again instructed the patient to check blood pressure often at home. (4) Morbid obesity No immediate intervention indicated. I encourage patient to think about weight control (5) Chronic anemia Normocytic. Likely related to multiple chronic disease. Stable. Need surveillance. (6) CKD (chronic kidney disease) stage 2, GFR 60-89 ml/min Need active surveillance. Stable. (7) Wound, open, abdominal wall, lateral The right lower quadrant abdominal wound is related to recent surgical incision for hematoma. Based on patient's description, there are secretions coming out. In the size of the wound is a dime size. I will refer the patient to our wound care center for evaluation and treatment.
[2018-08-07 14:01] VITALS: BP 137/88; PULSE 86; RESP 20; TEMP 36.7; O2SAT 96
--- NOTE | 2018-08-12 11:08 | PC.NURSE ---
Patient called and reported that rash/blisters (describes as water filled with pustule on top) under feet are getting worse so that she has difficulty walking, she also has blisters on vulva and buttocks making elimination painful, some bleeding from the buttocks wounds. She reports also having diahrrea for the past week. She also reports a new hole on the abdomen near the wound for which she is being seen at wound care. this nurse stated she will contact provider and get back to patient with recommended action.
--- NOTE | 2018-08-12 12:59 | PC.NURSE ---
VO from Dr. Burden to hold Cabozatinib due to worsening rash and diahrrea as described in previous note. Patient was informed per telephone by this nurse. Patient and caregiver voiced understanding. Patient told to call again if symptoms worsening but that they should be improving.
[2018-08-26 12:22] LABS: Alanine Aminotransferase 59 IU/L (9-52); Albumin 3.6 g/dL (3.5-5.0); Albumin Globulin Ratio 1.1 (1.0-2.8); Alkaline Phosphatase 60 U/L (38-126); Aspartate Aminotransferase 38 IU/L (14-36); BUN Creatinine Ratio 14.2 (6-22); Bilirubin Total 0.6 mg/dL (0.2-1.3); Blood Urea Nitrogen 17 mg/dL (7-17); Carbon Dioxide 26 mmol/L (22-32); Chloride 108 mmol/L (98-107); Estimated Glomerular Filt Rate 45.7 mL/min (>60); Globulin 3.2 g/dL (1.7-4.1); Glucose 70 mg/dL (80-110); HEMOLYSIS < 15 (0-50); Lactate Dehydrogenase 587 U/L (313-618); Potassium 4.6 mmol/L (3.4-5.1); Sodium 141 mmol/L (137-145); Total Protein 6.8 g/dL (6.3-8.2)
[2018-08-26 12:31] LABS: Add Manual Diff / Slide Review NO; Basophils Absolute Auto 0 /uL (0-100); Basophils Percent Auto 0.6 % (0-2); Eosinophils Absolute Auto 100 /uL (0-450); Eosinophils Percent Auto 3.4 % (2-4); Hematocrit 33.7 % (36-46); Hemoglobin 11.4 g/dL (12.0-16.0); Lymphocytes Absolute Auto 1700 /uL (1100-4500); Lymphocytes Percent Auto 40.8 % (25-40); Mean Corpuscular HGB Conc 33.8 % (30-36); Mean Corpuscular Hemoglobin 33.2 PG (26-34); Mean Corpuscular Volume 98.3 fL (80-100); Monocytes Absolute Auto 400 /uL (0-900); Monocytes Percent Auto 10.2 % (3-14); Neutrophils Absolute Auto 1900 /uL (1500-7000); Platelet Count 211 X10^3/uL (150-400); Red Blood Cell Count 3.42 X10^6/uL (4.0-5.2); Red Cell Distribution Width 21.5 % (11.6-14.8); White Blood Cell Count 4.2 X10^3/uL (4.5-11.0)
[2018-08-26 13:07] LABS: Anisocytosis 2+
--- NOTE | 2018-08-28 08:20 | P.PNONC_ITS ---
PN -Subjective Interval history: On 06/27/2018, patient went to [facility] and was evaluated by Dr. Natalie العراقي. CT of the head was performed that showed no acute intracranial abnormality. CT of the chest abdomen and pelvis showed that the previously seen right lower lobe nodule has resolved. But there were increased size of para- aortic lymph nodes. Incidentally pulmonary emboli in the right main pulmonary artery bifurcation and the right upper and lower lobar pulmonary arteries were identified. Patient therefore was called back to the emergency room of [facility] where patient was initiated Lovenox injection 120 mg twice daily. Patient has been doing the injection herself. There is some bruises around the injection sites. Remarkably, patient did not have any shortness of breath or chest pain or palpitation. Patient denies any lower extremity swelling. About early August 2018, patient developed abdominal wall hematoma. She was evaluated at the [facility] emergency room. Her Lovenox was then switched to Xarelto. Since then patient said that the hematoma has improved. However while at the emergency room, a small incision was cut into the hematoma. She is now getting wound care once a week and [facility]. On 08/28/2018, patient was evaluated at our clinic. Patient at that time reported significant macular papular rashes in the hands, feet, back, and facce as well as at her private parts. In addition patient was found to have elevated liver function tests. Therefore we decided to hold the medications. During the interim, patient said that the rashes have improved dramatically. Patient presents here today for scheduled follow-up visit. Oncology History Ms Belgica Da Silva is a 62 year old female with a long list of medical co- morbidities most notable for morbid obesity, sleep apnea on CPAP, hypertension, rheumatoid arthritis, and psoriasis on Otezla (apremilast). In early December,, she developed headache, nausea, and vomiting. She was evaluated by Dr. Goel on 01/08/2018. The next day, she had a call from the nurse asking her to go to the emergency room due to serum calcium level of about 13. Patient stayed at the [facility] for about 3 days. Patient recalled that they gave her medications through the intravenous line. She underwent CT scan on 01/08/2018, that showed an left infiltrative lower/midpole originating heterogeneous iso-attenuating mass measuring at least 9.7 cm, pelvic retroperitoneal node cluster largest of which measuring 1.4 x 2.6 cm, and the most prominent nearby retroperitoneal lymph node measuring 2.2 x 1.2 cm. Sigmoid diverticulosis was also noted. On 02/03/2018, she was seen as post ER follow up at [facility]. Her calcium level has decreased to 11.5. Patient requested to be referred to [facility]. I first saw the patient on 02/07/2018. I referred the patient to [facility] for evaluation of possible surgical resection of left suspicious kidney cancer. In addition patient underwent staging studies as follows. On 02/12/2018, bone scan showed no osseous metastatic disease. Same day CT scan of the chest abdomen pelvis showed the large heterogeneously enhancing left renal mass with imaging characteristics highly suspicious for renal cell carcinoma, left leif-aortic retroperitoneal and left common iliac pelvic metastatic lymphadenopathy, and a 1.5 x 1.1 x 1.2 cm right lower lobe nodule highly suspicious for possible lung metastasis. On 02/19/2018, PET-CT showed a large left renal mass involving nearly the entire left kidney demonstrating abnormal FDG activity consistent with malignancy, a 1.4 x 2.1 cm left para-aortic lymph node demonstrating maximum SUV 2.3, additional enlarged retroperitoneal, mesenteric, and left iliac lymph node and bilateral inguinal lymph nodes demonstrating low FDG activity suggesting benign etiology and the 1.6 x 0.8 mc bilobed lung mass in the right lower lobe with low level increasing uptake with SUV 2.1 and a tiny 5 mm right middle lobe nodule with SUV maximum 0.8. The patient was seen by Natalie العراقي MD urologist at [facility] on 02/28/2018. The patient then underwent open left radical nephrectomy on 03/07/2018. 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 There was 10% rhabdoid change and there was necrosis within the tumor. Nuclear grade was 4. There was tumor extension into perinephric tissues, the renal sinus, a major vein and the pelvicalyceal system. All surgical margins were negative. One of 1 lymph node in the surgical specimen was involved by carcinoma with a 4 cm deposit. Final pathologic staging was pT3a N1. She was referred to and was evaluated by Dr. Ribeiro on 05/06/2018. Dr. Ribeiro did not think that the patient was a suitable candidate for high-dose interleukin 2 treatment. No open front line clinical trials were available either at this moment. Dr. Gómez discussed variety of treatment options including immunotherapy ipilimumab plus nivolumab vs oral targeted drug cabozaninib. Given patient autoimmune disease history including psoriasis which is actively managed with Otezla as well as diagnosis of rheumatoid arthritis, and that immunotherapy has a high likelihood of exacerbating these underlying autoimmune syndrome, Dr. Gómez recommended targeted drug cabozantinib. She started Cabozantinib 60 mg daily on 06/11/2018. - Patient Self-Reported Symptoms SR Constitution: Fatigue/Malaise SR ears, nose, mouth, throat issues: Changes in taste SR respiratory issues: Shortness of breath SR Cardiovascular issues: Dizzy/lightheaded SR Skin issues: Hair loss or scalp prob SR Gastrointestinal issues: Change in bowel pattern, Nausea, Vomiting SR Genitourinary issues: Frequent urination, Incontinence SR Musculoskeletal issues: Joint pain or swelling, Muscle weakness, Muscle pain or cramps, Difficulty walking, Bone pain SR Neuro issues: Difficulty balancing SR Hematologic issues: Bleeding/bruising SR Endocrine issues: Excessive urination - Additional ROS All systems PM: reviewed and no additional remarkable complaints except as stated Home Medications and Allergies Home Medications Medication Instructions Recorded Confirmed Type apremilast [Otezla] 30 mg PO DAILY 02/07/18 08/28/18 History fluticasone propionate [Flovent 1 puff INHALATION Q12H 02/07/18 08/28/18 History HFA] hydroxyzine HCl 25 mg PO QID PRN 02/07/18 08/28/18 History minocycline 100 mg PO BID 02/07/18 08/28/18 History pramipexole 0.125 mg PO BEDTIME 02/07/18 08/28/18 History ranitidine HCl 150 mg PO DAILY 02/07/18 08/07/18 History temazepam 15 mg PO BEDTIME PRN 02/07/18 08/28/18 History vitamin [id number] acid 1 tab PO DAILY 04/24/18 08/28/18 History amlodipine 5 mg PO DAILY #30 tab 06/26/18 08/28/18 Rx citalopram 40 mg PO Q OTHER DAY 07/03/18 08/28/18 History lidocaine 2 patch TOP Q24H #30 each 07/13/18 08/28/18 Rx rivaroxaban [Xarelto] 20 mg PO DAILY 08/07/18 08/28/18 History cabozantinib [Cabometyx] PO MDD ON HOLD 08/13/18 History Allergies Allergy/AdvReac Type Severity Reaction Status Date / Time bee venom protein (honey bee) Allergy Unknown Verified 07/13/18 14:44 iodine AdvReac Unknown Verified 07/13/18 14:44 MICRO AdvReac Unknown Uncoded 07/13/18 14:44 Exam Vital signs: Last Vital Signs Temp 97 F L 08/28/18 08:38 Pulse 72 08/28/18 08:38 Resp 20 08/28/18 08:38 BP 146/80 H 08/28/18 08:38 Pulse Ox 100 08/28/18 08:38 ECOG 1 Narrative: Constitutional: WDWN, NAD, morbid obese, cooperative, in wheelchair, accompanied by her sister Anatoly HEENT: NCAT, EOMI, PERRLA, anicteric sclera. Neck: Supple, No palpable thyromegaly and no palpable lymph nodes. Respiratory: No use of accessory muscles. CTAB, no wheezes. Cardiovascular: RRR, S1 and S2 normal, 2/6 SM aortic valve, no gallops or rubs. . Abdomen: Soft, NTND, right lower abdomen surgical wound noted. Lower extremities: No palpable pedal edema. Neurological: AOx3, CN II-XII grossly intact. No focal motor or sensory deficit. Psychiatric: Good judgment, good insight, normal affect, normal thought process, cooperative, no depression, no anxiety. Skin: Scattered papular reddish rashes noted on the back. Rashes on the back of the hands almost healed with residue white discoloration. Results - Labs Laboratory Last Values WBC 4.2 X10^3/uL (4.5-11.0) L 08/26/18 11:58 RBC 3.42 X10^6/uL (4.0-5.2) L 08/26/18 11:58 Hgb 11.4 g/dL (12.0-16.0) L 08/26/18 11:58 Hct 33.7 % (36-46) L 08/26/18 11:58 MCV 98.3 fL (80-100) 08/26/18 11:58 MCH 33.2 PG (26-34) 08/26/18 11:58 MCHC 33.8 % (30-36) 08/26/18 11:58 RDW 21.5 % (11.6-14.8) H 08/26/18 11:58 Plt Count 211 X10^3/uL (150-400) 08/26/18 11:58 Neut % (Auto) 45.0 % (50-75) L 08/26/18 11:58 Lymph % (Auto) 40.8 % (25-40) H 08/26/18 11:58 Jennings % (Auto) 10.2 % (3-14) 08/26/18 11:58 Eos % (Auto) 3.4 % (2-4) 08/26/18 11:58 Baso % (Auto) 0.6 % (0-2) 08/26/18 11:58 Neut # (Auto) 1900 /uL (2709-9256) 08/26/18 11:58 Lymph # (Auto) 1700 /uL (0071-7894) 08/26/18 11:58 Jennings # (Auto) 400 /uL (0-900) 08/26/18 11:58 Eos # (Auto) 100 /uL (0-450) 08/26/18 11:58 Baso # (Auto) 0 /uL (0-100) 08/26/18 11:58 RBC Morphology See below 08/26/18 11:58 Anisocytosis 2+ H 08/26/18 11:58 Sodium 141 mmol/L (137-145) 08/26/18 11:58 Potassium 4.6 mmol/L (3.4-5.1) 08/26/18 11:58 Chloride 108 mmol/L (98-107) H 08/26/18 11:58 Carbon Dioxide 26 mmol/L (22-32) 08/26/18 11:58 BUN 17 mg/dL (7-17) 08/26/18 11:58 Creatinine 1.20 mg/dL (0.52-1.04) H 08/26/18 11:58 Estimated GFR 45.7 mL/min (>60) L 08/26/18 11:58 BUN/Creatinine Ratio 14.2 (6-22) 08/26/18 11:58 Glucose 70 mg/dL (80-110) L 08/26/18 11:58 Calcium 9.0 mg/dL (8.4-10.2) 08/26/18 11:58 Total Bilirubin 0.6 mg/dL (0.2-1.3) 08/26/18 11:58 AST 38 IU/L (14-36) H 08/26/18 11:58 ALT 59 IU/L (9-52) H 08/26/18 11:58 Alkaline Phosphatase 60 U/L (38-126) 08/26/18 11:58 Lactate Dehydrogenase 587 U/L (313-618) 08/26/18 11:58 Total Protein 6.8 g/dL (6.3-8.2) 08/26/18 11:58 Albumin 3.6 g/dL (3.5-5.0) 08/26/18 11:58 Globulin 3.2 g/dL (1.7-4.1) 08/26/18 11:58 Albumin/Globulin Ratio 1.1 (1.0-2.8) 08/26/18 11:58 Assessment and Plan (1) Clear cell adenocarcinoma of left kidney 63 year old female with metastatic clear cell renal cell carcinoma, pT3a N1 Mx. She originally presented with hypercalcemia with headache, nausea and vomiting. CT 01/08/2018: left renal mass at least 9.7 cm with prominent retroperitoneal lymphadneopathy. Staging imagines (CT CAP, bone scan and PET) showed the known left kidney mass, and suspicious retroperitoneal and pelvic lymphadenopathy and right lower lung nodules. Status post left nephrectomy on 03/07/2018. Surgical pathology showed clear cell renal cell carcinoma. She was evaluated at [facility] by Dr. Ribeiro. Treatment with cabozantinib was recommended. She started Cabozatinib 60 mg daily on 06/11/2018. On 10/29/2018, cabozantinib was held due to grade 2 maculopapular rashes, grade 1 liver function abnormalities. For the past 2 weeks, the symptoms have improved especially the macular papular rashes. The liver function tests obtained 2 days ago showed improvement too. Today I talked with the patient about several options. I recommended that we can try to resume the cabozantinib at a lower dosage for example 40 mg once a day. However patient is very worried about the side effects especially the ?blisters? at her back, face, back of the hands and private parts. I also talked with her and her sister about other options including immunotherapy, Sutent, axitinib, and continued observation. Eventually patient agreed to have another 2 weeks break and then will come back for more discussion. We will discuss resuming possibly cabozantinib at the lowest dosage 20 mg once a day when she comes back. Plan: 1. Continue to hold Cabozatinib for now 2. RTC in 2 weeks, CBC, CMP, TSH (2) Pulmonary embolism Incidental diagnosis of right lung pulmonary embolism in the right main pulmonary artery bifurcation and the right upper and lower lobar pulmonary arteries on 06/27/2018 during a workup for restaging of her clear cell renal cell carcinoma. Patient was adequately started on Lovenox 120 mg Q 12. Due to development of abdominal wall hematoma at the site of injection, Lovenox was subsequently switched to Xarelto. Plan: Continue Xarelto 20 mg daily for now. (3) Hypertension Patient has increased blood pressure. It might be related to the use of the cabozantinib. I will start the patient low-dose amlodipine 5 mg once a day. I once again instructed the patient to check blood pressure often at home. (4) Morbid obesity No immediate intervention indicated. I encourage patient to think about weight control (5) Chronic anemia Normocytic. Likely related to multiple chronic disease. Stable. Need surveillance. (6) CKD (chronic kidney disease) stage 2, GFR 60-89 ml/min Need active surveillance. Stable. (7) Wound, open, abdominal wall, lateral The right lower quadrant abdominal wound is related to recent surgical incision for hematoma. [facility].
[2018-08-28 08:38] VITALS: BP 146/80; PULSE 72; RESP 20; TEMP 36.1; O2SAT 100
[2018-09-09 12:34] LABS: Alanine Aminotransferase 31 IU/L (9-52); Albumin 3.8 g/dL (3.5-5.0); Albumin Globulin Ratio 1.2 (1.0-2.8); Alkaline Phosphatase 59 U/L (38-126); Aspartate Aminotransferase 24 IU/L (14-36); BUN Creatinine Ratio 18.9 (6-22); Bilirubin Total 0.7 mg/dL (0.2-1.3); Blood Urea Nitrogen 17 mg/dL (7-17); Calcium 9.6 mg/dL (8.4-10.2); Carbon Dioxide 28 mmol/L (22-32); Chloride 106 mmol/L (98-107); Estimated Glomerular Filt Rate > 60.0 mL/min (>60); Globulin 3.1 g/dL (1.7-4.1); Glucose 92 mg/dL (80-110); HEMOLYSIS < 15 (0-50); Potassium 4.2 mmol/L (3.4-5.1); Sodium 141 mmol/L (137-145); Total Protein 6.9 g/dL (6.3-8.2)
[2018-09-09 13:04] LABS: Thyroid Stimulating Hormone 3.94 uIU/mL (0.47-4.68)
--- NOTE | 2018-09-11 14:33 | ONC.PN ---
PN -Subjective Interval history: On 06/27/2018, patient went to [facility] and was evaluated by Dr. Natalie العراقي. CT of the head was performed that showed no acute intracranial abnormality. CT of the chest abdomen and pelvis showed that the previously seen right lower lobe nodule has resolved. But there were increased size of para-aortic lymph nodes. Incidentally pulmonary emboli in the right main pulmonary artery bifurcation and the right upper and lower lobar pulmonary arteries were identified. Patient therefore was called back to the emergency room of [facility] where patient was initiated Lovenox injection 120 mg twice daily. Patient has been doing the injection herself. There is some bruises around the injection sites. Remarkably, patient did not have any shortness of breath or chest pain or palpitation. Patient denies any lower extremity swelling. About early August 2018, patient developed abdominal wall hematoma. She was evaluated at the [facility] emergency room. Her Lovenox was then switched to Xarelto. Since then patient said that the hematoma has improved. However while at the emergency room, a small incision was cut into the hematoma. She is now getting wound care once a week and [facility]. On 08/28/2018, patient was evaluated at our clinic. Patient at that time reported significant macular papular rashes in the hands, feet, back, and facce as well as at her private parts. In addition patient was found to have elevated liver function tests. Therefore we decided to hold the medications. During the interim, patient said that the rashes have improved dramatically. she is not getting wound care as far as the right lower abdomen abscess is concerned. Patient overall has been doing well. The skin rashes completely. She presents here today to discuss about resuming the treatment with cabozantinib. Patient herself says she is willing to try again. Oncology History Ms Belgica Da Silva is a 62 year old female with a long list of medical co-morbidities most notable for morbid obesity, sleep apnea on CPAP, hypertension, rheumatoid arthritis, and psoriasis on Otezla (apremilast). In early December,, she developed headache, nausea, and vomiting. She was evaluated by Dr. Goel on 01/08/2018. The next day, she had a call from the nurse asking her to go to the emergency room due to serum calcium level of about 13. Patient stayed at the [facility] for about 3 days. Patient recalled that they gave her medications through the intravenous line. She underwent CT scan on 01/08/2018, that showed an left infiltrative lower/midpole originating heterogeneous iso-attenuating mass measuring at least 9.7 cm, pelvic retroperitoneal node cluster largest of which measuring 1.4 x 2.6 cm, and the most prominent nearby retroperitoneal lymph node measuring 2.2 x 1.2 cm. Sigmoid diverticulosis was also noted. On 02/03/2018, she was seen as post ER follow up at [facility]. Her calcium level has decreased to 11.5. Patient requested to be referred to [facility]. I first saw the patient on 02/07/2018. I referred the patient to [facility] for evaluation of possible surgical resection of left suspicious kidney cancer. In addition patient underwent staging studies as follows. On 02/12/2018, bone scan showed no osseous metastatic disease. Same day CT scan of the chest abdomen pelvis showed the large heterogeneously enhancing left renal mass with imaging characteristics highly suspicious for renal cell carcinoma, left leif-aortic retroperitoneal and left common iliac pelvic metastatic lymphadenopathy, and a 1.5 x 1.1 x 1.2 cm right lower lobe nodule highly suspicious for possible lung metastasis. On 02/19/2018, PET-CT showed a large left renal mass involving nearly the entire left kidney demonstrating abnormal FDG activity consistent with malignancy, a 1.4 x 2.1 cm left para-aortic lymph node demonstrating maximum SUV 2.3, additional enlarged retroperitoneal, mesenteric, and left iliac lymph node and bilateral inguinal lymph nodes demonstrating low FDG activity suggesting benign etiology and the 1.6 x 0.8 mc bilobed lung mass in the right lower lobe with low level increasing uptake with SUV 2.1 and a tiny 5 mm right middle lobe nodule with SUV maximum 0.8. The patient was seen by Natalie العراقي MD urologist at [facility] on 02/28/2018. The patient then underwent open left radical nephrectomy on 03/07/2018. 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 There was 10% rhabdoid change and there was necrosis within the tumor. Nuclear grade was 4. There was tumor extension into perinephric tissues, the renal sinus, a major vein and the pelvicalyceal system. All surgical margins were negative. One of 1 lymph node in the surgical specimen was involved by carcinoma with a 4 cm deposit. Final pathologic staging was pT3a N1. She was referred to and was evaluated by Dr. Ribeiro on 05/06/2018. Dr. Ribeiro did not think that the patient was a suitable candidate for high-dose interleukin 2 treatment. No open front line clinical trials were available either at this moment. Dr. Gómez discussed variety of treatment options including immunotherapy ipilimumab plus nivolumab vs oral targeted drug cabozaninib. Given patient autoimmune disease history including psoriasis which is actively managed with Otezla as well as diagnosis of rheumatoid arthritis, and that immunotherapy has a high likelihood of exacerbating these underlying autoimmune syndrome, Dr. Gómez recommended targeted drug cabozantinib. She started Cabozantinib 60 mg daily on 06/11/2018. - Patient Self-Reported Symptoms SR Constitution: Fatigue/Malaise SR ears, nose, mouth, throat issues: Changes in taste SR respiratory issues: Shortness of breath SR Cardiovascular issues: Dizzy/lightheaded SR Skin issues: Hair loss or scalp prob SR Gastrointestinal issues: Change in bowel pattern, Nausea, Vomiting SR Genitourinary issues: Frequent urination, Incontinence SR Musculoskeletal issues: Joint pain or swelling, Muscle weakness, Muscle pain or cramps, Difficulty walking, Bone pain SR Neuro issues: Difficulty balancing SR Hematologic issues: Bleeding/bruising SR Endocrine issues: Excessive urination - Additional ROS All systems PM: reviewed and no additional remarkable complaints except as stated Home Medications and Allergies Home Medications Medication Instructions Recorded Confirmed Type apremilast [Otezla] 30 mg PO DAILY 02/07/18 08/28/18 History fluticasone propionate [Flovent 1 puff INHALATION Q12H 02/07/18 08/28/18 History HFA] hydroxyzine HCl 25 mg PO QID PRN 02/07/18 08/28/18 History minocycline 100 mg PO BID 02/07/18 08/28/18 History pramipexole 0.125 mg PO BEDTIME 02/07/18 08/28/18 History ranitidine HCl 150 mg PO DAILY 02/07/18 08/07/18 History temazepam 15 mg PO BEDTIME PRN 02/07/18 08/28/18 History vitamin [id number] acid 1 tab PO DAILY 04/24/18 08/28/18 History amlodipine 5 mg PO DAILY #30 tab 06/26/18 08/28/18 Rx citalopram 40 mg PO Q OTHER DAY 07/03/18 08/28/18 History lidocaine 2 patch TOP Q24H #30 each 07/13/18 08/28/18 Rx rivaroxaban [Xarelto] 20 mg PO DAILY 08/07/18 08/28/18 History cabozantinib 20 mg PO DAILY #30 tab 09/11/18 Rx Allergies Allergy/AdvReac Type Severity Reaction Status Date / Time bee venom protein (honey bee) Allergy Unknown Verified 07/13/18 14:44 enoxaparin [From Lovenox] Allergy Unknown Verified 09/11/18 14:44 iodine AdvReac Unknown Verified 07/13/18 14:44 MICRO AdvReac Unknown Uncoded 07/13/18 14:44 Exam Vital signs: Last Vital Signs Temp 98.8 F 09/11/18 14:40 Pulse 82 09/11/18 14:40 Resp 16 09/11/18 14:40 BP 133/80 09/11/18 14:40 Pulse Ox 99 09/11/18 14:40 Narrative: Constitutional: WDWN, NAD, morbid obese, cooperative, in wheelchair, accompanied by her sister Anatoly HEENT: NCAT, EOMI, PERRLA, anicteric sclera. Neck: Supple, No palpable thyromegaly and no palpable lymph nodes. Respiratory: No use of accessory muscles. CTAB, no wheezes. Cardiovascular: RRR, S1 and S2 normal, 2/6 SM aortic valve, no gallops or rubs. . Abdomen: Soft, NTND, right lower abdomen surgical wound noted. Lower extremities: No palpable pedal edema. Neurological: AOx3, CN II-XII grossly intact. No focal motor or sensory deficit. Psychiatric: Good judgment, good insight, normal affect, normal thought process, cooperative, no depression, no anxiety. Skin: Scattered papular reddish rashes noted on the back. Rashes on the back of the hands almost healed with residue white discoloration. Results - Labs Laboratory Last Values WBC 4.2 X10^3/uL (4.5-11.0) L 08/26/18 11:58 RBC 3.42 X10^6/uL (4.0-5.2) L 08/26/18 11:58 Hgb 11.4 g/dL (12.0-16.0) L 08/26/18 11:58 Hct 33.7 % (36-46) L 08/26/18 11:58 MCV 98.3 fL (80-100) 08/26/18 11:58 MCH 33.2 PG (26-34) 08/26/18 11:58 MCHC 33.8 % (30-36) 08/26/18 11:58 RDW 21.5 % (11.6-14.8) H 08/26/18 11:58 Plt Count 211 X10^3/uL (150-400) 08/26/18 11:58 Neut % (Auto) 45.0 % (50-75) L 08/26/18 11:58 Lymph % (Auto) 40.8 % (25-40) H 08/26/18 11:58 [place] % (Auto) 10.2 % (3-14) 08/26/18 11:58 Eos % (Auto) 3.4 % (2-4) 08/26/18 11:58 Baso % (Auto) 0.6 % (0-2) 08/26/18 11:58 Neut # (Auto) 1900 /uL (2966-5500) 08/26/18 11:58 Lymph # (Auto) 1700 /uL (4186-1176) 08/26/18 11:58 [place] # (Auto) 400 /uL (0-900) 08/26/18 11:58 Eos # (Auto) 100 /uL (0-450) 08/26/18 11:58 Baso # (Auto) 0 /uL (0-100) 08/26/18 11:58 RBC Morphology See below 08/26/18 11:58 Anisocytosis 2+ H 08/26/18 11:58 Sodium 141 mmol/L (137-145) 09/09/18 11:43 Potassium 4.2 mmol/L (3.4-5.1) 09/09/18 11:43 Chloride 106 mmol/L (98-107) 09/09/18 11:43 Carbon Dioxide 28 mmol/L (22-32) 09/09/18 11:43 BUN 17 mg/dL (7-17) 09/09/18 11:43 Creatinine 0.90 mg/dL (0.52-1.04) 09/09/18 11:43 Estimated GFR > 60.0 mL/min (>60) 09/09/18 11:43 BUN/Creatinine Ratio 18.9 (6-22) 09/09/18 11:43 Glucose 92 mg/dL (80-110) 09/09/18 11:43 Calcium 9.6 mg/dL (8.4-10.2) 09/09/18 11:43 Total Bilirubin 0.7 mg/dL (0.2-1.3) 09/09/18 11:43 AST 24 IU/L (14-36) 09/09/18 11:43 ALT 31 IU/L (9-52) 09/09/18 11:43 Alkaline Phosphatase 59 U/L (38-126) 09/09/18 11:43 Lactate Dehydrogenase 587 U/L (313-618) 08/26/18 11:58 Total Protein 6.9 g/dL (6.3-8.2) 09/09/18 11:43 Albumin 3.8 g/dL (3.5-5.0) 09/09/18 11:43 Globulin 3.1 g/dL (1.7-4.1) 09/09/18 11:43 Albumin/Globulin Ratio 1.2 (1.0-2.8) 09/09/18 11:43 TSH 3.94 uIU/mL (0.47-4.68) 09/09/18 11:43 Assessment and Plan (1) Clear cell adenocarcinoma of left kidney 63 year old female with metastatic clear cell renal cell carcinoma, pT3a N1 Mx. She originally presented with hypercalcemia with headache, nausea and vomiting. CT 01/08/2018: left renal mass at least 9.7 cm with prominent retroperitoneal lymphadneopathy. Staging imagines (CT CAP, bone scan and PET) showed the known left kidney mass, and suspicious retroperitoneal and pelvic lymphadenopathy and right lower lung nodules. Status post left nephrectomy on 03/07/2018. Surgical pathology showed clear cell renal cell carcinoma. She was evaluated at [facility] by Dr. Ribeiro. Treatment with cabozantinib was recommended. She started Cabozatinib 60 mg daily on 06/11/2018. On 10/29/2018, cabozantinib was held due to grade 2 maculopapular rashes, grade 1 liver function abnormalities. Today I talked with her again about the use of Cabozatinib. I talked with her that my plan is to start at 20 mg once a day and observe closely. If she tolerates well, will up the dosage to 40 mg and so on until we reach the recommended standard dosage of 60 mg once daily. Patient voiced understanding. Plan: 1. Restart Cabozatinib at 20 mg daily 2. RTC in 4 weeks, CBC, CMP (2) Pulmonary embolism Incidental diagnosis of right lung pulmonary embolism in the right main pulmonary artery bifurcation and the right upper and lower lobar pulmonary arteries on 06/27/2018 during a workup for restaging of her clear cell renal cell carcinoma. Patient was adequately started on Lovenox 120 mg Q 12. Due to development of abdominal wall hematoma at the site of injection, Lovenox was subsequently switched to Xarelto. Plan: Continue Xarelto 20 mg daily for now. (3) Hypertension Patient has increased blood pressure. It might be related to the use of the cabozantinib. I will start the patient low-dose amlodipine 5 mg once a day. I once again instructed the patient to check blood pressure often at home. (4) Morbid obesity No immediate intervention indicated. I encourage patient to think about weight control (5) Chronic anemia Normocytic. Likely related to multiple chronic disease. Stable. Need surveillance. (6) CKD (chronic kidney disease) stage 2, GFR 60-89 ml/min Need active surveillance. Stable. (7) Wound, open, abdominal wall, lateral The right lower quadrant abdominal wound is related to recent surgical incision for hematoma. [facility].
[2018-09-11 14:40] VITALS: BP 133/80; PULSE 82; RESP 16; TEMP 37.1; O2SAT 99
--- NOTE | 2018-09-11 14:43 | P.PNONC_ITS ---
PN -Subjective Interval history: On 06/27/2018, patient went to [facility] and was evaluated by Dr. Natalie العراقي. CT of the head was performed that showed no acute intracranial abnormality. CT of the chest abdomen and pelvis showed that the previously seen right lower lobe nodule has resolved. But there were increased size of para- aortic lymph nodes. Incidentally pulmonary emboli in the right main pulmonary artery bifurcation and the right upper and lower lobar pulmonary arteries were identified. Patient therefore was called back to the emergency room of [facility] where patient was initiated Lovenox injection 120 mg twice daily. Patient has been doing the injection herself. There is some bruises around the injection sites. Remarkably, patient did not have any shortness of breath or chest pain or palpitation. Patient denies any lower extremity swelling. About early August 2018, patient developed abdominal wall hematoma. She was evaluated at the [facility] emergency room. Her Lovenox was then switched to Xarelto. Since then patient said that the hematoma has improved. However while at the emergency room, a small incision was cut into the hematoma. She is now getting wound care once a week and [facility]. On 08/28/2018, patient was evaluated at our clinic. Patient at that time reported significant macular papular rashes in the hands, feet, back, and facce as well as at her private parts. In addition patient was found to have elevated liver function tests. Therefore we decided to hold the medications. During the interim, patient said that the rashes have improved dramatically. she is not getting wound care as far as the right lower abdomen abscess is concerned. Patient overall has been doing well. The skin rashes completely. She presents here today to discuss about resuming the treatment with cabozantinib. Patient herself says she is willing to try again. Oncology History Ms Belgica Da Silva is a 62 year old female with a long list of medical co- morbidities most notable for morbid obesity, sleep apnea on CPAP, hypertension, rheumatoid arthritis, and psoriasis on Otezla (apremilast). In early December,, she developed headache, nausea, and vomiting. She was evaluated by Dr. Goel on 01/08/2018. The next day, she had a call from the nurse asking her to go to the emergency room due to serum calcium level of about 13. Patient stayed at the [facility] for about 3 days. Patient recalled that they gave her medications through the intravenous line. She underwent CT scan on 01/08/2018, that showed an left infiltrative lower/midpole originating heterogeneous iso-attenuating mass measuring at least 9.7 cm, pelvic retroperitoneal node cluster largest of which measuring 1.4 x 2.6 cm, and the most prominent nearby retroperitoneal lymph node measuring 2.2 x 1.2 cm. Sigmoid diverticulosis was also noted. On 02/03/2018, she was seen as post ER follow up at [facility]. Her calcium level has decreased to 11.5. Patient requested to be referred to [facility]. I first saw the patient on 02/07/2018. I referred the patient to [facility] for evaluation of possible surgical resection of left suspicious kidney cancer. In addition patient underwent staging studies as follows. On 02/12/2018, bone scan showed no osseous metastatic disease. Same day CT scan of the chest abdomen pelvis showed the large heterogeneously enhancing left renal mass with imaging characteristics highly suspicious for renal cell carcinoma, left leif-aortic retroperitoneal and left common iliac pelvic metastatic lymphadenopathy, and a 1.5 x 1.1 x 1.2 cm right lower lobe nodule highly suspicious for possible lung metastasis. On 02/19/2018, PET-CT showed a large left renal mass involving nearly the entire left kidney demonstrating abnormal FDG activity consistent with malignancy, a 1.4 x 2.1 cm left para-aortic lymph node demonstrating maximum SUV 2.3, additional enlarged retroperitoneal, mesenteric, and left iliac lymph node and bilateral inguinal lymph nodes de monstrating low FDG activity suggesting benign etiology and the 1.6 x 0.8 mc bilobed lung mass in the right lower lobe with low level increasing uptake with SUV 2.1 and a tiny 5 mm right middle lobe nodule with SUV maximum 0.8. The patient was seen by Natalie العراقي MD urologist at [facility] on 02/28/2018. The patient then underwent open left radical nephrectomy on 03/07/2018. 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 There was 10% rhabdoid change and there was necrosis within the tumor. Nuclear grade was 4. There was tumor extension into perinephric tissues, the renal sinus, a major vein and the pelvicalyceal system. All surgical margins were negative. One of 1 lymph node in the surgical specimen was involved by carcinoma with a 4 cm deposit. Final pathologic staging was pT3a N1. She was referred to and was evaluated by Dr. Ribeiro on 05/06/2018. Dr. Ribeiro did not think that the patient was a suitable candidate for high-dose interleukin 2 treatment. No open front line clinical trials were available either at this moment. Dr. Gómez discussed variety of treatment options including immunotherapy ipilimumab plus nivolumab vs oral targeted drug cabozaninib. Given patient autoimmune disease history including psoriasis which is actively managed with Otezla as well as diagnosis of rheumatoid arthritis, and that immunotherapy has a high likelihood of exacerbating these underlying autoimmune syndrome, Dr. Gómez recommended targeted drug cabozantinib. She started Cabozantinib 60 mg daily on 06/11/2018. - Patient Self-Reported Symptoms SR Constitution: Fatigue/Malaise SR ears, nose, mouth, throat issues: Changes in taste SR respiratory issues: Shortness of breath SR Cardiovascular issues: Dizzy/lightheaded SR Skin issues: Hair loss or scalp prob SR Gastrointestinal issues: Change in bowel pattern, Nausea, Vomiting SR Genitourinary issues: Frequent urination, Incontinence SR Musculoskeletal issues: Joint pain or swelling, Muscle weakness, Muscle pain or cramps, Difficulty walking, Bone pain SR Neuro issues: Difficulty balancing SR Hematologic issues: Bleeding/bruising SR Endocrine issues: Excessive urination - Additional ROS All systems PM: reviewed and no additional remarkable complaints except as stated Home Medications and Allergies Home Medications Medication Instructions Recorded Confirmed Type apremilast [Otezla] 30 mg PO DAILY 02/07/18 08/28/18 History fluticasone propionate [Flovent 1 puff INHALATION Q12H 02/07/18 08/28/18 History HFA] hydroxyzine HCl 25 mg PO QID PRN 02/07/18 08/28/18 History minocycline 100 mg PO BID 02/07/18 08/28/18 History pramipexole 0.125 mg PO BEDTIME 02/07/18 08/28/18 History ranitidine HCl 150 mg PO DAILY 02/07/18 08/07/18 History temazepam 15 mg PO BEDTIME PRN 02/07/18 08/28/18 History vitamin [id number] acid 1 tab PO DAILY 04/24/18 08/28/18 History amlodipine 5 mg PO DAILY #30 tab 06/26/18 08/28/18 Rx citalopram 40 mg PO Q OTHER DAY 07/03/18 08/28/18 History lidocaine 2 patch TOP Q24H #30 each 07/13/18 08/28/18 Rx rivaroxaban [Xarelto] 20 mg PO DAILY 08/07/18 08/28/18 History cabozantinib 20 mg PO DAILY #30 tab 09/11/18 Rx Allergies Allergy/AdvReac Type Severity Reaction Status Date / Time bee venom protein (honey bee) Allergy Unknown Verified 07/13/18 14:44 enoxaparin [From Lovenox] Allergy Unknown Verified 09/11/18 14:44 iodine AdvReac Unknown Verified 07/13/18 14:44 MICRO AdvReac Unknown Uncoded 07/13/18 14:44 Exam Vital signs: Last Vital Signs Temp 98.8 F 09/11/18 14:40 Pulse 82 09/11/18 14:40 Resp 16 09/11/18 14:40 BP 133/80 09/11/18 14:40 Pulse Ox 99 09/11/18 14:40 Narrative: Constitutional: WDWN, NAD, morbid obese, cooperative, in wheelchair, accompanied by her sister Anatoly HEENT: NCAT, EOMI, PERRLA, anicteric sclera. Neck: Supple, No palpable thyromegaly and no palpable lymph nodes. Respiratory: No use of accessory muscles. CTAB, no wheezes. Cardiovascular: RRR, S1 and S2 normal, 2/6 SM aortic valve, no gallops or rubs. . Abdomen: Soft, NTND, right lower abdomen surgical wound noted. Lower extremities: No palpable pedal edema. Neurological: AOx3, CN II-XII grossly intact. No focal motor or sensory deficit. Psychiatric: Good judgment, good insight, normal affect, normal thought process, cooperative, no depression, no anxiety. Skin: Scattered papular reddish rashes noted on the back. Rashes on the back of the hands almost healed with residue white discoloration. Results - Labs Laboratory Last Values WBC 4.2 X10^3/uL (4.5-11.0) L 08/26/18 11:58 RBC 3.42 X10^6/uL (4.0-5.2) L 08/26/18 11:58 Hgb 11.4 g/dL (12.0-16.0) L 08/26/18 11:58 Hct 33.7 % (36-46) L 08/26/18 11:58 MCV 98.3 fL (80-100) 08/26/18 11:58 MCH 33.2 PG (26-34) 08/26/18 11:58 MCHC 33.8 % (30-36) 08/26/18 11:58 RDW 21.5 % (11.6-14.8) H 08/26/18 11:58 Plt Count 211 X10^3/uL (150-400) 08/26/18 11:58 Neut % (Auto) 45.0 % (50-75) L 08/26/18 11:58 Lymph % (Auto) 40.8 % (25-40) H 08/26/18 11:58 Rains % (Auto) 10.2 % (3-14) 08/26/18 11:58 Eos % (Auto) 3.4 % (2-4) 08/26/18 11:58 Baso % (Auto) 0.6 % (0-2) 08/26/18 11:58 Neut # (Auto) 1900 /uL (8165-4679) 08/26/18 11:58 Lymph # (Auto) 1700 /uL (3569-9998) 08/26/18 11:58 Rains # (Auto) 400 /uL (0-900) 08/26/18 11:58 Eos # (Auto) 100 /uL (0-450) 08/26/18 11:58 Baso # (Auto) 0 /uL (0-100) 08/26/18 11:58 RBC Morphology See below 08/26/18 11:58 Anisocytosis 2+ H 08/26/18 11:58 Sodium 141 mmol/L (137-145) 09/09/18 11:43 Potassium 4.2 mmol/L (3.4-5.1) 09/09/18 11:43 Chloride 106 mmol/L (98-107) 09/09/18 11:43 Carbon Dioxide 28 mmol/L (22-32) 09/09/18 11:43 BUN 17 mg/dL (7-17) 09/09/18 11:43 Creatinine 0.90 mg/dL (0.52-1.04) 09/09/18 11:43 Estimated GFR > 60.0 mL/min (>60) 09/09/18 11:43 BUN/Creatinine Ratio 18.9 (6-22) 09/09/18 11:43 Glucose 92 mg/dL (80-110) 09/09/18 11:43 Calcium 9.6 mg/dL (8.4-10.2) 09/09/18 11:43 Total Bilirubin 0.7 mg/dL (0.2-1.3) 09/09/18 11:43 AST 24 IU/L (14-36) 09/09/18 11:43 ALT 31 IU/L (9-52) 09/09/18 11:43 Alkaline Phosphatase 59 U/L (38-126) 09/09/18 11:43 Lactate Dehydrogenase 587 U/L (313-618) 08/26/18 11:58 Total Protein 6.9 g/dL (6.3-8.2) 09/09/18 11:43 Albumin 3.8 g/dL (3.5-5.0) 09/09/18 11:43 Globulin 3.1 g/dL (1.7-4.1) 09/09/18 11:43 Albumin/Globulin Ratio 1.2 (1.0-2.8) 09/09/18 11:43 TSH 3.94 uIU/mL (0.47-4.68) 09/09/18 11:43 Assessment and Plan (1) Clear cell adenocarcinoma of left kidney 63 year old female with metastatic clear cell renal cell carcinoma, pT3a N1 Mx. She originally presented with hypercalcemia with headache, nausea and vomiting. CT 01/08/2018: left renal mass at least 9.7 cm with prominent retroperitoneal lymphadneopathy. Staging imagines (CT CAP, bone scan and PET) showed the known left kidney mass, and suspicious retroperitoneal and pelvic lymphadenopathy and right lower lung nodules. Status post left nephrectomy on 03/07/2018. Surgical pathology showed clear cell renal cell carcinoma. She was evaluated at [facility] by Dr. Ribeiro. Treatment with cabozantinib was recommended. She started Cabozatinib 60 mg daily on 06/11/2018. On 10/29/2018, cabozantinib was held due to grade 2 maculopapular rashes, grade 1 liver function abnormalities. Today I talked with her again about the use of Cabozatinib. I talked with her that my plan is to start at 20 mg once a day and observe closely. If she tolerates well, will up the dosage to 40 mg and so on until we reach the recommended standard dosage of 60 mg once daily. Patient voiced understanding. Plan: 1. Restart Cabozatinib at 20 mg daily 2. RTC in 4 weeks, CBC, CMP (2) Pulmonary embolism Incidental diagnosis of right lung pulmonary embolism in the right main pulmonary artery bifurcation and the right upper and lower lobar pulmonary arteries on 06/27/2018 during a workup for restaging of her clear cell renal cell carcinoma. Patient was adequately started on Lovenox 120 mg Q 12. Due to development of abdominal wall hematoma at the site of injection, Lovenox was subsequently switched to Xarelto. Plan: Continue Xarelto 20 mg daily for now. (3) Hypertension Patient has increased blood pressure. It might be related to the use of the cabozantinib. I will start the patient low-dose amlodipine 5 mg once a day. I once again instructed the patient to check blood pressure often at home. (4) Morbid obesity No immediate intervention indicated. I encourage patient to think about weight control (5) Chronic anemia Normocytic. Likely related to multiple chronic disease. Stable. Need surveillance. (6) CKD (chronic kidney disease) stage 2, GFR 60-89 ml/min Need active surveillance. Stable. (7) Wound, open, abdominal wall, lateral The right lower quadrant abdominal wound is related to recent surgical incision for hematoma. Continue [facility].
--- NOTE | 2018-10-14 10:17 | ONC.MSW ---
Description: Hair Loss Resources Activity: Met with pt to try on wigs. Pt was able to find a wig that she liked, and took with her. Discussed coping with treatment, grief, and the [facility] Group. She expressed interest in attending the group, which OPERATION MANAGER encouraged. She's been struggling with intermittent waves of sadness, feeling her mortality and starting to clean/organize her home in order to downsize. No further needs identified at this time. *Pt received a Chemo Quilt today.
[2018-10-16 11:21] VITALS: BP 137/85; PULSE 82; RESP 18; TEMP 36.4; O2SAT 100
--- NOTE | 2018-10-16 11:28 | P.PNONC_ITS ---
PN -Subjective Interval history: ID/CC: 63 year old female with metastatic renal clear cell carcinoma now on treatment with cabozantinib. Oncology History Ms Belgica Da Silva is a 62 year old female with a long list of medical co- morbidities most notable for morbid obesity, sleep apnea on CPAP, hypertension, rheumatoid arthritis, and psoriasis on Otezla (apremilast). In early December,, she developed headache, nausea, and vomiting. She was evaluated by Dr. Geol on 01/08/2018. The next day, she had a call from the nurse asking her to go to the emergency room due to serum calcium level of about 13. Patient stayed at the [facility] for about 3 days. Patient recalled that they gave her medications through the intravenous line. She underwent CT scan on 01/08/2018, that showed an left infiltrative lower/midpole originating heterogeneous iso-attenuating mass measuring at least 9.7 cm, pelvic retroperitoneal node cluster largest of which measuring 1.4 x 2.6 cm, and the most prominent nearby retroperitoneal lymph node measuring 2.2 x 1.2 cm. Sigmoid diverticulosis was also noted. On 02/03/2018, she was seen as post ER follow up at [facility]. Her calcium level has decreased to 11.5. Patient requested to be referred to [facility]. I first saw the patient on 02/07/2018. I referred the patient to [facility] for evaluation of possible surgical resection of left suspicious kidney cancer. In addition patient underwent staging studies as follows. On 02/12/2018, bone scan showed no osseous metastatic disease. Same day CT scan of the chest abdomen pelvis showed the large heterogeneously enhancing left renal mass with imaging characteristics highly suspicious for renal cell carcinoma, left leif-aortic retroperitoneal and left common iliac pelvic metastatic lymphadenopathy, and a 1.5 x 1.1 x 1.2 cm right lower lobe nodule highly suspicious for possible lung metastasis. On 02/19/2018, PET-CT showed a large left renal mass involving nearly the entire left kidney demonstrating abnormal FDG activity consistent with malignancy, a 1.4 x 2.1 cm left para-aortic lymph node demonstrating maximum SUV 2.3, additional enlarged retroperitoneal, mesenteric, and left iliac lymph node and bilateral inguinal lymph nodes demonstrating low FDG activity suggesting benign etiology and the 1.6 x 0.8 mc bilobed lung mass in the right lower lobe with low level increasing uptake with SUV 2.1 and a tiny 5 mm right middle lobe nodule with SUV maximum 0.8. The patient was seen by Natalie العراقي MD urologist at [facility] on 02/28/2018. The patient then underwent open left radical nephrectomy on 03/07/2018. 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 There was 10% rhabdoid change and there was necrosis within the tumor. Nuclear grade was 4. There was tumor extension into perinephric tissues, the renal sinus, a major vein and the pelvicalyceal system. All surgical margins were negative. One of 1 lymph node in the surgical specimen was involved by carcinoma with a 4 cm deposit. Final pathologic staging was pT3a N1. She was referred to and was evaluated by Dr. Ribeiro on 05/06/2018. Dr. Ribeiro did not think that the patient was a suitable candidate for high-dose interleukin 2 treatment. No open front line clinical trials were available either at this moment. Dr. Gómez discussed variety of treatment options including immunotherapy ipilimumab plus nivolumab vs oral targeted drug cabozaninib. Given patient autoimmune disease history including psoriasis which is actively managed with Otezla as well as diagnosis of rheumatoid arthritis, and that immunotherapy has a high likelihood of exacerbating these underlying autoimmune syndrome, Dr. Gómez recommended targeted drug cabozantinib. She started Cabozantinib 60 mg daily on 06/11/2018. On 06/27/2018, patient went to [facility] and was evaluated by Dr. Natalie العراقي. CT of the head was performed that showed no acute intracranial abnormality. CT of the chest abdomen and pelvis showed that the previously seen right lower lobe nodule has resolved. But there were increased size of para- aortic lymph nodes. Incidentally pulmonary emboli in the right main pulmonary artery bifurcation and the right upper and lower lobar pulmonary arteries were identified. Patient therefore was called back to the emergency room of [facility] where patient was initiated Lovenox injection 120 mg twice daily. About early August 2018, patient developed abdominal wall hematoma. She was evaluated at the [facility] emergency room. Her Lovenox was then switched to Xarelto. Since then patient said that the hematoma has improved. However while at the emergency room, a small incision was cut into the hematoma. On 08/28/2018, patient was evaluated at our clinic. Patient at that time reported significant macular papular rashes in the hands, feet, back, and facce as well as at her private parts. In addition patient was found to have elevated liver function tests. Therefore we decided to hold the medications. During the interim, patient said that the rashes have improved dramatically. Interim Events: Since her previous visit, she started taking Cabozatinib 20 mg daily. She said she tolerated very well. She has had very minimal blister in the hands or feet, not as nearly as before. Her appetite is better. She has mild abdominal discomfort. She denies no diarrhea and no constipation. She is now getting wound care once a week and [facility]. Her abdominal wound has always completely healed. - Patient Self-Reported Symptoms SR Constitution: Fatigue/Malaise SR ears, nose, mouth, throat issues: Changes in taste SR respiratory issues: Shortness of breath SR Cardiovascular issues: Dizzy/lightheaded SR Skin issues: Hair loss or scalp prob SR Gastrointestinal issues: Change in bowel pattern, Nausea, Vomiting SR Genitourinary issues: Frequent urination, Incontinence SR Musculoskeletal issues: Joint pain or swelling, Muscle weakness, Muscle pain or cramps, Difficulty walking, Bone pain SR Neuro issues: Difficulty balancing SR Hematologic issues: Bleeding/bruising SR Endocrine issues: Excessive urination - Additional ROS All systems PM: reviewed and no additional remarkable complaints except as stated Home Medications and Allergies Home Medications Medication Instructions Recorded Confirmed Type apremilast [Otezla] 30 mg PO DAILY 02/07/18 10/16/18 History fluticasone propionate [Flovent 1 puff INHALATION Q12H 02/07/18 10/16/18 History HFA] hydroxyzine HCl 25 mg PO QID PRN 02/07/18 10/16/18 History minocycline 100 mg PO BID 02/07/18 10/16/18 History pramipexole 0.125 mg PO BEDTIME 02/07/18 10/16/18 History temazepam 15 mg PO BEDTIME PRN 02/07/18 10/16/18 History vitamin L23-[id number] acid 1 tab PO DAILY 04/24/18 10/16/18 History amlodipine 5 mg PO DAILY #30 tab 06/26/18 10/16/18 Rx rivaroxaban [Xarelto] 20 mg PO DAILY 08/07/18 10/16/18 History cabozantinib 20 mg PO DAILY #30 tab 09/11/18 Rx Allergies Allergy/AdvReac Type Severity Reaction Status Date / Time bee venom protein (honey bee) Allergy Unknown Verified 07/13/18 14:44 enoxaparin [From Lovenox] Allergy Unknown Verified 09/11/18 14:44 iodine AdvReac Unknown Verified 07/13/18 14:44 MICRO AdvReac Unknown Uncoded 07/13/18 14:44 Exam Vital signs: Vital Signs Temp Pulse Resp BP Pulse Ox 10/16/18 11:21 97.5 F L 82 18 137/85 100 Intake and Output 10/15/18 10/16/18 10/16/18 23:59 07:59 15:59 Other: Weight 132.2 kg Patient Weight 10/16/18 23:59 Weight 132.2 kg Narrative: Constitutional: WDWN, NAD, morbid obese, cooperative, in wheelchair, accompanied by her sister Anatoly HEENT: NCAT, EOMI, PERRLA, anicteric sclera. Neck: Supple, No palpable thyromegaly and no palpable lymph nodes. Respiratory: No use of accessory muscles. CTAB, no wheezes. Cardiovascular: RRR, S1 and S2 normal, 2/6 SM aortic valve, no gallops or rubs. . Abdomen: Soft, NTND, right lower abdomen surgical wound noted. Lower extremities: No palpable pedal edema. Neurological: AOx3, CN II-XII grossly intact. No focal motor or sensory deficit. Psychiatric: Good judgment, good insight, normal affect, normal thought process, cooperative, no depression, no anxiety. Skin: no apparent rashes noted. Results - Labs Laboratory Last Values WBC 4.2 X10^3/uL (4.5-11.0) L 08/26/18 11:58 RBC 3.42 X10^6/uL (4.0-5.2) L 08/26/18 11:58 Hgb 11.4 g/dL (12.0-16.0) L 08/26/18 11:58 Hct 33.7 % (36-46) L 08/26/18 11:58 MCV 98.3 fL (80-100) 08/26/18 11:58 MCH 33.2 PG (26-34) 08/26/18 11:58 MCHC 33.8 % (30-36) 08/26/18 11:58 RDW 21.5 % (11.6-14.8) H 08/26/18 11:58 Plt Count 211 X10^3/uL (150-400) 08/26/18 11:58 Neut % (Auto) 45.0 % (50-75) L 08/26/18 11:58 Lymph % (Auto) 40.8 % (25-40) H 08/26/18 11:58 [place] % (Auto) 10.2 % (3-14) 08/26/18 11:58 Eos % (Auto) 3.4 % (2-4) 08/26/18 11:58 Baso % (Auto) 0.6 % (0-2) 08/26/18 11:58 Neut # (Auto) 1900 /uL (9905-4557) 08/26/18 11:58 Lymph # (Auto) 1700 /uL (1380-2514) 08/26/18 11:58 [place] # (Auto) 400 /uL (0-900) 08/26/18 11:58 Eos # (Auto) 100 /uL (0-450) 08/26/18 11:58 Baso # (Auto) 0 /uL (0-100) 08/26/18 11:58 RBC Morphology See below 08/26/18 11:58 Anisocytosis 2+ H 08/26/18 11:58 Sodium 141 mmol/L (137-145) 09/09/18 11:43 Potassium 4.2 mmol/L (3.4-5.1) 09/09/18 11:43 Chloride 106 mmol/L (98-107) 09/09/18 11:43 Carbon Dioxide 28 mmol/L (22-32) 09/09/18 11:43 BUN 17 mg/dL (7-17) 09/09/18 11:43 Creatinine 0.90 mg/dL (0.52-1.04) 09/09/18 11:43 Estimated GFR > 60.0 mL/min (>60) 09/09/18 11:43 BUN/Creatinine Ratio 18.9 (6-22) 09/09/18 11:43 Glucose 92 mg/dL (80-110) 09/09/18 11:43 Calcium 9.6 mg/dL (8.4-10.2) 09/09/18 11:43 Total Bilirubin 0.7 mg/dL (0.2-1.3) 09/09/18 11:43 AST 24 IU/L (14-36) 09/09/18 11:43 ALT 31 IU/L (9-52) 09/09/18 11:43 Alkaline Phosphatase 59 U/L (38-126) 09/09/18 11:43 Lactate Dehydrogenase 587 U/L (313-618) 08/26/18 11:58 Total Protein 6.9 g/dL (6.3-8.2) 09/09/18 11:43 Albumin 3.8 g/dL (3.5-5.0) 09/09/18 11:43 Globulin 3.1 g/dL (1.7-4.1) 09/09/18 11:43 Albumin/Globulin Ratio 1.2 (1.0-2.8) 09/09/18 11:43 TSH 3.94 uIU/mL (0.47-4.68) 09/09/18 11:43 Assessment and Plan (1) Clear cell adenocarcinoma of left kidney Overview: 63 year old female with metastatic clear cell renal cell carcinoma, pT3a N1 Mx. She originally presented with hypercalcemia with headache, nausea and vomiting. CT 01/08/2018: left renal mass at least 9.7 cm with prominent retroperitoneal lymphadneopathy. Staging imagines (CT CAP, bone scan and PET) showed the known left kidney mass, and suspicious retroperitoneal and pelvic lymphadenopathy and right lower lung nodules. Status post left nephrectomy on 03/07/2018. Surgical pathology showed clear cell renal cell carcinoma. She was evaluated at [facility] by Dr. Ribeiro. Treatment with cabozantinib was recommended. She started Cabozatinib 60 mg daily on 06/11/2018. On 10/29/2018, cabozantinib was held due to grade 2 maculopapular rashes, grade 1 liver function abnormalities. Assessment: Today I talked with her again adjusting the dosage of Cabozatinib to 40 mg daily. However, patient is very hesitant because of her previous experience of blistering rashes. She would like to wait until after Xmas to consider increasing dosage. She understood that the current dosage is way below the recommended dosage. The efficacy may be compromised. She has not had any repeat CT scan for almost a year. Plan: 1. Continue Cabozatinib at [address] CAP w/contrast in 4 weeks 3. RTC in 4 weeks, CBC, CMP, LDH (2) Pulmonary embolism Overview: Incidental diagnosis of right lung pulmonary embolism in the right main pulmonary artery bifurcation and the right upper and lower lobar pulmonary arteries on 06/27/2018 during a workup for restaging of her clear cell renal cell carcinoma. Patient was adequately started on Lovenox 120 mg Q 12. Due to development of abdominal wall hematoma at the site of injection, Lovenox was subsequently switched to Xarelto. Assessment and Plan: Continue Xarelto 20 mg daily for now. (3) Hypertension Patient has increased blood pressure. It might be related to the use of the cabozantinib. I will start the patient low-dose amlodipine 5 mg once a day. I once again instructed the patient to check blood pressure often at home. (4) Morbid obesity No immediate intervention indicated. I encourage patient to think about weight control (5) Chronic anemia Normocytic. Likely related to multiple chronic disease. Stable. Need surveillance. (6) CKD (chronic kidney disease) stage 2, GFR 60-89 ml/min Need active surveillance. Stable. (7) Wound, open, abdominal wall, lateral The right lower quadrant abdominal wound is related to recent surgical incision for hematoma. [facility].
--- NOTE | 2018-11-12 09:17 | PC.NURSE ---
Reviewed pre medication schedule with pt over the phone r/t dye sensitivity with CT scan. Discussed medication intervals and timing prior to CT, pt verbalized understanding repeated instructions back to this sign writer letterer or painter correctly.
[2018-11-17 12:18] VITALS: BP 153/85; PULSE 80; RESP 22; TEMP 36.3; O2SAT 96
--- NOTE | 2018-11-17 12:43 | P.PNONC_ITS ---
PN -Subjective Interval history: ID/CC: 63 year old female with metastatic renal clear cell carcinoma now on treatment with cabozantinib. Oncology History Ms Belgica Da Silva is a 62 year old female with a long list of medical co- morbidities most notable for morbid obesity, sleep apnea on CPAP, hypertension, rheumatoid arthritis, and psoriasis on Otezla (apremilast). In early December,, she developed headache, nausea, and vomiting. She was evaluated by Dr. oGel on 01/08/2018. The next day, she had a call from the nurse asking her to go to the emergency room due to serum calcium level of about 13. Patient stayed at the [facility] for about 3 days. Patient recalled that they gave her medications through the intravenous line. She underwent CT scan on 01/08/2018, that showed an left infiltrative lower/midpole originating heterogeneous iso-attenuating mass measuring at least 9.7 cm, pelvic retroperitoneal node cluster largest of which measuring 1.4 x 2.6 cm, and the most prominent nearby retroperitoneal lymph node measuring 2.2 x 1.2 cm. Sigmoid diverticulosis was also noted. On 02/03/2018, she was seen as post ER follow up at [facility]. Her calcium level has decreased to 11.5. Patient requested to be referred to [facility]. I first saw the patient on 02/07/2018. I referred the patient to [facility] for evaluation of possible surgical resection of left suspicious kidney cancer. In addition patient underwent staging studies as follows. On 02/12/2018, bone scan showed no osseous metastatic disease. Same day CT scan of the chest abdomen pelvis showed the large heterogeneously enhancing left renal mass with imaging characteristics highly suspicious for renal cell carcinoma, left leif-aortic retroperitoneal and left common iliac pelvic metastatic lymphadenopathy, and a 1.5 x 1.1 x 1.2 cm right lower lobe nodule highly suspicious for possible lung metastasis. On 02/19/2018, PET-CT showed a large left renal mass involving nearly the entire left kidney demonstrating abnormal FDG activity consistent with malignancy, a 1.4 x 2.1 cm left para-aortic lymph node demonstrating maximum SUV 2.3, additional enlarged retroperitoneal, mesenteric, and left iliac lymph node and bilateral inguinal lymph nodes demonstrating low FDG activity suggesting benign etiology and the 1.6 x 0.8 mc bilobed lung mass in the right lower lobe with low level increasing uptake with SUV 2.1 and a tiny 5 mm right middle lobe nodule with SUV maximum 0.8. The patient was seen by Natalie العراقي MD urologist at [facility] on 02/28/2018. The patient then underwent open left radical nephrectomy on 03/07/2018. 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 There was 10% rhabdoid change and there was necrosis within the tumor. Nuclear grade was 4. There was tumor extension into perinephric tissues, the renal sinus, a major vein and the pelvicalyceal system. All surgical margins were negative. One of 1 lymph node in the surgical specimen was involved by carcinoma with a 4 cm deposit. Final pathologic staging was pT3a N1. She was referred to and was evaluated by Dr. Ribeiro on 05/06/2018. Dr. Ribeiro did not think that the patient was a suitable candidate for high-dose interleukin 2 treatment. No open front line clinical trials were available either at this moment. Dr. Gómez discussed variety of treatment options including immunotherapy ipilimumab plus nivolumab vs oral targeted drug cabozaninib. Given patient autoimmune disease history including psoriasis which is actively managed with Otezla as well as diagnosis of rheumatoid arthritis, and that immunotherapy has a high likelihood of exacerbating these underlying autoimmune syndrome, Dr. Gómez recommended targeted drug cabozantinib. She started Cabozantinib 60 mg daily on 06/11/2018. On 06/27/2018, patient went to [facility] and was evaluated by Dr. Natalie العراقي. CT of the head was performed that showed no acute intracranial abnormality. CT of the chest abdomen and pelvis showed that the previously seen right lower lobe nodule has resolved. But there were increased size of para- aortic lymph nodes. Incidentally pulmonary emboli in the right main pulmonary artery bifurcation and the right upper and lower lobar pulmonary arteries were identified. Patient therefore was called back to the emergency room of [facility] where patient was initiated Lovenox injection 120 mg twice daily. About early August 2018, patient developed abdominal wall hematoma. She was evaluated at the [facility] emergency room. Her Lovenox was then switched to Xarelto. Since then patient said that the hematoma has improved. However while at the emergency room, a small incision was cut into the hematoma. On 08/28/2018, patient was evaluated at our clinic. Patient at that time reported significant macular papular rashes in the hands, feet, back, and facce as well as at her private parts. In addition patient was found to have elevated liver function tests. Therefore we decided to hold the medications. During the interim, patient said that the rashes have improved dramatically. On 09/11/2018, she was able to restart Carbozantinib at 20 mg daily and has tolerated well so far. Interim Events: The lower abdominal wound has completely closed. she [facility]. She tries to walk as much as she can, but is limited due to knee problems. Good appetite. No Sob. No chest pain. On 11/13/2018, patient underwent CT scan of the chest abdomen pelvis. The scan showed previous left nephrectomy, and resolution of left para-aortic and left common iliac charlene disease, resolution of right lower lobe lung nodule and no evidence of residual or recurrent disease. - Patient Self-Reported Symptoms SR Constitution: Chills SR ears, nose, mouth, throat issues: Changes in taste SR respiratory issues: Shortness of breath SR Cardiovascular issues: Dizzy/lightheaded SR Skin issues: Hair loss or scalp prob SR Gastrointestinal issues: Diarrhea SR Genitourinary issues: Frequent urination, Incontinence SR Musculoskeletal issues: Muscle weakness SR Neuro issues: Difficulty balancing SR Hematologic issues: Bleeding/bruising SR Endocrine issues: Cold intolerance - Additional ROS All systems PM: reviewed and no additional remarkable complaints except as stated Home Medications and Allergies Home Medications Medication Instructions Recorded Confirmed Type apremilast [Otezla] 30 mg PO DAILY 02/07/18 10/16/18 History fluticasone propionate [Flovent 1 puff INHALATION Q12H 02/07/18 10/16/18 History HFA] hydroxyzine HCl 25 mg PO QID PRN 02/07/18 10/16/18 History minocycline 100 mg PO BID 02/07/18 10/16/18 History pramipexole 0.125 mg PO BEDTIME 02/07/18 10/16/18 History temazepam 15 mg PO BEDTIME PRN 02/07/18 10/16/18 History vitamin Q98-ofrly acid 1 tab PO DAILY 04/24/18 10/16/18 History amlodipine 5 mg PO DAILY #30 tab 06/26/18 10/16/18 Rx rivaroxaban [Xarelto] 20 mg PO DAILY 08/07/18 10/16/18 History cabozantinib 20 mg PO DAILY #30 tab 09/11/18 Rx cabozantinib [Cabometyx] 20 mg PO DAILY #30 tab 11/03/18 Rx Allergies Allergy/AdvReac Type Severity Reaction Status Date / Time bee venom protein (honey bee) Allergy Unknown Verified 07/13/18 14:44 enoxaparin [From Lovenox] Allergy Unknown Verified 09/11/18 14:44 iodine AdvReac Unknown Verified 07/13/18 14:44 MICRO AdvReac Unknown Uncoded 07/13/18 14:44 Exam Vital signs: Vital Signs Temp Pulse Resp BP Pulse Ox 11/17/18 12:18 97.3 F L 80 22 153/85 H 96 Intake and Output 11/16/18 11/17/18 11/17/18 23:59 07:59 15:59 Other: Weight 133.8 kg Patient Weight 11/17/18 23:59 Weight 133.8 kg - Constitutional positive no acute distress, positive morbidly obese, positive cooperative - Routine HEENT Exam Head: Present: normocephalic, atraumatic Eye: Present: EOMI, PERRL, normal accommodation. Absent: conjunctival icterus ENT: Present: mucous membranes moist - Routine Neck Exam Present: supple. Absent: lymphadenopathy, thyromegaly - Routine Chest/Breast/Axilla Exam Axillae: Present: lymphadenopathy - Routine Respiratory Exam Present: Clear to auscultation bilaterally. Absent: wheezes - Routine Cardiovascular Exam Present: RRR, S1, S2. Absent: murmur, gallop, rubs, irregular rhythm - Routine Abdominal Exam Present: soft. Absent: tenderness, distended, organomegaly - Routine Back/Spine Exam Back/Spine: Present: full ROM - Routine Neurological Exam Present: alert, oriented X3, CN II-XII intact. Absent: sensory deficit, motor deficit - Routine Psychiatric Exam Present: normal affect Results - Labs Laboratory Last Values WBC 4.2 X10^3/uL (4.5-11.0) L 08/26/18 11:58 RBC 3.42 X10^6/uL (4.0-5.2) L 08/26/18 11:58 Hgb 11.4 g/dL (12.0-16.0) L 08/26/18 11:58 Hct 33.7 % (36-46) L 08/26/18 11:58 MCV 98.3 fL (80-100) 08/26/18 11:58 MCH 33.2 PG (26-34) 08/26/18 11:58 MCHC 33.8 % (30-36) 08/26/18 11:58 RDW 21.5 % (11.6-14.8) H 08/26/18 11:58 Plt Count 211 X10^3/uL (150-400) 08/26/18 11:58 Neut % (Auto) 45.0 % (50-75) L 08/26/18 11:58 Lymph % (Auto) 40.8 % (25-40) H 08/26/18 11:58 [place] % (Auto) 10.2 % (3-14) 08/26/18 11:58 Eos % (Auto) 3.4 % (2-4) 08/26/18 11:58 Baso % (Auto) 0.6 % (0-2) 08/26/18 11:58 Neut # (Auto) 1900 /uL (5017-5213) 08/26/18 11:58 Lymph # (Auto) 1700 /uL (6222-8522) 08/26/18 11:58 [place] # (Auto) 400 /uL (0-900) 08/26/18 11:58 Eos # (Auto) 100 /uL (0-450) 08/26/18 11:58 Baso # (Auto) 0 /uL (0-100) 08/26/18 11:58 RBC Morphology See below 08/26/18 11:58 Anisocytosis 2+ H 08/26/18 11:58 Sodium 141 mmol/L (137-145) 09/09/18 11:43 Potassium 4.2 mmol/L (3.4-5.1) 09/09/18 11:43 Chloride 106 mmol/L (98-107) 09/09/18 11:43 Carbon Dioxide 28 mmol/L (22-32) 09/09/18 11:43 BUN 17 mg/dL (7-17) 09/09/18 11:43 Creatinine 0.90 mg/dL (0.52-1.04) 09/09/18 11:43 Estimated GFR > 60.0 mL/min (>60) 09/09/18 11:43 BUN/Creatinine Ratio 18.9 (6-22) 09/09/18 11:43 Glucose 92 mg/dL (80-110) 09/09/18 11:43 Calcium 9.6 mg/dL (8.4-10.2) 09/09/18 11:43 Total Bilirubin 0.7 mg/dL (0.2-1.3) 09/09/18 11:43 AST 24 IU/L (14-36) 09/09/18 11:43 ALT 31 IU/L (9-52) 09/09/18 11:43 Alkaline Phosphatase 59 U/L (38-126) 09/09/18 11:43 Lactate Dehydrogenase 587 U/L (313-618) 08/26/18 11:58 Total Protein 6.9 g/dL (6.3-8.2) 09/09/18 11:43 Albumin 3.8 g/dL (3.5-5.0) 09/09/18 11:43 Globulin 3.1 g/dL (1.7-4.1) 09/09/18 11:43 Albumin/Globulin Ratio 1.2 (1.0-2.8) 09/09/18 11:43 TSH 3.94 uIU/mL (0.47-4.68) 09/09/18 11:43 Assessment and Plan (1) Clear cell adenocarcinoma of left kidney Overview: 63 year old female with metastatic clear cell renal cell carcinoma, pT3a N1 Mx. She originally presented with hypercalcemia with headache, nausea and vomiting. CT 01/08/2018: left renal mass at least 9.7 cm with prominent retroperitoneal lymphadneopathy. Staging imagines (CT CAP, bone scan and PET) showed the known left kidney mass, and suspicious retroperitoneal and pelvic lymphadenopathy and right lower lung nodules. Status post left nephrectomy on 03/07/2018. Surgical pathology showed clear cell renal cell carcinoma. She was evaluated at [facility] by Dr. Ribeiro. Treatment with cabozantinib was recommended. She started Cabozatinib 60 mg daily on 06/11/2018. On 10/29/2018, cabozantinib was held due to grade 2 maculopapular rashes, grade 1 liver function abnormalities. Assessment: She is now taking Cabozatinib [address] scan showed no evidence of disease. Plan: 1. Continue Cabozatinib at 20 mg daily 2. RTC in 2 months weeks, CBC, CMP (2) Pulmonary embolism Overview: Incidental diagnosis of right lung pulmonary embolism in the right main pulmonary artery bifurcation and the right upper and lower lobar pulmonary arteries on 06/27/2018 during a workup for restaging of her clear cell renal cell carcinoma. Patient was adequately started on Lovenox 120 mg Q 12. Due to development of abdominal wall hematoma at the site of injection, Lovenox was subsequently switched to Xarelto. Assessment and Plan: Continue Xarelto 20 mg daily for now. (3) Morbid obesity No immediate intervention indicated. I encourage patient to think about weight control (4) Chronic anemia Normocytic. Likely related to multiple chronic disease. Stable. Need surveillance. (5) CKD (chronic kidney disease) stage 2, GFR 60-89 ml/min Need active surveillance. Stable. (6) Wound, open, abdominal wall, lateral The right lower quadrant abdominal wound is related to recent surgical incision for hematoma. Now resolved.
--- NOTE | 2018-12-03 10:49 | PC.NURSE ---
Pt called in c/o N/V I have a upset stomach and nausea. Reports RUEDA for about 2 days. Pt describes it as a tension headache. Denies chest pain and SOB. Does not report and blurry vision or numbness or tingling to extremities. Denies fever. Can't eat or drink much. Pt agreeable to come in to clinic today for N/V protocol, and maintenance team leader. Pt scheduled for noon, aware and agreeable to appt.
[2018-12-03] MEDS: ONDANSETRON 8 MG in SODIUM CHLORIDE 0.9% 50 ML 216 ML IV (12:45)
[2018-12-03] MEDS: SODIUM CHLORIDE 0.9% 1,000 ML 1000 ML IV (12:45)
[2018-12-03 12:51] LABS: Add Manual Diff / Slide Review NO; Basophils Absolute Auto 0 /uL (0-100); Basophils Percent Auto 0.4 % (0-2); Eosinophils Absolute Auto 100 /uL (0-450); Eosinophils Percent Auto 1.2 % (2-4); Hematocrit 38.3 % (36-46); Lymphocytes Absolute Auto 2400 /uL (1100-4500); Lymphocytes Percent Auto 39.2 % (25-40); Mean Corpuscular HGB Conc 33.9 % (30-36); Mean Corpuscular Hemoglobin 34.4 PG (26-34); Mean Corpuscular Volume 101.6 fL (80-100); Monocytes Absolute Auto 500 /uL (0-900); Monocytes Percent Auto 7.8 % (3-14); Neutrophils Absolute Auto 3200 /uL (1500-7000); Neutrophils Percent Auto 51.4 % (50-75); Platelet Count 252 X10^3/uL (150-400); Red Blood Cell Count 3.77 X10^6/uL (4.0-5.2); Red Cell Distribution Width 13.4 % (11.6-14.8); White Blood Cell Count 6.2 X10^3/uL (4.5-11.0)
[2018-12-03 13:05] LABS: Alanine Aminotransferase 35 IU/L (9-52); Albumin 3.8 g/dL (3.5-5.0); Albumin Globulin Ratio 1.2 (1.0-2.8); Alkaline Phosphatase 63 U/L (38-126); Aspartate Aminotransferase 35 IU/L (14-36); BUN Creatinine Ratio 18.9 (6-22); Bilirubin Total 0.3 mg/dL (0.2-1.3); Blood Urea Nitrogen 17 mg/dL (7-17); Calcium 9.1 mg/dL (8.4-10.2); Carbon Dioxide 30 mmol/L (22-32); Chloride 107 mmol/L (98-107); Estimated Glomerular Filt Rate > 60.0 mL/min (>60); Globulin 3.2 g/dL (1.7-4.1); Glucose 83 mg/dL (80-110); HEMOLYSIS < 15 (0-50); Magnesium 2.2 mg/dL (1.6-2.3); Potassium 4.2 mmol/L (3.4-5.1); Sodium 142 mmol/L (137-145)
[2018-12-03 14:28] VITALS: BP 135/75; PULSE 74; RESP 15; TEMP 37.1; O2SAT 95
[2018-12-31 15:35] VITALS: BP 147/90; PULSE 75; RESP 20; TEMP 36.8
[2018-12-31 16:50] LABS: Hematocrit 39.2 % (36-46); Hemoglobin 13.2 g/dL (12.0-16.0); Mean Corpuscular HGB Conc 33.6 % (30-36); Mean Corpuscular Hemoglobin 33.6 PG (26-34); Platelet Count 222 X10^3/uL (150-400); Red Blood Cell Count 3.92 X10^6/uL (4.0-5.2); White Blood Cell Count 6.5 X10^3/uL (4.5-11.0)
[2018-12-31 16:57] LABS: Alanine Aminotransferase 38 IU/L (<35); Albumin 3.8 g/dL (3.5-5.0); Albumin Globulin Ratio 1.2 (1.0-2.8); Alkaline Phosphatase 61 U/L (38-126); Aspartate Aminotransferase 45 IU/L (14-36); BUN Creatinine Ratio 18.8 (6-22); Bilirubin Total 0.7 mg/dL (0.2-1.3); Blood Urea Nitrogen 15 mg/dL (7-17); Carbon Dioxide 27 mmol/L (22-32); Chloride 108 mmol/L (98-107); Estimated Glomerular Filt Rate > 60.0 mL/min (>60); Globulin 3.1 g/dL (1.7-4.1); Glucose 83 mg/dL (80-110); HEMOLYSIS 35 (0-50); Potassium 3.9 mmol/L (3.4-5.1); Sodium 140 mmol/L (137-145); Total Protein 6.9 g/dL (6.3-8.2)
[2018-12-31 17:22] LABS: Neutrophils Absolute Manual 3705 /uL (3000-5900); RBC Morphology Normal Morphology; Total Cells Counted 100
--- NOTE | 2019-01-01 10:09 | PC.NURSE ---
Pt came into clinic yesterday late afternoon hoping to see Dr. Burden r/t to symptoms she was having. Explained to pt that Dr. Burden was not in clinic and Dr. Hoffamnn was seeing scheduled patients. Pt reports abdominal burning and discomfort. reports discomfort is unresolved with acid reducers. Denies any s/s of bleeding whatsoever. denies chest pain and SOB. Reports about 2-3 episodes of diarrhea a day. Reports ability to eat and drink w/o issue. Spoke with Dr. Burden today r/t pt concerns, Per Dr. Burden hold Carbozabtibib for one week to see if symptoms resolve. Phoned pt with instructions, pt verbalized understanding. Pt scheduled to see Dr. Burden on Saturday.
--- NOTE | 2019-01-05 13:21 | P.PNONC_ITS ---
PN -Subjective Interval history: ID/CC: 63 year old female with metastatic renal clear cell carcinoma now on treatment with cabozantinib. Oncology History Ms Belgica Da Silva is a 62 year old female with a long list of medical co- morbidities most notable for morbid obesity, sleep apnea on CPAP, hypertension, rheumatoid arthritis, and psoriasis on Otezla (apremilast). In early December,, she developed headache, nausea, and vomiting. She was evaluated by Dr. Goel on 01/08/2018. The next day, she had a call from the nurse asking her to go to the emergency room due to serum calcium level of about 13. Patient stayed at the [facility] for about 3 days. Patient recalled that they gave her medications through the intravenous line. She underwent CT scan on 01/08/2018, that showed an left infiltrative lower/midpole originating heterogeneous iso-attenuating mass measuring at least 9.7 cm, pelvic retroperitoneal node cluster largest of which measuring 1.4 x 2.6 cm, and the most prominent nearby retroperitoneal lymph node measuring 2.2 x 1.2 cm. Sigmoid diverticulosis was also noted. On 02/03/2018, she was seen as post ER follow up at [facility]. Her calcium level has decreased to 11.5. Patient requested to be referred to [facility]. I first saw the patient on 02/07/2018. I referred the patient to [facility] for evaluation of possible surgical resection of left suspicious kidney cancer. In addition patient underwent staging studies as follows. On 02/12/2018, bone scan showed no osseous metastatic disease. Same day CT scan of the chest abdomen pelvis showed the large heterogeneously enhancing left renal mass with imaging characteristics highly suspicious for renal cell carcinoma, left leif-aortic retroperitoneal and left common iliac pelvic metastatic lymphadenopathy, and a 1.5 x 1.1 x 1.2 cm right lower lobe nodule highly suspicious for possible lung metastasis. On 02/19/2018, PET-CT showed a large left renal mass involving nearly the entire left kidney demonstrating abnormal FDG activity consistent with malignancy, a 1.4 x 2.1 cm left para-aortic lymph node demonstrating maximum SUV 2.3, additional enlarged retroperitoneal, mesenteric, and left iliac lymph node and bilateral inguinal lymph nodes demonstrating low FDG activity suggesting benign etiology and the 1.6 x 0.8 mc bilobed lung mass in the right lower lobe with low level increasing uptake with SUV 2.1 and a tiny 5 mm right middle lobe nodule with SUV maximum 0.8. The patient was seen by Natalie العراقي MD urologist at [facility] on 02/28/2018. The patient then underwent open left radical nephrectomy on 03/07/2018. 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 There was 10% rhabdoid change and there was necrosis within the tumor. Nuclear grade was 4. There was tumor extension into perinephric tissues, the renal sinus, a major vein and the pelvicalyceal system. All surgical margins were negative. One of 1 lymph node in the surgical specimen was involved by carcinoma with a 4 cm deposit. Final pathologic staging was pT3a N1. She was referred to and was evaluated by Dr. Ribeiro on 05/06/2018. Dr. Ribeiro did not think that the patient was a suitable candidate for high-dose interleukin 2 treatment. No open front line clinical trials were available either at this moment. Dr. Gómez discussed variety of treatment options including immunotherapy ipilimumab plus nivolumab vs oral targeted drug cabozaninib. Given patient autoimmune disease history including psoriasis which is actively managed with Otezla as well as diagnosis of rheumatoid arthritis, and that immunotherapy has a high likelihood of exacerbating these underlying autoimmune syndrome, Dr. Gómez recommended targeted drug cabozantinib. She started Cabozantinib 60 mg daily on 06/11/2018. On 06/27/2018, patient went to [facility] and was evaluated by Dr. Natalie العراقي. CT of the head was performed that showed no acute intracranial abnormality. CT of the chest abdomen and pelvis showed that the previously seen right lower lobe nodule has resolved. But there were increased size of para- aortic lymph nodes. Incidentally pulmonary emboli in the right main pulmonary artery bifurcation and the right upper and lower lobar pulmonary arteries were identified. Patient therefore was called back to the emergency room of [facility] where patient was initiated Lovenox injection 120 mg twice daily. About early August 2018, patient developed abdominal wall hematoma. She was evaluated at the [facility] emergency room. Her Lovenox was then switched to Xarelto. Since then patient said that the hematoma has improved. However while at the emergency room, a small incision was cut into the hematoma. On 08/28/2018, patient was evaluated at our clinic. Patient at that time reported significant macular papular rashes in the hands, feet, back, and facce as well as at her private parts. In addition patient was found to have elevated liver function tests. Therefore we decided to hold the medications. During the interim, patient said that the rashes have improved dramatically. On 09/11/2018, she was able to restart Carbozantinib at 20 mg daily and has tolerated well so far. On 11/13/2018, patient underwent CT scan of the chest abdomen pelvis. The scan showed previous left nephrectomy, and resolution of left para-aortic and left common iliac charlene disease, resolution of right lower lobe lung nodule and no evidence of residual or recurrent disease. Interim Events: About a week ago, the patient called reporting significant epigastric abdominal pain. We instructed the patient to temporarily hold Carbozantinib on 01/01/2019. Since then patient reported that the abdominal discomfort has not improved. She presents today describing that the stomach pain feels like burning sensation, like somebody poking in her abdomen. She denies any fever or chills. She denies nausea. But she admits decreasing appetite. Her sister said that despite poor appetite, patient has had significant weight gain. - Patient Self-Reported Symptoms SR Constitution: Chills SR ears, nose, mouth, throat issues: Changes in taste SR respiratory issues: Shortness of breath SR Cardiovascular issues: Dizzy/lightheaded SR Skin issues: Hair loss or scalp prob SR Gastrointestinal issues: Diarrhea SR Genitourinary issues: Frequent urination, Incontinence SR Musculoskeletal issues: Muscle weakness SR Neuro issues: Difficulty balancing SR Hematologic issues: Bleeding/bruising SR Endocrine issues: Cold intolerance - Additional ROS All systems PM: reviewed and no additional remarkable complaints except as stated Home Medications and Allergies Home Medications Medication Instructions Recorded Confirmed Type apremilast [Otezla] 30 mg PO DAILY 02/07/18 01/05/19 History fluticasone propionate [Flovent 1 puff INHALATION Q12H 02/07/18 01/05/19 History HFA] hydroxyzine HCl 25 mg PO QID PRN 02/07/18 01/05/19 History minocycline 100 mg PO BID 02/07/18 01/05/19 History pramipexole 0.125 mg PO BEDTIME 02/07/18 01/05/19 History temazepam 15 mg PO BEDTIME PRN 02/07/18 01/05/19 History vitamin [id number] acid 1 tab PO DAILY 04/24/18 01/05/19 History amlodipine 5 mg PO DAILY #30 tab 06/26/18 01/05/19 Rx rivaroxaban [Xarelto] 20 mg PO DAILY 08/07/18 01/05/19 History cabozantinib 20 mg PO DAILY #30 tab 09/11/18 01/05/19 Rx cabozantinib [Cabometyx] 20 mg PO DAILY #30 tab 11/03/18 01/05/19 Rx Allergies Allergy/AdvReac Type Severity Reaction Status Date / Time bee venom protein (honey bee) Allergy Unknown Verified 07/13/18 14:44 enoxaparin [From Lovenox] Allergy Unknown Verified 09/11/18 14:44 iodine AdvReac Unknown Verified 07/13/18 14:44 MICRO AdvReac Unknown Uncoded 07/13/18 14:44 Exam Vital signs: Last Vital Signs Temp 97.0 F L 01/05/19 13:29 Pulse 69 01/05/19 13:29 Resp 18 01/05/19 13:29 BP 167/95 H 01/05/19 13:29 Pulse Ox 99 01/05/19 13:29 - Constitutional positive no acute distress, positive morbidly obese, positive chronically ill appearing, positive cooperative Comments: Accompanied by her sister to the clinic. - Routine HEENT Exam Head: Present: normocephalic, atraumatic Eye: Present: EOMI, PERRL, normal accommodation. Absent: conjunctival icterus ENT: Present: mucous membranes moist - Routine Neck Exam Present: supple. Absent: lymphadenopathy, thyromegaly - Routine Chest/Breast/Axilla Exam Axillae: Absent: lymphadenopathy - Routine Respiratory Exam Present: Clear to auscultation bilaterally. Absent: wheezes - Routine Cardiovascular Exam Present: RRR, S2. Absent: murmur, gallop, rubs - Routine Abdominal Exam Present: soft, tenderness (epigastric. ). Absent: distended, rebound, organomegaly - Routine Extremities Exam Absent: edema - Routine Back/Spine Exam Back/Spine: Present: full ROM - Routine Neurological Exam Present: alert, oriented X3, CN II-XII intact. Absent: sensory deficit, motor deficit - Routine Psychiatric Exam Present: normal affect Results - Labs Laboratory Last Values WBC 6.5 X10^3/uL (4.5-11.0) 12/31/18 16:12 RBC 3.92 X10^6/uL (4.0-5.2) L 12/31/18 16:12 Hgb 13.2 g/dL (12.0-16.0) 12/31/18 16:12 Hct 39.2 % (36-46) 12/31/18 16:12 MCV 100.0 fL (80-100) 12/31/18 16:12 MCH 33.6 PG (26-34) 12/31/18 16:12 MCHC 33.6 % (30-36) 12/31/18 16:12 RDW 14.0 % (11.6-14.8) 12/31/18 16:12 Plt Count 222 X10^3/uL (150-400) 12/31/18 16:12 Neut % (Auto) 51.4 % (50-75) 12/03/18 12:45 Lymph % (Auto) 39.2 % (25-40) 12/03/18 12:45 [place] % (Auto) 7.8 % (3-14) 12/03/18 12:45 Eos % (Auto) 1.2 % (2-4) L 12/03/18 12:45 Baso % (Auto) 0.4 % (0-2) 12/03/18 12:45 Neut # (Auto) 3200 /uL (3430-9213) 12/03/18 12:45 Lymph # (Auto) 2400 /uL (9762-8713) 12/03/18 12:45 [place] # (Auto) 500 /uL (0-900) 12/03/18 12:45 Eos # (Auto) 100 /uL (0-450) 12/03/18 12:45 Baso # (Auto) 0 /uL (0-100) 12/03/18 12:45 Total Counted 100 12/31/18 16:12 Seg Neutrophils % 57.0 % (38-70) 12/31/18 16:12 Lymphocytes % (Manual) 31.0 % (25-45) 12/31/18 16:12 Monocytes % (Manual) 9.0 % (2-11) 12/31/18 16:12 Eosinophils % (Manual) 2.0 % (2-4) 12/31/18 16:12 Basophils % (Manual) 1.0 % (0-1) 12/31/18 16:12 Neutrophils # (Manual) 3705 /uL (9529-7043) 12/31/18 16:12 RBC Morphology Normal morphology 12/31/18 16:12 Anisocytosis 2+ H 08/26/18 11:58 Sodium 140 mmol/L (137-145) 12/31/18 16:12 Potassium 3.9 mmol/L (3.4-5.1) 12/31/18 16:12 Chloride 108 mmol/L (98-107) H 12/31/18 16:12 Carbon Dioxide 27 mmol/L (22-32) 12/31/18 16:12 BUN 15 mg/dL (7-17) 12/31/18 16:12 Creatinine 0.80 mg/dL (0.52-1.04) 12/31/18 16:12 Estimated GFR > 60.0 mL/min (>60) 12/31/18 16:12 BUN/Creatinine Ratio 18.8 (6-22) 12/31/18 16:12 Glucose 83 mg/dL (80-110) 12/31/18 16:12 Calcium 9.0 mg/dL (8.4-10.2) 12/31/18 16:12 Magnesium 2.2 mg/dL (1.6-2.3) 12/03/18 12:45 Total Bilirubin 0.7 mg/dL (0.2-1.3) 12/31/18 16:12 AST 45 IU/L (14-36) H 12/31/18 16:12 ALT 38 IU/L (<35) H 12/31/18 16:12 Alkaline Phosphatase 61 U/L (38-126) 12/31/18 16:12 Lactate Dehydrogenase 587 U/L (313-618) 08/26/18 11:58 Total Protein 6.9 g/dL (6.3-8.2) 12/31/18 16:12 Albumin 3.8 g/dL (3.5-5.0) 12/31/18 16:12 Globulin 3.1 g/dL (1.7-4.1) 12/31/18 16:12 Albumin/Globulin Ratio 1.2 (1.0-2.8) 12/31/18 16:12 TSH 3.94 uIU/mL (0.47-4.68) 09/09/18 11:43 Assessment and Plan (1) Clear cell adenocarcinoma of left kidney Overview: 63 year old female with metastatic clear cell renal cell carcinoma, pT3a N1 Mx. She originally presented with hypercalcemia with headache, nausea and vomiting. CT 01/08/2018: left renal mass at least 9.7 cm with prominent retroperitoneal lymphadneopathy. Staging imagines (CT CAP, bone scan and PET) showed the known left kidney mass, and suspicious retroperitoneal and pelvic lymphadenopathy and right lower lung nodules. Status post left nephrectomy on 03/07/2018. Surgical pathology showed clear cell renal cell carcinoma. She was evaluated at [facility] by Dr. Ribeiro. Treatment with cabozantinib was recommended. She started Cabozatinib 60 mg daily on 06/11/2018. On 10/29/2018, cabozantinib was held due to grade 2 maculopapular rashes, grade 1 liver function abnormalities. Assessment: She was taking Cabozatinib 20 mg daily until 1 week ago on 01/01/2019 because of epigastric pain. However the pain persisted without any changes. I talked with her and her sister that it indicates that the medication is not the culprit for the epigastric pain. In addition patient has significant weight gain despite poor appetite. I was wondering about intra abdominal progression of disease. I talked with the patient and her sister that the cabozantinib is not a cure for the underlying metastatic clear cell renal cell carcinoma. It can only help delay the progression. I recommend that we obtain a restaging studies. They voiced understanding. As far as the epigastric pain is concerned, I recommended taking [id number] anti acid for example Mylanta and see if that can be of some help. Plan: 1. Resume Cabozatinib at [address] CAP w/contrast 3. RTC on 01/26/2019 for follow up visit. (2) Pulmonary embolism Overview: Incidental diagnosis of right lung pulmonary embolism in the right main pulmonary artery bifurcation and the right upper and lower lobar pulmonary arteries on 06/27/2018 during a workup for restaging of her clear cell renal cell carcinoma. Patient was adequately started on Lovenox 120 mg Q 12. Due to development of abdominal wall hematoma at the site of injection, Lovenox was subsequently switched to Xarelto. Assessment and Plan: Continue Xarelto 20 mg daily for now. (3) Morbid obesity No immediate intervention indicated. I encourage patient to think about weight control (4) Chronic anemia Normocytic. Likely related to multiple chronic disease. Stable. Need surveillance. (5) CKD (chronic kidney disease) stage 2, GFR 60-89 ml/min Need active surveillance. Stable. (6) Wound, open, abdominal wall, lateral The right lower quadrant abdominal wound is related to recent surgical incision for hematoma. Now resolved.
[2019-01-05 13:29] VITALS: BP 167/95; PULSE 69; RESP 18; TEMP 36.1; O2SAT 99
--- NOTE | 2019-01-12 10:27 | ONC.SCHED ---
CT auth#[id number] 01/12/19-03/12/19 for Jan 2019 scan.
--- NOTE | 2019-01-12 10:33 | ONC.SCHED ---
Gave msg. to Triage (Ana) regarding the prep needed for CT as patient is allergic to contrast. She will contact patient and order labs for the day of her test.
--- NOTE | 2019-01-13 09:24 | PC.NURSE ---
RX/ALLERGY TO IODINE/CT: Following RX given per verbal order from Dr. Burden and called in to [facility] with instructions and patient also informed per telephone. She repeated instructions and voiced understanding. We clarified that she would be taking the pills at 0130, [address] is at 1430. PREDNISONE 50MG #3 A. TAKE 1 TABLET PO 13 HOURS PRIOR TO EXAM B. TAKE 1 TABLET PO 7 HOURS PRIOR TO EXAM C. TAKE 1 TABLET PO 1 HOUR PRIOR TO EXAM BENADRYL 50MG TAKE 1 TABLET 1 HOUR PRIOR TO EXAM
--- NOTE | 2019-01-26 15:56 | ONC.PN ---
PN -Subjective Interval history: ID/CC: 63 year old female with metastatic renal clear cell carcinoma now on treatment with cabozantinib. Oncology History Ms Belgica Da Silva is a 62 year old female with a long list of medical co-morbidities most notable for morbid obesity, sleep apnea on CPAP, hypertension, rheumatoid arthritis, and psoriasis on Otezla (apremilast). In early December,, she developed headache, nausea, and vomiting. She was evaluated by Dr. Goel on 01/08/2018. The next day, she had a call from the nurse asking her to go to the emergency room due to serum calcium level of about 13. Patient stayed at the [facility] for about 3 days. Patient recalled that they gave her medications through the intravenous line. She underwent CT scan on 01/08/2018, that showed an left infiltrative lower/midpole originating heterogeneous iso-attenuating mass measuring at least 9.7 cm, pelvic retroperitoneal node cluster largest of which measuring 1.4 x 2.6 cm, and the most prominent nearby retroperitoneal lymph node measuring 2.2 x 1.2 cm. Sigmoid diverticulosis was also noted. On 02/03/2018, she was seen as post ER follow up at [facility]. Her calcium level has decreased to 11.5. Patient requested to be referred to [facility]. I first saw the patient on 02/07/2018. I referred the patient to [facility] for evaluation of possible surgical resection of left suspicious kidney cancer. In addition patient underwent staging studies as follows. On 02/12/2018, bone scan showed no osseous metastatic disease. Same day CT scan of the chest abdomen pelvis showed the large heterogeneously enhancing left renal mass with imaging characteristics highly suspicious for renal cell carcinoma, left leif-aortic retroperitoneal and left common iliac pelvic metastatic lymphadenopathy, and a 1.5 x 1.1 x 1.2 cm right lower lobe nodule highly suspicious for possible lung metastasis. On 02/19/2018, PET-CT showed a large left renal mass involving nearly the entire left kidney demonstrating abnormal FDG activity consistent with malignancy, a 1.4 x 2.1 cm left para-aortic lymph node demonstrating maximum SUV 2.3, additional enlarged retroperitoneal, mesenteric, and left iliac lymph node and bilateral inguinal lymph nodes demonstrating low FDG activity suggesting benign etiology and the 1.6 x 0.8 mc bilobed lung mass in the right lower lobe with low level increasing uptake with SUV 2.1 and a tiny 5 mm right middle lobe nodule with SUV maximum 0.8. The patient was seen by Natalie العراقي MD urologist at [facility] on 02/28/2018. The patient then underwent open left radical nephrectomy on 03/07/2018. 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 There was 10% rhabdoid change and there was necrosis within the tumor. Nuclear grade was 4. There was tumor extension into perinephric tissues, the renal sinus, a major vein and the pelvicalyceal system. All surgical margins were negative. One of 1 lymph node in the surgical specimen was involved by carcinoma with a 4 cm deposit. Final pathologic staging was pT3a N1. She was referred to and was evaluated by Dr. Ribeiro on 05/06/2018. Dr. Ribeiro did not think that the patient was a suitable candidate for high-dose interleukin 2 treatment. No open front line clinical trials were available either at this moment. Dr. Gómez discussed variety of treatment options including immunotherapy ipilimumab plus nivolumab vs oral targeted drug cabozaninib. Given patient autoimmune disease history including psoriasis which is actively managed with Otezla as well as diagnosis of rheumatoid arthritis, and that immunotherapy has a high likelihood of exacerbating these underlying autoimmune syndrome, Dr. Gómez recommended targeted drug cabozantinib. She started Cabozantinib 60 mg daily on 06/11/2018. On 06/27/2018, patient went to [facility] and was evaluated by Dr. Natalie العراقي. CT of the head was performed that showed no acute intracranial abnormality. CT of the chest abdomen and pelvis showed that the previously seen right lower lobe nodule has resolved. But there were increased size of para-aortic lymph nodes. Incidentally pulmonary emboli in the right main pulmonary artery bifurcation and the right upper and lower lobar pulmonary arteries were identified. Patient therefore was called back to the emergency room of [facility] where patient was initiated Lovenox injection 120 mg twice daily. About early August 2018, patient developed abdominal wall hematoma. She was evaluated at the [facility] emergency room. Her Lovenox was then switched to Xarelto. Since then patient said that the hematoma has improved. However while at the emergency room, a small incision was cut into the hematoma. On 08/28/2018, patient was evaluated at our clinic. Patient at that time reported significant macular papular rashes in the hands, feet, back, and facce as well as at her private parts. In addition patient was found to have elevated liver function tests. Therefore we decided to hold the medications. During the interim, patient said that the rashes have improved dramatically. On 09/11/2018, she was able to restart Carbozantinib at 20 mg daily and has tolerated well so far. On 11/13/2018, patient underwent CT scan of the chest abdomen pelvis. The scan showed previous left nephrectomy, and resolution of left para-aortic and left common iliac charlene disease, resolution of right lower lobe lung nodule and no evidence of residual or recurrent disease. Interim Events: Because of abdominal pain during her previous visit and unexplained weight gain, we obtained CT chest abdomen and pelvis on 01/20/2019. The scan showed chest abdomen and pelvis without acute abnormalities, status post left nephrectomy, and no evidence for residual or recurrent disease. She is here accompanied by her sister. Belgica overall has been doing well. She has good appetite. No shortness of breath no chest pain. She does have some nausea. She denies any new abdominal pain. She denies any diarrhea or constipation. She denies any new skin rashes. She is now taking cabozantinib 20 mg once a day. - Patient Self-Reported Symptoms SR Constitution: Chills SR eye issues: Double vision SR ears, nose, mouth, throat issues: Changes in taste SR respiratory issues: Shortness of breath SR Cardiovascular issues: Dizzy/lightheaded SR Skin issues: Hair loss or scalp prob SR Gastrointestinal issues: Poor or no appetite, Diarrhea, Abdominal pain SR Genitourinary issues: Frequent urination, Incontinence SR Musculoskeletal issues: Joint pain or swelling, Muscle weakness, Muscle pain or cramps, Difficulty walking, Bone pain SR Neuro issues: Headache SR Hematologic issues: Bleeding/bruising SR Endocrine issues: Cold intolerance, Excessive urination - Additional ROS All systems PM: reviewed and no additional remarkable complaints except as stated Home Medications and Allergies Home Medications Medication Instructions Recorded Confirmed Type apremilast [Otezla] 30 mg PO DAILY 02/07/18 01/05/19 History fluticasone propionate [Flovent 1 puff INHALATION Q12H 02/07/18 01/05/19 History HFA] hydroxyzine HCl 25 mg PO QID PRN 02/07/18 01/05/19 History minocycline 100 mg PO BID 02/07/18 01/05/19 History pramipexole 0.125 mg PO BEDTIME 02/07/18 01/05/19 History temazepam 15 mg PO BEDTIME PRN 02/07/18 01/05/19 History vitamin [id number] acid 1 tab PO DAILY 04/24/18 01/05/19 History amlodipine 5 mg PO DAILY #30 tab 06/26/18 01/05/19 Rx rivaroxaban [Xarelto] 20 mg PO DAILY 08/07/18 01/05/19 History cabozantinib 20 mg PO DAILY #30 tab 09/11/18 01/05/19 Rx cabozantinib [Cabometyx] 20 mg PO DAILY #30 tab 11/03/18 01/05/19 Rx Allergies Allergy/AdvReac Type Severity Reaction Status Date / Time bee venom protein (honey bee) Allergy Unknown Verified 07/13/18 14:44 enoxaparin [From Lovenox] Allergy Unknown Verified 09/11/18 14:44 iodine AdvReac Unknown Verified 07/13/18 14:44 MICRO AdvReac Unknown Uncoded 07/13/18 14:44 Results - Labs Laboratory Last Values WBC 6.5 X10^3/uL (4.5-11.0) 12/31/18 16:12 RBC 3.92 X10^6/uL (4.0-5.2) L 12/31/18 16:12 Hgb 13.2 g/dL (12.0-16.0) 12/31/18 16:12 Hct 39.2 % (36-46) 12/31/18 16:12 MCV 100.0 fL (80-100) 12/31/18 16:12 MCH 33.6 PG (26-34) 12/31/18 16:12 MCHC 33.6 % (30-36) 12/31/18 16:12 RDW 14.0 % (11.6-14.8) 12/31/18 16:12 Plt Count 222 X10^3/uL (150-400) 12/31/18 16:12 Neut % (Auto) 51.4 % (50-75) 12/03/18 12:45 Lymph % (Auto) 39.2 % (25-40) 12/03/18 12:45 [place] % (Auto) 7.8 % (3-14) 12/03/18 12:45 Eos % (Auto) 1.2 % (2-4) L 12/03/18 12:45 Baso % (Auto) 0.4 % (0-2) 12/03/18 12:45 Neut # (Auto) 3200 /uL (7171-0568) 12/03/18 12:45 Lymph # (Auto) 2400 /uL (4093-2377) 12/03/18 12:45 [place] # (Auto) 500 /uL (0-900) 12/03/18 12:45 Eos # (Auto) 100 /uL (0-450) 12/03/18 12:45 Baso # (Auto) 0 /uL (0-100) 12/03/18 12:45 Total Counted 100 12/31/18 16:12 Seg Neutrophils % 57.0 % (38-70) 12/31/18 16:12 Lymphocytes % (Manual) 31.0 % (25-45) 12/31/18 16:12 Monocytes % (Manual) 9.0 % (2-11) 12/31/18 16:12 Eosinophils % (Manual) 2.0 % (2-4) 12/31/18 16:12 Basophils % (Manual) 1.0 % (0-1) 12/31/18 16:12 Neutrophils # (Manual) 3705 /uL (1490-7228) 12/31/18 16:12 RBC Morphology Normal morphology 12/31/18 16:12 Anisocytosis 2+ H 08/26/18 11:58 Sodium 140 mmol/L (137-145) 12/31/18 16:12 Potassium 3.9 mmol/L (3.4-5.1) 12/31/18 16:12 Chloride 108 mmol/L (98-107) H 12/31/18 16:12 Carbon Dioxide 27 mmol/L (22-32) 12/31/18 16:12 BUN 15 mg/dL (7-17) 12/31/18 16:12 Creatinine 0.80 mg/dL (0.52-1.04) 12/31/18 16:12 Estimated GFR > 60.0 mL/min (>60) 12/31/18 16:12 BUN/Creatinine Ratio 18.8 (6-22) 12/31/18 16:12 Glucose 83 mg/dL (80-110) 12/31/18 16:12 Calcium 9.0 mg/dL (8.4-10.2) 12/31/18 16:12 Magnesium 2.2 mg/dL (1.6-2.3) 12/03/18 12:45 Total Bilirubin 0.7 mg/dL (0.2-1.3) 12/31/18 16:12 AST 45 IU/L (14-36) H 12/31/18 16:12 ALT 38 IU/L (<35) H 12/31/18 16:12 Alkaline Phosphatase 61 U/L (38-126) 12/31/18 16:12 Lactate Dehydrogenase 587 U/L (313-618) 08/26/18 11:58 Total Protein 6.9 g/dL (6.3-8.2) 12/31/18 16:12 Albumin 3.8 g/dL (3.5-5.0) 12/31/18 16:12 Globulin 3.1 g/dL (1.7-4.1) 12/31/18 16:12 Albumin/Globulin Ratio 1.2 (1.0-2.8) 12/31/18 16:12 TSH 3.94 uIU/mL (0.47-4.68) 09/09/18 11:43 Assessment and Plan (1) Clear cell adenocarcinoma of left kidney Overview: 63 year old female with metastatic clear cell renal cell carcinoma, pT3a N1 Mx. She originally presented with hypercalcemia with headache, nausea and vomiting. CT 01/08/2018: left renal mass at least 9.7 cm with prominent retroperitoneal lymphadneopathy. Staging imagine (CT CAP, bone scan and PET) showed the known left kidney mass, and suspicious retroperitoneal and pelvic lymphadenopathy and right lower lung nodules. Status post left nephrectomy on 03/07/2018. Surgical pathology showed clear cell renal cell carcinoma. She was evaluated at [facility] by Dr. Ribeiro. Treatment with cabozantinib was recommended. She started Cabozatinib 60 mg daily on 06/11/2018. On 10/29/2018, cabozantinib was held due to grade 2 maculopapular rashes, grade 1 liver function abnormalities. On 09/11/2018, she was able to restart Carbozantinib at 20 mg daily and has tolerated well so far. Assessment: During her previous visit, because of abdominal pain and weight gain, we obtained CT chest abdomen pelvis to evaluate if there is any evidence of disease recurrence or progression. Patient underwent CT of the chest abdomen pelvis on 01/20/2019. It showed no evidence for residual or recurrent disease. Abdominal pain has spontaneously resolved. Plan: 1. Continue Cabozatinib at 20 mg daily 2. RTC on 03/2019 for follow up visit, CBC, CMP, LDH (2) Pulmonary embolism Overview: Incidental diagnosis of right lung pulmonary embolism in the right main pulmonary artery bifurcation and the right upper and lower lobar pulmonary arteries on 06/27/2018 during a workup for restaging of her clear cell renal cell carcinoma. Patient was adequately started on Lovenox 120 mg Q 12. Due to development of abdominal wall hematoma at the site of injection, Lovenox was subsequently switched to Xarelto. Assessment and Plan: Continue Xarelto 20 mg daily for now. (3) Morbid obesity No immediate intervention indicated. I encourage patient to think about weight control (4) Chronic anemia Normocytic. Likely related to multiple chronic disease. Stable. Need surveillance. (5) CKD (chronic kidney disease) stage 2, GFR 60-89 ml/min Need active surveillance. Stable. (6) Wound, open, abdominal wall, lateral The right lower quadrant abdominal wound is related to recent surgical incision for hematoma. Now resolved.
[2019-01-26 15:58] VITALS: BP 161/89; PULSE 84; RESP 16; TEMP 37.3; O2SAT 100
[2019-04-09 17:58] LABS: Add Manual Diff / Slide Review NO; Basophils Absolute Auto 0 /uL (0-100); Basophils Percent Auto 0.6 % (0-2); Eosinophils Absolute Auto 100 /uL (0-450); Eosinophils Percent Auto 2.1 % (2-4); Hematocrit 39.9 % (36-46); Hemoglobin 13.5 g/dL (12.0-16.0); Lymphocytes Absolute Auto 2200 /uL (1100-4500); Lymphocytes Percent Auto 33.1 % (25-40); Mean Corpuscular HGB Conc 33.7 % (30-36); Mean Corpuscular Hemoglobin 34.4 PG (26-34); Monocytes Absolute Auto 500 /uL (0-900); Monocytes Percent Auto 7.2 % (3-14); Neutrophils Absolute Auto 3800 /uL (1500-7000); Platelet Count 219 X10^3/uL (150-400); Red Blood Cell Count 3.91 X10^6/uL (4.0-5.2); Red Cell Distribution Width 13.8 % (11.6-14.8); White Blood Cell Count 6.7 X10^3/uL (4.5-11.0)
[2019-04-09 18:13] LABS: Alanine Aminotransferase 34 IU/L (<35); Albumin 3.7 g/dL (3.5-5.0); Albumin Globulin Ratio 1.2 (1.0-2.8); Alkaline Phosphatase 62 U/L (38-126); Aspartate Aminotransferase 34 IU/L (14-36); Bilirubin Total 0.3 mg/dL (0.2-1.3); Blood Urea Nitrogen 18 mg/dL (7-17); Carbon Dioxide 27 mmol/L (22-32); Chloride 110 mmol/L (98-107); Estimated Glomerular Filt Rate 56.4 mL/min (>60); Globulin 3.2 g/dL (1.7-4.1); Glucose 105 mg/dL (80-110); HEMOLYSIS < 15 (0-50); Lactate Dehydrogenase 545 U/L (313-618); Potassium 3.3 mmol/L (3.4-5.1); Sodium 143 mmol/L (137-145); Total Protein 6.9 g/dL (6.3-8.2)
--- NOTE | 2019-04-13 13:23 | ONC.PN ---
PN -Subjective Interval history: ID/CC: 63 year old female with metastatic renal clear cell carcinoma now on treatment with cabozantinib, and pulmonary embolism on Xarelto. Oncology History Ms Belgica Da Silva is a 62 year old female with a long list of medical co-morbidities most notable for morbid obesity, sleep apnea on CPAP, hypertension, rheumatoid arthritis, and psoriasis on Otezla (apremilast). In early December,, she developed headache, nausea, and vomiting. She was evaluated by Dr. Goel on 01/08/2018. The next day, she had a call from the nurse asking her to go to the emergency room due to serum calcium level of about 13. Patient stayed at the [facility] for about 3 days. Patient recalled that they gave her medications through the intravenous line. She underwent CT scan on 01/08/2018, that showed an left infiltrative lower/midpole originating heterogeneous iso-attenuating mass measuring at least 9.7 cm, pelvic retroperitoneal node cluster largest of which measuring 1.4 x 2.6 cm, and the most prominent nearby retroperitoneal lymph node measuring 2.2 x 1.2 cm. Sigmoid diverticulosis was also noted. On 02/03/2018, she was seen as post ER follow up at [facility]. Her calcium level has decreased to 11.5. Patient requested to be referred to [facility]. I first saw the patient on 02/07/2018. I referred the patient to [facility] for evaluation of possible surgical resection of left suspicious kidney cancer. In addition patient underwent staging studies as follows. On 02/12/2018, bone scan showed no osseous metastatic disease. Same day CT scan of the chest abdomen pelvis showed the large heterogeneously enhancing left renal mass with imaging characteristics highly suspicious for renal cell carcinoma, left leif-aortic retroperitoneal and left common iliac pelvic metastatic lymphadenopathy, and a 1.5 x 1.1 x 1.2 cm right lower lobe nodule highly suspicious for possible lung metastasis. On 02/19/2018, PET-CT showed a large left renal mass involving nearly the entire left kidney demonstrating abnormal FDG activity consistent with malignancy, a 1.4 x 2.1 cm left para-aortic lymph node demonstrating maximum SUV 2.3, additional enlarged retroperitoneal, mesenteric, and left iliac lymph node and bilateral inguinal lymph nodes demonstrating low FDG activity suggesting benign etiology and the 1.6 x 0.8 mc bilobed lung mass in the right lower lobe with low level increasing uptake with SUV 2.1 and a tiny 5 mm right middle lobe nodule with SUV maximum 0.8. The patient was seen by Natalie العراقي MD urologist at [facility] on 02/28/2018. The patient then underwent open left radical nephrectomy on 03/07/2018. 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 There was 10% rhabdoid change and there was necrosis within the tumor. Nuclear grade was 4. There was tumor extension into perinephric tissues, the renal sinus, a major vein and the pelvicalyceal system. All surgical margins were negative. One of 1 lymph node in the surgical specimen was involved by carcinoma with a 4 cm deposit. Final pathologic staging was pT3a N1. She was referred to and was evaluated by Dr. Ribeiro on 05/06/2018. Dr. Ribeiro did not think that the patient was a suitable candidate for high-dose interleukin 2 treatment. No open front line clinical trials were available either at this moment. Dr. Gómez discussed variety of treatment options including immunotherapy ipilimumab plus nivolumab vs oral targeted drug cabozaninib. Given patient autoimmune disease history including psoriasis which is actively managed with Otezla as well as diagnosis of rheumatoid arthritis, and that immunotherapy has a high likelihood of exacerbating these underlying autoimmune syndrome, Dr. Gómez recommended targeted drug cabozantinib. She started Cabozantinib 60 mg daily on 06/11/2018. On 06/27/2018, patient went to [facility] and was evaluated by Dr. Natalie العراقي. CT of the head was performed that showed no acute intracranial abnormality. CT of the chest abdomen and pelvis showed that the previously seen right lower lobe nodule has resolved. But there were increased size of para-aortic lymph nodes. Incidentally pulmonary emboli in the right main pulmonary artery bifurcation and the right upper and lower lobar pulmonary arteries were identified. Patient therefore was called back to the emergency room of [facility] where patient was initiated Lovenox injection 120 mg twice daily. About early August 2018, patient developed abdominal wall hematoma. She was evaluated at the [facility] emergency room. Her Lovenox was then switched to Xarelto. Since then patient said that the hematoma has improved. However while at the emergency room, a small incision was cut into the hematoma. On 08/28/2018, patient was evaluated at our clinic. Patient at that time reported significant macular papular rashes in the hands, feet, back, and facce as well as at her private parts. In addition patient was found to have elevated liver function tests. Therefore we decided to hold the medications. During the interim, patient said that the rashes have improved dramatically. On 09/11/2018, she was able to restart Carbozantinib at 20 mg daily and has tolerated well so far. On 11/13/2018, patient underwent CT scan of the chest abdomen pelvis. The scan showed previous left nephrectomy, and resolution of left para-aortic and left common iliac charlene disease, resolution of right lower lobe lung nodule and no evidence of residual or recurrent disease. CT chest abdomen and pelvis on 01/20/2019. The scan showed chest abdomen and pelvis without acute abnormalities, status post left nephrectomy, and no evidence for residual or recurrent disease. Interim Events: Patient now is taking Xarelto 20 mg once a day and caboxantinib 20 mg once a day. Patient said that she has tolerated very well. The rashes she used to have have almost completely resolved. She has only very scattered 3 or 5 papular rashes on the upper part of the back. She denies any fever or chills. She denies any headache double vision or blurred vision. No shortness of breath no chest pain. No abdominal pain no diarrhea no constipation. She said she is very happy with the current situation. Treatment Summary: 1. Open left radical nephrectomy by Dr. Natalie العراقي at [facility] on 03/07/2018 2. Cabozantinib 60 mg daily started on 06/11/2018. 3. Anticoagulation since 07/07/2018 for PE, lovelox > Xarelto. - Patient Self-Reported Symptoms SR Constitution: Fatigue/Malaise SR eye issues: Vision changes, Double vision SR ears, nose, mouth, throat issues: Cough SR respiratory issues: Shortness of breath SR Cardiovascular issues: Shortness of breath with activity or lying flat, Dizzy/lightheaded SR Skin issues: Dry skin SR Gastrointestinal issues: Vomiting, Heartburn SR Genitourinary issues: Frequent urination, Incontinence SR Musculoskeletal issues: Joint pain or swelling, Muscle weakness SR Neuro issues: Headache SR Hematologic issues: Bleeding/bruising SR Endocrine issues: Cold intolerance - Additional ROS All systems PM: reviewed and no additional remarkable complaints except as stated Home Medications and Allergies Home Medications Medication Instructions Recorded Confirmed Type apremilast [Otezla] 30 mg PO DAILY 02/07/18 04/13/19 History fluticasone propionate [Flovent 1 puff INHALATION Q12H 02/07/18 04/13/19 History HFA] hydroxyzine HCl 25 mg PO QID PRN 02/07/18 04/13/19 History minocycline 100 mg PO BID 02/07/18 04/13/19 History pramipexole 0.125 mg PO BEDTIME 02/07/18 04/13/19 History temazepam 15 mg PO BEDTIME PRN 02/07/18 04/13/19 History vitamin [id number] acid 1 tab PO DAILY 04/24/18 04/13/19 History amlodipine 5 mg PO DAILY #30 tab 06/26/18 04/13/19 Rx rivaroxaban [Xarelto] 20 mg PO DAILY 08/07/18 04/13/19 History cabozantinib 20 mg PO DAILY #30 tab 09/11/18 04/13/19 Rx cabozantinib [Cabometyx] 20 mg PO DAILY #30 tab 11/03/18 04/13/19 Rx Allergies Allergy/AdvReac Type Severity Reaction Status Date / Time bee venom protein (honey bee) Allergy Unknown Verified 07/13/18 14:44 enoxaparin [From Lovenox] Allergy Unknown Verified 09/11/18 14:44 iodine AdvReac Unknown Verified 07/13/18 14:44 MICRO AdvReac Unknown Uncoded 07/13/18 14:44 Exam Vital signs: 04/13/19 13:40 Last Vital Signs Temp 90.9 F L 04/13/19 13:36 Pulse 83 04/13/19 13:36 Resp 18 04/13/19 13:36 BP 134/87 04/13/19 13:36 Pulse Ox 100 01/26/19 15:58 Narrative: ECOG 1 Gen: WDWN, NAD, pleasant and cooperative, morbid obesity, in wheelchair. HEENT: NCAT, EOMI, PERRLA, anicteric sclera. Neck: Supple, No palpable thyromegaly or lymphadenopathy. Respiratory: CTAB, no wheezes audible. No JVD Cardiovascular: RRR, S1 and S2 normal, no M/G/R. Abdomen: Soft, NTND, BS normal, difficult to evaluate organomegaly Extremities: Mild lower extremity edema bilaterally Lymphatic: no palpable lymph nodes in the neck, axillae Neurological: AOx3, CN II-XII grossly intact. No focal motor or sensory deficit. Psychiatric: Good judgment and insight; normal affect; normal thought process Results - Labs Laboratory Last Values WBC 6.7 X10^3/uL (4.5-11.0) 04/09/19 17:44 RBC 3.91 X10^6/uL (4.0-5.2) L 04/09/19 17:44 Hgb 13.5 g/dL (12.0-16.0) 04/09/19 17:44 Hct 39.9 % (36-46) 04/09/19 17:44 MCV 102.0 fL (80-100) H 04/09/19 17:44 MCH 34.4 PG (26-34) H 04/09/19 17:44 MCHC 33.7 % (30-36) 04/09/19 17:44 RDW 13.8 % (11.6-14.8) 04/09/19 17:44 Plt Count 219 X10^3/uL (150-400) 04/09/19 17:44 Neut % (Auto) 57.0 % (50-75) 04/09/19 17:44 Lymph % (Auto) 33.1 % (25-40) 04/09/19 17:44 [place] % (Auto) 7.2 % (3-14) 04/09/19 17:44 Eos % (Auto) 2.1 % (2-4) 04/09/19 17:44 Baso % (Auto) 0.6 % (0-2) 04/09/19 17:44 Neut # (Auto) 3800 /uL (4507-9473) 04/09/19 17:44 Lymph # (Auto) 2200 /uL (0143-5758) 04/09/19 17:44 [place] # (Auto) 500 /uL (0-900) 04/09/19 17:44 Eos # (Auto) 100 /uL (0-450) 04/09/19 17:44 Baso # (Auto) 0 /uL (0-100) 04/09/19 17:44 Total Counted 100 12/31/18 16:12 Seg Neutrophils % 57.0 % (38-70) 12/31/18 16:12 Lymphocytes % (Manual) 31.0 % (25-45) 12/31/18 16:12 Monocytes % (Manual) 9.0 % (2-11) 12/31/18 16:12 Eosinophils % (Manual) 2.0 % (2-4) 12/31/18 16:12 Basophils % (Manual) 1.0 % (0-1) 12/31/18 16:12 Neutrophils # (Manual) 3705 /uL (4361-0867) 12/31/18 16:12 RBC Morphology Normal morphology 12/31/18 16:12 Anisocytosis 2+ H 08/26/18 11:58 Sodium 143 mmol/L (137-145) 04/09/19 17:44 Potassium 3.3 mmol/L (3.4-5.1) L 04/09/19 17:44 Chloride 110 mmol/L (98-107) H 04/09/19 17:44 Carbon Dioxide 27 mmol/L (22-32) 04/09/19 17:44 BUN 18 mg/dL (7-17) H 04/09/19 17:44 Creatinine 1.00 mg/dL (0.52-1.04) 04/09/19 17:44 Estimated GFR 56.4 mL/min (>60) L 04/09/19 17:44 BUN/Creatinine Ratio 18.0 (6-22) 04/09/19 17:44 Glucose 105 mg/dL (80-110) 04/09/19 17:44 Calcium 9.0 mg/dL (8.4-10.2) 04/09/19 17:44 Magnesium 2.2 mg/dL (1.6-2.3) 12/03/18 12:45 Total Bilirubin 0.3 mg/dL (0.2-1.3) 04/09/19 17:44 AST 34 IU/L (14-36) 04/09/19 17:44 ALT 34 IU/L (<35) 04/09/19 17:44 Alkaline Phosphatase 62 U/L (38-126) 04/09/19 17:44 Lactate Dehydrogenase 545 U/L (313-618) 04/09/19 17:44 Total Protein 6.9 g/dL (6.3-8.2) 04/09/19 17:44 Albumin 3.7 g/dL (3.5-5.0) 04/09/19 17:44 Globulin 3.2 g/dL (1.7-4.1) 04/09/19 17:44 Albumin/Globulin Ratio 1.2 (1.0-2.8) 04/09/19 17:44 TSH 3.94 uIU/mL (0.47-4.68) 09/09/18 11:43 Assessment and Plan (1) Clear cell adenocarcinoma of left kidney Overview: 63 year old female with metastatic clear cell renal cell carcinoma, pT3a N1 Mx. She originally presented with hypercalcemia with headache, nausea and vomiting. CT 01/08/2018: left renal mass at least 9.7 cm with prominent retroperitoneal lymphadneopathy. Staging imagine (CT CAP, bone scan and PET) showed the known left kidney mass, and suspicious retroperitoneal and pelvic lymphadenopathy and right lower lung nodules. Status post left nephrectomy on 03/07/2018. Surgical pathology showed clear cell renal cell carcinoma. She was evaluated at [facility] by Dr. Ribeiro. Treatment with cabozantinib was recommended. She started Cabozatinib 60 mg daily on 06/11/2018. On 10/29/2018, cabozantinib was held due to grade 2 maculopapular rashes, grade 1 liver function abnormalities. On 09/11/2018, she was able to restart Carbozantinib at 20 mg daily and has tolerated well so far. Patient underwent CT of the chest abdomen pelvis on 01/20/2019. It showed no evidence for residual or recurrent disease. Assessment: Since her previous visit, clinically patient has been doing well. I talked with her that I will continue current treatment with cabozantinib at 20 mg once a day. Will repeat restaging studies in about 3 months. Plan: 1. Continue Cabozatinib at [address] CAP w/contrast in 3 months. 3. RTC on 06/2019 for follow up visit, CBC, CMP, LDH (2) Pulmonary embolism Overview: Incidental diagnosis of right lung pulmonary embolism in the right main pulmonary artery bifurcation and the right upper and lower lobar pulmonary arteries on 06/27/2018 during a workup for restaging of her clear cell renal cell carcinoma. Patient was adequately started on Lovenox 120 mg Q 12. Due to development of abdominal wall hematoma at the site of injection, Lovenox was subsequently switched to Xarelto. Assessment and Plan: Continue Xarelto 20 mg daily for now. (3) Morbid obesity No immediate intervention indicated. I encourage patient to think about weight control (4) Chronic anemia Normocytic. Likely related to multiple chronic disease. Stable. Need surveillance. (5) CKD (chronic kidney disease) stage 2, GFR 60-89 ml/min Need active surveillance. Stable. (6) Wound, open, abdominal wall, lateral The right lower quadrant abdominal wound is related to recent surgical incision for hematoma. Now resolved.
[2019-04-13 13:36] VITALS: BP 134/87; PULSE 83; RESP 18; TEMP 32.7
--- NOTE | 2019-05-07 17:33 | PC.NURSE ---
CABOMETYX: REFILL SCRIPT FAXED TO [facility] AT [phone]. PHONE IS [phone].
--- NOTE | 2019-06-03 11:37 | PC.NURSE ---
Addendum entered by Shilpa Wolf R.N. 06/03/19 14:16: HOLD CABOZATINIB PER DR MABRY; PATIENT INFORMED PER TELEPHONE, SCHEDULERS INFORMED TO RESCHEDULE F/U. Original Note: RASH ON FACE, NECK, CHEST, BACK AND GENITALS. PATIENTS DESCRIBES IT RED BUMPS WHICH FILL WITH PUS AND ARE PAINFUL AND ITCHY. SHE SAYS THEY ARE LIKE WHAT SHE HAD WHEN DR MABRY HELD THE CABOZANTINIB. PATIENT INSTRUCTED TO KEEP SKIN CLEAN AND MOISTURIZED AND TO WEAR LOOSE CLOTHING. NOTE TO DR MABRY WITH REQUEST FOR FURTHER INSTRUCTION.
[2019-06-04 12:16] VITALS: BP 159/85; PULSE 78; RESP 18; TEMP 36.8; O2SAT 100
--- NOTE | 2019-06-04 12:22 | P.PNONC_ITS ---
PN -Subjective Interval history: ID/CC: 63 year old female with metastatic renal clear cell carcinoma now on treatment with cabozantinib, and pulmonary embolism on Xarelto. Oncology History Ms Belgica Da Silva is a 62 year old female with a long list of medical co- morbidities most notable for morbid obesity, sleep apnea on CPAP, hypertension, rheumatoid arthritis, and psoriasis on Otezla (apremilast). In early December,, she developed headache, nausea, and vomiting. She was evaluated by Dr. Goel on 01/08/2018. The next day, she had a call from the nurse asking her to go to the emergency room due to serum calcium level of about 13. Patient stayed at the [facility] for about 3 days. Patient recalled that they gave her medications through the intravenous line. She underwent CT scan on 01/08/2018, that showed an left infiltrative lower/midpole originating heterogeneous iso-attenuating mass measuring at least 9.7 cm, pelvic retroperitoneal node cluster largest of which measuring 1.4 x 2.6 cm, and the most prominent nearby retroperitoneal lymph node measuring 2.2 x 1.2 cm. Sigmoid diverticulosis was also noted. On 02/03/2018, she was seen as post ER follow up at [facility]. Her calcium level has decreased to 11.5. Patient requested to be referred to [facility]. I first saw the patient on 02/07/2018. I referred the patient to [facility] for evaluation of possible surgical resection of left suspicious kidney cancer. In addition patient underwent staging studies as follows. On 02/12/2018, bone scan showed no osseous metastatic disease. Same day CT scan of the chest abdomen pelvis showed the large heterogeneously enhancing left renal mass with imaging characteristics highly suspicious for renal cell carcinoma, left leif-aortic retroperitoneal and left common iliac pelvic metastatic lymphadenopathy, and a 1.5 x 1.1 x 1.2 cm right lower lobe nodule highly suspicious for possible lung metastasis. On 02/19/2018, PET-CT showed a large left renal mass involving nearly the entire left kidney demonstrating abnormal FDG activity consistent with malignancy, a 1.4 x 2.1 cm left para-aortic lymph node demonstrating maximum SUV 2.3, additional enlarged retroperitoneal, mesenteric, and left iliac lymph node and bilateral inguinal lymph nodes demonstrating low FDG activity suggesting benign etiology and the 1.6 x 0.8 mc bilobed lung mass in the right lower lobe with low level increasing uptake with SUV 2.1 and a tiny 5 mm right middle lobe nodule with SUV maximum 0.8. The patient was seen by Natalie العراقي MD urologist at [facility] on 02/28/2018. The patient then underwent open left radical nephrectomy on 03/07/2018. 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 There was 10% rhabdoid change and there was necrosis within the tumor. Nuclear grade was 4. There was tumor extension into perinephric tissues, the renal sinus, a major vein and the pelvicalyceal system. All surgical margins were negative. One of 1 lymph node in the surgical specimen was involved by carcinoma with a 4 cm deposit. Final pathologic staging was pT3a N1. She was referred to and was evaluated by Dr. Ribeiro on 05/06/2018. Dr. Ribeiro did not think that the patient was a suitable candidate for high-dose interleukin 2 treatment. No open front line clinical trials were available either at this moment. Dr. Gómez discussed variety of treatment options including immunotherapy ipilimumab plus nivolumab vs oral targeted drug cabozaninib. Given patient autoimmune disease history including psoriasis which is actively managed with Otezla as well as diagnosis of rheumatoid arthritis, and that immunotherapy has a high likelihood of exacerbating these underlying autoimmune syndrome, Dr. Gómez recommended targeted drug cabozantinib. She started Cabozantinib 60 mg daily on 06/11/2018. On 06/27/2018, patient went to [facility] and was evaluated by Dr. Natalie العراقي. CT of the head was performed that showed no acute intracranial abnormality. CT of the chest abdomen and pelvis showed that the previously seen right lower lobe nodule has resolved. But there were increased size of para- aortic lymph nodes. Incidentally pulmonary emboli in the right main pulmonary artery bifurcation and the right upper and lower lobar pulmonary arteries were identified. Patient therefore was called back to the emergency room of [facility] where patient was initiated Lovenox injection 120 mg twice daily. About early August 2018, patient developed abdominal wall hematoma. She was evaluated at the [facility] emergency room. Her Lovenox was then switched to Xarelto. Since then patient said that the hematoma has improved. However while at the emergency room, a small incision was cut into the hematoma. On 08/28/2018, patient was evaluated at our clinic. Patient at that time reported significant macular papular rashes in the hands, feet, back, and facce as well as at her private parts. In addition patient was found to have elevated liver function tests. Therefore we decided to hold the medications. During the interim, patient said that the rashes have improved dramatically. On 09/11/2018, she was able to restart Carbozantinib at 20 mg daily and has tolerated well so far. On 11/13/2018, patient underwent CT scan of the chest abdomen pelvis. The scan showed previous left nephrectomy, and resolution of left para-aortic and left common iliac charlene disease, resolution of right lower lobe lung nodule and no evidence of residual or recurrent disease. CT chest abdomen and pelvis on 01/20/2019. The scan showed chest abdomen and pelvis without acute abnormalities, status post left nephrectomy, and no evidence for residual or recurrent disease. Interim Events: Patient now is taking Xarelto 20 mg once a day and caboxantinib 20 mg once a day. This is an on scheduled visit. Patient reported that for the past 1 week, she has noticed itching rashes macular papular scattered around the inner side of the thighs as well as upper back. She said it is intensely itching she has to scratch a lot. No fever no chills. No nausea no vomiting. No diarrhea and no constipation. Treatment Summary: 1. Open left radical nephrectomy by Dr. Natalie العراقي at [facility] on 03/07/2018 2. Cabozantinib 60 mg daily started on 06/11/2018. 3. Anticoagulation since 07/07/2018 for PE, lovelox > Xarelto. - Patient Self-Reported Symptoms SR Constitution: Chills, Weight loss/gain SR eye issues: Vision changes SR ears, nose, mouth, throat issues: Changes in taste SR respiratory issues: Shortness of breath SR Cardiovascular issues: Shortness of breath with activity or lying flat, Dizzy/lightheaded SR Skin issues: Skin rash or itching SR Gastrointestinal issues: Vomiting, Heartburn SR Genitourinary issues: Frequent urination, Incontinence SR Musculoskeletal issues: Difficulty walking SR Neuro issues: Headache SR Hematologic issues: Bleeding/bruising SR Endocrine issues: Cold intolerance - Additional ROS All systems PM: reviewed and no additional remarkable complaints except as stated (those mentioned in HPI, Interval History and SR above.) Home Medications and Allergies Home Medications Medication Instructions Recorded Confirmed Type apremilast [Otezla] 30 mg PO DAILY 02/07/18 06/04/19 History fluticasone propionate [Flovent 1 puff INHALATION Q12H 02/07/18 06/04/19 History HFA] hydroxyzine HCl 25 mg PO QID PRN 02/07/18 06/04/19 History pramipexole 0.125 mg PO BEDTIME 02/07/18 06/04/19 History temazepam 15 mg PO BEDTIME PRN 02/07/18 06/04/19 History vitamin [id number] acid 1 tab PO DAILY 04/24/18 06/04/19 History amlodipine 5 mg PO DAILY #30 tab 06/26/18 06/04/19 Rx rivaroxaban [Xarelto] 20 mg PO DAILY 08/07/18 06/04/19 History cabozantinib 20 mg PO DAILY #30 tab 09/11/18 06/04/19 Rx cabozantinib [Cabometyx] 20 mg PO DAILY #30 tab 05/07/19 06/04/19 Rx cetirizine 10 mg PO DAILY #60 tab 06/04/19 Rx hydrocortisone-aloe vera 1 applic TOPICAL BID #2 tube 06/04/19 Rx [Anti-Itch(hydrocortisone)-Aloe] Allergies Allergy/AdvReac Type Severity Reaction Status Date / Time bee venom protein (honey bee) Allergy Unknown Verified 07/13/18 14:44 enoxaparin [From Lovenox] Allergy Unknown Verified 09/11/18 14:44 iodine AdvReac Unknown Verified 07/13/18 14:44 MICRO AdvReac Unknown Uncoded 07/13/18 14:44 Exam Vital signs: Vital Signs Temp Pulse Resp BP Pulse Ox 06/04/19 12:16 98.2 F 78 18 159/85 H 100 Intake and Output 06/03/19 06/04/19 06/04/19 23:59 07:59 15:59 Other: Weight 147.2 kg Patient Weight 06/04/19 23:59 Weight 147.2 kg Narrative: ECOG 1 Gen: WDWN, NAD, pleasant and cooperative, morbid obesity, in wheelchair. HEENT: NCAT, EOMI, PERRLA, anicteric sclera. Neck: Supple, No palpable thyromegaly or lymphadenopathy. Respiratory: CTAB, no wheezes audible. No JVD Cardiovascular: RRR, S1 and S2 normal, no M/G/R. Abdomen: Soft, NTND, BS normal, difficult to evaluate organomegaly Extremities: Mild lower extremity edema bilaterally Lymphatic: no palpable lymph nodes in the neck, axillae Skin: Scattered me papular rashes noted in the upper back. Neurological: AOx3, CN II-XII grossly intact. No focal motor or sensory deficit. Psychiatric: Good judgment and insight; normal affect; normal thought process Results - Labs Laboratory Last Values WBC 6.7 X10^3/uL (4.5-11.0) 04/09/19 17:44 RBC 3.91 X10^6/uL (4.0-5.2) L 04/09/19 17:44 Hgb 13.5 g/dL (12.0-16.0) 04/09/19 17:44 Hct 39.9 % (36-46) 04/09/19 17:44 MCV 102.0 fL (80-100) H 04/09/19 17:44 MCH 34.4 PG (26-34) H 04/09/19 17:44 MCHC 33.7 % (30-36) 04/09/19 17:44 RDW 13.8 % (11.6-14.8) 04/09/19 17:44 Plt Count 219 X10^3/uL (150-400) 04/09/19 17:44 Neut % (Auto) 57.0 % (50-75) 04/09/19 17:44 Lymph % (Auto) 33.1 % (25-40) 04/09/19 17:44 [place] % (Auto) 7.2 % (3-14) 04/09/19 17:44 Eos % (Auto) 2.1 % (2-4) 04/09/19 17:44 Baso % (Auto) 0.6 % (0-2) 04/09/19 17:44 Neut # (Auto) 3800 /uL (2747-0152) 04/09/19 17:44 Lymph # (Auto) 2200 /uL (0165-3886) 04/09/19 17:44 [place] # (Auto) 500 /uL (0-900) 04/09/19 17:44 Eos # (Auto) 100 /uL (0-450) 04/09/19 17:44 Baso # (Auto) 0 /uL (0-100) 04/09/19 17:44 Total Counted 100 12/31/18 16:12 Seg Neutrophils % 57.0 % (38-70) 12/31/18 16:12 Lymphocytes % (Manual) 31.0 % (25-45) 12/31/18 16:12 Monocytes % (Manual) 9.0 % (2-11) 12/31/18 16:12 Eosinophils % (Manual) 2.0 % (2-4) 12/31/18 16:12 Basophils % (Manual) 1.0 % (0-1) 12/31/18 16:12 Neutrophils # (Manual) 3705 /uL (4493-7794) 12/31/18 16:12 RBC Morphology Normal morphology 12/31/18 16:12 Anisocytosis 2+ H 08/26/18 11:58 Sodium 143 mmol/L (137-145) 04/09/19 17:44 Potassium 3.3 mmol/L (3.4-5.1) L 04/09/19 17:44 Chloride 110 mmol/L (98-107) H 04/09/19 17:44 Carbon Dioxide 27 mmol/L (22-32) 04/09/19 17:44 BUN 18 mg/dL (7-17) H 04/09/19 17:44 Creatinine 1.00 mg/dL (0.52-1.04) 04/09/19 17:44 Estimated GFR 56.4 mL/min (>60) L 04/09/19 17:44 BUN/Creatinine Ratio 18.0 (6-22) 04/09/19 17:44 Glucose 105 mg/dL (80-110) 04/09/19 17:44 Calcium 9.0 mg/dL (8.4-10.2) 04/09/19 17:44 Magnesium 2.2 mg/dL (1.6-2.3) 12/03/18 12:45 Total Bilirubin 0.3 mg/dL (0.2-1.3) 04/09/19 17:44 AST 34 IU/L (14-36) 04/09/19 17:44 ALT 34 IU/L (<35) 04/09/19 17:44 Alkaline Phosphatase 62 U/L (38-126) 04/09/19 17:44 Lactate Dehydrogenase 545 U/L (313-618) 04/09/19 17:44 Total Protein 6.9 g/dL (6.3-8.2) 04/09/19 17:44 Albumin 3.7 g/dL (3.5-5.0) 04/09/19 17:44 Globulin 3.2 g/dL (1.7-4.1) 04/09/19 17:44 Albumin/Globulin Ratio 1.2 (1.0-2.8) 04/09/19 17:44 TSH 3.94 uIU/mL (0.47-4.68) 09/09/18 11:43 Assessment and Plan (1) Clear cell adenocarcinoma of left kidney Overview: 63 year old female with metastatic clear cell renal cell carcinoma, pT3a N1 Mx. She originally presented with hypercalcemia with headache, nausea and vomiting. CT 01/08/2018: left renal mass at least 9.7 cm with prominent retroperitoneal lymphadneopathy. Staging imagine (CT CAP, bone scan and PET) showed the known left kidney mass, and suspicious retroperitoneal and pelvic lymphadenopathy and right lower lung nodules. Status post left nephrectomy on 03/07/2018. Surgical pathology showed clear cell renal cell carcinoma. She was evaluated at [facility] by Dr. Ribeiro. Treatment with cabozantinib was recommended. She started Cabozatinib 60 mg daily on 06/11/2018. On 10/29/2018, cabozantinib was held due to grade 2 maculopapular rashes, grade 1 liver function abnormalities. On 09/11/2018, she was able to restart Carbozantinib at 20 mg daily and has tolerated well so far. Patient underwent CT of the chest abdomen pelvis on 01/20/2019. It showed no evidence for residual or recurrent disease. Assessment: Explained to the patient about the skin rashes. I believe given the intense itching, it most likely is due to some form of allergies. I recommended that patient take Zyrtec 10 mg once a day and also use 1% hydrocortisone for symptomatic control. Given the mild papular rashes, I would not recommend holding cabozantinib. I encouraged the patient to continue at 20 mg once a day. Patient will need to get the scan done as scheduled next month and I will see the patient 19 of July. Plan: 1. Continue Cabozatinib at 20 mg daily 2. Zyrtec 10 mg daily 3. Hydrocortisone 1%, application, bid 4. CT CAP w/contrast as scheduled next month 5. RTC after scan, CBC, CMP, LDH (2) Pulmonary embolism Overview: Incidental diagnosis of right lung pulmonary embolism in the right main pulmonary artery bifurcation and the right upper and lower lobar pulmonary arteries on 06/27/2018 during a workup for restaging of her clear cell renal cell carcinoma. Patient was adequately started on Lovenox 120 mg Q 12. Due to development of abdominal wall hematoma at the site of injection, Lovenox was subsequently switched to Xarelto. Assessment and Plan: Continue Xarelto 20 mg daily for now. (3) Morbid obesity No immediate intervention indicated. I encourage patient to think about weight control (4) Chronic anemia Normocytic. Likely related to multiple chronic disease. Stable. Need surveillance. (5) CKD (chronic kidney disease) stage 2, GFR 60-89 ml/min Need active surveillance. Stable.
--- NOTE | 2019-06-08 12:08 | PC.NURSE ---
HYDROCORTISONE RX CAN BE CHANGED TO ONLY HYDROCORTISONE 1% PER DR [facility] DOES NOT HAVE THE PREPARATION WITH ALOE VERA. THIS WAS COMMUNICATED TO [facility] BY THIS NURSE.
--- NOTE | 2019-06-08 12:15 | ONC.SCHED ---
Received PA for HM Hydrocortisone 1%. 06/05/2019 - 06/04/2020. PA #[id number]. Scanned PA.
--- NOTE | 2019-07-07 10:30 | ONC.SCHED ---
Spoke with sister, Remedios, (at patient's request) to relay appointment times for CT scan and follow-up appointments.
[2019-07-27 15:31] VITALS: BP 163/87; PULSE 82; RESP 22; TEMP 36.4; O2SAT 100
--- NOTE | 2019-07-27 15:54 | P.PNONC_ITS ---
PN -Subjective Interval history: ID/CC: 63 year old female with metastatic renal clear cell carcinoma now on treatment with cabozantinib, and pulmonary embolism on Xarelto. Oncology History Ms Belgica Da Silva is a 62 year old female with a long list of medical co- morbidities most notable for morbid obesity, sleep apnea on CPAP, hypertension, rheumatoid arthritis, and psoriasis on Otezla (apremilast). In early December,, she developed headache, nausea, and vomiting. She was evaluated by Dr. Goel on 01/08/2018. The next day, she had a call from the nurse asking her to go to the emergency room due to serum calcium level of about 13. Patient stayed at the [facility] for about 3 days. Patient recalled that they gave her medications through the intravenous line. She underwent CT scan on 01/08/2018, that showed an left infiltrative lower/midpole originating heterogeneous iso-attenuating mass measuring at least 9.7 cm, pelvic retroperitoneal node cluster largest of which measuring 1.4 x 2.6 cm, and the most prominent nearby retroperitoneal lymph node measuring 2.2 x 1.2 cm. Sigmoid diverticulosis was also noted. On 02/03/2018, she was seen as post ER follow up at [facility]. Her calcium level has decreased to 11.5. Patient requested to be referred to [facility]. I first saw the patient on 02/07/2018. I referred the patient to [facility] for evaluation of possible surgical resection of left suspicious kidney cancer. In addition patient underwent staging studies as follows. On 02/12/2018, bone scan showed no osseous metastatic disease. Same day CT scan of the chest abdomen pelvis showed the large heterogeneously enhancing left renal mass with imaging characteristics highly suspicious for renal cell carcinoma, left leif-aortic retroperitoneal and left common iliac pelvic metastatic lymphadenopathy, and a 1.5 x 1.1 x 1.2 cm right lower lobe nodule highly suspicious for possible lung metastasis. On 02/19/2018, PET-CT showed a large left renal mass involving nearly the entire left kidney demonstrating abnormal FDG activity consistent with malignancy, a 1.4 x 2.1 cm left para-aortic lymph node demonstrating maximum SUV 2.3, additional enlarged retroperitoneal, mesenteric, and left iliac lymph node and bilateral inguinal lymph nodes demonstrating low FDG activity suggesting benign etiology and the 1.6 x 0.8 mc bilobed lung mass in the right lower lobe with low level increasing uptake with SUV 2.1 and a tiny 5 mm right middle lobe nodule with SUV maximum 0.8. The patient was seen by Natalie العراقي MD urologist at [facility] on 02/28/2018. The patient then underwent open left radical nephrectomy on 03/07/2018. 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 There was 10% rhabdoid change and there was necrosis within the tumor. Nuclear grade was 4. There was tumor extension into perinephric tissues, the renal sinus, a major vein and the pelvicalyceal system. All surgical margins were negative. One of 1 lymph node in the surgical specimen was involved by carcinoma with a 4 cm deposit. Final pathologic staging was pT3a N1. She was referred to and was evaluated by Dr. Ribeiro on 05/06/2018. Dr. Ribeiro did not think that the patient was a suitable candidate for high-dose interleukin 2 treatment. No open front line clinical trials were available either at this moment. Dr. Gómez discussed variety of treatment options including immunotherapy ipilimumab plus nivolumab vs oral targeted drug cabozaninib. Given patient autoimmune disease history including psoriasis which is actively managed with Otezla as well as diagnosis of rheumatoid arthritis, and that immunotherapy has a high likelihood of exacerbating these underlying autoimmune syndrome, Dr. Gómez recommended targeted drug cabozantinib. She started Cabozantinib 60 mg daily on 06/11/2018. On 06/27/2018, patient went to [facility] and was evaluated by Dr. Natalie العراقي. CT of the head was performed that showed no acute intracranial abnormality. CT of the chest abdomen and pelvis showed that the previously seen right lower lobe nodule has resolved. But there were increased size of para- aortic lymph nodes. Incidentally pulmonary emboli in the right main pulmonary artery bifurcation and the right upper and lower lobar pulmonary arteries were identified. Patient therefore was called back to the emergency room of [facility] where patient was initiated Lovenox injection 120 mg twice daily. About early August 2018, patient developed abdominal wall hematoma. She was evaluated at the [facility] emergency room. Her Lovenox was then switched to Xarelto. Since then patient said that the hematoma has improved. However while at the emergency room, a small incision was cut into the hematoma. On 08/28/2018, patient was evaluated at our clinic. Patient at that time reported significant macular papular rashes in the hands, feet, back, and facce as well as at her private parts. In addition patient was found to have elevated liver function tests. Therefore we decided to hold the medications. During the interim, patient said that the rashes have improved dramatically. On 09/11/2018, she was able to restart Carbozantinib at 20 mg daily and has tolerated well so far. On 11/13/2018, patient underwent CT scan of the chest abdomen pelvis. The scan showed previous left nephrectomy, and resolution of left para-aortic and left common iliac charlene disease, resolution of right lower lobe lung nodule and no evidence of residual or recurrent disease. CT chest abdomen and pelvis on 01/20/2019. The scan showed chest abdomen and pelvis without acute abnormalities, status post left nephrectomy, and no evidence for residual or recurrent disease. Interim Events: Patient now is taking Xarelto 20 mg once a day and caboxantinib 20 mg once a day. Patient came in here today to review of the CT results. Patient reported no shortness of breath and no chest pain. No nausea no vomiting. No diarrhea and no constipation. He denies any new musculoskeletal pain. Overall she has been doing extremely well. Patient underwent CT of the chest abdomen and pelvis on 07/15/2019. It showed no evidence of malignancy. Treatment Summary: 1. Open left radical nephrectomy by Dr. Natalie العراقي at [facility] on 03/07/2018 2. Cabozantinib 60 mg daily started on 06/11/2018. 3. Anticoagulation since 07/07/2018 for PE, lovelox > Xarelto. - Patient Self-Reported Symptoms SR Constitution: Chills SR eye issues: Vision changes SR ears, nose, mouth, throat issues: Changes in taste SR respiratory issues: Cough, Shortness of breath, Mucous SR Cardiovascular issues: Shortness of breath with activity or lying flat, Dizzy/lightheaded SR Skin issues: Skin rash or itching SR Gastrointestinal issues: Vomiting, Heartburn SR Genitourinary issues: Frequent urination, Incontinence SR Musculoskeletal issues: Joint pain or swelling, Muscle weakness, Cold hands or feet, Difficulty walking, Bone pain SR Neuro issues: Difficulty balancing SR Hematologic issues: Bleeding/bruising SR Endocrine issues: Cold intolerance - Additional ROS All systems PM: reviewed and no additional remarkable complaints except as stated Home Medications and Allergies Home Medications Medication Instructions Recorded Confirmed Type apremilast [Otezla] 30 mg PO DAILY 02/07/18 06/04/19 History fluticasone propionate [Flovent 1 puff INHALATION Q12H 02/07/18 06/04/19 History HFA] hydroxyzine HCl 25 mg PO QID PRN 02/07/18 06/04/19 History pramipexole 0.125 mg PO BEDTIME 02/07/18 06/04/19 History temazepam 15 mg PO BEDTIME PRN 02/07/18 06/04/19 History vitamin X54-wsthl acid 1 tab PO DAILY 04/24/18 06/04/19 History amlodipine 5 mg PO DAILY #30 tab 06/26/18 06/04/19 Rx rivaroxaban [Xarelto] 20 mg PO DAILY 08/07/18 06/04/19 History cabozantinib 20 mg PO DAILY #30 tab 09/11/18 06/04/19 Rx cabozantinib [Cabometyx] 20 mg PO DAILY #30 tab 05/07/19 06/04/19 Rx cetirizine 10 mg PO DAILY #60 tab 06/04/19 Rx hydrocortisone-aloe vera 1 applic TOPICAL BID #2 tube 06/04/19 Rx [Anti-Itch(hydrocortisone)-Aloe] Allergies Allergy/AdvReac Type Severity Reaction Status Date / Time bee venom protein (honey bee) Allergy Unknown Verified 07/13/18 14:44 enoxaparin [From Lovenox] Allergy Unknown Verified 09/11/18 14:44 iodine AdvReac Unknown Verified 07/13/18 14:44 MICRO AdvReac Unknown Uncoded 07/13/18 14:44 Exam Vital signs: Vital Signs Temp Pulse Resp BP Pulse Ox 07/27/19 15:31 97.6 F 82 22 163/87 H 100 Intake and Output 07/26/19 07/27/19 07/27/19 23:59 07:59 15:59 Other: Weight 146 kg Patient Weight 07/27/19 23:59 Weight 146 kg Narrative: ECOG 1 Gen: WDWN, NAD, pleasant and cooperative, morbid obesity, in wheelchair. HEENT: NCAT, EOMI, PERRLA, anicteric sclera. Neck: Supple, No palpable thyromegaly or lymphadenopathy. Respiratory: CTAB, no wheezes audible. No JVD Cardiovascular: RRR, S1 and S2 normal, no M/G/R. Abdomen: Soft, NTND, BS normal, difficult to evaluate organomegaly Extremities: Mild lower extremity edema bilaterally Lymphatic: no palpable lymph nodes in the neck, axillae Skin: Scattered me papular rashes noted in the upper back. Neurological: AOx3, CN II-XII grossly intact. No focal motor or sensory deficit. Psychiatric: Good judgment and insight; normal affect; normal thought process Results - Labs Laboratory Last Values WBC 6.7 X10^3/uL (4.5-11.0) 04/09/19 17:44 RBC 3.91 X10^6/uL (4.0-5.2) L 04/09/19 17:44 Hgb 13.5 g/dL (12.0-16.0) 04/09/19 17:44 Hct 39.9 % (36-46) 04/09/19 17:44 MCV 102.0 fL (80-100) H 04/09/19 17:44 MCH 34.4 PG (26-34) H 04/09/19 17:44 MCHC 33.7 % (30-36) 04/09/19 17:44 RDW 13.8 % (11.6-14.8) 04/09/19 17:44 Plt Count 219 X10^3/uL (150-400) 04/09/19 17:44 Neut % (Auto) 57.0 % (50-75) 04/09/19 17:44 Lymph % (Auto) 33.1 % (25-40) 04/09/19 17:44 Tompkins % (Auto) 7.2 % (3-14) 04/09/19 17:44 Eos % (Auto) 2.1 % (2-4) 04/09/19 17:44 Baso % (Auto) 0.6 % (0-2) 04/09/19 17:44 Neut # (Auto) 3800 /uL (6093-0762) 04/09/19 17:44 Lymph # (Auto) 2200 /uL (6812-5982) 04/09/19 17:44 Tompkins # (Auto) 500 /uL (0-900) 04/09/19 17:44 Eos # (Auto) 100 /uL (0-450) 04/09/19 17:44 Baso # (Auto) 0 /uL (0-100) 04/09/19 17:44 Total Counted 100 12/31/18 16:12 Seg Neutrophils % 57.0 % (38-70) 12/31/18 16:12 Lymphocytes % (Manual) 31.0 % (25-45) 12/31/18 16:12 Monocytes % (Manual) 9.0 % (2-11) 12/31/18 16:12 Eosinophils % (Manual) 2.0 % (2-4) 12/31/18 16:12 Basophils % (Manual) 1.0 % (0-1) 12/31/18 16:12 Neutrophils # (Manual) 3705 /uL (4279-1031) 12/31/18 16:12 RBC Morphology Normal morphology 12/31/18 16:12 Anisocytosis 2+ H 08/26/18 11:58 Sodium 143 mmol/L (137-145) 04/09/19 17:44 Potassium 3.3 mmol/L (3.4-5.1) L 04/09/19 17:44 Chloride 110 mmol/L (98-107) H 04/09/19 17:44 Carbon Dioxide 27 mmol/L (22-32) 04/09/19 17:44 BUN 18 mg/dL (7-17) H 04/09/19 17:44 Creatinine 1.00 mg/dL (0.52-1.04) 04/09/19 17:44 Estimated GFR 56.4 mL/min (>60) L 04/09/19 17:44 BUN/Creatinine Ratio 18.0 (6-22) 04/09/19 17:44 Glucose 105 mg/dL (80-110) 04/09/19 17:44 Calcium 9.0 mg/dL (8.4-10.2) 04/09/19 17:44 Magnesium 2.2 mg/dL (1.6-2.3) 12/03/18 12:45 Total Bilirubin 0.3 mg/dL (0.2-1.3) 04/09/19 17:44 AST 34 IU/L (14-36) 04/09/19 17:44 ALT 34 IU/L (<35) 04/09/19 17:44 Alkaline Phosphatase 62 U/L (38-126) 04/09/19 17:44 Lactate Dehydrogenase 545 U/L (313-618) 04/09/19 17:44 Total Protein 6.9 g/dL (6.3-8.2) 04/09/19 17:44 Albumin 3.7 g/dL (3.5-5.0) 04/09/19 17:44 Globulin 3.2 g/dL (1.7-4.1) 04/09/19 17:44 Albumin/Globulin Ratio 1.2 (1.0-2.8) 04/09/19 17:44 TSH 3.94 uIU/mL (0.47-4.68) 09/09/18 11:43 Assessment and Plan (1) Clear cell adenocarcinoma of left kidney Overview: 63 year old female with metastatic clear cell renal cell carcinoma, pT3a N1 Mx. She originally presented with hypercalcemia with headache, nausea and vomiting. CT 01/08/2018: left renal mass at least 9.7 cm with prominent retroperitoneal lymphadneopathy. Staging imagine (CT CAP, bone scan and PET) showed the known left kidney mass, and suspicious retroperitoneal and pelvic lymphadenopathy and right lower lung nodules. Status post left nephrectomy on 03/07/2018. Surgical pathology showed clear cell renal cell carcinoma. She was evaluated at [facility] by Dr. Ribeiro. Treatment with cabozantinib was recommended. She started Cabozatinib 60 mg daily on 06/11/2018. On 10/29/2018, cabozantinib was held due to grade 2 maculopapular rashes, grade 1 liver function abnormalities. On 09/11/2018, she was able to restart Carbozantinib at 20 mg daily and has tolerated well so far. Patient underwent CT of the chest abdomen pelvis on 01/20/2019. It showed no evidence for residual or recurrent disease. Assessment: Today, I reviewed the results of CT chest abdomen pelvis obtained on 07/15/2019. It showed no evidence of malignancy. I talked with the patient that given significant response, I will continue current treatment without any changes. Plan: 1. Continue Cabozatinib at 20 mg daily 2. Zyrtec 10 mg daily 3. Hydrocortisone 1%, application, bid 4. RTC in 3 months, CBC, CMP, LDH (2) Pulmonary embolism Overview: Incidental diagnosis of right lung pulmonary embolism in the right main pulmonary artery bifurcation and the right upper and lower lobar pulmonary arteries on 06/27/2018 during a workup for restaging of her clear cell renal cell carcinoma. Patient was adequately started on Lovenox 120 mg Q 12. Due to development of abdominal wall hematoma at the site of injection, Lovenox was subsequently switched to Xarelto. Assessment and Plan: Continue Xarelto 20 mg daily for now. (3) Morbid obesity No immediate intervention indicated. I encourage patient to think about weight control (4) Chronic anemia Normocytic. Likely related to multiple chronic disease. Stable. Need surveillance. (5) CKD (chronic kidney disease) stage 2, GFR 60-89 ml/min Need active surveillance. Stable.
[2019-11-05 11:59] LABS: Add Manual Diff / Slide Review NO; Basophils Absolute Auto 0 /uL (0-100); Basophils Percent Auto 0.7 % (0-2); Eosinophils Absolute Auto 200 /uL (0-450); Eosinophils Percent Auto 3.8 % (2-4); Hematocrit 36.7 % (36-46); Hemoglobin 12.1 g/dL (12.0-16.0); Lymphocytes Absolute Auto 2400 /uL (1100-4500); Lymphocytes Percent Auto 39.9 % (25-40); Mean Corpuscular HGB Conc 33.1 % (30-36); Mean Corpuscular Hemoglobin 34.6 PG (26-34); Mean Corpuscular Volume 104.5 fL (80-100); Monocytes Absolute Auto 600 /uL (0-900); Neutrophils Absolute Auto 2700 /uL (1500-7000); Neutrophils Percent Auto 45.6 % (50-75); Platelet Count 196 X10^3/uL (150-400); Red Blood Cell Count 3.51 X10^6/uL (4.0-5.2); Red Cell Distribution Width 14.5 % (11.6-14.8); White Blood Cell Count 5.9 X10^3/uL (4.5-11.0)
[2019-11-05 12:12] LABS: Alanine Aminotransferase 38 IU/L (<35); Albumin 3.1 g/dL (3.5-5.0); Albumin Globulin Ratio 1.1 (1.0-2.8); Alkaline Phosphatase 65 U/L (38-126); Aspartate Aminotransferase 36 IU/L (14-36); BUN Creatinine Ratio 19.4 (6-22); Bilirubin Total 0.4 mg/dL (0.2-1.3); Blood Urea Nitrogen 19 mg/dL (7-17); Calcium 8.4 mg/dL (8.4-10.2); Carbon Dioxide 25 mmol/L (22-32); Chloride 113 mmol/L (98-107); Estimated Glomerular Filt Rate 57.5 mL/min (>60); Globulin 2.7 g/dL (1.7-4.1); Glucose 85 mg/dL (80-110); HEMOLYSIS < 15 (0-50); Lactate Dehydrogenase 670 U/L (313-618); Potassium 4.3 mmol/L (3.4-5.1); Sodium 142 mmol/L (137-145); Total Protein 5.8 g/dL (6.3-8.2)
[2019-11-09 16:14] VITALS: BP 151/86; PULSE 81; RESP 18; TEMP 36.6; O2SAT 100
--- NOTE | 2019-11-09 16:15 | ONC.PN ---
PN -Subjective Interval history: ID/CC: 64 year old female with metastatic renal clear cell carcinoma now on treatment with cabozantinib, and pulmonary embolism on Xarelto. Oncology History Ms Belgica Da Silva is a 62 year old female with a long list of medical co-morbidities most notable for morbid obesity, sleep apnea on CPAP, hypertension, rheumatoid arthritis, and psoriasis on Otezla (apremilast). In early December,, she developed headache, nausea, and vomiting. She was evaluated by Dr. Goel on 01/08/2018. The next day, she had a call from the nurse asking her to go to the emergency room due to serum calcium level of about 13. Patient stayed at the [facility] for about 3 days. Patient recalled that they gave her medications through the intravenous line. She underwent CT scan on 01/08/2018, that showed an left infiltrative lower/midpole originating heterogeneous iso-attenuating mass measuring at least 9.7 cm, pelvic retroperitoneal node cluster largest of which measuring 1.4 x 2.6 cm, and the most prominent nearby retroperitoneal lymph node measuring 2.2 x 1.2 cm. Sigmoid diverticulosis was also noted. On 02/03/2018, she was seen as post ER follow up at [facility]. Her calcium level has decreased to 11.5. Patient requested to be referred to [facility]. I first saw the patient on 02/07/2018. I referred the patient to [facility] for evaluation of possible surgical resection of left suspicious kidney cancer. In addition patient underwent staging studies as follows. On 02/12/2018, bone scan showed no osseous metastatic disease. Same day CT scan of the chest abdomen pelvis showed the large heterogeneously enhancing left renal mass with imaging characteristics highly suspicious for renal cell carcinoma, left leif-aortic retroperitoneal and left common iliac pelvic metastatic lymphadenopathy, and a 1.5 x 1.1 x 1.2 cm right lower lobe nodule highly suspicious for possible lung metastasis. On 02/19/2018, PET-CT showed a large left renal mass involving nearly the entire left kidney demonstrating abnormal FDG activity consistent with malignancy, a 1.4 x 2.1 cm left para-aortic lymph node demonstrating maximum SUV 2.3, additional enlarged retroperitoneal, mesenteric, and left iliac lymph node and bilateral inguinal lymph nodes demonstrating low FDG activity suggesting benign etiology and the 1.6 x 0.8 mc bilobed lung mass in the right lower lobe with low level increasing uptake with SUV 2.1 and a tiny 5 mm right middle lobe nodule with SUV maximum 0.8. The patient was seen by Natalie العراقي MD urologist at [facility] on 02/28/2018. The patient then underwent open left radical nephrectomy on 03/07/2018. 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 There was 10% rhabdoid change and there was necrosis within the tumor. Nuclear grade was 4. There was tumor extension into perinephric tissues, the renal sinus, a major vein and the pelvicalyceal system. All surgical margins were negative. One of 1 lymph node in the surgical specimen was involved by carcinoma with a 4 cm deposit. Final pathologic staging was pT3a N1. She was referred to and was evaluated by Dr. Ribeiro on 05/06/2018. Dr. Ribeiro did not think that the patient was a suitable candidate for high-dose interleukin 2 treatment. No open front line clinical trials were available either at this moment. Dr. Gómez discussed variety of treatment options including immunotherapy ipilimumab plus nivolumab vs oral targeted drug cabozaninib. Given patient autoimmune disease history including psoriasis which is actively managed with Otezla as well as diagnosis of rheumatoid arthritis, and that immunotherapy has a high likelihood of exacerbating these underlying autoimmune syndrome, Dr. Gómez recommended targeted drug cabozantinib. She started Cabozantinib 60 mg daily on 06/11/2018. On 06/27/2018, patient went to [facility] and was evaluated by Dr. Natalie العراقي. CT of the head was performed that showed no acute intracranial abnormality. CT of the chest abdomen and pelvis showed that the previously seen right lower lobe nodule has resolved. But there were increased size of para-aortic lymph nodes. Incidentally pulmonary emboli in the right main pulmonary artery bifurcation and the right upper and lower lobar pulmonary arteries were identified. Patient therefore was called back to the emergency room of [facility] where patient was initiated Lovenox injection 120 mg twice daily. About early August 2018, patient developed abdominal wall hematoma. She was evaluated at the [facility] emergency room. Her Lovenox was then switched to Xarelto. Since then patient said that the hematoma has improved. However while at the emergency room, a small incision was cut into the hematoma. On 08/28/2018, patient was evaluated at our clinic. Patient at that time reported significant macular papular rashes in the hands, feet, back, and facce as well as at her private parts. In addition patient was found to have elevated liver function tests. Therefore we decided to hold the medications. During the interim, patient said that the rashes have improved dramatically. On 09/11/2018, she was able to restart Carbozantinib at 20 mg daily and has tolerated well so far. On 11/13/2018, patient underwent CT scan of the chest abdomen pelvis. The scan showed previous left nephrectomy, and resolution of left para-aortic and left common iliac charlene disease, resolution of right lower lobe lung nodule and no evidence of residual or recurrent disease. CT chest abdomen and pelvis on 01/20/2019. The scan showed chest abdomen and pelvis without acute abnormalities, status post left nephrectomy, and no evidence for residual or recurrent disease. Interim Events: She came in here today by herself. She reports no new signs or symptoms. Patient denies any fever or chills. She denies any nausea or vomiting. She denies any abdominal pain diarrhea or constipation. She is now taking cabozantinib 20 mg once a day and Xarelto 20 mg once a day. Treatment Summary: 1. Open left radical nephrectomy by Dr. Natalie العراقي at [facility] on 03/07/2018 2. Cabozantinib 60 mg daily started on 06/11/2018. 3. Anticoagulation since 07/07/2018 for PE, lovelox > Xarelto. - Patient Self-Reported Symptoms SR Constitution: Chills SR eye issues: Vision changes SR ears, nose, mouth, throat issues: Changes in taste SR respiratory issues: Cough, Shortness of breath, Mucous SR Cardiovascular issues: Shortness of breath with activity or lying flat, Dizzy/lightheaded SR Skin issues: Skin rash or itching SR Gastrointestinal issues: Vomiting, Heartburn SR Genitourinary issues: Frequent urination, Incontinence SR Musculoskeletal issues: Joint pain or swelling, Muscle weakness, Cold hands or feet, Difficulty walking, Bone pain SR Neuro issues: Difficulty balancing SR Hematologic issues: Bleeding/bruising SR Endocrine issues: Cold intolerance Home Medications and Allergies Home Medications Medication Instructions Recorded Confirmed Type apremilast [Otezla] 30 mg PO DAILY 02/07/18 10/29/19 History fluticasone propionate [Flovent 1 puff INHALATION Q12H 02/07/18 06/04/19 History HFA] hydroxyzine HCl 25 mg PO QID PRN 02/07/18 06/04/19 History pramipexole 0.125 mg PO BEDTIME 02/07/18 06/04/19 History temazepam 15 mg PO BEDTIME PRN 02/07/18 06/04/19 History vitamin G01-[id number] acid 1 tab PO DAILY 04/24/18 06/04/19 History amlodipine 5 mg PO DAILY #30 tab 06/26/18 10/29/19 Rx rivaroxaban [Xarelto] 20 mg PO DAILY 08/07/18 06/04/19 History cabozantinib 20 mg PO DAILY #30 tab 09/11/18 06/04/19 Rx cetirizine 10 mg PO DAILY #60 tab 06/04/19 Rx hydrocortisone-aloe vera 1 applic TOPICAL BID #2 tube 06/04/19 Rx [Anti-Itch(hydrocortisone)-Aloe] cabozantinib [Cabometyx] 20 mg PO DAILY #30 tab 11/09/19 Rx Allergies Allergy/AdvReac Type Severity Reaction Status Date / Time bee venom protein (honey bee) Allergy Unknown Verified 11/08/19 13:16 enoxaparin [From Lovenox] Allergy Unknown Verified 11/08/19 13:16 iodine AdvReac Unknown Verified 11/08/19 13:16 MICRO AdvReac Unknown Uncoded 11/08/19 13:16 Exam Vital signs: 11/10/19 22:26 Last Vital Signs Temp 98 F 11/09/19 16:14 Pulse 81 11/09/19 16:14 Resp 18 11/09/19 16:14 BP 151/86 H 11/09/19 16:14 Pulse Ox 100 11/09/19 16:14 Narrative: ECOG 1 Gen: WDWN, NAD, pleasant and cooperative, morbid obesity, in wheelchair. HEENT: NCAT, EOMI, PERRLA, anicteric sclera. Neck: Supple, No palpable thyromegaly or lymphadenopathy. Respiratory: CTAB, no wheezes audible. No JVD Cardiovascular: RRR, S1 and S2 normal, no M/G/R. Abdomen: Soft, NTND, BS normal, difficult to evaluate organomegaly Extremities: Mild lower extremity edema bilaterally Lymphatic: no palpable lymph nodes in the neck, axillae Skin: Scattered me papular rashes noted in the upper back. Neurological: AOx3, CN II-XII grossly intact. No focal motor or sensory deficit. Psychiatric: Good judgment and insight; normal affect; normal thought process Results - Labs Laboratory Last Values WBC 5.9 X10^3/uL (4.5-11.0) 11/05/19 11:46 RBC 3.51 X10^6/uL (4.0-5.2) L 11/05/19 11:46 Hgb 12.1 g/dL (12.0-16.0) 11/05/19 11:46 Hct 36.7 % (36-46) 11/05/19 11:46 MCV 104.5 fL (80-100) H 11/05/19 11:46 MCH 34.6 PG (26-34) H 11/05/19 11:46 MCHC 33.1 % (30-36) 11/05/19 11:46 RDW 14.5 % (11.6-14.8) 11/05/19 11:46 Plt Count 196 X10^3/uL (150-400) 11/05/19 11:46 Neut % (Auto) 45.6 % (50-75) L 11/05/19 11:46 Lymph % (Auto) 39.9 % (25-40) 11/05/19 11:46 [place] % (Auto) 10.0 % (3-14) 11/05/19 11:46 Eos % (Auto) 3.8 % (2-4) 11/05/19 11:46 Baso % (Auto) 0.7 % (0-2) 11/05/19 11:46 Neut # (Auto) 2700 /uL (9470-8844) 11/05/19 11:46 Lymph # (Auto) 2400 /uL (0784-0757) 11/05/19 11:46 [place] # (Auto) 600 /uL (0-900) 11/05/19 11:46 Eos # (Auto) 200 /uL (0-450) 11/05/19 11:46 Baso # (Auto) 0 /uL (0-100) 11/05/19 11:46 Total Counted 100 12/31/18 16:12 Seg Neutrophils % 57.0 % (38-70) 12/31/18 16:12 Lymphocytes % (Manual) 31.0 % (25-45) 12/31/18 16:12 Monocytes % (Manual) 9.0 % (2-11) 12/31/18 16:12 Eosinophils % (Manual) 2.0 % (2-4) 12/31/18 16:12 Basophils % (Manual) 1.0 % (0-1) 12/31/18 16:12 Neutrophils # (Manual) 3705 /uL (8506-9323) 12/31/18 16:12 RBC Morphology Normal morphology 12/31/18 16:12 Anisocytosis 2+ H 08/26/18 11:58 Sodium 142 mmol/L (137-145) 11/05/19 11:46 Potassium 4.3 mmol/L (3.4-5.1) 11/05/19 11:46 Chloride 113 mmol/L (98-107) H 11/05/19 11:46 Carbon Dioxide 25 mmol/L (22-32) 11/05/19 11:46 BUN 19 mg/dL (7-17) H 11/05/19 11:46 Creatinine 0.98 mg/dL (0.52-1.04) 11/05/19 11:46 Estimated GFR 57.5 mL/min (>60) L 11/05/19 11:46 BUN/Creatinine Ratio 19.4 (6-22) 11/05/19 11:46 Glucose 85 mg/dL (80-110) 11/05/19 11:46 Calcium 8.4 mg/dL (8.4-10.2) 11/05/19 11:46 Magnesium 2.2 mg/dL (1.6-2.3) 12/03/18 12:45 Total Bilirubin 0.4 mg/dL (0.2-1.3) 11/05/19 11:46 AST 36 IU/L (14-36) 11/05/19 11:46 ALT 38 IU/L (<35) H 11/05/19 11:46 Alkaline Phosphatase 65 U/L (38-126) 11/05/19 11:46 Lactate Dehydrogenase 670 U/L (313-618) H 11/05/19 11:46 Total Protein 5.8 g/dL (6.3-8.2) L 11/05/19 11:46 Albumin 3.1 g/dL (3.5-5.0) L 11/05/19 11:46 Globulin 2.7 g/dL (1.7-4.1) 11/05/19 11:46 Albumin/Globulin Ratio 1.1 (1.0-2.8) 11/05/19 11:46 TSH 3.94 uIU/mL (0.47-4.68) 09/09/18 11:43 Assessment and Plan (1) Clear cell adenocarcinoma of left kidney Overview: 63 year old female with metastatic clear cell renal cell carcinoma, pT3a N1 Mx. She originally presented with hypercalcemia with headache, nausea and vomiting. CT 01/08/2018: left renal mass at least 9.7 cm with prominent retroperitoneal lymphadneopathy. Staging imagine (CT CAP, bone scan and PET) showed the known left kidney mass, and suspicious retroperitoneal and pelvic lymphadenopathy and right lower lung nodules. Status post left nephrectomy on 03/07/2018. Surgical pathology showed clear cell renal cell carcinoma. She was evaluated at [facility] by Dr. Ribeiro. Treatment with cabozantinib was recommended. She started Cabozatinib 60 mg daily on 06/11/2018. On 10/29/2018, cabozantinib was held due to grade 2 maculopapular rashes, grade 1 liver function abnormalities. On 09/11/2018, she was able to restart Carbozantinib at 20 mg daily and has tolerated well so far. Patient underwent CT of the chest abdomen pelvis on 01/20/2019. It showed no evidence for residual or recurrent disease. Assessment: Clinically, overall she has been doing well and she has tolerated the current cabozantinib 20 mg once a day very well. Talked with her that I will continue the current treatment and will have her come back in about 3 months. We will repeat CT chest abdomen pelvis without contrast. Plan: 1. Continue Cabozatinib at 20 mg daily 2. RTC in 3 months, CBC, CMP, LDH, CT CAP w/o contrast (2) Pulmonary embolism Overview: Incidental diagnosis of right lung pulmonary embolism in the right main pulmonary artery bifurcation and the right upper and lower lobar pulmonary arteries on 06/27/2018 during a workup for restaging of her clear cell renal cell carcinoma. Patient was adequately started on Lovenox 120 mg Q 12. Due to development of abdominal wall hematoma at the site of injection, Lovenox was subsequently switched to Xarelto. Assessment and Plan: Continue Xarelto 20 mg daily for now.
--- NOTE | 2020-02-15 16:56 | PC.NURSE ---
PATIENT CALLED STATING SHE HAS BEEN RECOMMENDED BY DOCTOR AT ER IN [place] TO DISCONTINUE XARELTO SHE DEVELOPED SWOLLEN PURPLE HARD LEGS WITH PAIN AND DIFFICULTY WALKING WELL DIFFICULTY BREATHING. WELL SHE HAS AN ALLERGY TO LOVENOX. SHE WOULD LIKE TO KNOW IF SHE SHOULD BE TAKING BABY OR CHILDREN'S ASPIRIN THIS WAS RECOMMENDED TO HER AT THE ER.
--- NOTE | 2020-05-09 14:24 | P.PNONC_ITS ---
PN -Subjective Interval history: ID/CC: 64 year old female with metastatic renal clear cell carcinoma now on treatment with cabozantinib, and pulmonary embolism on Xarelto. Oncology History Ms Belgica Da Silva is a 62 year old female with a long list of medical co- morbidities most notable for morbid obesity, sleep apnea on CPAP, hypertension, rheumatoid arthritis, and psoriasis on Otezla (apremilast). In early December,, she developed headache, nausea, and vomiting. She was evaluated by Dr. Goel on 01/08/2018. The next day, she had a call from the nurse asking her to go to the emergency room due to serum calcium level of about 13. Patient stayed at the [facility] for about 3 days. Patient recalled that they gave her medications through the intravenous line. She underwent CT scan on 01/08/2018, that showed an left infiltrative lower/midpole originating heterogeneous iso-attenuating mass measuring at least 9.7 cm, pelvic retroperitoneal node cluster largest of which measuring 1.4 x 2.6 cm, and the most prominent nearby retroperitoneal lymph node measuring 2.2 x 1.2 cm. Sigmoid diverticulosis was also noted. On 02/03/2018, she was seen as post ER follow up at [facility]. Her calcium level has decreased to 11.5. Patient requested to be referred to [facility]. I first saw the patient on 02/07/2018. I referred the patient to [facility] for evaluation of possible surgical resection of left suspicious kidney cancer. In addition patient underwent staging studies as follows. On 02/12/2018, bone scan showed no osseous metastatic disease. Same day CT scan of the chest abdomen pelvis showed the large heterogeneously enhancing left renal mass with imaging characteristics highly suspicious for renal cell carcinoma, left leif-aortic retroperitoneal and left common iliac pelvic metastatic lymphadenopathy, and a 1.5 x 1.1 x 1.2 cm right lower lobe nodule highly suspicious for possible lung metastasis. On 02/19/2018, PET-CT showed a large left renal mass involving nearly the entire left kidney demonstrating abnormal FDG activity consistent with malignancy, a 1.4 x 2.1 cm left para-aortic lymph node demonstrating maximum SUV 2.3, additional enlarged retroperitoneal, mesenteric, and left iliac lymph node and bilateral inguinal lymph nodes demonstrating low FDG activity suggesting benign etiology and the 1.6 x 0.8 mc bilobed lung mass in the right lower lobe with low level increasing uptake with SUV 2.1 and a tiny 5 mm right middle lobe nodule with SUV maximum 0.8. The patient was seen by Natalie العراقي MD urologist at [facility] on 02/28/2018. The patient then underwent open left radical nephrectomy on 03/07/2018. 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 There was 10% rhabdoid change and there was necrosis within the tumor. Nuclear grade was 4. There was tumor extension into perinephric tissues, the renal sinus, a major vein and the pelvicalyceal system. All surgical margins were negative. One of 1 lymph node in the surgical specimen was involved by carcinoma with a 4 cm deposit. Final pathologic staging was pT3a N1. She was referred to and was evaluated by Dr. Ribeiro on 05/06/2018. Dr. Ribeiro did not think that the patient was a suitable candidate for high-dose interleukin 2 treatment. No open front line clinical trials were available either at this moment. Dr. Gómez discussed variety of treatment options including immunotherapy ipilimumab plus nivolumab vs oral targeted drug cabozaninib. Given patient autoimmune disease history including psoriasis which is actively managed with Otezla as well as diagnosis of rheumatoid arthritis, and that immunotherapy has a high likelihood of exacerbating these underlying autoimmune syndrome, Dr. Gómze recommended targeted drug cabozantinib. She started Cabozantinib 60 mg daily on 06/11/2018. On 06/27/2018, patient went to [facility] and was evaluated by Dr. Natalie العراقي. CT of the head was performed that showed no acute intracranial abnormality. CT of the chest abdomen and pelvis showed that the previously seen right lower lobe nodule has resolved. But there were increased size of para- aortic lymph nodes. Incidentally pulmonary emboli in the right main pulmonary artery bifurcation and the right upper and lower lobar pulmonary arteries were identified. Patient therefore was called back to the emergency room of [facility] where patient was initiated Lovenox injection 120 mg twice daily. About early August 2018, patient developed abdominal wall hematoma. She was evaluated at the [facility] emergency room. Her Lovenox was then switched to Xarelto. Since then patient said that the hematoma has improved. However while at the emergency room, a small incision was cut into the hematoma. On 08/28/2018, patient was evaluated at our clinic. Patient at that time reported significant macular papular rashes in the hands, feet, back, and facce as well as at her private parts. In addition patient was found to have elevated liver function tests. Therefore we decided to hold the medications. During the interim, patient said that the rashes have improved dramatically. On 09/11/2018, she was able to restart Carbozantinib at 20 mg daily and has tolerated well so far. On 11/13/2018, patient underwent CT scan of the chest abdomen pelvis. The scan showed previous left nephrectomy, and resolution of left para-aortic and left common iliac charlene disease, resolution of right lower lobe lung nodule and no evidence of residual or recurrent disease. CT chest abdomen and pelvis on 01/20/2019. The scan showed chest abdomen and pelvis without acute abnormalities, status post left nephrectomy, and no evidence for residual or recurrent disease. Interim Events: She came in here today accompanied by her sister. Overall, she has doing quite well. Patient denies any fever or chills. She denies any nausea or vomiting. She denies any abdominal pain diarrhea or constipation. She is now taking cabozantinib 20 mg once a day. In January 2020, the Xarelto was stopped by her primary care provider. According to patient, patient was having lot of bruises and bleeding problems. Since then, patient actually has been doing well, the skin bruises have improved. No worsening shortness of breath. No worsening leg pain. On 05/02/2020, patient underwent CT chest abdomen and pelvis. It showed status post left nephrectomy and no specific evidence of active metastatic disease. Treatment Summary: 1. Open left radical nephrectomy by Dr. Natalie العراقي at [facility] on 03/07/2018 2. Cabozantinib 60 mg daily started on 06/11/2018. 3. Anticoagulation since 07/07/2018 for PE, lovelox > Xarelto. - Patient Self-Reported Symptoms SR Constitution: Chills SR eye issues: Vision changes SR ears, nose, mouth, throat issues: Changes in taste SR respiratory issues: Shortness of breath SR Cardiovascular issues: Shortness of breath with activity or lying flat, Dizzy/lightheaded SR Skin issues: Dry skin SR Gastrointestinal issues: Vomiting, Heartburn SR Genitourinary issues: Frequent urination, Incontinence SR Musculoskeletal issues: Joint pain or swelling, Muscle pain or cramps, Back or neck pain, Cold hands or feet, Difficulty walking, Bone pain SR Neuro issues: Numbness or tingling, Difficulty balancing SR Hematologic issues: Bleeding/bruising SR Endocrine issues: Cold intolerance - Additional ROS All systems PM: reviewed and no additional remarkable complaints except as stated Home Medications and Allergies Home Medications Medication Instructions Recorded Confirmed Type Flovent HFA 1 puff INHALATION Q12H 02/07/18 06/04/19 History Otezla 30 mg PO DAILY 02/07/18 10/29/19 History hydroxyzine HCl 25 mg PO QID PRN 02/07/18 06/04/19 History pramipexole 0.125 mg PO BEDTIME 02/07/18 06/04/19 History temazepam 15 mg PO BEDTIME PRN 02/07/18 06/04/19 History vitamin W02-qnxnc acid 1 tab PO DAILY 04/24/18 06/04/19 History amlodipine 5 mg PO DAILY #30 tab 06/26/18 10/29/19 Rx Xarelto 20 mg PO DAILY 08/07/18 06/04/19 History cabozantinib 20 mg PO DAILY #30 tab 09/11/18 06/04/19 Rx hydrocortisone-aloe vera 1 applic TOPICAL BID #2 tube 06/04/19 Rx [Anti-Itch(hydrocortisone)-Aloe] Allergies Allergy/AdvReac Type Severity Reaction Status Date / Time adhesive tape Allergy Severe Rash Verified 11/11/19 10:50 bee venom protein (honey bee) Allergy Unknown Verified 11/08/19 13:16 enoxaparin [From Lovenox] Allergy Unknown Verified 11/08/19 13:16 rivaroxaban [From Xarelto] AdvReac Severe Difficulty Verified 02/15/20 16:55 Breathing iodine AdvReac Unknown Verified 12/14/19 19:57 MICRO AdvReac Unknown Uncoded 11/08/19 13:16 Exam Vital signs: 05/09/20 14:43 Last Vital Signs Temp 98 F 11/09/19 16:14 Pulse 81 11/09/19 16:14 Resp 18 11/09/19 16:14 BP 151/86 H 11/09/19 16:14 Pulse Ox 100 11/09/19 16:14 Narrative: ECOG 1 Gen: WDWN, NAD, pleasant and cooperative, morbid obesity, in wheelchair. HEENT: NCAT, EOMI, PERRLA, anicteric sclera. Neck: Supple, No palpable thyromegaly or lymphadenopathy. Respiratory: CTAB, no wheezes audible. No JVD Cardiovascular: RRR, S1 and S2 normal, no M/G/R. Abdomen: Soft, NTND, BS normal, difficult to evaluate organomegaly Extremities: Mild lower extremity edema bilaterally Lymphatic: no palpable lymph nodes in the neck, axillae Neurological: AOx3, CN II-XII grossly intact. No focal motor or sensory deficit. Psychiatric: Good judgment and insight; normal affect; normal thought process Results - Labs Reviewed Assessment and Plan (1) Clear cell adenocarcinoma of left kidney Overview: 64 year old female with metastatic clear cell renal cell carcinoma, pT3a N1 Mx. She originally presented with hypercalcemia with headache, nausea and vomiting. CT 01/08/2018: left renal mass at least 9.7 cm with prominent retroperitoneal lymphadneopathy. Staging imagine (CT CAP, bone scan and PET) showed the known left kidney mass, and suspicious retroperitoneal and pelvic lymphadenopathy and right lower lung nodules. Status post left nephrectomy on 03/07/2018. Surgical pathology showed clear cell renal cell carcinoma. She was evaluated at [facility] by Dr. Ribeiro. Treatment with cabozantinib was recommended. She started Cabozatinib 60 mg daily on 06/11/2018. On 10/29/2018, cabozantinib was held due to grade 2 maculopapular rashes, grade 1 liver function abnormalities. On 09/11/2018, she was able to restart Carbozantinib at 20 mg daily and has tolerated well so far. Patient underwent CT of the chest abdomen pelvis on 01/20/2019. It showed no evidence for residual or recurrent disease. Assessment: She is now taking cabozantinib 20 mg once a day and tolerated very well. Today I reviewed the CT scan with the patient. No evidence of active metastasis. I talked with the patient that I will continue current treatment and the plan is to probably obtain a surveillance CT scan once a year. But if the patient develops any new signs or symptoms or any concerns, we will proceed with scans sooner. Patient voiced understanding. Plan: 1. Continue Cabozatinib at 20 mg daily 2. RTC in 6 months, CBC, CMP, LDH (2) Pulmonary embolism Incidental diagnosis of right lung pulmonary embolism in the right main pulm onary artery bifurcation and the right upper and lower lobar pulmonary arteries on 06/27/2018 during a workup for restaging of her clear cell renal cell carcinoma. Patient was adequately started on Lovenox 120 mg Q 12. Due to development of abdominal wall hematoma at the site of injection, Lovenox was subsequently switched to Xarelto. She stopped Xarelto in Jan 2020 due to concern for bleeding and swelling of the legs.
[2020-05-09 14:48] VITALS: BP 130/90; PULSE 76; RESP 18; TEMP 36.3; O2SAT 98
[2020-06-09 11:30] VITALS: BP 140/85; PULSE 75; RESP 20; TEMP 36.9; O2SAT 99
--- NOTE | 2020-06-09 11:48 | P.PNONC_ITS ---
PN -Subjective Interval history: ID/CC: 64 year old female with metastatic renal clear cell carcinoma now on treatment with cabozantinib, and pulmonary embolism on Xarelto. Oncology History Ms Belgica Da Silva is a 62 year old female with a long list of medical co- morbidities most notable for morbid obesity, sleep apnea on CPAP, hypertension, rheumatoid arthritis, and psoriasis on Otezla (apremilast). In early December,, she developed headache, nausea, and vomiting. She was evaluated by Dr. Goel on 01/08/2018. The next day, she had a call from the nurse asking her to go to the emergency room due to serum calcium level of about 13. Patient stayed at the [facility] for about 3 days. Patient recalled that they gave her medications through the intravenous line. She underwent CT scan on 01/08/2018, that showed an left infiltrative lower/midpole originating heterogeneous iso-attenuating mass measuring at least 9.7 cm, pelvic retroperitoneal node cluster largest of which measuring 1.4 x 2.6 cm, and the most prominent nearby retroperitoneal lymph node measuring 2.2 x 1.2 cm. Sigmoid diverticulosis was also noted. On 02/03/2018, she was seen as post ER follow up at [facility]. Her calcium level has decreased to 11.5. Patient requested to be referred to [facility]. I first saw the patient on 02/07/2018. I referred the patient to [facility] for evaluation of possible surgical resection of left suspicious kidney cancer. In addition patient underwent staging studies as follows. On 02/12/2018, bone scan showed no osseous metastatic disease. Same day CT scan of the chest abdomen pelvis showed the large heterogeneously enhancing left renal mass with imaging characteristics highly suspicious for renal cell carcinoma, left leif-aortic retroperitoneal and left common iliac pelvic metastatic lymphadenopathy, and a 1.5 x 1.1 x 1.2 cm right lower lobe nodule highly suspicious for possible lung metastasis. On 02/19/2018, PET-CT showed a large left renal mass involving nearly the entire left kidney demonstrating abnormal FDG activity consistent with malignancy, a 1.4 x 2.1 cm left para-aortic lymph node demonstrating maximum SUV 2.3, additional enlarged retroperitoneal, mesenteric, and left iliac lymph node and bilateral inguinal lymph nodes demonstrating low FDG activity suggesting benign etiology and the 1.6 x 0.8 mc bilobed lung mass in the right lower lobe with low level increasing uptake with SUV 2.1 and a tiny 5 mm right middle lobe nodule with SUV maximum 0.8. The patient was seen by Natalie العراقي MD urologist at [facility] on 02/28/2018. The patient then underwent open left radical nephrectomy on 03/07/2018. 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 There was 10% rhabdoid change and there was necrosis within the tumor. Nuclear grade was 4. There was tumor extension into perinephric tissues, the renal sinus, a major vein and the pelvicalyceal system. All surgical margins were negative. One of 1 lymph node in the surgical specimen was involved by carcinoma with a 4 cm deposit. Final pathologic staging was pT3a N1. She was referred to and was evaluated by Dr. Ribeiro on 05/06/2018. Dr. Ribeiro did not think that the patient was a suitable candidate for high-dose interleukin 2 treatment. No open front line clinical trials were available either at this moment. Dr. Gómez discussed variety of treatment options including immunotherapy ipilimumab plus nivolumab vs oral targeted drug cabozaninib. Given patient autoimmune disease history including psoriasis which is actively managed with Otezla as well as diagnosis of rheumatoid arthritis, and that immunotherapy has a high likelihood of exacerbating these underlying autoimmune syndrome, Dr. Gómez recommended targeted drug cabozantinib. She started Cabozantinib 60 mg daily on 06/11/2018. On 06/27/2018, patient went to [facility] and was evaluated by Dr. Natalie العراقي. CT of the head was performed that showed no acute intracranial abnormality. CT of the chest abdomen and pelvis showed that the previously seen right lower lobe nodule has resolved. But there were increased size of para- aortic lymph nodes. Incidentally pulmonary emboli in the right main pulmonary artery bifurcation and the right upper and lower lobar pulmonary arteries were identified. Patient therefore was called back to the emergency room of [facility] where patient was initiated Lovenox injection 120 mg twice daily. About early August 2018, patient developed abdominal wall hematoma. She was evaluated at the [facility] emergency room. Her Lovenox was then switched to Xarelto. Since then patient said that the hematoma has improved. However while at the emergency room, a small incision was cut into the hematoma. On 08/28/2018, patient was evaluated at our clinic. Patient at that time reported significant macular papular rashes in the hands, feet, back, and facce as well as at her private parts. In addition patient was found to have elevated liver function tests. Therefore we decided to hold the medications. During the interim, patient said that the rashes have improved dramatically. On 09/11/2018, she was able to restart Carbozantinib at 20 mg daily and has tolerated well so far. On 11/13/2018, patient underwent CT scan of the chest abdomen pelvis. The scan showed previous left nephrectomy, and resolution of left para-aortic and left common iliac charlene disease, resolution of right lower lobe lung nodule and no evidence of residual or recurrent disease. CT chest abdomen and pelvis on 01/20/2019. The scan showed chest abdomen and pelvis without acute abnormalities, status post left nephrectomy, and no evidence for residual or recurrent disease. On 05/02/2020, patient underwent CT chest abdomen and pelvis. It showed status post left nephrectomy and no specific evidence of active metastatic disease. Interim Events: She came in here today accompanied by her sister. On 06/07/2020, patient was evaluated at the [facility] because of water retention and bilateral lower extremity pain. At the emergency room, serum creatinine was found to be 1.3 slightly elevated. Therefore patient was given low-dose Lasix which seems to be helpful in terms of the fluid retention. Patient was advised to follow-up with primary care provider and the do not have primary care provider and then come up over here for follow-up visit. Treatment Summary: 1. Open left radical nephrectomy by Dr. Natalie العراقي at [facility] on 03/07/2018 2. Cabozantinib 60 mg daily started on 06/11/2018. 3. Anticoagulation since 07/07/2018 for PE, lovelox > Xarelto. - Patient Self-Reported Symptoms SR Constitution: Fatigue/Malaise SR eye issues: Vision changes SR ears, nose, mouth, throat issues: Changes in taste SR respiratory issues: Shortness of breath SR Cardiovascular issues: Shortness of breath with activity or lying flat, Extreme swelling SR Skin issues: Dry skin SR Gastrointestinal issues: Vomiting, Heartburn SR Genitourinary issues: Frequent urination SR Musculoskeletal issues: Joint pain or swelling, Muscle weakness, Muscle pain or cramps, Difficulty walking SR Neuro issues: Numbness or tingling, Difficulty balancing SR Hematologic issues: Bleeding/bruising SR Endocrine issues: Cold intolerance, Excessive urination - Additional ROS All systems PM: reviewed and no additional remarkable complaints except as stated Home Medications and Allergies Home Medications Medication Instructions Recorded Confirmed Type Flovent HFA 1 puff INHALATION Q12H 02/07/18 06/09/20 History Otezla 30 mg PO DAILY 02/07/18 06/09/20 History hydroxyzine HCl 25 mg PO QID PRN 02/07/18 06/09/20 History pramipexole 0.125 mg PO BEDTIME 02/07/18 06/09/20 History temazepam 15 mg PO BEDTIME PRN 02/07/18 06/09/20 History vitamin [id number] acid 1 tab PO DAILY 04/24/18 06/09/20 History amlodipine 5 mg PO DAILY #30 tab 06/26/18 06/09/20 Rx cabozantinib 20 mg PO DAILY #30 tab 09/11/18 06/09/20 Rx furosemide 20 mg PO DAILY 06/09/20 06/09/20 History hydrocodone-acetaminophen 1 tab PO Q4-6H PRN 06/09/20 06/09/20 History meloxicam 15 mg PO DAILY PRN 06/09/20 06/09/20 History Allergies Allergy/AdvReac Type Severity Reaction Status Date / Time adhesive tape Allergy Severe Rash Verified 11/11/19 10:50 bee venom protein (honey bee) Allergy Unknown Verified 11/08/19 13:16 enoxaparin [From Lovenox] Allergy Unknown Verified 11/08/19 13:16 rivaroxaban [From Xarelto] AdvReac Severe Difficulty Verified 02/15/20 16:55 Breathing iodine AdvReac Unknown Verified 12/14/19 19:57 MICRO AdvReac Unknown Uncoded 11/08/19 13:16 Exam Vital signs: Vital Signs Temp Pulse Resp BP Pulse Ox 06/09/20 11:30 98.4 F 75 20 140/85 99 Intake and Output 06/08/20 06/09/20 06/09/20 23:59 07:59 15:59 Other: Weight 155.1 kg Patient Weight 06/09/20 23:59 Weight 155.1 kg Narrative: ECOG 1 Gen: WDWN, NAD, pleasant and cooperative, morbid obesity, in wheelchair. HEENT: NCAT, EOMI, PERRLA, anicteric sclera. Neck: Supple, No palpable thyromegaly or lymphadenopathy. Respiratory: CTAB, no wheezes audible. No JVD Cardiovascular: RRR, S1 and S2 normal, no M/G/R. Abdomen: Soft, NTND, BS normal, difficult to evaluate organomegaly Extremities: Mild lower extremity edema bilaterally Lymphatic: no palpable lymph nodes in the neck, axillae Neurological: AOx3, CN II-XII grossly intact. No focal motor or sensory deficit. Psychiatric: Good judgment and insight; normal affect; normal thought process Results - Labs Laboratory Last Values WBC 5.9 X10^3/uL (4.5-11.0) 11/05/19 11:46 RBC 3.51 X10^6/uL (4.0-5.2) L 11/05/19 11:46 Hgb 12.1 g/dL (12.0-16.0) 11/05/19 11:46 Hct 36.7 % (36-46) 11/05/19 11:46 MCV 104.5 fL (80-100) H 11/05/19 11:46 MCH 34.6 PG (26-34) H 11/05/19 11:46 MCHC 33.1 % (30-36) 11/05/19 11:46 RDW 14.5 % (11.6-14.8) 11/05/19 11:46 Plt Count 196 X10^3/uL (150-400) 11/05/19 11:46 Neut % (Auto) 45.6 % (50-75) L 11/05/19 11:46 Lymph % (Auto) 39.9 % (25-40) 11/05/19 11:46 Kinney % (Auto) 10.0 % (3-14) 11/05/19 11:46 Eos % (Auto) 3.8 % (2-4) 11/05/19 11:46 Baso % (Auto) 0.7 % (0-2) 11/05/19 11:46 Neut # (Auto) 2700 /uL (4981-8041) 11/05/19 11:46 Lymph # (Auto) 2400 /uL (6061-7362) 11/05/19 11:46 Kinney # (Auto) 600 /uL (0-900) 11/05/19 11:46 Eos # (Auto) 200 /uL (0-450) 11/05/19 11:46 Baso # (Auto) 0 /uL (0-100) 11/05/19 11:46 Total Counted 100 12/31/18 16:12 Seg Neutrophils % 57.0 % (38-70) 12/31/18 16:12 Lymphocytes % (Manual) 31.0 % (25-45) 12/31/18 16:12 Monocytes % (Manual) 9.0 % (2-11) 12/31/18 16:12 Eosinophils % (Manual) 2.0 % (2-4) 12/31/18 16:12 Basophils % (Manual) 1.0 % (0-1) 12/31/18 16:12 Neutrophils # (Manual) 3705 /uL (5130-5373) 12/31/18 16:12 RBC Morphology Normal morphology 12/31/18 16:12 Anisocytosis 2+ H 08/26/18 11:58 Sodium 142 mmol/L (137-145) 11/05/19 11:46 Potassium 4.3 mmol/L (3.4-5.1) 11/05/19 11:46 Chloride 113 mmol/L (98-107) H 11/05/19 11:46 Carbon Dioxide 25 mmol/L (22-32) 11/05/19 11:46 BUN 19 mg/dL (7-17) H 11/05/19 11:46 Creatinine 0.98 mg/dL (0.52-1.04) 11/05/19 11:46 Estimated GFR 57.5 mL/min (>60) L 11/05/19 11:46 BUN/Creatinine Ratio 19.4 (6-22) 11/05/19 11:46 Glucose 85 mg/dL (80-110) 11/05/19 11:46 Calcium 8.4 mg/dL (8.4-10.2) 11/05/19 11:46 Magnesium 2.2 mg/dL (1.6-2.3) 12/03/18 12:45 Total Bilirubin 0.4 mg/dL (0.2-1.3) 11/05/19 11:46 AST 36 IU/L (14-36) 11/05/19 11:46 ALT 38 IU/L (<35) H 11/05/19 11:46 Alkaline Phosphatase 65 U/L (38-126) 11/05/19 11:46 Lactate Dehydrogenase 670 U/L (313-618) H 11/05/19 11:46 Total Protein 5.8 g/dL (6.3-8.2) L 11/05/19 11:46 Albumin 3.1 g/dL (3.5-5.0) L 11/05/19 11:46 Globulin 2.7 g/dL (1.7-4.1) 11/05/19 11:46 Albumin/Globulin Ratio 1.1 (1.0-2.8) 11/05/19 11:46 TSH 3.94 uIU/mL (0.47-4.68) 09/09/18 11:43 Assessment and Plan (1) Clear cell adenocarcinoma of left kidney Overview: 64 year old female with metastatic clear cell renal cell carcinoma, pT3a N1 Mx. She originally presented with hypercalcemia with headache, nausea and vomiting. CT 01/08/2018: left renal mass at least 9.7 cm with prominent retroperitoneal lymphadneopathy. Staging imagine (CT CAP, bone scan and PET) showed the known left kidney mass, and suspicious retroperitoneal and pelvic lymphadenopathy and right lower lung nodules. Status post left nephrectomy on 03/07/2018. Surgical pathology showed clear cell renal cell carcinoma. She was evaluated at [facility] by Dr. Ribeiro. Treatment with cabozantinib was recommended. She started Cabozatinib 60 mg daily on 06/11/2018. On 10/29/2018, cabozantinib was held due to grade 2 maculopapular rashes, grade 1 liver function abnormalities. On 09/11/2018, she was able to restart Carbozantinib at 20 mg daily and has tolerated well so far. Patient underwent CT of the chest abdomen pelvis on 01/20/2019. It showed no evidence for residual or recurrent disease. Assessment: She is now taking cabozantinib 20 mg once a day and tolerated very well. As far as the water retention is concerned, the patient's creatinine level has slightly increased suggesting more kidney damage. I would like refer her to Nephrology for help in managing the fluid balance and also for managing of the chronic kidney disease. Patient voiced understanding. Plan: 1. Continue Cabozatinib at 20 mg daily 2. Nephrology referral 3. RTC in 6 months, CBC, CMP, LDH (2) Pulmonary embolism Incidental diagnosis of right lung pulmonary embolism in the right main pulmonary artery bifurcation and the right upper and lower lobar pulmonary arteries on 06/27/2018 during a workup for restaging of her clear cell renal cell carcinoma. Patient was adequately started on Lovenox 120 mg Q 12. Due to development of abdominal wall hematoma at the site of injection, Lovenox was subsequently switched to Xarelto. She stopped Xarelto in Jan 2020 due to concern for bleeding and swelling of the legs.
--- NOTE | 2020-06-13 10:43 | ONC.SCHED ---
Faxed referral to [facility].
--- NOTE | 2020-06-20 09:18 | ONC.SCHED ---
Spoke with [facility] to request that patient's appointment, currently scheduled for October 21, [address] Hu, be moved up to within 2 months of today. She is sending a message to nursing for them to work on this and call me.
--- NOTE | 2020-06-21 08:56 | ONC.SCHED ---
Returned the call back from Rosi with Nephrology regarding the referral that Kath had sent for patient. I was on hold for a very long time so but did speak to the front office person to let her know why I was calling. I am hoping they will call back. It sounds like from the ms. they are short a doctor who just retired and are trying to get patient in earlier but could not make any guarantees. I will give the msg. to Kath for an update.
--- NOTE | 2020-06-28 16:32 | ONC.SCHED ---
Addendum entered by Kath Wong 06/28/20 16:38: Called [facility] and cancelled October appointment. Addendum entered by Kath Wong 06/28/20 16:37: Relayed information to patient by phone. She is grateful. Original Note: Received message from Rosi @ [facility]: cannot see patient before 10/21/2020. Faxed referral to [facility] after speaking with Sharon and learning that they can probably schedule the patient for mid-July. She said they will call the patient this week to schedule.
--- NOTE | 2020-07-05 15:29 | ONC.SCHED ---
Ryan Callahan @ [facility]: patient is scheduled for 07/26/[address] Irwin.
--- NOTE | 2020-09-01 14:27 | ONC.PN ---
PN -Subjective Interval history: ID/CC: 64 year old female with metastatic renal clear cell carcinoma now on treatment with cabozantinib, and pulmonary embolism on Xarelto. Oncology History Ms Belgica Da Silva is a 62 year old female with a long list of medical co-morbidities most notable for morbid obesity, sleep apnea on CPAP, hypertension, rheumatoid arthritis, and psoriasis on Otezla (apremilast). In early December,, she developed headache, nausea, and vomiting. She was evaluated by Dr. Goel on 01/08/2018. The next day, she had a call from the nurse asking her to go to the emergency room due to serum calcium level of about 13. Patient stayed at the [facility] for about 3 days. Patient recalled that they gave her medications through the intravenous line. She underwent CT scan on 01/08/2018, that showed an left infiltrative lower/midpole originating heterogeneous iso-attenuating mass measuring at least 9.7 cm, pelvic retroperitoneal node cluster largest of which measuring 1.4 x 2.6 cm, and the most prominent nearby retroperitoneal lymph node measuring 2.2 x 1.2 cm. Sigmoid diverticulosis was also noted. On 02/03/2018, she was seen as post ER follow up at [facility]. Her calcium level has decreased to 11.5. Patient requested to be referred to [facility]. I first saw the patient on 02/07/2018. I referred the patient to [facility] for evaluation of possible surgical resection of left suspicious kidney cancer. In addition patient underwent staging studies as follows. On 02/12/2018, bone scan showed no osseous metastatic disease. Same day CT scan of the chest abdomen pelvis showed the large heterogeneously enhancing left renal mass with imaging characteristics highly suspicious for renal cell carcinoma, left leif-aortic retroperitoneal and left common iliac pelvic metastatic lymphadenopathy, and a 1.5 x 1.1 x 1.2 cm right lower lobe nodule highly suspicious for possible lung metastasis. On 02/19/2018, PET-CT showed a large left renal mass involving nearly the entire left kidney demonstrating abnormal FDG activity consistent with malignancy, a 1.4 x 2.1 cm left para-aortic lymph node demonstrating maximum SUV 2.3, additional enlarged retroperitoneal, mesenteric, and left iliac lymph node and bilateral inguinal lymph nodes demonstrating low FDG activity suggesting benign etiology and the 1.6 x 0.8 mc bilobed lung mass in the right lower lobe with low level increasing uptake with SUV 2.1 and a tiny 5 mm right middle lobe nodule with SUV maximum 0.8. The patient was seen by Natalie العراقي MD urologist at [facility] on 02/28/2018. The patient then underwent open left radical nephrectomy on 03/07/2018. 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 There was 10% rhabdoid change and there was necrosis within the tumor. Nuclear grade was 4. There was tumor extension into perinephric tissues, the renal sinus, a major vein and the pelvicalyceal system. All surgical margins were negative. One of 1 lymph node in the surgical specimen was involved by carcinoma with a 4 cm deposit. Final pathologic staging was pT3a N1. She was referred to and was evaluated by Dr. Ribeiro on 05/06/2018. Dr. Ribeiro did not think that the patient was a suitable candidate for high-dose interleukin 2 treatment. No open front line clinical trials were available either at this moment. Dr. Gómez discussed variety of treatment options including immunotherapy ipilimumab plus nivolumab vs oral targeted drug cabozaninib. Given patient autoimmune disease history including psoriasis which is actively managed with Otezla as well as diagnosis of rheumatoid arthritis, and that immunotherapy has a high likelihood of exacerbating these underlying autoimmune syndrome, Dr. Gómez recommended targeted drug cabozantinib. She started Cabozantinib 60 mg daily on 06/11/2018. On 06/27/2018, patient went to [facility] and was evaluated by Dr. Natalie العراقي. CT of the head was performed that showed no acute intracranial abnormality. CT of the chest abdomen and pelvis showed that the previously seen right lower lobe nodule has resolved. But there were increased size of para-aortic lymph nodes. Incidentally pulmonary emboli in the right main pulmonary artery bifurcation and the right upper and lower lobar pulmonary arteries were identified. Patient therefore was called back to the emergency room of [facility] where patient was initiated Lovenox injection 120 mg twice daily. About early August 2018, patient developed abdominal wall hematoma. She was evaluated at the [facility] emergency room. Her Lovenox was then switched to Xarelto. Since then patient said that the hematoma has improved. However while at the emergency room, a small incision was cut into the hematoma. On 08/28/2018, patient was evaluated at our clinic. Patient at that time reported significant macular papular rashes in the hands, feet, back, and facce as well as at her private parts. In addition patient was found to have elevated liver function tests. Therefore we decided to hold the medications. During the interim, patient said that the rashes have improved dramatically. On 09/11/2018, she was able to restart Carbozantinib at 20 mg daily and has tolerated well so far. On 11/13/2018, patient underwent CT scan of the chest abdomen pelvis. The scan showed previous left nephrectomy, and resolution of left para-aortic and left common iliac charlene disease, resolution of right lower lobe lung nodule and no evidence of residual or recurrent disease. CT chest abdomen and pelvis on 01/20/2019. The scan showed chest abdomen and pelvis without acute abnormalities, status post left nephrectomy, and no evidence for residual or recurrent disease. On 05/02/2020, patient underwent CT chest abdomen and pelvis. It showed status post left nephrectomy and no specific evidence of active metastatic disease. Interim Events: She came in here today accompanied by herself. Patient is now complaining epigastric and right upper quadrant abdominal pains and achiness. Patient said that it comes and goes. It is associated with nausea but not vomiting. Other than this, patient reports no new problems. Patient continues to have significant exertional shortness of breath. But no cough. Treatment Summary: 1. Open left radical nephrectomy by Dr. Natalie العراقي at [facility] on 03/07/2018 2. Cabozantinib 60 mg daily started on 06/11/2018. 3. Anticoagulation since 07/07/2018 for PE, lovelox > Xarelto. - Patient Self-Reported Symptoms SR Constitution: Fatigue/Malaise SR eye issues: Vision changes SR ears, nose, mouth, throat issues: Changes in taste SR respiratory issues: Shortness of breath SR Cardiovascular issues: Shortness of breath with activity or lying flat, Extreme swelling SR Skin issues: Dry skin SR Gastrointestinal issues: Vomiting, Heartburn SR Genitourinary issues: Frequent urination SR Musculoskeletal issues: Joint pain or swelling, Muscle weakness, Muscle pain or cramps, Difficulty walking SR Neuro issues: Numbness or tingling, Difficulty balancing SR Hematologic issues: Bleeding/bruising SR Endocrine issues: Cold intolerance, Excessive urination - ROS All systems PM: reviewed and no additional remarkable complaints except as stated Home Medications and Allergies Home Medications Medication Instructions Recorded Confirmed Type apremilast 30 mg tablet (Otezla) 30 mg PO DAILY 02/07/18 09/01/20 History fluticasone propionate 110 1 puff INHALATION Q12H 02/07/18 09/01/20 History mcg/actuation HFA aerosol inhaler (Flovent HFA) pramipexole 0.125 mg tablet 0.125 mg PO BEDTIME 02/07/18 09/01/20 History temazepam 15 mg capsule 15 mg PO BEDTIME PRN 02/07/18 09/01/20 History vitamin B12 500 mcg-folic acid 400 1 tab PO DAILY 04/24/18 09/01/20 History mcg tablet cabozantinib 20 mg tablet 20 mg PO DAILY #30 tab 09/11/18 09/01/20 Rx hydroxyzine HCl 25 mg tablet 25 mg PO QID PRN #30 tab 08/24/20 09/01/20 Rx lisinopril 10 1 tab PO DAILY #90 tab 08/24/20 09/01/20 Rx mg-hydrochlorothiazide 12.5 mg tablet pantoprazole 40 mg tablet,delayed 40 mg PO DAILY #30 tab 09/01/20 Rx release (Protonix) Allergies Allergy/AdvReac Type Severity Reaction Status Date / Time adhesive tape Allergy Severe Rash Verified 08/24/20 10:39 bee venom protein (honey bee) Allergy Unknown Verified 08/24/20 10:39 enoxaparin [From Lovenox] Allergy Unknown Verified 08/24/20 10:39 rivaroxaban [From Xarelto] AdvReac Severe Difficulty Verified 08/24/20 10:39 Breathing iodine AdvReac Unknown Verified 08/24/20 10:39 MICRO AdvReac Unknown Uncoded 08/24/20 10:39 Exam Vital signs: 09/01/20 15:42 Last Vital Signs Temp 97.8 F 09/01/20 15:10 Pulse 77 09/01/20 15:10 Resp 16 09/01/20 15:10 BP 182/116 H 09/01/20 15:10 Pulse Ox 99 09/01/20 15:10 Narrative: ECOG 1 Gen: WDWN, NAD, pleasant and cooperative, morbid obesity, in wheelchair. HEENT: NCAT, EOMI, PERRLA, anicteric sclera. Neck: Supple, No palpable thyromegaly or lymphadenopathy. Respiratory: CTAB, no wheezes audible. No JVD Cardiovascular: RRR, S1 and S2 normal, no M/G/R. Abdomen: Soft, NTND, BS normal, difficult to evaluate organomegaly Extremities: Mild lower extremity edema bilaterally Lymphatic: no palpable lymph nodes in the neck, axillae Neurological: AOx3, CN II-XII grossly intact. No focal motor or sensory deficit. Psychiatric: Good judgment and insight; normal affect; normal thought process Results - Labs Laboratory Last Values WBC 5.9 X10^3/uL (4.5-11.0) 11/05/19 11:46 RBC 3.51 X10^6/uL (4.0-5.2) L 11/05/19 11:46 Hgb 12.1 g/dL (12.0-16.0) 11/05/19 11:46 Hct 36.7 % (36-46) 11/05/19 11:46 MCV 104.5 fL (80-100) H 11/05/19 11:46 MCH 34.6 PG (26-34) H 11/05/19 11:46 MCHC 33.1 % (30-36) 11/05/19 11:46 RDW 14.5 % (11.6-14.8) 11/05/19 11:46 Plt Count 196 X10^3/uL (150-400) 11/05/19 11:46 Neut % (Auto) 45.6 % (50-75) L 11/05/19 11:46 Lymph % (Auto) 39.9 % (25-40) 11/05/19 11:46 [place] % (Auto) 10.0 % (3-14) 11/05/19 11:46 Eos % (Auto) 3.8 % (2-4) 11/05/19 11:46 Baso % (Auto) 0.7 % (0-2) 11/05/19 11:46 Neut # (Auto) 2700 /uL (0822-2416) 11/05/19 11:46 Lymph # (Auto) 2400 /uL (2201-5099) 11/05/19 11:46 [place] # (Auto) 600 /uL (0-900) 11/05/19 11:46 Eos # (Auto) 200 /uL (0-450) 11/05/19 11:46 Baso # (Auto) 0 /uL (0-100) 11/05/19 11:46 Total Counted 100 12/31/18 16:12 Seg Neutrophils % 57.0 % (38-70) 12/31/18 16:12 Lymphocytes % (Manual) 31.0 % (25-45) 12/31/18 16:12 Monocytes % (Manual) 9.0 % (2-11) 12/31/18 16:12 Eosinophils % (Manual) 2.0 % (2-4) 12/31/18 16:12 Basophils % (Manual) 1.0 % (0-1) 12/31/18 16:12 Neutrophils # (Manual) 3705 /uL (8652-2343) 12/31/18 16:12 RBC Morphology Normal morphology 12/31/18 16:12 Anisocytosis 2+ H 08/26/18 11:58 Sodium 142 mmol/L (137-145) 11/05/19 11:46 Potassium 4.3 mmol/L (3.4-5.1) 11/05/19 11:46 Chloride 113 mmol/L (98-107) H 11/05/19 11:46 Carbon Dioxide 25 mmol/L (22-32) 11/05/19 11:46 BUN 19 mg/dL (7-17) H 11/05/19 11:46 Creatinine 0.98 mg/dL (0.52-1.04) 11/05/19 11:46 Estimated GFR 57.5 mL/min (>60) L 11/05/19 11:46 BUN/Creatinine Ratio 19.4 (6-22) 11/05/19 11:46 Glucose 85 mg/dL (80-110) 11/05/19 11:46 Calcium 8.4 mg/dL (8.4-10.2) 11/05/19 11:46 Magnesium 2.2 mg/dL (1.6-2.3) 12/03/18 12:45 Total Bilirubin 0.4 mg/dL (0.2-1.3) 11/05/19 11:46 AST 36 IU/L (14-36) 11/05/19 11:46 ALT 38 IU/L (<35) H 11/05/19 11:46 Alkaline Phosphatase 65 U/L (38-126) 11/05/19 11:46 Lactate Dehydrogenase 670 U/L (313-618) H 11/05/19 11:46 Total Protein 5.8 g/dL (6.3-8.2) L 11/05/19 11:46 Albumin 3.1 g/dL (3.5-5.0) L 11/05/19 11:46 Globulin 2.7 g/dL (1.7-4.1) 11/05/19 11:46 Albumin/Globulin Ratio 1.1 (1.0-2.8) 11/05/19 11:46 TSH 3.94 uIU/mL (0.47-4.68) 09/09/18 11:43 Assessment and Plan (1) Clear cell adenocarcinoma of left kidney Overview: 65 year old female with metastatic clear cell renal cell carcinoma, pT3a N1 Mx. She originally presented with hypercalcemia with headache, nausea and vomiting. CT 01/08/2018: left renal mass at least 9.7 cm with prominent retroperitoneal lymphadneopathy. Staging imagine (CT CAP, bone scan and PET) showed the known left kidney mass, and suspicious retroperitoneal and pelvic lymphadenopathy and right lower lung nodules. Status post left nephrectomy on 03/07/2018. Surgical pathology showed clear cell renal cell carcinoma. She was evaluated at [facility] by Dr. Ribeiro. Treatment with cabozantinib was recommended. She started Cabozatinib 60 mg daily on 06/11/2018. On 10/29/2018, cabozantinib was held due to grade 2 maculopapular rashes, grade 1 liver function abnormalities. On 09/11/2018, she was able to restart Carbozantinib at 20 mg daily and has tolerated well so far. Patient underwent CT of the chest abdomen pelvis on 01/20/2019. It showed no evidence for residual or recurrent disease. Assessment: She is now taking cabozantinib 20 mg once a day and tolerated very well. As far as the epigastric and right upper quadrant abdominal pain is concerned, I explained to the patient it could be due to acid reflux or it may reflect progression of the underlying clear cell renal cell carcinoma. I recommended further workup including CT scan. For symptomatic management, I will try proton pump inhibitors. Plan: 1. Continue Cabozatinib [address] CAP wo contrast 3. Protonix 40 mg daily 4. RTC in 1 month, CBC, CMP, LDH (2) Pulmonary embolism Incidental diagnosis of right lung pulmonary embolism in the right main pulmonary artery bifurcation and the right upper and lower lobar pulmonary arteries on 06/27/2018 during a workup for restaging of her clear cell renal cell carcinoma. Patient was adequately started on Lovenox 120 mg Q 12. Due to development of abdominal wall hematoma at the site of injection, Lovenox was subsequently switched to Xarelto. She stopped Xarelto in Jan 2020 due to concern for bleeding and swelling of the legs.
[2020-09-01 15:10] VITALS: BP 182/116; PULSE 77; RESP 16; TEMP 36.6; O2SAT 99
[2020-09-14 11:58] LABS: Add Manual Diff / Slide Review NO; Basophils Absolute Auto 0 /uL (0-100); Basophils Percent Auto 0.5 % (0-2); Eosinophils Absolute Auto 200 /uL (0-450); Eosinophils Percent Auto 2.4 % (2-4); Hematocrit 39.8 % (36-46); Hemoglobin 12.9 g/dL (12.0-16.0); Lymphocytes Absolute Auto 2200 /uL (1100-4500); Lymphocytes Percent Auto 33.2 % (25-40); Mean Corpuscular HGB Conc 32.5 % (30-36); Mean Corpuscular Hemoglobin 33.4 PG (26-34); Mean Corpuscular Volume 102.6 fL (80-100); Monocytes Absolute Auto 600 /uL (0-900); Monocytes Percent Auto 9.3 % (3-14); Neutrophils Absolute Auto 3600 /uL (1500-7000); Neutrophils Percent Auto 54.6 % (50-75); Platelet Count 227 X10^3/uL (150-400); Red Blood Cell Count 3.88 X10^6/uL (4.0-5.2); Red Cell Distribution Width 14.5 % (11.6-14.8); White Blood Cell Count 6.6 X10^3/uL (4.5-11.0)
[2020-09-14 12:42] LABS: Alanine Aminotransferase 29 IU/L (<35); Albumin 3.3 g/dL (3.5-5.0); Albumin Globulin Ratio 1.1 (1.0-2.8); Alkaline Phosphatase 46 U/L (38-126); Aspartate Aminotransferase 31 IU/L (14-36); BUN Creatinine Ratio 17.9 (6-22); Bilirubin Total 0.5 mg/dL (0.2-1.3); Blood Urea Nitrogen 21 mg/dL (7-17); Calcium 9.5 mg/dL (8.4-10.2); Carbon Dioxide 28 mmol/L (22-32); Chloride 109 mmol/L (98-107); Estimated Glomerular Filt Rate 46.7 mL/min (>60); Globulin 2.9 g/dL (1.7-4.1); Glucose 78 mg/dL (80-110); HEMOLYSIS < 15 (0-50); Lactate Dehydrogenase 637 U/L (313-618); Potassium 4.3 mmol/L (3.4-5.1); Sodium 141 mmol/L (137-145); Total Protein 6.2 g/dL (6.3-8.2)
--- NOTE | 2020-09-14 16:26 | PC.NURSE ---
Clinic drop-in Pt came by clinic requesting to speak to RN. Infusion clinic with high volume of pt at [facility] of drop-in. This RN spoke briefly with pt. Pt explains that she was recently seen at [facility] ER and was prescribed pain medication for right leg and hip pain. According to pt, she attempted to leaf size picker prescribed RX from [facility] [place] she was told that a prior authorization was required. Pt attempted to contact PCP, Dr. Baker's office to assist with pain medication and/or PA and was unable to resolve issues. This RN spoke with Ct at PCP office ([facility]) and Chandra is aware of the situation, has received the medical records from recent ER visit and will discuss with on-call provider. This RN updated patient, pt verbalizes understanding.
--- NOTE | 2020-09-29 16:29 | P.PNONC_ITS ---
PN -Subjective Interval history: ID/CC: 64 year old female with metastatic renal clear cell carcinoma now on treatment with cabozantinib Oncology History Ms Belgica Da Silva is a 62 year old female with a long list of medical co- morbidities most notable for morbid obesity, sleep apnea on CPAP, hypertension, rheumatoid arthritis, and psoriasis on Otezla (apremilast). In early December,, she developed headache, nausea, and vomiting. She was evaluated by Dr. Goel on 01/08/2018. The next day, she had a call from the nurse asking her to go to the emergency room due to serum calcium level of about 13. Patient stayed at the [facility] [place] for about 3 days. Patient recalled that they gave her medications through the intravenous line. She underwent CT scan on 01/08/2018, that showed an left infiltrative lower/midpole originating heterogeneous iso-attenuating mass measuring at least 9.7 cm, pelvic retroperitoneal node cluster largest of which measuring 1.4 x 2.6 cm, and the most prominent nearby retroperitoneal lymph node measuring 2.2 x 1.2 cm. Sigmoid diverticulosis was also noted. On 02/03/2018, she was seen as post ER follow up at [facility]. Her calcium level has decreased to 11.5. Patient requested to be referred to [facility]. I first saw the patient on 02/07/2018. I referred the patient to [facility] for evaluation of possible surgical resection of left suspicious kidney cancer. In addition patient underwent staging studies as follows. On 04/15/2017, bone scan showed no osseous metastatic disease. Same day CT scan of the chest abdomen pelvis showed the large heterogeneously enhancing left renal mass with imaging characteristics highly suspicious for renal cell carcinoma, left leif-aortic retroperitoneal and left common iliac pelvic metastatic lymphadenopathy, and a 1.5 x 1.1 x 1.2 cm right lower lobe nodule highly suspicious for possible lung metastasis. On 02/19/2018, PET-CT showed a large left renal mass involving nearly the entire left kidney demonstrating abnormal FDG activity consistent with malignancy, a 1.4 x 2.1 cm left para-aortic lymph node demonstrating maximum SUV 2.3, additional enlarged retroperitoneal, mesenteric, and left iliac lymph node and bilateral inguinal lymph nodes demonstrating low FDG activity suggesting benign etiology and the 1.6 x 0.8 mc bilobed lung mass in the right lower lobe with low level increasing uptake with SUV 2.1 and a tiny 5 mm right middle lobe nodule with SUV maximum 0.8. The patient was seen by Natalie العراقي MD urologist at [facility] on 02/28/2018. The patient then underwent open left radical nephrectomy on 03/07/2018. 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 There was 10% rhabdoid change and there was necrosis within the tumor. Nuclear grade was 4. There was tumor extension into perinephric tissues, the renal sinus, a major vein and the pelvicalyceal system. All surgical margins were negative. One of 1 lymph node in the surgical specimen was involved by carcinoma with a 4 cm deposit. Final pathologic staging was pT3a N1. She was referred to and was evaluated by Dr. Ribeiro on 05/06/2018. Dr. Ribeiro did not think that the patient was a suitable candidate for high-dose interleukin 2 treatment. No open front line clinical trials were available either at this moment. Dr. Gómez discussed variety of treatment options including immunotherapy ipilimumab plus nivolumab vs oral targeted drug cabozaninib. Given patient autoimmune disease history including psoriasis which is actively managed with Otezla as well as diagnosis of rheumatoid arthritis, and that immunotherapy has a high likelihood of exacerbating these underlying autoimmune syndrome, Dr. Gómez recommended targeted drug cabozantinib. She started Cabozantinib 60 mg daily on 06/11/2018. On 06/27/2018, patient went to [facility] and was evaluated by Dr. Natalie العراقي. CT of the head was performed that showed no acute intracranial abnormality. CT of the chest abdomen and pelvis showed that the previously seen right lower lobe nodule has resolved. But there were increased size of para- aortic lymph nodes. Incidentally pulmonary emboli in the right main pulmonary artery bifurcation and the right upper and lower lobar pulmonary arteries were identified. Patient therefore was called back to the emergency room of [facility] where patient was initiated Lovenox injection 120 mg twice daily. About early August 2018, patient developed abdominal wall hematoma. She was evaluated at the [facility] emergency room. Her Lovenox was then switched to Xarelto. Since then patient said that the hematoma has improved. However while at the emergency room, a small incision was cut into the hematoma. On 08/28/2018, patient was evaluated at our clinic. Patient at that time reported significant macular papular rashes in the hands, feet, back, and facce as well as at her private parts. In addition patient was found to have elevated liver function tests. Therefore we decided to hold the medications. During the interim, patient said that the rashes have improved dramatically. On 09/11/2018, she was able to restart Carbozantinib at 20 mg daily and has tolerated well so far. On 11/13/2018, patient underwent CT scan of the chest abdomen pelvis. The scan showed previous left nephrectomy, and resolution of left para-aortic and left common iliac charlene disease, resolution of right lower lobe lung nodule and no evidence of residual or recurrent disease. CT chest abdomen and pelvis on 01/20/2019. The scan showed chest abdomen and pelvis without acute abnormalities, status post left nephrectomy, and no evidence for residual or recurrent disease. On 05/02/2020, patient underwent CT chest abdomen and pelvis. It showed status post left nephrectomy and no specific evidence of active metastatic disease. Interim Events: She came in here by himself. She is now taking cabozantinib 20 mg daily. She has been doing very well. She reports no shortness of breath, no chest pain, no cough, no abdominal pain, no diarrhea or constipation. She underwent CT chest abdomen and pelvis with contrast on 09/14/2020. The scan showed status post left nephrectomy. No evidence of recurrence neoplasm or metastasis. Treatment Summary: 1. Open left radical nephrectomy by Dr. Natalie العراقي at [facility] on 03/07/2018 2. Cabozantinib 60 mg daily started on 06/11/2018. 3. Anticoagulation since 07/07/2018 for PE, lovelox > Xarelto. - Patient Self-Reported Symptoms SR Constitution: Chills SR eye issues: Double vision SR ears, nose, mouth, throat issues: Changes in taste SR respiratory issues: Shortness of breath SR Cardiovascular issues: Chest pain, discomfort, tightness SR Skin issues: Dry skin SR Gastrointestinal issues: Vomiting, Heartburn SR Genitourinary issues: Frequent urination SR Musculoskeletal issues: Joint pain or swelling, Muscle weakness, Muscle pain or cramps, Cold hands or feet, Difficulty walking, Bone pain SR Neuro issues: Lightheaded/dizzy, Numbness or tingling, Difficulty balancing SR Hematologic issues: Bleeding/bruising SR Endocrine issues: Excessive urination - ROS All systems PM: reviewed and no additional remarkable complaints except as stated Home Medications and Allergies Home Medications Medication Instructions Recorded Confirmed Type apremilast 30 mg tablet (Otezla) 30 mg PO DAILY 02/07/18 09/27/20 History fluticasone propionate 110 1 puff INHALATION Q12H 02/07/18 09/27/20 History mcg/actuation HFA aerosol inhaler (Flovent HFA) vitamin B12 500 mcg-folic acid 400 1 tab PO DAILY 04/24/18 09/27/20 History mcg tablet cabozantinib 20 mg tablet 20 mg PO DAILY #30 tab 09/11/18 09/27/20 Rx hydroxyzine HCl 25 mg tablet 25 mg PO QID PRN #30 tab 08/24/20 09/27/20 Rx pantoprazole 40 mg tablet,delayed 40 mg PO DAILY #30 tab 09/01/20 09/27/20 Rx release (Protonix) hydrocodone 5 mg-acetaminophen 300 See Rx Instructions PO Q4-6H PRN 09/14/20 09/27/20 Rx mg tablet #30 tab hydrocodone 5 mg-acetaminophen 325 1 tab PO TID PRN #30 tab 09/21/20 09/27/20 Rx mg tablet Albuterol Inhaler INHALATION 09/27/20 History prazosin 2 mg capsule 2 mg PO BEDTIME 09/27/20 09/27/20 History INCONTINENCE SUPPLIES #140 ea 09/28/20 Rx lisinopril 20 1 tab PO DAILY #90 tab 09/29/20 Rx mg-hydrochlorothiazide 25 mg tablet Allergies Allergy/AdvReac Type Severity Reaction Status Date / Time adhesive tape Allergy Severe Rash Verified 08/24/20 10:39 bee venom protein (honey bee) Allergy Unknown Verified 08/24/20 10:39 enoxaparin [From Lovenox] Allergy Unknown Verified 08/24/20 10:39 rivaroxaban [From Xarelto] AdvReac Severe Difficulty Verified 08/24/20 10:39 Breathing iodine AdvReac Unknown Verified 08/24/20 10:39 MICRO AdvReac Unknown Uncoded 08/24/20 10:39 Exam Vital signs: 09/29/20 16:48 Last Vital Signs Temp 98.6 F 09/29/20 16:31 Pulse 96 H 09/29/20 16:31 Resp 16 09/29/20 16:31 BP 146/101 H 09/29/20 16:31 Pulse Ox 100 09/29/20 16:31 Narrative: ECOG 1 Gen: WDWN, NAD, pleasant and cooperative, morbid obesity, in wheelchair. HEENT: NCAT, EOMI, PERRLA, anicteric sclera. Neck: Supple, No palpable thyromegaly or lymphadenopathy. Respiratory: CTAB, no wheezes audible. No JVD Cardiovascular: RRR, S1 and S2 normal, no M/G/R. Abdomen: Soft, NTND, BS normal, difficult to evaluate organomegaly Extremities: Mild lower extremity edema bilaterally Lymphatic: no palpable lymph nodes in the neck, axillae Neurological: AOx3, CN II-XII grossly intact. No focal motor or sensory deficit. Psychiatric: Good judgment and insight; normal affect; normal thought process Results - Labs Laboratory Last Values WBC 6.6 X10^3/uL (4.5-11.0) 09/14/20 11:37 RBC 3.88 X10^6/uL (4.0-5.2) L 09/14/20 11:37 Hgb 12.9 g/dL (12.0-16.0) 09/14/20 11:37 Hct 39.8 % (36-46) 09/14/20 11:37 MCV 102.6 fL (80-100) H 09/14/20 11:37 MCH 33.4 PG (26-34) 09/14/20 11:37 MCHC 32.5 % (30-36) 09/14/20 11:37 RDW 14.5 % (11.6-14.8) 09/14/20 11:37 Plt Count 227 X10^3/uL (150-400) 09/14/20 11:37 Neut % (Auto) 54.6 % (50-75) 09/14/20 11:37 Lymph % (Auto) 33.2 % (25-40) 09/14/20 11:37 Sully % (Auto) 9.3 % (3-14) 09/14/20 11:37 Eos % (Auto) 2.4 % (2-4) 09/14/20 11:37 Baso % (Auto) 0.5 % (0-2) 09/14/20 11:37 Neut # (Auto) 3600 /uL (0958-3123) 09/14/20 11:37 Lymph # (Auto) 2200 /uL (4768-2908) 09/14/20 11:37 Sully # (Auto) 600 /uL (0-900) 09/14/20 11:37 Eos # (Auto) 200 /uL (0-450) 09/14/20 11:37 Baso # (Auto) 0 /uL (0-100) 09/14/20 11:37 Total Counted 100 12/31/18 16:12 Seg Neutrophils % 57.0 % (38-70) 12/31/18 16:12 Lymphocytes % (Manual) 31.0 % (25-45) 12/31/18 16:12 Monocytes % (Manual) 9.0 % (2-11) 12/31/18 16:12 Eosinophils % (Manual) 2.0 % (2-4) 12/31/18 16:12 Basophils % (Manual) 1.0 % (0-1) 12/31/18 16:12 Neutrophils # (Manual) 3705 /uL (3115-8615) 12/31/18 16:12 RBC Morphology Normal morphology 12/31/18 16:12 Anisocytosis 2+ H 08/26/18 11:58 Sodium 141 mmol/L (137-145) 09/14/20 11:37 Potassium 4.3 mmol/L (3.4-5.1) 09/14/20 11:37 Chloride 109 mmol/L (98-107) H 09/14/20 11:37 Carbon Dioxide 28 mmol/L (22-32) 09/14/20 11:37 BUN 21 mg/dL (7-17) H 09/14/20 11:37 Creatinine 1.17 mg/dL (0.52-1.04) H 09/14/20 11:37 Estimated GFR 46.7 mL/min (>60) L 09/14/20 11:37 BUN/Creatinine Ratio 17.9 (6-22) 09/14/20 11:37 Glucose 78 mg/dL (80-110) L 09/14/20 11:37 Calcium 9.5 mg/dL (8.4-10.2) 09/14/20 11:37 Magnesium 2.2 mg/dL (1.6-2.3) 12/03/18 12:45 Total Bilirubin 0.5 mg/dL (0.2-1.3) 09/14/20 11:37 AST 31 IU/L (14-36) 09/14/20 11:37 ALT 29 IU/L (<35) 09/14/20 11:37 Alkaline Phosphatase 46 U/L (38-126) 09/14/20 11:37 Lactate Dehydrogenase 637 U/L (313-618) H 09/14/20 11:37 Total Protein 6.2 g/dL (6.3-8.2) L 09/14/20 11:37 Albumin 3.3 g/dL (3.5-5.0) L 09/14/20 11:37 Globulin 2.9 g/dL (1.7-4.1) 09/14/20 11:37 Albumin/Globulin Ratio 1.1 (1.0-2.8) 09/14/20 11:37 TSH 3.94 uIU/mL (0.47-4.68) 09/09/18 11:43 Assessment and Plan (1) Clear cell adenocarcinoma of left kidney Overview: 65 year old female with metastatic clear cell renal cell carcinoma, pT3a N1 Mx. She originally presented with hypercalcemia with headache, nausea and vomiting. CT 01/08/2018: left renal mass at least 9.7 cm with prominent retroperitoneal lymphadneopathy. Staging imagine (CT CAP, bone scan and PET) showed the known left kidney mass, and suspicious retroperitoneal and pelvic lymphadenopathy and right lower lung nodules. Status post left nephrectomy on 03/07/2018. Surgical pathology showed clear cell renal cell carcinoma. She was evaluated at [facility] by Dr. Ribeiro. Treatment with cabozantinib was recommended. She started Cabozatinib 60 mg daily on 06/11/2018. On 10/29/2018, cabozantinib was held due to grade 2 maculopapular rashes, grade 1 liver function abnormalities. On 09/11/2018, she was able to restart Carbozantinib at 20 mg daily and has tolerated well so far. Patient underwent CT of the chest abdomen pelvis on 01/20/2019. It showed no evidence for residual or recurrent disease. Assessment: She is now taking cabozantinib 20 mg once a day and tolerated very well. I reviewed CT report of 09/14/2020 with the patient. I told her that there is no evidence of disease recurrence or metastasis. I will continue current treatment without any changes. Plan: 1. Continue Cabozatinib 20 mg daily 2. Protonix 40 mg daily 3. RTC in 3 months, CBC, CMP, LDH (2) Pulmonary embolism Incidental diagnosis of right lung pulmonary embolism in the right main pulmonary artery bifurcation and the right upper and lower lobar pulmonary arteries on 06/27/2018 during a workup for restaging of her clear cell renal cell carcinoma. Patient was adequately started on Lovenox 120 mg Q 12. Due to development of abdominal wall hematoma at the site of injection, Lovenox was s ubsequently switched to Xarelto. She stopped Xarelto in Jan 2020 due to concern for bleeding and swelling of the legs.
[2020-09-29 16:31] VITALS: BP 146/101; PULSE 96; RESP 16; TEMP 37; O2SAT 100
[2021-01-30 10:12] LABS: Add Manual Diff / Slide Review NO; Basophils Absolute Auto 0 /uL (0-100); Basophils Percent Auto 0.6 % (0-2); Eosinophils Absolute Auto 300 /uL (0-450); Eosinophils Percent Auto 4.7 % (2-4); Hematocrit 37.3 % (36-46); Hemoglobin 12.4 g/dL (12.0-16.0); Lymphocytes Absolute Auto 1900 /uL (1100-4500); Lymphocytes Percent Auto 27.1 % (25-40); Mean Corpuscular HGB Conc 33.3 % (30-36); Mean Corpuscular Hemoglobin 34.9 PG (26-34); Mean Corpuscular Volume 104.8 fL (80-100); Monocytes Absolute Auto 700 /uL (0-900); Monocytes Percent Auto 9.5 % (3-14); Neutrophils Absolute Auto 4100 /uL (1500-7000); Neutrophils Percent Auto 58.1 % (50-75); Platelet Count 194 X10^3/uL (150-400); Red Blood Cell Count 3.56 X10^6/uL (4.0-5.2); Red Cell Distribution Width 13.6 % (11.6-14.8)
[2021-01-30 10:31] LABS: Alanine Aminotransferase 27 IU/L (<35); Albumin 3.6 g/dL (3.5-5.0); Albumin Globulin Ratio 1.3 (1.0-2.8); Alkaline Phosphatase 48 U/L (38-126); Aspartate Aminotransferase 28 IU/L (14-36); BUN Creatinine Ratio 13.7 (6-22); Bilirubin Total 0.4 mg/dL (0.2-1.3); Blood Urea Nitrogen 19 mg/dL (7-17); Calcium 8.8 mg/dL (8.4-10.2); Carbon Dioxide 28 mmol/L (22-32); Chloride 110 mmol/L (98-107); Estimated Glomerular Filt Rate 38.3 mL/min (>60); Globulin 2.8 g/dL (1.7-4.1); Glucose 89 mg/dL (80-110); HEMOLYSIS 16 (0-50); Lactate Dehydrogenase 549 U/L (313-618); Potassium 4.6 mmol/L (3.4-5.1); Sodium 143 mmol/L (137-145); Total Protein 6.4 g/dL (6.3-8.2)
[2021-02-02 08:30] VITALS: BP 119/70; PULSE 70; RESP 70; TEMP 36.9; O2SAT 100
--- NOTE | 2021-02-02 08:34 | ONC.PN ---
PN -Subjective Interval history: ID/CC: 64 year old female with metastatic renal clear cell carcinoma now on treatment with cabozantinib Oncology History Ms Belgica Da Silva is a 62 year old female with a long list of medical co-morbidities most notable for morbid obesity, sleep apnea on CPAP, hypertension, rheumatoid arthritis, and psoriasis on Otezla (apremilast). In early December,, she developed headache, nausea, and vomiting. She was evaluated by Dr. Goel on 01/08/2018. The next day, she had a call from the nurse asking her to go to the emergency room due to serum calcium level of about 13. Patient stayed at the [facility] for about 3 days. Patient recalled that they gave her medications through the intravenous line. She underwent CT scan on 01/08/2018, that showed an left infiltrative lower/midpole originating heterogeneous iso-attenuating mass measuring at least 9.7 cm, pelvic retroperitoneal node cluster largest of which measuring 1.4 x 2.6 cm, and the most prominent nearby retroperitoneal lymph node measuring 2.2 x 1.2 cm. Sigmoid diverticulosis was also noted. On 02/03/2018, she was seen as post ER follow up at [facility]. Her calcium level has decreased to 11.5. Patient requested to be referred to [facility]. I first saw the patient on 02/07/2018. I referred the patient to [facility] for evaluation of possible surgical resection of left suspicious kidney cancer. In addition patient underwent staging studies as follows. On 02/12/2018, bone scan showed no osseous metastatic disease. Same day CT scan of the chest abdomen pelvis showed the large heterogeneously enhancing left renal mass with imaging characteristics highly suspicious for renal cell carcinoma, left leif-aortic retroperitoneal and left common iliac pelvic metastatic lymphadenopathy, and a 1.5 x 1.1 x 1.2 cm right lower lobe nodule highly suspicious for possible lung metastasis. On 02/19/2018, PET-CT showed a large left renal mass involving nearly the entire left kidney demonstrating abnormal FDG activity consistent with malignancy, a 1.4 x 2.1 cm left para-aortic lymph node demonstrating maximum SUV 2.3, additional enlarged retroperitoneal, mesenteric, and left iliac lymph node and bilateral inguinal lymph nodes demonstrating low FDG activity suggesting benign etiology and the 1.6 x 0.8 mc bilobed lung mass in the right lower lobe with low level increasing uptake with SUV 2.1 and a tiny 5 mm right middle lobe nodule with SUV maximum 0.8. The patient was seen by Natalie العراقي MD urologist at [facility] on 02/28/2018. The patient then underwent open left radical nephrectomy on 03/07/2018. 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 There was 10% rhabdoid change and there was necrosis within the tumor. Nuclear grade was 4. There was tumor extension into perinephric tissues, the renal sinus, a major vein and the pelvicalyceal system. All surgical margins were negative. One of 1 lymph node in the surgical specimen was involved by carcinoma with a 4 cm deposit. Final pathologic staging was pT3a N1. She was referred to and was evaluated by Dr. Ribeiro on 05/06/2018. Dr. Ribeiro did not think that the patient was a suitable candidate for high-dose interleukin 2 treatment. No open front line clinical trials were available either at this moment. Dr. Gómez discussed variety of treatment options including immunotherapy ipilimumab plus nivolumab vs oral targeted drug cabozaninib. Given patient autoimmune disease history including psoriasis which is actively managed with Otezla as well as diagnosis of rheumatoid arthritis, and that immunotherapy has a high likelihood of exacerbating these underlying autoimmune syndrome, Dr. Gómez recommended targeted drug cabozantinib. She started Cabozantinib 60 mg daily on 06/11/2018. On 06/27/2018, patient went to [facility] and was evaluated by Dr. Natalie العراقي. CT of the head was performed that showed no acute intracranial abnormality. CT of the chest abdomen and pelvis showed that the previously seen right lower lobe nodule has resolved. But there were increased size of para-aortic lymph nodes. Incidentally pulmonary emboli in the right main pulmonary artery bifurcation and the right upper and lower lobar pulmonary arteries were identified. Patient therefore was called back to the emergency room of [facility] where patient was initiated Lovenox injection 120 mg twice daily. About early August 2018, patient developed abdominal wall hematoma. She was evaluated [facility] emergency room. Her Lovenox was then switched to Xarelto. Since then patient said that the hematoma has improved. However while at the emergency room, a small incision was cut into the hematoma. On 08/28/2018, patient was evaluated at our clinic. Patient at that time reported significant macular papular rashes in the hands, feet, back, and facce as well as at her private parts. In addition patient was found to have elevated liver function tests. Therefore we decided to hold the medications. During the interim, patient said that the rashes have improved dramatically. On 09/11/2018, she was able to restart Carbozantinib at 20 mg daily and has tolerated well so far. On 11/13/2018, patient underwent CT scan of the chest abdomen pelvis. The scan showed previous left nephrectomy, and resolution of left para-aortic and left common iliac charlene disease, resolution of right lower lobe lung nodule and no evidence of residual or recurrent disease. CT chest abdomen and pelvis on 01/20/2019. The scan showed chest abdomen and pelvis without acute abnormalities, status post left nephrectomy, and no evidence for residual or recurrent disease. On 05/02/2020, patient underwent CT chest abdomen and pelvis. It showed status post left nephrectomy and no specific evidence of active metastatic disease. She underwent CT chest abdomen and pelvis with contrast on 09/14/2020. The scan showed status post left nephrectomy. No evidence of recurrence neoplasm or metastasis. Interim Events: She came in here by himself. She is now taking cabozantinib 20 mg daily. She has been doing very well. She reports no shortness of breath, no chest pain, no cough, no abdominal pain, no diarrhea or constipation. Recently, patient noticed clear blisters in the perineum area. Patient has not had any fever or chills. Patient is complaining discomfort and pain. Treatment Summary: 1. Open left radical nephrectomy by Dr. Natalie العراقي at [facility] on 03/07/2018 2. Cabozantinib 60 mg daily started on 06/11/2018. 3. Anticoagulation since 07/07/2018 for PE, lovelox > Xarelto. - Patient Self-Reported Symptoms SR Constitution: Fatigue/Malaise SR eye issues: Double vision SR ears, nose, mouth, throat issues: Changes in taste SR respiratory issues: Shortness of breath SR Cardiovascular issues: Shortness of breath with activity or lying flat, Extreme swelling SR Skin issues: Dry skin SR Gastrointestinal issues: Vomiting, Heartburn SR Genitourinary issues: Frequent urination SR Musculoskeletal issues: Muscle weakness, Difficulty walking SR Neuro issues: Lightheaded/dizzy, Numbness or tingling, Difficulty balancing SR Hematologic issues: Bleeding/bruising SR Endocrine issues: Excessive urination - ROS All Systems: reviewed and no additional remarkable complaints except as stated Home Medications and Allergies Home Medications Medication Instructions Recorded Confirmed Type apremilast 30 mg tablet (Otezla) 30 mg PO DAILY 02/07/18 02/02/21 History fluticasone propionate 110 1 puff INHALATION Q12H 02/07/18 02/02/21 History mcg/actuation HFA aerosol inhaler (Flovent HFA) vitamin B12 500 mcg-folic acid 400 1 tab PO DAILY 04/24/18 02/02/21 History mcg tablet hydroxyzine HCl 25 mg tablet 25 mg PO QID PRN #30 tab 08/24/20 02/02/21 Rx Albuterol Inhaler 1 puff INHALATION BID 09/27/20 10/31/20 History prazosin 2 mg capsule 2 mg PO BEDTIME 09/27/20 02/02/21 History INCONTINENCE SUPPLIES #140 ea 09/28/20 10/31/20 Rx minocycline 100 mg capsule 100 mg PO BID #180 cap 10/31/20 02/02/21 Rx mupirocin 2 % topical ointment 1 applic TOPICAL BID #22 g 10/31/20 02/02/21 Rx hydrocodone 5 mg-acetaminophen 325 1 tab PO TID PRN #60 tab 11/30/20 02/02/21 Rx mg tablet lisinopril 20 1 tab PO DAILY #90 tab 11/30/20 02/02/21 Rx mg-hydrochlorothiazide 25 mg tablet nifedipine 30 mg tablet,extended 30 mg PO .qhs #30 tab 11/30/20 02/02/21 Rx release pantoprazole 40 mg tablet,delayed 40 mg PO DAILY #90 tab 11/30/20 02/02/21 Rx release (Protonix) trazodone 50 mg tablet 50 mg PO BEDTIME #30 tab 11/30/20 02/02/21 Rx cabozantinib 20 mg tablet 20 mg PO DAILY #30 tab 02/02/21 Rx Allergies Allergy/AdvReac Type Severity Reaction Status Date / Time adhesive tape Allergy Severe Rash Verified 10/31/20 09:37 bee venom protein (honey bee) Allergy Unknown Verified 10/31/20 09:37 enoxaparin [From Lovenox] Allergy Unknown Verified 10/31/20 09:37 rivaroxaban [From Xarelto] AdvReac Severe Difficulty Verified 10/31/20 09:37 Breathing iodine AdvReac Unknown Verified 10/31/20 09:37 MICRO AdvReac Unknown Uncoded 10/31/20 09:37 Exam Vital signs: Vital Signs Temp Pulse Resp BP Pulse Ox 02/02/21 08:30 98.4 F 70 70 H 119/70 100 Intake and Output 02/01/21 02/02/21 02/02/21 23:59 07:59 15:59 Other: Weight 150 kg Patient Weight 02/02/21 23:59 Weight 150 kg Narrative: ECOG 1 Gen: WDWN, NAD, pleasant and cooperative, morbid obesity, in wheelchair. HEENT: NCAT, EOMI, PERRLA, anicteric sclera. Neck: Supple, No palpable thyromegaly or lymphadenopathy. Respiratory: CTAB, no wheezes audible. No JVD Cardiovascular: RRR, S1 and S2 normal, no M/G/R. Abdomen: Soft, NTND, BS normal, difficult to evaluate organomegaly Extremities: Mild lower extremity edema bilaterally Lymphatic: no palpable lymph nodes in the neck, axillae Neurological: AOx3, CN II-XII grossly intact. No focal motor or sensory deficit. Psychiatric: Good judgment and insight; normal affect; normal thought process Results - Labs Laboratory Last Values WBC 7.0 X10^3/uL (4.5-11.0) 01/30/21 08:00 RBC 3.56 X10^6/uL (4.0-5.2) L 01/30/21 08:00 Hgb 12.4 g/dL (12.0-16.0) 01/30/21 08:00 Hct 37.3 % (36-46) 01/30/21 08:00 MCV 104.8 fL (80-100) H 01/30/21 08:00 MCH 34.9 PG (26-34) H 01/30/21 08:00 MCHC 33.3 % (30-36) 01/30/21 08:00 RDW 13.6 % (11.6-14.8) 01/30/21 08:00 Plt Count 194 X10^3/uL (150-400) 01/30/21 08:00 Neut % (Auto) 58.1 % (50-75) 01/30/21 08:00 Lymph % (Auto) 27.1 % (25-40) 01/30/21 08:00 [place] % (Auto) 9.5 % (3-14) 01/30/21 08:00 Eos % (Auto) 4.7 % (2-4) H 01/30/21 08:00 Baso % (Auto) 0.6 % (0-2) 01/30/21 08:00 Neut # (Auto) 4100 /uL (8672-3882) 01/30/21 08:00 Lymph # (Auto) 1900 /uL (1197-9487) 01/30/21 08:00 [place] # (Auto) 700 /uL (0-900) 01/30/21 08:00 Eos # (Auto) 300 /uL (0-450) 01/30/21 08:00 Baso # (Auto) 0 /uL (0-100) 01/30/21 08:00 Total Counted 100 12/31/18 16:12 Seg Neutrophils % 57.0 % (38-70) 12/31/18 16:12 Lymphocytes % (Manual) 31.0 % (25-45) 12/31/18 16:12 Monocytes % (Manual) 9.0 % (2-11) 12/31/18 16:12 Eosinophils % (Manual) 2.0 % (2-4) 12/31/18 16:12 Basophils % (Manual) 1.0 % (0-1) 12/31/18 16:12 Neutrophils # (Manual) 3705 /uL (5158-2678) 12/31/18 16:12 RBC Morphology Normal morphology 12/31/18 16:12 Anisocytosis 2+ H 08/26/18 11:58 Sodium 143 mmol/L (137-145) 01/30/21 08:00 Potassium 4.6 mmol/L (3.4-5.1) 01/30/21 08:00 Chloride 110 mmol/L (98-107) H 01/30/21 08:00 Carbon Dioxide 28 mmol/L (22-32) 01/30/21 08:00 BUN 19 mg/dL (7-17) H 01/30/21 08:00 Creatinine 1.39 mg/dL (0.52-1.04) H 01/30/21 08:00 Estimated GFR 38.3 mL/min (>60) L 01/30/21 08:00 BUN/Creatinine Ratio 13.7 (6-22) 01/30/21 08:00 Glucose 89 mg/dL (80-110) 01/30/21 08:00 Calcium 8.8 mg/dL (8.4-10.2) 01/30/21 08:00 Magnesium 2.2 mg/dL (1.6-2.3) 12/03/18 12:45 Total Bilirubin 0.4 mg/dL (0.2-1.3) 01/30/21 08:00 AST 28 IU/L (14-36) 01/30/21 08:00 ALT 27 IU/L (<35) 01/30/21 08:00 Alkaline Phosphatase 48 U/L (38-126) 01/30/21 08:00 Lactate Dehydrogenase 549 U/L (313-618) 01/30/21 08:00 Total Protein 6.4 g/dL (6.3-8.2) 01/30/21 08:00 Albumin 3.6 g/dL (3.5-5.0) 01/30/21 08:00 Globulin 2.8 g/dL (1.7-4.1) 01/30/21 08:00 Albumin/Globulin Ratio 1.3 (1.0-2.8) 01/30/21 08:00 TSH 3.94 uIU/mL (0.47-4.68) 09/09/18 11:43 Assessment and Plan (1) Clear cell adenocarcinoma of left kidney Overview: 65 year old female with metastatic clear cell renal cell carcinoma, pT3a N1 Mx. She originally presented with hypercalcemia with headache, nausea and vomiting. CT 01/08/2018: left renal mass at least 9.7 cm with prominent retroperitoneal lymphadneopathy. Staging imagine (CT CAP, bone scan and PET) showed the known left kidney mass, and suspicious retroperitoneal and pelvic lymphadenopathy and right lower lung nodules. Status post left nephrectomy on 03/07/2018. Surgical pathology showed clear cell renal cell carcinoma. She was evaluated at [facility] by Dr. Ribeiro. Treatment with cabozantinib was recommended. She started Cabozatinib 60 mg daily on 06/11/2018. On 10/29/2018, cabozantinib was held due to grade 2 maculopapular rashes, grade 1 liver function abnormalities. On 09/11/2018, she was able to restart Carbozantinib at 20 mg daily and has tolerated well so far. Patient underwent CT of the chest abdomen pelvis on 01/20/2019. It showed no evidence for residual or recurrent disease. Assessment: She is now taking cabozantinib 20 mg once a day and tolerated very well. I told her that there is no evidence of disease recurrence or metastasis. I will continue current treatment without any changes. I am recommending repeat imaging studies with CT of the chest abdomen and pelvis without contrast in 3 months. We will see the patient after the scan. Plan: 1. Continue Cabozatinib 20 mg daily 2. Protonix 40 mg daily 3. RTC in 3 months, CBC, CMP, LDH, CT CAP w/o contrast (2) Pulmonary embolism Incidental diagnosis of right lung pulmonary embolism in the right main pulmonary artery bifurcation and the right upper and lower lobar pulmonary arteries on 06/27/2018 during a workup for restaging of her clear cell renal cell carcinoma. Patient was adequately started on Lovenox 120 mg Q 12. Due to development of abdominal wall hematoma at the site of injection, Lovenox was subsequently switched to Xarelto. She stopped Xarelto in Jan 2020 due to concern for bleeding and swelling of the legs. (3) Blister of perineum without infection Patient denies any use of new medications. She denies any new soaps etc.. I do not know exactly the etiology. I am recommending that patient be evaluated by OBGYN. Plan: Referral to [facility]
--- NOTE | 2021-03-09 12:59 | CM.MNRNOTE ---
Cabozantinib: Pt requesting refill for RX. Pt also requesting RX to include additional refills with prescription. RX e-scribed with 11 refills included per [facility] Dr. Burden. Pt aware.
--- NOTE | 2021-03-31 13:26 | ONC.SCHED ---
Obtained prior authorization for CT and scheduled for 04/26/21. Spoke with patient to give her appointment details and reminded her to do labs an hour before check-in or a day or two prior. Confirmed that she was aware for 05/04/21 follow-up appointment.
--- NOTE | 2021-05-04 11:36 | P.PNONC_ITS ---
PN -Subjective - Date of Visit Date of visit: 05/04/21 Chief Complaint: Belgica is a 64 year old female with metastatic renal clear cell carcinoma now on treatment with cabozantinib Interval history: She came in here accompanied by her sister. She is now taking cabozantinib 20 mg daily. She has been doing very well. She reports no shortness of breath, no chest pain, no cough, no abdominal pain, no diarrhea or constipation. On 04/26/2021, she underwent CT CAP w/contrast that showed no significant interval change or evidence of neoplasm. Oncology History Ms Belgica Da Silva is a 62 year old female with a long list of medical co-morbidities most notable for morbid obesity, sleep apnea on CPAP, hypertension, rheumatoid arthritis, and psoriasis on Otezla (apremilast). In early December,, she developed headache, nausea, and vomiting. She was evaluated by Dr. Goel on 01/08/2018. The next day, she had a call from the nurse asking her to go to the emergency room due to serum calcium level of about 13. Patient stayed at the [facility] for about 3 days. Patient recalled that they gave her medications through the intravenous line. She underwent CT scan on 01/08/2018, that showed an left infiltrative lower/midpole originating heterogeneous iso-attenuating mass measuring at least 9.7 cm, pelvic retroperitoneal node cluster largest of which measuring 1.4 x 2.6 cm, and the most prominent nearby retroperitoneal lymph node measuring 2.2 x 1.2 cm. Sigmoid diverticulosis was also noted. On 02/03/2018, she was seen as post ER follow up at [facility]. Her calcium level has decreased to 11.5. Patient requested to be referred to [facility]. I first saw the patient on 02/07/2018. I referred the patient to [facility] for evaluation of possible surgical resection of left suspicious kidney cancer. In addition patient underwent staging studies as follows. On 02/12/2018, bone scan showed no osseous metastatic disease. Same day CT scan of the chest abdomen pelvis showed the large heterogeneously enhancing left renal mass with imaging characteristics highly suspicious for renal cell carcinoma, left leif-aortic retroperitoneal and left common iliac pelvic metastatic lymphadenopathy, and a 1.5 x 1.1 x 1.2 cm right lower lobe nodule highly suspicious for possible lung metastasis. On 02/19/2018, PET-CT showed a large left renal mass involving nearly the entire left kidney demonstrating abnormal FDG activity consistent with malignancy, a 1.4 x 2.1 cm left para-aortic lymph node demonstrating maximum SUV 2.3, additional enlarged retroperitoneal, mesen teric, and left iliac lymph node and bilateral inguinal lymph nodes demonstrating low FDG activity suggesting benign etiology and the 1.6 x 0.8 mc bilobed lung mass in the right lower lobe with low level increasing uptake with SUV 2.1 and a tiny 5 mm right middle lobe nodule with SUV maximum 0.8. The patient was seen by Natalie العراقي MD urologist at [facility] on 02/28/2018. The patient then underwent open left radical nephrectomy on 03/07/2018. 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 There was 10% rhabdoid change and there was necrosis within the tumor. Nuclear grade was 4. There was tumor extension into perinephric tissues, the renal sinus, a major vein and the pelvicalyceal system. All surgical margins were negative. One of 1 lymph node in the surgical specimen was involved by carcinoma with a 4 cm deposit. Final pathologic staging was pT3a N1. She was referred to and was evaluated by Dr. Ribeiro on 05/06/2018. Dr. Ribeiro did not think that the patient was a suitable candidate for high-dose interleukin 2 treatment. No open front line clinical trials were available either at this moment. Dr. Gómez discussed variety of treatment options including immunotherapy ipilimumab plus nivolumab vs oral targeted drug cabozaninib. Given patient autoimmune disease history including psoriasis which is actively managed with Otezla as well as diagnosis of rheumatoid arthritis, and that immunotherapy has a high likelihood of exacerbating these underlying autoimmune syndrome, Dr. Gómez recommended targeted drug cabozantinib. She started Cabozantinib 60 mg daily on 06/11/2018. On 06/27/2018, patient went to [facility] and was evaluated by Dr. Natalie العراقي. CT of the head was performed that showed no acute intracranial abnormality. CT of the chest abdomen and pelvis showed that the previously seen right lower lobe nodule has resolved. But there were increased size of para- aortic lymph nodes. Incidentally pulmonary emboli in the right main pulmonary artery bifurcation and the right upper and lower lobar pulmonary arteries were identified. Patient therefore was called back to the emergency room of [facility] where patient was initiated Lovenox injection 120 mg twice daily. About early August 2018, patient developed abdominal wall hematoma. She was evaluated at the [facility] emergency room. Her Lovenox was then s witched to Xarelto. Since then patient said that the hematoma has improved. However while at the emergency room, a small incision was cut into the hematoma. On 08/28/2018, patient was evaluated at our clinic. Patient at that time reported significant macular papular rashes in the hands, feet, back, and facce as well as at her private parts. In addition patient was found to have elevated liver function tests. Therefore we decided to hold the medications. During the interim, patient said that the rashes have improved dramatically. On 09/11/2018, she was able to restart Carbozantinib at 20 mg daily and has tolerated well so far. On 11/13/2018, patient underwent CT scan of the chest abdomen pelvis. The scan showed previous left nephrectomy, and resolution of left para-aortic and left common iliac charlene disease, resolution of right lower lobe lung nodule and no evidence of residual or recurrent disease. CT chest abdomen and pelvis on 01/20/2019. The scan showed chest abdomen and pelvis without acute abnormalities, status post left nephrectomy, and no evidence for residual or recurrent disease. On 05/02/2020, patient underwent CT chest abdomen and pelvis. It showed status post left nephrectomy and no specific evidence of active metastatic disease. She underwent CT chest abdomen and pelvis with contrast on 09/14/2020. The scan showed status post left nephrectomy. No evidence of recurrence neoplasm or metastasis. Treatment Summary: 1. Open left radical nephrectomy by Dr. Natalie العراقي at [facility] on 03/07/2018 2. Cabozantinib 60 mg daily started on 06/11/2018. 3. Anticoagulation since 07/07/2018 for PE, lovelox > Xarelto. - Patient Self-Reported Symptoms SR Constitution: Fatigue/Malaise SR eye issues: Vision changes SR ears, nose, mouth, throat issues: Changes in taste SR respiratory issues: Shortness of breath SR Cardiovascular issues: Shortness of breath with activity or lying flat SR Skin issues: Dry skin SR Gastrointestinal issues: Vomiting, Heartburn SR Genitourinary issues: Frequent urination SR Musculoskeletal issues: Muscle weakness, Difficulty walking SR Neuro issues: Lightheaded/dizzy, Numbness or tingling, Difficulty balancing SR Hematologic issues: Bleeding/bruising SR Endocrine issues: Excessive urination Home Medications and Allergies Home Medications Medication Instructions Recorded Confirmed Type apremilast 30 mg tablet (Otezla) 30 mg PO DAILY 02/07/18 02/06/21 History fluticasone propionate 110 1 puff INHALATION Q12H 02/07/18 02/06/21 History mcg/actuation HFA aerosol inhaler (Flovent HFA) Albuterol Inhaler 1 puff INHALATION BID 09/27/20 02/06/21 History prazosin 2 mg capsule 2 mg PO BEDTIME 09/27/20 02/06/21 History INCONTINENCE SUPPLIES #140 ea 09/28/20 02/06/21 Rx minocycline 100 mg capsule 100 mg PO BID #180 cap 10/31/20 02/06/21 Rx mupirocin 2 % topical ointment 1 applic TOPICAL BID #22 g 10/31/20 02/06/21 Rx nifedipine 30 mg tablet,extended 30 mg PO .qhs #90 tab 02/27/21 Rx release hydroxyzine HCl 25 mg tablet 25 mg PO QID PRN #30 tab 02/28/21 Rx lisinopril 20 1 tab PO DAILY #90 tab 03/01/21 Rx mg-hydrochlorothiazide 25 mg tablet pantoprazole 40 mg tablet,delayed 40 mg PO DAILY #90 tab 03/01/21 Rx release (Protonix) cabozantinib 20 mg tablet 20 mg PO DAILY #30 tab 03/09/21 Rx hydrocodone 5 mg-acetaminophen 325 1 tab PO TID PRN #60 tab 03/10/21 Rx mg tablet amlodipine 10 mg tablet 10 mg PO DAILY 05/04/21 05/04/21 History cyclobenzaprine 10 mg tablet 10 mg PO BEDTIME 05/04/21 05/04/21 History epinephrine 0.3 mg/0.3 mL 0.3 mg IM Q5-15M PRN 05/04/21 05/04/21 History injection syringe furosemide 20 mg tablet 20 mg PO DAILY 05/04/21 05/04/21 History Allergies Allergy/AdvReac Type Severity Reaction Status Date / Time adhesive tape Allergy Severe Rash Verified 02/06/21 10:10 bee venom protein (honey bee) Allergy Unknown Verified 02/06/21 10:10 enoxaparin [From Lovenox] Allergy Unknown Verified 02/06/21 10:10 rivaroxaban [From Xarelto] AdvReac Severe Difficulty Verified 02/06/21 10:10 Breathing iodine AdvReac Unknown Verified 02/06/21 10:10 MICRO AdvReac Unknown Uncoded 02/06/21 10:10 Exam Vital signs: 05/04/21 23:58 Last Vital Signs Temp 97.4 F L 05/04/21 11:58 Pulse 74 05/04/21 11:58 Resp 16 05/04/21 11:58 BP 198/106 H 05/04/21 11:58 Pulse Ox 99 05/04/21 11:58 Narrative: ECOG 1 Gen: WDWN, NAD, pleasant and cooperative, morbid obesity, in wheelchair. HEENT: NCAT, EOMI, PERRLA, anicteric sclera. Neck: Supple, No palpable thyromegaly or lymphadenopathy. Respiratory: CTAB, no wheezes audible. No JVD Cardiovascular: RRR, S1 and S2 normal, no M/G/R. Abdomen: Soft, NTND, BS normal, difficult to evaluate organomegaly Extremities: Mild lower extremity edema bilaterally Lymphatic: no palpable lymph nodes in the neck, axillae Neurological: AOx3, CN II-XII grossly intact. No focal motor or sensory deficit. Psychiatric: Good judgment and insight; normal affect; normal thought process Results - Labs Labs from 04/26/2021 WBC 5.6, hemoglobin 12.4, hematocrit 38.2%, MCV 103.9. Platelets 220 Sodium 142, potassium 4, chloride 110, BUN 20, creatinine 1.36, calcium 9.2, AST 26, ALT 22, ALT 41, LDH 551 Assessment and Plan (1) Clear cell adenocarcinoma of left kidney Overview: 65 year old female with metastatic clear cell renal cell carcinoma, pT3a N1 Mx. She originally presented with hypercalcemia with headache, nausea and vomiting. CT 01/08/2018: left renal mass at least 9.7 cm with prominent retroperitoneal lymphadneopathy. Staging imagine (CT CAP, bone scan and PET) showed the known left kidney mass, and suspicious retroperitoneal and pelvic lymphadenopathy and right lower lung nodules. Status post left nephrectomy on 03/07/2018. Surgical pathology showed clear cell renal cell carcinoma. She was evaluated at [facility] by Dr. Ribeiro. Treatment with cabozantinib was recommended. She started Cabozatinib 60 mg daily on 06/11/2018. On 10/29/2018, cabozantinib was held due to grade 2 maculopapular rashes, grade 1 liver function abnormalities. On 09/11/2018, she was able to restart Carbozantinib at 20 mg daily and has tolerated well so far. Patient underwent CT of the chest abdomen pelvis on 01/20/2019. It showed no evidence for residual or recurrent disease. Assessment: She is now taking cabozantinib 20 mg once a day and tolerated very well. I reviewed CT the chest abdomen pelvis with contrast performed on 04/26/2021 with patient. It showed no significant interval change or evidence neoplasm. I reviewed the labs with the patient. CBC and CMP. Serum creatinine level has remained stable. No transaminitis. LDH is normal. I talked with the patient that I am recommending we continue the current treatment. Plan: 1. Continue Cabozatinib 20 mg daily 2. Protonix 40 mg daily 3. RTC in 3 months, CBC, CMP, LDH (2) Pulmonary embolism Incidental diagnosis of right lung pulmonary embolism in the right main pulmonary artery bifurcation and the right upper and lower lobar pulmonary arteries on 06/27/2018 during a workup for restaging of her clear cell renal cell carcinoma. Patient was adequately started on Lovenox 120 mg Q 12. Due to development of abdominal wall hematoma at the site of injection, Lovenox was subsequently switched to Xarelto. She stopped Xarelto in Jan 2020 due to concern for bleeding and swelling of the legs.
[2021-05-04 11:58] VITALS: BP 198/106; PULSE 74; RESP 16; TEMP 36.3; O2SAT 99
--- NOTE | 2021-07-06 16:51 | ONC.SCHED ---
Received fax from [email or web address] stating that patient got a rejection for her Cabometyx and requesting us to do a PA. Completed PA request through covermymeds and received a response stating that patient can get her next refill in accordance with plan limits. Scanned all.
[2021-07-28 10:36] LABS: Add Manual Diff / Slide Review NO; Basophils Absolute Auto 0 /uL (0-100); Basophils Percent Auto 0.7 % (0-2); Eosinophils Absolute Auto 200 /uL (0-450); Eosinophils Percent Auto 3.7 % (2-4); Hematocrit 37.7 % (36-46); Hemoglobin 12.5 g/dL (12.0-16.0); Lymphocytes Absolute Auto 1400 /uL (1100-4500); Lymphocytes Percent Auto 25.4 % (25-40); Mean Corpuscular HGB Conc 33.3 % (30-36); Mean Corpuscular Hemoglobin 33.9 PG (26-34); Mean Corpuscular Volume 101.9 fL (80-100); Monocytes Absolute Auto 400 /uL (0-900); Monocytes Percent Auto 8.3 % (3-14); Neutrophils Absolute Auto 3300 /uL (1500-7000); Neutrophils Percent Auto 61.9 % (50-75); Platelet Count 213 X10^3/uL (150-400); Red Cell Distribution Width 14.3 % (11.6-14.8); White Blood Cell Count 5.4 X10^3/uL (4.5-11.0)
[2021-07-28 10:48] LABS: Alanine Aminotransferase 20 IU/L (<35); Albumin 3.4 g/dL (3.5-5.0); Albumin Globulin Ratio 1.3 (1.0-2.8); Alkaline Phosphatase 60 U/L (38-126); Aspartate Aminotransferase 25 IU/L (14-36); BUN Creatinine Ratio 15.2 (6-22); Bilirubin Total 0.3 mg/dL (0.2-1.3); Blood Urea Nitrogen 19 mg/dL (7-17); Calcium 8.9 mg/dL (8.4-10.2); Carbon Dioxide 29 mmol/L (22-32); Chloride 109 mmol/L (98-107); Estimated Glomerular Filt Rate 48 mL/min (>60); Globulin 2.6 g/dL (1.7-4.1); Glucose 95 mg/dL (80-110); HEMOLYSIS < 15 (0-50); Lactate Dehydrogenase 547 U/L (313-618); Potassium 4.7 mmol/L (3.4-5.1); Sodium 142 mmol/L (137-145)
[2021-08-03 16:19] VITALS: BP 172/95; PULSE 82; RESP 18; TEMP 36.9; O2SAT 100
--- NOTE | 2021-08-03 16:26 | ONC.PN ---
PN -Subjective - Date of Visit Date of visit: 08/03/21 Chief Complaint: Belgica is a 66 year old female with metastatic renal clear cell carcinoma now on treatment with cabozantinib Interval history: Ms Belgica Da Silva is a 66 year old female with a long list of medical co-morbidities most notable for morbid obesity, sleep apnea on CPAP, hypertension, rheumatoid arthritis, and psoriasis on Otezla (apremilast). 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 CT 01/08/2018: left renal mass at least 9.7 cm with prominent retroperitoneal lymphadneopathy. Staging imagine (CT CAP, bone scan and PET) showed the known left kidney mass, and suspicious retroperitoneal and pelvic lymphadenopathy and right lower lung nodules. Dr. Gómez at [facility] recommended targeted drug cabozantinib. Immunotherapy was deemed inappropriate because of her autoimmune disorder. She started Cabozantinib 60 mg daily on 06/11/2018. During the next couple of months, her Cabozantinib dosage had to be adjusteda and then held temporarily due to significant skin rashes in the hands, feet, back, and facce as well as at her private parts, as well as transaminitis. On 09/11/2018, she was able to restart Carbozantinib at 20 mg daily and has tolerated well so far. Thereafter multiple surveillance studies have showed excellent responses. Her most recent CT chest abdomen and pelvis with contrast on 04/26/2021 showed no significant interval change or evidence of neoplasm. In 06/2018, she was found to have incidental pulmonary emboli in the right main pulmonary artery bifurcation and the right upper and lower lobar pulmonary arteries. She was initiated Lovenox injection 120 mg twice daily and later switched to Xarelto. Stopped 01/2020 She came in here by herself. She is now taking cabozantinib 20 mg daily. She has been doing very well. Her breathing has been about the same. No chest pain. No abdominal pain. No diarrhea and no constipation. No skin rashes. Treatment Summary: 1. Open left radical nephrectomy by Dr. Natalie العراقي at [facility] on 03/07/2018 2. Cabozantinib started at 60 mg daily on 06/11/2018, and adjusted to 20 mg daily in 08/2018 3. Anticoagulation since 07/07/2018 for PE, lovelox > Xarelto. Stopped 01/2020 - Patient Self-Reported Symptoms SR Constitution: Weight loss/gain, Fatigue/Malaise SR eye issues: Vision changes, Double vision SR ears, nose, mouth, throat issues: Changes in taste SR respiratory issues: Shortness of breath SR Cardiovascular issues: Shortness of breath with activity or lying flat SR Skin issues: Dry skin SR Gastrointestinal issues: Poor or no appetite SR Genitourinary issues: Frequent urination, Incontinence SR Musculoskeletal issues: Joint pain or swelling, Muscle weakness, Difficulty walking, Bone pain SR Neuro issues: Difficulty balancing SR Hematologic issues: Bleeding/bruising SR Endocrine issues: Cold intolerance Home Medications and Allergies Home Medications Medication Instructions Recorded Confirmed Type apremilast 30 mg tablet (Otezla) 30 mg PO DAILY 02/07/18 08/03/21 History fluticasone propionate 110 1 puff inhalation Q12H 02/07/18 08/03/21 History mcg/actuation HFA aerosol inhaler (Flovent HFA) Albuterol Inhaler 1 puff inhalation BID 09/27/20 08/03/21 History INCONTINENCE SUPPLIES #140 ea 09/28/20 05/11/21 Rx mupirocin 2 % topical ointment 1 applic topical BID #22 grams 10/31/20 08/03/21 Rx hydroxyzine HCl 25 mg tablet 25 mg PO QID PRN Muscle Spasm #30 02/28/21 08/03/21 Rx tabs cabozantinib 20 mg tablet 20 mg PO DAILY kidney cancer #30 03/09/21 08/03/21 Rx tabs hydrocodone 5 mg-acetaminophen 325 1 tab PO TID PRN pain #60 tabs 03/10/21 08/03/21 Rx mg tablet amlodipine 10 mg tablet 10 mg PO DAILY 05/04/21 08/03/21 History epinephrine 0.3 mg/0.3 mL 0.3 mg IM Q5-15M PRN Allergic 05/04/21 08/03/21 History injection syringe Reaction furosemide 20 mg tablet 20 mg PO DAILY 05/04/21 08/03/21 History cyclobenzaprine 10 mg tablet 10 mg PO BEDTIME #90 tabs 05/11/21 08/03/21 Rx hydrochlorothiazide 25 mg tablet 25 mg PO DAILY 05/11/21 08/03/21 History lisinopril 30 mg tablet 30 mg PO DAILY 05/11/21 08/03/21 History minocycline 100 mg capsule 100 mg PO BID #180 caps 05/11/21 08/03/21 Rx pantoprazole 40 mg tablet,delayed 40 mg PO DAILY #90 tabs 05/11/21 08/03/21 Rx release (Protonix) trazodone 50 mg tablet 50 mg PO BEDTIME #90 tabs 05/11/21 08/03/21 Rx pramipexole 0.25 mg tablet 0.25 mg PO BEDTIME #30 tabs 05/13/21 08/03/21 Rx nifedipine 30 mg tablet,extended See Rx Instructions .Route 05/29/21 08/03/21 Rx release .COMPLEX #90 tabs prazosin 2 mg capsule 2 mg PO BEDTIME #90 caps 07/22/21 08/03/21 Rx Allergies Allergy/AdvReac Type Severity Reaction Status Date / Time adhesive tape Allergy Severe Rash Verified 05/11/21 12:57 bee venom protein (honey bee) Allergy Unknown Verified 05/11/21 12:57 enoxaparin [From Lovenox] Allergy Unknown Verified 05/11/21 12:57 rivaroxaban [From Xarelto] AdvReac Severe Difficulty Verified 05/11/21 12:57 Breathing iodine AdvReac Unknown Verified 05/11/21 12:57 MICRO AdvReac Unknown Uncoded 05/11/21 12:57 Exam Vital signs: Vital Signs Temp Pulse Resp BP Pulse Ox 08/03/21 16:19 98.4 F 82 18 172/95 H 100 Intake and Output 08/03/21 08/03/21 08/03/21 07:59 15:59 23:59 Other: Weight 150 kg Patient Weight 08/03/21 23:59 Weight 150 kg Narrative: ECOG 1 Gen: WDWN, NAD, pleasant and cooperative, morbid obesity, in wheelchair. HEENT: NCAT, EOMI, PERRLA, anicteric sclera. Neck: Supple, No palpable thyromegaly or lymphadenopathy. Respiratory: CTAB, no wheezes audible. No JVD Cardiovascular: RRR, S1 and S2 normal, no M/G/R. Abdomen: Soft, NTND, BS normal, difficult to evaluate organomegaly Extremities: Mild lower extremity edema bilaterally Lymphatic: no palpable lymph nodes in the neck, axillae Neurological: AOx3, CN II-XII grossly intact. No focal motor or sensory deficit. Psychiatric: Good judgment and insight; normal affect; normal thought process Results - Labs Laboratory Last Values WBC 5.4 X10^3/uL (4.5-11.0) 07/28/21 10:13 RBC 3.70 X10^6/uL (4.0-5.2) L 07/28/21 10:13 Hgb 12.5 g/dL (12.0-16.0) 07/28/21 10:13 Hct 37.7 % (36-46) 07/28/21 10:13 MCV 101.9 fL (80-100) H 07/28/21 10:13 MCH 33.9 PG (26-34) 07/28/21 10:13 MCHC 33.3 % (30-36) 07/28/21 10:13 RDW 14.3 % (11.6-14.8) 07/28/21 10:13 Plt Count 213 X10^3/uL (150-400) 07/28/21 10:13 Neut % (Auto) 61.9 % (50-75) 07/28/21 10:13 Lymph % (Auto) 25.4 % (25-40) 07/28/21 10:13 [place] % (Auto) 8.3 % (3-14) 07/28/21 10:13 Eos % (Auto) 3.7 % (2-4) 07/28/21 10:13 Baso % (Auto) 0.7 % (0-2) 07/28/21 10:13 Neut # (Auto) 3300 /uL (9283-1795) 07/28/21 10:13 Lymph # (Auto) 1400 /uL (4747-6110) 07/28/21 10:13 [place] # (Auto) 400 /uL (0-900) 07/28/21 10:13 Eos # (Auto) 200 /uL (0-450) 07/28/21 10:13 Baso # (Auto) 0 /uL (0-100) 07/28/21 10:13 Total Counted 100 12/31/18 16:12 Seg Neutrophils % 57.0 % (38-70) 12/31/18 16:12 Lymphocytes % (Manual) 31.0 % (25-45) 12/31/18 16:12 Monocytes % (Manual) 9.0 % (2-11) 12/31/18 16:12 Eosinophils % (Manual) 2.0 % (2-4) 12/31/18 16:12 Basophils % (Manual) 1.0 % (0-1) 12/31/18 16:12 Neutrophils # (Manual) 3705 /uL (4753-3938) 12/31/18 16:12 RBC Morphology Normal morphology 12/31/18 16:12 Anisocytosis 2+ H 08/26/18 11:58 Sodium 142 mmol/L (137-145) 07/28/21 10:13 Potassium 4.7 mmol/L (3.4-5.1) 07/28/21 10:13 Chloride 109 mmol/L (98-107) H 07/28/21 10:13 Carbon Dioxide 29 mmol/L (22-32) 07/28/21 10:13 BUN 19 mg/dL (7-17) H 07/28/21 10:13 Creatinine 1.25 mg/dL (0.52-1.04) H 07/28/21 10:13 Estimated GFR 48 mL/min (>60) L 07/28/21 10:13 BUN/Creatinine Ratio 15.2 (6-22) 07/28/21 10:13 Glucose 95 mg/dL (80-110) 07/28/21 10:13 Calcium 8.9 mg/dL (8.4-10.2) 07/28/21 10:13 Magnesium 2.2 mg/dL (1.6-2.3) 12/03/18 12:45 Total Bilirubin 0.3 mg/dL (0.2-1.3) 07/28/21 10:13 AST 25 IU/L (14-36) 07/28/21 10:13 ALT 20 IU/L (<35) 07/28/21 10:13 Alkaline Phosphatase 60 U/L (38-126) 07/28/21 10:13 Lactate Dehydrogenase 547 U/L (313-618) 07/28/21 10:13 Total Protein 6.0 g/dL (6.3-8.2) L 07/28/21 10:13 Albumin 3.4 g/dL (3.5-5.0) L 07/28/21 10:13 Globulin 2.6 g/dL (1.7-4.1) 07/28/21 10:13 Albumin/Globulin Ratio 1.3 (1.0-2.8) 07/28/21 10:13 TSH 3.94 uIU/mL (0.47-4.68) 09/09/18 11:43 Assessment and Plan (1) Clear cell adenocarcinoma of left kidney 66 year old female with metastatic clear cell renal cell carcinoma, pT3a N1 Mx. She originally presented with hypercalcemia with headache, nausea and vomiting. CT 01/08/2018: left renal mass at least 9.7 cm with prominent retroperitoneal lymphadneopathy. Staging imagine (CT CAP, bone scan and PET) showed the known left kidney mass, and suspicious retroperitoneal and pelvic lymphadenopathy and right lower lung nodules. Status post left nephrectomy on 03/07/2018. Surgical pathology showed clear cell renal cell carcinoma. She was evaluated at [facility] by Dr. Ribeiro. Treatment with cabozantinib was recommended. She started Cabozatinib 60 mg daily on 06/11/2018. On 10/29/2018, cabozantinib was held due to grade 2 maculopapular rashes, grade 1 liver function abnormalities. On 09/11/2018, she was able to restart Carbozantinib at 20 mg daily and has tolerated well so far. Patient underwent CT of the chest abdomen pelvis on 01/20/2019. It showed no evidence for residual or recurrent disease. Assessment: She is now taking cabozantinib 20 mg once a day and tolerated very well. Clinically, she has been doing quite well and no worrisome signs or symptoms. I talked with the patient that I am recommending we continue the current treatment. Plan: 1. Continue Cabozatinib 20 mg daily 2. Continue Protonix [address] CAP without contrast in 3 months 4. RTC after scan, CBC, CMP, LDH (2) Pulmonary embolism Incidental diagnosis of right lung pulmonary embolism in the right main pulmonary artery bifurcation and the right upper and lower lobar pulmonary arteries on 06/27/2018 during a workup for restaging of her clear cell renal cell carcinoma. Patient was adequately started on Lovenox 120 mg Q 12. Due to development of abdominal wall hematoma at the site of injection, Lovenox was subsequently switched to Xarelto. She stopped Xarelto in Jan 2020 due to concern for bleeding and swelling of the legs.
--- NOTE | 2021-09-21 10:58 | PC.NURSE ---
Dr. Williamson's (kidney) principal gifts officer, Marcus called Saturday to say Dr. Williamson wants to speak with Dr. Burden. Dr. Burden connected with Dr. Williamson today and pt scheduled sooner 10/05/21 (her f/u was 11/02/21). Per Dr. Burden's note to triage, pt's Cabozantinib 20mg daily needs to be reduced. CT awaiting PA.
--- NOTE | 2021-10-18 11:26 | ONC.SCHED ---
CT Chest/Abdomen: Scheduled with Opal in DI. Patient is scheduled for 10/25 with a check in at 1330, and the scan at 3pm. Nothing but clear liquids after 11am (4 hours prior to exam). I called and talked with the patient to let her know about her appointment.
[2021-10-25 12:02] LABS: Add Manual Diff / Slide Review NO; Basophils Absolute Auto 0 /uL (0-100); Basophils Percent Auto 0.5 % (0-2); Eosinophils Absolute Auto 100 /uL (0-450); Eosinophils Percent Auto 2.3 % (2-4); Hemoglobin 13.2 g/dL (12.0-16.0); Lymphocytes Absolute Auto 2500 /uL (1100-4500); Lymphocytes Percent Auto 39.5 % (25-40); Mean Corpuscular Hemoglobin 33.8 PG (26-34); Mean Corpuscular Volume 102.3 fL (80-100); Monocytes Absolute Auto 500 /uL (0-900); Monocytes Percent Auto 8.2 % (3-14); Neutrophils Absolute Auto 3100 /uL (1500-7000); Neutrophils Percent Auto 49.5 % (50-75); Platelet Count 233 X10^3/uL (150-400); Red Blood Cell Count 3.91 X10^6/uL (4.0-5.2); White Blood Cell Count 6.3 X10^3/uL (4.5-11.0)
[2021-10-25 12:22] LABS: Alanine Aminotransferase 23 IU/L (<35); Albumin 3.4 g/dL (3.5-5.0); Albumin Globulin Ratio 1.1 (1.0-2.8); Alkaline Phosphatase 58 U/L (38-126); Aspartate Aminotransferase 27 IU/L (14-36); BUN Creatinine Ratio 14.1 (6-22); Bilirubin Total 0.4 mg/dL (0.2-1.3); Blood Urea Nitrogen 21 mg/dL (7-17); Calcium 8.7 mg/dL (8.4-10.2); Carbon Dioxide 27 mmol/L (22-32); Chloride 111 mmol/L (98-107); Estimated Glomerular Filt Rate 39 mL/min (>60); Globulin 3.2 g/dL (1.7-4.1); Glucose 95 mg/dL (80-110); HEMOLYSIS 15 (0-50); Lactate Dehydrogenase 512 U/L (313-618); Potassium 4.3 mmol/L (3.4-5.1); Sodium 141 mmol/L (137-145); Total Protein 6.6 g/dL (6.3-8.2)
[2021-11-02 13:44] VITALS: BP 157/91; PULSE 73; RESP 18; TEMP 36.5; O2SAT 99
--- NOTE | 2021-11-02 13:47 | ONC.PN ---
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 She is now taking cabozantinib 20 mg daily. She has been doing very well. Her breathing has been about the same. No chest pain. No abdominal pain. No diarrhea and no constipation. No skin rashes. On 09/19/2021, Dr. Jaramillo, nephrology evaluated the patient. Due to proteinuria, Dr. Jaramillo was wondering if ohter options exist besides carbozantinib. Oncological HPI Ms Belgica Da Silva is a 66 year old female with a long list of medical co-morbidities most notable for morbid obesity, sleep apnea on CPAP, hypertension, rheumatoid arthritis, and psoriasis on Otezla (apremilast). 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 CT 01/08/2018: left renal mass at least 9.7 cm with prominent retroperitoneal lymphadneopathy. Staging imagine (CT CAP, bone scan and PET) showed the known left kidney mass, and suspicious retroperitoneal and pelvic lymphadenopathy and right lower lung nodules. Dr. Gómez at [facility] recommended targeted drug cabozantinib. Immunotherapy was deemed inappropriate because of her autoimmune disorder. She started Cabozantinib 60 mg daily on 06/11/2018. During the next couple of months, her Cabozantinib dosage had to be adjusteda and then held temporarily due to significant skin rashes in the hands, feet, back, and facce as well as at her private parts, as well as transaminitis. On 09/11/2018, she was able to restart Carbozantinib at 20 mg daily and has tolerated well so far. Thereafter multiple surveillance studies have showed excellent responses. Her most recent CT chest abdomen and pelvis with contrast on 04/26/2021 showed no significant interval change or evidence of neoplasm. In 06/2018, she was found to have incidental pulmonary emboli in the right main pulmonary artery bifurcation and the right upper and lower lobar pulmonary arteries. She was initiated Lovenox injection 120 mg twice daily and later switched to Xarelto. Stopped 01/2020 Treatment Summary: 1. Open left radical nephrectomy by Dr. Natalie العراقي at [facility] on 03/07/2018 2. Cabozantinib started at 60 mg daily on 06/11/2018, and adjusted to 20 mg daily in 08/2018 3. Anticoagulation since 07/07/2018 for PE, lovelox > Xarelto. Stopped 01/2020 - Patient Self-Reported Symptoms SR Constitution: Weight loss/gain, Fatigue/Malaise SR eye issues: Double vision SR ears, nose, mouth, throat issues: Changes in taste SR respiratory issues: Shortness of breath SR Cardiovascular issues: Shortness of breath with activity or lying flat SR Skin issues: Dry skin SR Gastrointestinal issues: Poor or no appetite SR Genitourinary issues: Frequent urination, Incontinence SR Musculoskeletal issues: Joint pain or swelling, Muscle weakness, Muscle pain or cramps, Back or neck pain, Cold hands or feet, Difficulty walking, Bone pain SR Neuro issues: Numbness or tingling SR Hematologic issues: Slow healing, Bleeding/bruising SR Endocrine issues: Cold intolerance, Excessive urination - ROS All Systems: reviewed and no additional remarkable complaints except as stated Home Medications and Allergies Home Medications Medication Instructions Recorded Confirmed Type apremilast 30 mg tablet (Otezla) 30 mg PO DAILY 02/07/18 08/31/21 History fluticasone propionate 110 1 puff inhalation Q12H 02/07/18 08/31/21 History mcg/actuation HFA aerosol inhaler (Flovent HFA) Albuterol Inhaler 1 puff inhalation BID 09/27/20 08/31/21 History mupirocin 2 % topical ointment 1 applic topical BID #22 grams 10/31/20 08/31/21 Rx hydroxyzine HCl 25 mg tablet 25 mg PO QID PRN Muscle Spasm #30 02/28/21 08/31/21 Rx tabs cabozantinib 20 mg tablet 20 mg PO DAILY kidney cancer #30 03/09/21 08/31/21 Rx tabs amlodipine 10 mg tablet 10 mg PO DAILY 05/04/21 08/31/21 History furosemide 20 mg tablet 20 mg PO DAILY 05/04/21 08/31/21 History cyclobenzaprine 10 mg tablet 10 mg PO BEDTIME #90 tabs 05/11/21 08/31/21 Rx hydrochlorothiazide 25 mg tablet 25 mg PO DAILY 05/11/21 08/31/21 History lisinopril 30 mg tablet 30 mg PO DAILY 05/11/21 08/31/21 History minocycline 100 mg capsule 100 mg PO BID #180 caps 05/11/21 08/31/21 Rx pantoprazole 40 mg tablet,delayed 40 mg PO DAILY #90 tabs 05/11/21 08/31/21 Rx release (Protonix) trazodone 50 mg tablet 50 mg PO BEDTIME #90 tabs 05/11/21 08/31/21 Rx prazosin 2 mg capsule 2 mg PO BEDTIME #90 caps 07/22/21 08/31/21 Rx pramipexole 0.25 mg tablet 0.25 mg PO BEDTIME #90 tabs 08/04/21 08/31/21 Rx hydrocodone 5 mg-acetaminophen 325 1 tab PO TID PRN pain #60 tabs 08/10/21 08/31/21 Rx mg tablet nifedipine 30 mg tablet,extended See Rx Instructions .Route 08/22/21 08/31/21 Rx release .COMPLEX #90 tabs epinephrine 0.3 mg/0.3 mL 0.3 mg (0.3 mL) IM Q5-15M PRN 08/31/21 08/31/21 Rx injection syringe Allergic Reaction #2 ea losartan 100 mg tablet 100 mg PO DAILY 08/31/21 08/31/21 History INCONTINENCE SUPPLIES #140 ea 10/31/21 Rx Allergies Allergy/AdvReac Type Severity Reaction Status Date / Time adhesive tape Allergy Severe Rash Verified 08/31/21 13:16 bee venom protein (honey bee) Allergy Unknown Verified 08/31/21 13:16 enoxaparin [From Lovenox] Allergy Unknown Verified 08/31/21 13:16 rivaroxaban [From Xarelto] AdvReac Severe Difficulty Verified 08/31/21 13:16 Breathing iodine AdvReac Unknown Verified 08/31/21 13:16 MICRO AdvReac Unknown Uncoded 08/31/21 13:16 Exam Vital signs: Vital Signs Temp Pulse Resp BP Pulse Ox 11/02/21 13:44 97.7 F 73 18 157/91 H 99 Intake and Output 11/01/21 11/02/21 11/02/21 23:59 07:59 15:59 Other: Weight 142.7 kg Patient Weight 11/02/21 23:59 Weight 142.7 kg Narrative: ECOG 1 Gen: WDWN, NAD, pleasant and cooperative, morbid obesity, in wheelchair. HEENT: NCAT, EOMI, PERRLA, anicteric sclera. Neck: Supple, No palpable thyromegaly or lymphadenopathy. Respiratory: CTAB, no wheezes audible. No JVD Cardiovascular: RRR, S1 and S2 normal, no M/G/R. Abdomen: Soft, NTND, BS normal, difficult to evaluate organomegaly Extremities: Mild lower extremity edema bilaterally Lymphatic: no palpable lymph nodes in the neck, axillae Neurological: AOx3, CN II-XII grossly intact. No focal motor or sensory deficit. Psychiatric: Good judgment and insight; normal affect; normal thought process Results - Labs Laboratory Last Values WBC 6.3 X10^3/uL (4.5-11.0) 10/25/21 11:52 RBC 3.91 X10^6/uL (4.0-5.2) L 10/25/21 11:52 Hgb 13.2 g/dL (12.0-16.0) 10/25/21 11:52 Hct 40.0 % (36-46) 10/25/21 11:52 MCV 102.3 fL (80-100) H 10/25/21 11:52 MCH 33.8 PG (26-34) 10/25/21 11:52 MCHC 33.0 % (30-36) 10/25/21 11:52 RDW 14.0 % (11.6-14.8) 10/25/21 11:52 Plt Count 233 X10^3/uL (150-400) 10/25/21 11:52 Neut % (Auto) 49.5 % (50-75) L 10/25/21 11:52 Lymph % (Auto) 39.5 % (25-40) 10/25/21 11:52 George % (Auto) 8.2 % (3-14) 10/25/21 11:52 Eos % (Auto) 2.3 % (2-4) 10/25/21 11:52 Baso % (Auto) 0.5 % (0-2) 10/25/21 11:52 Neut # (Auto) 3100 /uL (7814-9736) 10/25/21 11:52 Lymph # (Auto) 2500 /uL (1250-3854) 10/25/21 11:52 George # (Auto) 500 /uL (0-900) 10/25/21 11:52 Eos # (Auto) 100 /uL (0-450) 10/25/21 11:52 Baso # (Auto) 0 /uL (0-100) 10/25/21 11:52 Total Counted 100 12/31/18 16:12 Seg Neutrophils % 57.0 % (38-70) 12/31/18 16:12 Lymphocytes % (Manual) 31.0 % (25-45) 12/31/18 16:12 Monocytes % (Manual) 9.0 % (2-11) 12/31/18 16:12 Eosinophils % (Manual) 2.0 % (2-4) 12/31/18 16:12 Basophils % (Manual) 1.0 % (0-1) 12/31/18 16:12 Neutrophils # (Manual) 3705 /uL (3529-0209) 12/31/18 16:12 RBC Morphology Normal morphology 12/31/18 16:12 Anisocytosis 2+ H 08/26/18 11:58 Sodium 141 mmol/L (137-145) 10/25/21 11:52 Potassium 4.3 mmol/L (3.4-5.1) 10/25/21 11:52 Chloride 111 mmol/L (98-107) H 10/25/21 11:52 Carbon Dioxide 27 mmol/L (22-32) 10/25/21 11:52 BUN 21 mg/dL (7-17) H 10/25/21 11:52 Creatinine 1.49 mg/dL (0.52-1.04) H 10/25/21 11:52 Estimated GFR 39 mL/min (>60) L 10/25/21 11:52 BUN/Creatinine Ratio 14.1 (6-22) 10/25/21 11:52 Glucose 95 mg/dL (80-110) 10/25/21 11:52 Calcium 8.7 mg/dL (8.4-10.2) 10/25/21 11:52 Magnesium 2.2 mg/dL (1.6-2.3) 12/03/18 12:45 Total Bilirubin 0.4 mg/dL (0.2-1.3) 10/25/21 11:52 AST 27 IU/L (14-36) 10/25/21 11:52 ALT 23 IU/L (<35) 10/25/21 11:52 Alkaline Phosphatase 58 U/L (38-126) 10/25/21 11:52 Lactate Dehydrogenase 512 U/L (313-618) 10/25/21 11:52 Total Protein 6.6 g/dL (6.3-8.2) 10/25/21 11:52 Albumin 3.4 g/dL (3.5-5.0) L 10/25/21 11:52 Globulin 3.2 g/dL (1.7-4.1) 10/25/21 11:52 Albumin/Globulin Ratio 1.1 (1.0-2.8) 10/25/21 11:52 TSH 3.94 uIU/mL (0.47-4.68) 09/09/18 11:43 Assessment and Plan (1) Clear cell adenocarcinoma of left kidney 66 year old female with metastatic clear cell renal cell carcinoma, pT3a N1 Mx. She originally presented with hypercalcemia with headache, nausea and vomiting. CT 01/08/2018: left renal mass at least 9.7 cm with prominent retroperitoneal lymphadneopathy. Staging imagine (CT CAP, bone scan and PET) showed the known left kidney mass, and suspicious retroperitoneal and pelvic lymphadenopathy and right lower lung nodules. Status post left nephrectomy on 03/07/2018. Surgical pathology showed clear cell renal cell carcinoma. She was evaluated at [facility] by Dr. Ribeiro. Treatment with cabozantinib was recommended. She started Cabozatinib 60 mg daily on 06/11/2018. On 10/29/2018, cabozantinib was held due to grade 2 maculopapular rashes, grade 1 liver function abnormalities. On 09/11/2018, she was able to restart Carbozantinib at 20 mg daily and has tolerated well so far. Patient underwent CT of the chest abdomen pelvis on 01/20/2019. It showed no evidence for residual or recurrent disease. Assessment: I reviewed the CTs chest abdomen pelvis with the patient. No evidence of disease recurrence or metastasis. She is now taking cabozantinib 20 mg once a day and tolerated very well. Patient has significant proteinuria. I talked with the patient I am recommending we reduce the dosage of cabozantinib to 20 mg every day on the week days, but not during the weekend. I will repeat the urine protein. If no improvement, I will consider switching to immunotherapy nivo/ipi. Plan: 1. Continue Cabozatinib 20 mg daily on weekday every week. 2. Continue Protonix 40 mg daily 3. Continue follow-up with Nephrology 4. RTC after scan, CBC, CMP, LDH (2) Pulmonary embolism Incidental diagnosis of right lung pulmonary embolism in the right main pulmonary artery bifurcation and the right upper and lower lobar pulmonary arteries on 06/27/2018 during a workup for restaging of her clear cell renal cell carcinoma. Patient was adequately started on Lovenox 120 mg Q 12. Due to development of abdominal wall hematoma at the site of injection, Lovenox was subsequently switched to Xarelto. She stopped Xarelto in Jan 2020 due to concern for bleeding and swelling of the legs.
--- NOTE | 2021-11-06 17:48 | PC.NURSE ---
Med list mailed to pt per her request
[2022-01-25 11:10] LABS: Add Manual Diff / Slide Review NO; Basophils Absolute Auto 100 /uL (0-100); Basophils Percent Auto 0.8 % (0-2); Eosinophils Absolute Auto 200 /uL (0-450); Eosinophils Percent Auto 2.5 % (2-4); Hemoglobin 12.6 g/dL (12.0-16.0); Lymphocytes Absolute Auto 2500 /uL (1100-4500); Mean Corpuscular HGB Conc 33.1 % (30-36); Mean Corpuscular Volume 102.8 fL (80-100); Monocytes Absolute Auto 600 /uL (0-900); Monocytes Percent Auto 8.3 % (3-14); Neutrophils Absolute Auto 3400 /uL (1500-7000); Neutrophils Percent Auto 51.4 % (50-75); Platelet Count 225 X10^3/uL (150-400); Red Cell Distribution Width 13.7 % (11.6-14.8); White Blood Cell Count 6.7 X10^3/uL (4.5-11.0)
[2022-01-25 11:32] LABS: Alanine Aminotransferase 22 IU/L (<35); Albumin 3.5 g/dL (3.5-5.0); Albumin Globulin Ratio 1.1 (1.0-2.8); Alkaline Phosphatase 70 U/L (38-126); Aspartate Aminotransferase 23 IU/L (14-36); BUN Creatinine Ratio 14.7 (6-22); Bilirubin Total 0.3 mg/dL (0.2-1.3); Blood Urea Nitrogen 23 mg/dL (7-17); Calcium 8.4 mg/dL (8.4-10.2); Carbon Dioxide 27 mmol/L (22-32); Chloride 109 mmol/L (98-107); Estimated Glomerular Filt Rate 37 mL/min (>60); Globulin 3.2 g/dL (1.7-4.1); Glucose 101 mg/dL (80-110); HEMOLYSIS < 15 (0-50); Potassium 4.5 mmol/L (3.4-5.1); Sodium 143 mmol/L (137-145); Total Protein 6.7 g/dL (6.3-8.2)
[2022-02-01 13:48] VITALS: BP 166/90; PULSE 71; RESP 16; TEMP 35.9; O2SAT 100
--- NOTE | 2022-02-01 13:54 | P.PNONC_ITS ---
PN -Subjective - Date of Visit Date of visit: 02/01/22 Chief Complaint: Belgica is a 66 year old female with metastatic renal clear cell carcinoma now on treatment with cabozantinib Interval history: She came in here accompanied by her sister. She is doing well. She is taking cabozantinib 20 mg daily. She has relatively good appetite. She denies shortness of breath. No chest pain. No abd pain. No rashes. Oncological HPI Ms Belgica Da Silva is a 66 year old female with a long list of medical co- morbidities most notable for morbid obesity, sleep apnea on CPAP, hypertension, rheumatoid arthritis, and psoriasis on Otezla (apremilast). 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 CT 01/08/2018: left renal mass at least 9.7 cm with prominent retroperitoneal lymphadneopathy. Staging imagine (CT CAP, bone scan and PET) showed the known left kidney mass, and suspicious retroperitoneal and pelvic lymphadenopathy and right lower lung nodules. Dr. Gómez at [facility] recommended targeted drug cabozantinib. Immunotherapy was deemed inappropriate because of her autoimmune disorder. She started Cabozantinib 60 mg daily on 06/11/2018. During the next couple of months, her Cabozantinib dosage had to be adjusteda and then held temporarily due to significant skin rashes in the hands, feet, back, and facce as well as at her private parts, as well as transaminitis. On 09/11/2018, she was able to restart Carbozantinib at 20 mg daily and has tolerated well so far. Thereafter multiple surveillance studies have showed excellent responses. Her most recent CT chest abdomen and pelvis with contrast on 04/26/2021 showed no significant interval change or evidence of neoplasm. In 06/2018, she was found to have incidental pulmonary emboli in the right main pulmonary artery bifurcation and the right upper and lower lobar pulmonary arteries. She was initiated Lovenox injection 120 mg twice daily and later switched to Xarelto. Stopped 01/2020 Treatment Summary: 1. Open left radical nephrectomy by Dr. Natalie العراقي at [facility] on 03/07/2018 2. Cabozantinib started at 60 mg daily on 06/11/2018, and adjusted to 20 mg daily in 08/2018 3. Anticoagulation since 07/07/2018 for PE, lovelox > Xarelto. Stopped 01/2020 - Patient Self-Reported Symptoms SR Constitution: Chills, Fatigue/Malaise SR eye issues: Double vision SR ears, nose, mouth, throat issues: Changes in taste SR respiratory issues: Shortness of breath SR Cardiovascular issues: Shortness of breath with activity or lying flat SR Skin issues: Dry skin SR Gastrointestinal issues: Poor or no appetite SR Genitourinary issues: Frequent urination, Incontinence SR Musculoskeletal issues: Cold hands or feet, Difficulty walking, Bone pain SR Neuro issues: Numbness or tingling, Difficulty balancing SR Hematologic issues: Slow healing, Bleeding/bruising SR Endocrine issues: Cold intolerance, Excessive urination - ROS All Systems: reviewed and no additional remarkable complaints except as stated Home Medications and Allergies Home Medications Medication Instructions Recorded Confirmed Type apremilast 30 mg tablet (Otezla) 30 mg PO BID 02/07/18 02/01/22 History Albuterol Inhaler 1 puff inhalation BID 09/27/20 02/01/22 History cabozantinib 20 mg tablet 20 mg PO DAILY kidney cancer #30 03/09/21 02/01/22 Rx tabs amlodipine 10 mg tablet 10 mg PO DAILY 05/04/21 02/01/22 History lisinopril 30 mg tablet 30 mg PO DAILY 05/11/21 02/01/22 History minocycline 100 mg capsule 100 mg PO BID #180 caps 05/11/21 02/01/22 Rx epinephrine 0.3 mg/0.3 mL 0.3 mg (0.3 mL) IM Q5-15M PRN 08/31/21 02/01/22 Rx injection syringe Allergic Reaction #2 ea aspirin 81 mg tablet 81 mg PO DAILY 11/06/21 02/01/22 History nifedipine 30 mg tablet,extended See Rx Instructions .Route 11/23/21 02/01/22 Rx release .COMPLEX #90 tabs 4 Point Walker #1 ea 01/08/22 02/01/22 Rx blood pressure test kit-large #1 ea 01/08/22 02/01/22 Rx hydrocodone 5 mg-acetaminophen 325 1 tab PO TID PRN pain #60 tabs 01/17/22 02/01/22 Rx mg tablet losartan 100 mg tablet 100 mg PO DAILY #90 tabs 01/24/22 02/01/22 Rx INCONTINENCE SUPPLIES #140 ea 01/25/22 02/01/22 Rx cyclobenzaprine 10 mg tablet 10 mg PO TID PRN Muscle Spasm #30 01/25/22 02/01/22 Rx tabs fluticasone propionate 110 1 puff inhalation Q12H #12 grams 01/25/22 02/01/22 Rx mcg/actuation HFA aerosol inhaler (Flovent HFA) hydroxyzine HCl 25 mg tablet 25 mg PO QID PRN Muscle Spasm #30 01/25/22 02/01/22 Rx tabs mupirocin 2 % topical ointment 1 applic topical BID #22 grams 01/25/22 02/01/22 Rx pantoprazole 40 mg tablet,delayed 40 mg PO DAILY #90 tabs 01/25/22 02/01/22 Rx release (Protonix) pramipexole 0.25 mg tablet 0.25 mg PO BEDTIME #90 tabs 01/25/22 02/01/22 Rx prazosin 2 mg capsule 2 mg PO BEDTIME #90 caps 01/25/22 02/01/22 Rx trazodone 50 mg tablet 50 mg PO BEDTIME #90 tabs 01/25/22 02/01/22 Rx Allergies Allergy/AdvReac Type Severity Reaction Status Date / Time adhesive tape Allergy Severe Rash Verified 01/05/22 13:32 bee venom protein (honey bee) Allergy Unknown Verified 01/05/22 13:32 enoxaparin [From Lovenox] Allergy Unknown Verified 01/05/22 13:32 rivaroxaban [From Xarelto] AdvReac Severe Difficulty Verified 01/05/22 13:32 Breathing iodine AdvReac Unknown Verified 01/05/22 13:32 MICRO AdvReac Unknown Uncoded 01/05/22 13:32 Exam Vital signs: Vital Signs Temp Pulse Resp BP Pulse Ox 02/01/22 13:48 96.7 F L 71 16 166/90 H 100 Intake and Output 01/31/22 02/01/22 02/01/22 23:59 07:59 15:59 Other: Weight 146.8 kg Patient Weight 02/01/22 23:59 Weight 146.8 kg Narrative: ECOG 1 Gen: WDWN, NAD, pleasant and cooperative, morbid obesity, in wheelchair. HEENT: NCAT, EOMI, PERRLA, anicteric sclera. Neck: Supple, No palpable thyromegaly or lymphadenopathy. Respiratory: CTAB, no wheezes audible. No JVD Cardiovascular: RRR, S1 and S2 normal, no M/G/R. Abdomen: Soft, NTND, BS normal, difficult to evaluate organomegaly Extremities: Mild lower extremity edema bilaterally Lymphatic: no palpable lymph nodes in the neck, axillae Neurological: AOx3, CN II-XII grossly intact. No focal motor or sensory deficit. Psychiatric: Good judgment and insight; normal affect; normal thought process Results - Labs Laboratory Last Values WBC 6.7 X10^3/uL (4.5-11.0) 01/25/22 10:59 RBC 3.70 X10^6/uL (4.0-5.2) L 01/25/22 10:59 Hgb 12.6 g/dL (12.0-16.0) 01/25/22 10:59 Hct 38.0 % (36-46) 01/25/22 10:59 MCV 102.8 fL (80-100) H 01/25/22 10:59 MCH 34.0 PG (26-34) 01/25/22 10:59 MCHC 33.1 % (30-36) 01/25/22 10:59 RDW 13.7 % (11.6-14.8) 01/25/22 10:59 Plt Count 225 X10^3/uL (150-400) 01/25/22 10:59 Neut % (Auto) 51.4 % (50-75) 01/25/22 10:59 Lymph % (Auto) 37.0 % (25-40) 01/25/22 10:59 Coffee % (Auto) 8.3 % (3-14) 01/25/22 10:59 Eos % (Auto) 2.5 % (2-4) 01/25/22 10:59 Baso % (Auto) 0.8 % (0-2) 01/25/22 10:59 Neut # (Auto) 3400 /uL (4259-5486) 01/25/22 10:59 Lymph # (Auto) 2500 /uL (0822-9658) 01/25/22 10:59 Coffee # (Auto) 600 /uL (0-900) 01/25/22 10:59 Eos # (Auto) 200 /uL (0-450) 01/25/22 10:59 Baso # (Auto) 100 /uL (0-100) 01/25/22 10:59 Total Counted 100 12/31/18 16:12 Seg Neutrophils % 57.0 % (38-70) 12/31/18 16:12 Lymphocytes % (Manual) 31.0 % (25-45) 12/31/18 16:12 Monocytes % (Manual) 9.0 % (2-11) 12/31/18 16:12 Eosinophils % (Manual) 2.0 % (2-4) 12/31/18 16:12 Basophils % (Manual) 1.0 % (0-1) 12/31/18 16:12 Neutrophils # (Manual) 3705 /uL (5091-4475) 12/31/18 16:12 RBC Morphology Normal morphology 12/31/18 16:12 Anisocytosis 2+ H 08/26/18 11:58 Sodium 143 mmol/L (137-145) 01/25/22 10:59 Potassium 4.5 mmol/L (3.4-5.1) 01/25/22 10:59 Chloride 109 mmol/L (98-107) H 01/25/22 10:59 Carbon Dioxide 27 mmol/L (22-32) 01/25/22 10:59 BUN 23 mg/dL (7-17) H 01/25/22 10:59 Creatinine 1.56 mg/dL (0.52-1.04) H 01/25/22 10:59 Estimated GFR 37 mL/min (>60) L 01/25/22 10:59 BUN/Creatinine Ratio 14.7 (6-22) 01/25/22 10:59 Glucose 101 mg/dL (80-110) 01/25/22 10:59 Calcium 8.4 mg/dL (8.4-10.2) 01/25/22 10:59 Magnesium 2.2 mg/dL (1.6-2.3) 12/03/18 12:45 Total Bilirubin 0.3 mg/dL (0.2-1.3) 01/25/22 10:59 AST 23 IU/L (14-36) 01/25/22 10:59 ALT 22 IU/L (<35) 01/25/22 10:59 Alkaline Phosphatase 70 U/L (38-126) 01/25/22 10:59 Lactate Dehydrogenase 512 U/L (313-618) 10/25/21 11:52 Total Protein 6.7 g/dL (6.3-8.2) 01/25/22 10:59 Albumin 3.5 g/dL (3.5-5.0) 01/25/22 10:59 Globulin 3.2 g/dL (1.7-4.1) 01/25/22 10:59 Albumin/Globulin Ratio 1.1 (1.0-2.8) 01/25/22 10:59 TSH 3.94 uIU/mL (0.47-4.68) 09/09/18 11:43 Assessment and Plan (1) Clear cell adenocarcinoma of left kidney 66 year old female with metastatic clear cell renal cell carcinoma, pT3a N1 Mx. She originally presented with hypercalcemia with headache, nausea and vomiting. CT 01/08/2018: left renal mass at least 9.7 cm with prominent retroperitoneal lymphadneopathy. Staging imagine (CT CAP, bone scan and PET) showed the known left kidney mass, and suspicious retroperitoneal and pelvic lymphadenopathy and right lower lung nodules. Status post left nephrectomy on 03/07/2018. Surgical pathology showed clear cell renal cell carcinoma. She was evaluated at [facility] by Dr. Ribeiro. Treatment with cabozantinib was recommended. She started Cabozatinib 60 mg daily on 06/11/2018. On 10/29/2018, cabozantinib was held due to grade 2 maculopapular rashes, grade 1 liver function abnormalities. On 09/11/2018, she was able to restart Carbozantinib at 20 mg daily and has tolerated well so far. Patient underwent CT of the chest abdomen pelvis on 01/20/2019. It showed no evidence for residual or recurrent disease. Assessment: Clinically, she has been doing quite well. I do not think there is any clinical evidence of disease recurrence or metastasis. Laboratory tests including CBC and CMP are on remarkable except known chronic kidney disease. I am recommending we continue current treatment with regular imaging and laboratory labs following. Plan: 1. Continue Cabozatinib 20 mg daily on weekday every week. 2. Continue Protonix 40 mg daily 3. Continue follow-up with Nephrology 4. RTC after scan, CBC, CMP, LDH, CT chest/abd wo contrast (2) Pulmonary embolism Incidental diagnosis of right lung pulmonary embolism in the right main pulmonary artery bifurcation and the right upper and lower lobar pulmonary arteries on 06/27/2018 during a workup for restaging of her clear cell renal cell carcinoma. Patient was adequately started on Lovenox 120 mg Q 12. Due to development of abdominal wall hematoma at the site of injection, Lovenox was subsequently switched to Xarelto. She stopped Xarelto in Jan 2020 due to concern for bleeding and swelling of the legs.
[2022-04-23 12:11] LABS: Add Manual Diff / Slide Review NO; Basophils Absolute Auto 0 /uL (0-100); Basophils Percent Auto 0.7 % (0-2); Eosinophils Absolute Auto 100 /uL (0-450); Eosinophils Percent Auto 1.9 % (2-4); Hematocrit 38.3 % (36-46); Hemoglobin 12.7 g/dL (12.0-16.0); Lymphocytes Absolute Auto 2000 /uL (1100-4500); Lymphocytes Percent Auto 36.1 % (25-40); Mean Corpuscular HGB Conc 33.1 % (30-36); Mean Corpuscular Hemoglobin 33.8 PG (26-34); Mean Corpuscular Volume 102.3 fL (80-100); Monocytes Absolute Auto 500 /uL (0-900); Monocytes Percent Auto 8.9 % (3-14); Neutrophils Absolute Auto 3000 /uL (1500-7000); Neutrophils Percent Auto 52.4 % (50-75); Platelet Count 180 X10^3/uL (150-400); Red Blood Cell Count 3.75 X10^6/uL (4.0-5.2); Red Cell Distribution Width 14.5 % (11.6-14.8); White Blood Cell Count 5.6 X10^3/uL (4.5-11.0)
[2022-04-23 12:28] LABS: Alanine Aminotransferase 28 IU/L (<35); Albumin 3.2 g/dL (3.5-5.0); Albumin Globulin Ratio 1.1 (1.0-2.8); Alkaline Phosphatase 78 U/L (38-126); Aspartate Aminotransferase 31 IU/L (14-36); BUN Creatinine Ratio 16.4 (6-22); Bilirubin Total 0.4 mg/dL (0.2-1.3); Blood Urea Nitrogen 23 mg/dL (7-17); Calcium 8.6 mg/dL (8.4-10.2); Carbon Dioxide 26 mmol/L (22-32); Chloride 108 mmol/L (98-107); Estimated Glomerular Filt Rate 42 mL/min (>60); Globulin 2.9 g/dL (1.7-4.1); Glucose 78 mg/dL (80-110); HEMOLYSIS < 15 (0-50); Lactate Dehydrogenase 286 U/L (120-246); Potassium 4.4 mmol/L (3.4-5.1); Sodium 141 mmol/L (137-145); Total Protein 6.1 g/dL (6.3-8.2)
[2022-04-23 15:38] LABS: Creatinine Urine Random 25.7 mg/dL; Protein (Total) Urine Random 80 mg/dL (0-12); Protein Creatinine Ratio Urine 3.11 GRAM/24H
[2022-04-25 08:45] LABS: Parathyroid Hormone Int 74 pg/mL (15-65)
[2022-05-03 14:26] VITALS: BP 163/98; PULSE 79; RESP 18; TEMP 36.3; O2SAT 98
--- NOTE | 2022-05-03 14:44 | ONC.PN ---
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 Patient said that she has been doing well. Currently she is taking cabozantinib 20 mg daily on weekdays every week. She denies shortness of breath. No chest pain. No abd pain. No rashes. Patient underwent CT chest abdomen without contrast on 04/23/2022 that showed no evidence of residual, locally recurrent, or metastatic disease in the chest or abdomen. Oncological HPI Ms Belgica Da Silva is a 66 year old female with a long list of medical co-morbidities most notable for morbid obesity, sleep apnea on CPAP, hypertension, rheumatoid arthritis, and psoriasis on Otezla (apremilast). 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 CT 01/08/2018: left renal mass at least 9.7 cm with prominent retroperitoneal lymphadneopathy. Staging imagine (CT CAP, bone scan and PET) showed the known left kidney mass, and suspicious retroperitoneal and pelvic lymphadenopathy and right lower lung nodules. Dr. Gómez at [facility] recommended targeted drug cabozantinib. Immunotherapy was deemed inappropriate because of her autoimmune disorder. She started Cabozantinib 60 mg daily on 06/11/2018. During the next couple of months, her Cabozantinib dosage had to be adjusted and then held temporarily due to significant skin rashes in the hands, feet, back, face, her private parts, as well as transaminitis. On 09/11/2018, she was able to restart Carbozantinib at 20 mg daily and has tolerated well so far. Thereafter multiple surveillance studies have showed excellent responses. Her CT chest abdomen and pelvis with contrast on 04/26/2021 showed no significant interval change or evidence of neoplasm. In 06/2018, she was found to have incidental pulmonary emboli in the right main pulmonary artery bifurcation and the right upper and lower lobar pulmonary arteries. She was initiated Lovenox injection 120 mg twice daily and later switched to Xarelto. Stopped 01/2020 Treatment Summary: 1. Open left radical nephrectomy by Dr. Natalie العراقي at [facility] on 03/07/2018 2. Cabozantinib started at 60 mg daily on 06/11/2018, and adjusted to 20 mg daily in 08/2018 3. Anticoagulation since 07/07/2018 for PE, lovelox > Xarelto. Stopped 01/2020 - Patient Self-Reported Symptoms SR Constitution: Chills SR eye issues: Double vision SR ears, nose, mouth, throat issues: Changes in taste SR respiratory issues: Shortness of breath SR Cardiovascular issues: Shortness of breath with activity or lying flat SR Skin issues: Dry skin SR Gastrointestinal issues: Poor or no appetite SR Genitourinary issues: Frequent urination, Incontinence SR Musculoskeletal issues: Joint pain or swelling, Muscle weakness, Muscle pain or cramps, Cold hands or feet, Difficulty walking, Bone pain SR Neuro issues: Numbness or tingling, Difficulty balancing SR Hematologic issues: Slow healing, Bleeding/bruising SR Endocrine issues: Cold intolerance, Excessive urination Home Medications and Allergies Home Medications Medication Instructions Recorded Confirmed Type apremilast 30 mg tablet (Otezla) 30 mg PO BID 02/07/18 02/01/22 History Albuterol Inhaler 1 puff inhalation BID 09/27/20 02/01/22 History amlodipine 10 mg tablet 10 mg PO DAILY 05/04/21 02/01/22 History lisinopril 30 mg tablet 30 mg PO DAILY 05/11/21 02/01/22 History minocycline 100 mg capsule 100 mg PO BID #180 caps 05/11/21 02/01/22 Rx epinephrine 0.3 mg/0.3 mL 0.3 mg (0.3 mL) IM Q5-15M PRN 08/31/21 02/01/22 Rx injection syringe Allergic Reaction #2 ea aspirin 81 mg tablet 81 mg PO DAILY 11/06/21 02/01/22 History 4 Point [place] #1 ea 01/08/22 02/01/22 Rx blood pressure test kit-large #1 ea 01/08/22 02/01/22 Rx losartan 100 mg tablet 100 mg PO DAILY #90 tabs 01/24/22 02/01/22 Rx INCONTINENCE SUPPLIES #140 ea 01/25/22 02/01/22 Rx cyclobenzaprine 10 mg tablet 10 mg PO TID PRN Muscle Spasm #30 01/25/22 02/01/22 Rx tabs fluticasone propionate 110 1 puff inhalation Q12H #12 grams 01/25/22 02/01/22 Rx mcg/actuation HFA aerosol inhaler (Flovent HFA) hydroxyzine HCl 25 mg tablet 25 mg PO QID PRN Muscle Spasm #30 01/25/22 02/01/22 Rx tabs mupirocin 2 % topical ointment 1 applic topical BID #22 grams 01/25/22 02/01/22 Rx pantoprazole 40 mg tablet,delayed 40 mg PO DAILY #90 tabs 01/25/22 02/01/22 Rx release (Protonix) pramipexole 0.25 mg tablet 0.25 mg PO BEDTIME #90 tabs 01/25/22 02/01/22 Rx prazosin 2 mg capsule 2 mg PO BEDTIME #90 caps 01/25/22 02/01/22 Rx trazodone 50 mg tablet 50 mg PO BEDTIME #90 tabs 01/25/22 02/01/22 Rx nifedipine 30 mg tablet,extended See Rx Instructions .Route 03/06/22 Rx release .COMPLEX #90 tabs cabozantinib 20 mg tablet 20 mg PO DAILY kidney cancer #30 03/07/22 Rx tabs hydrocodone 5 mg-acetaminophen 325 1 tab PO TID PRN pain #60 tabs 03/09/22 Rx mg tablet Allergies Allergy/AdvReac Type Severity Reaction Status Date / Time adhesive tape Allergy Severe Rash Verified 01/05/22 13:32 bee venom protein (honey bee) Allergy Unknown Verified 01/05/22 13:32 enoxaparin [From Lovenox] Allergy Unknown Verified 01/05/22 13:32 rivaroxaban [From Xarelto] AdvReac Severe Difficulty Verified 01/05/22 13:32 Breathing iodine AdvReac Unknown Verified 01/05/22 13:32 MICRO AdvReac Unknown Uncoded 01/05/22 13:32 Exam Vital signs: Vital Signs Temp Pulse Resp BP Pulse Ox 05/03/22 14:26 97.4 F L 79 18 163/98 H 98 Intake and Output 05/02/22 05/03/22 05/03/22 23:59 07:59 15:59 Other: Weight 157 kg Patient Weight 05/03/22 23:59 Weight 157 kg Narrative: ECOG 1 Gen: WDWN, NAD, pleasant and cooperative, morbid obesity, in wheelchair. HEENT: NCAT, EOMI, PERRLA, anicteric sclera. Neck: Supple, No palpable thyromegaly or lymphadenopathy. Respiratory: CTAB, no wheezes audible. No JVD Cardiovascular: RRR, S1 and S2 normal, no M/G/R. Abdomen: Soft, NTND, BS normal, difficult to evaluate organomegaly Extremities: Mild lower extremity edema bilaterally Lymphatic: no palpable lymph nodes in the neck, axillae Neurological: AOx3, CN II-XII grossly intact. No focal motor or sensory deficit. Psychiatric: Good judgment and insight; normal affect; normal thought process Results - Labs Laboratory Last Values WBC 5.6 X10^3/uL (4.5-11.0) 04/23/22 10:44 RBC 3.75 X10^6/uL (4.0-5.2) L 04/23/22 10:44 Hgb Cancelled 04/23/22 10:45 Hct Cancelled 04/23/22 10:45 MCV 102.3 fL (80-100) H 04/23/22 10:44 MCH 33.8 PG (26-34) 04/23/22 10:44 MCHC 33.1 % (30-36) 04/23/22 10:44 RDW 14.5 % (11.6-14.8) 04/23/22 10:44 Plt Count 180 X10^3/uL (150-400) 04/23/22 10:44 Neut % (Auto) 52.4 % (50-75) 04/23/22 10:44 Lymph % (Auto) 36.1 % (25-40) 04/23/22 10:44 [place] % (Auto) 8.9 % (3-14) 04/23/22 10:44 Eos % (Auto) 1.9 % (2-4) L 04/23/22 10:44 Baso % (Auto) 0.7 % (0-2) 04/23/22 10:44 Neut # (Auto) 3000 /uL (8390-6555) 04/23/22 10:44 Lymph # (Auto) 2000 /uL (8597-0260) 04/23/22 10:44 [place] # (Auto) 500 /uL (0-900) 04/23/22 10:44 Eos # (Auto) 100 /uL (0-450) 04/23/22 10:44 Baso # (Auto) 0 /uL (0-100) 04/23/22 10:44 Total Counted 100 12/31/18 16:12 Seg Neutrophils % 57.0 % (38-70) 12/31/18 16:12 Lymphocytes % (Manual) 31.0 % (25-45) 12/31/18 16:12 Monocytes % (Manual) 9.0 % (2-11) 12/31/18 16:12 Eosinophils % (Manual) 2.0 % (2-4) 12/31/18 16:12 Basophils % (Manual) 1.0 % (0-1) 12/31/18 16:12 Neutrophils # (Manual) 3705 /uL (9657-3593) 12/31/18 16:12 RBC Morphology Normal morphology 12/31/18 16:12 Anisocytosis 2+ H 08/26/18 11:58 Sodium 141 mmol/L (137-145) 04/23/22 10:44 Potassium 4.4 mmol/L (3.4-5.1) 04/23/22 10:44 Chloride 108 mmol/L (98-107) H 04/23/22 10:44 Carbon Dioxide 26 mmol/L (22-32) 04/23/22 10:44 BUN 23 mg/dL (7-17) H 04/23/22 10:44 Creatinine 1.40 mg/dL (0.52-1.04) H 04/23/22 10:44 Estimated GFR 42 mL/min (>60) L 04/23/22 10:44 BUN/Creatinine Ratio 16.4 (6-22) 04/23/22 10:44 Glucose 78 mg/dL (80-110) L 04/23/22 10:44 Calcium 8.6 mg/dL (8.4-10.2) 04/23/22 10:44 Magnesium 2.2 mg/dL (1.6-2.3) 12/03/18 12:45 Total Bilirubin 0.4 mg/dL (0.2-1.3) 04/23/22 10:44 AST 31 IU/L (14-36) 04/23/22 10:44 ALT 28 IU/L (<35) 04/23/22 10:44 Alkaline Phosphatase 78 U/L (38-126) 04/23/22 10:44 Lactate Dehydrogenase 286 U/L (120-246) H 04/23/22 10:44 Total Protein 6.1 g/dL (6.3-8.2) L 04/23/22 10:44 Albumin 3.2 g/dL (3.5-5.0) L 04/23/22 10:44 Globulin 2.9 g/dL (1.7-4.1) 04/23/22 10:44 Albumin/Globulin Ratio 1.1 (1.0-2.8) 04/23/22 10:44 TSH 3.94 uIU/mL (0.47-4.68) 09/09/18 11:43 PTH Intact 74 pg/mL (15-65) H 04/23/22 10:45 U Random Total Protein 80 mg/dL (0-12) H 04/23/22 10:45 Urine Creatinine 25.7 mg/dL 04/23/22 10:45 Protein/Creatinin Ratio 3.11 GRAM/24H 04/23/22 10:45 Assessment and Plan (1) Clear cell adenocarcinoma of left kidney 66 year old female with metastatic clear cell renal cell carcinoma, pT3a N1 Mx. She originally presented with hypercalcemia with headache, nausea and vomiting. CT 01/08/2018: left renal mass at least 9.7 cm with prominent retroperitoneal lymphadneopathy. Staging imagine (CT CAP, bone scan and PET) showed the known left kidney mass, and suspicious retroperitoneal and pelvic lymphadenopathy and right lower lung nodules. Status post left nephrectomy on 03/07/2018. Surgical pathology showed clear cell renal cell carcinoma. She was evaluated at [facility] by Dr. Ribeiro. Treatment with cabozantinib was recommended. She started Cabozatinib 60 mg daily on 06/11/2018. On 10/29/2018, cabozantinib was held due to grade 2 maculopapular rashes, grade 1 liver function abnormalities. On 09/11/2018, she was able to restart Carbozantinib at 20 mg daily and has tolerated well so far. Patient underwent CT of the chest abdomen pelvis on 01/20/2019. It showed no evidence for residual or recurrent disease. Assessment: Clinically, she has been doing quite well. Reviewed imaging studies CT chest contrast with the patient. The study was obtained 04/23/2022. Showed no evidence residual, locally recurrent, or metastatic disease the chest or abdomen following left nephrectomy. Clinically, patient is also tolerating cabozantinib very well. I am going to continue the current treatment without any modifications and will see the patient in 6 months. Plan: 1. Continue Cabozatinib 20 mg daily on weekday every week. 2. Continue Protonix 40 mg daily 3. Continue follow-up with Nephrology 4. RTC in 6 months CBC, CMP, LDH (2) Pulmonary embolism Incidental diagnosis of right lung pulmonary embolism in the right main pulmonary artery bifurcation and the right upper and lower lobar pulmonary arteries on 06/27/2018 during a workup for restaging of her clear cell renal cell carcinoma. Patient was adequately started on Lovenox 120 mg Q 12. Due to development of abdominal wall hematoma at the site of injection, Lovenox was subsequently switched to Xarelto. She stopped Xarelto in Jan 2020 due to concern for bleeding and swelling of the legs.
--- NOTE | 2022-05-03 14:55 | ONC.SCHED ---
Scheduling: Left for patient to schedule 6 month fup with labs prior.
--- NOTE | 2022-09-05 13:33 | ONC.SCHED ---
Transfer of Care: Patient called to confirm her October follow-up with Dr. Burden for 11/01/22. She then asked for a sooner follow-up and I explained to her that Dr. Burden's last day was 09/20/2022 and the clinic would not have providers for a few months. She wanted to know if she could stay with Dr. Burden and I let her know that he would be working at [facility] after 09/20/2022. She requested to transfer her care to [facility]. I emailed Medical Records with the request to transfer her care to [facility] for processing.
--- NOTE | 2022-09-05 15:30 | PC.NURSE ---
Addendum entered by Selma Catalan R.N. 09/10/22 17:27: Pt called and informed of JUAQUIN to [facility]. Pt verbalized understanding Original Note: Pt calls and requests sooner appt with Dr. Burden. Dr. Jaramillo states my chemo pills (Cabozatinib) might be causing problems with my kidneys. I need to see Dr. Burden sooner than october. This RN informed pt that NPO [facility]. Pt asks to JUAQUIN to [facility] with Dr. Burden. This note left for Dr. Burden to advise.
--- NOTE | 2022-10-10 13:41 | ONC.SCHED ---
pt jeannine to [facility] with Dr. Burden, referral was entered by FANG hunter and records were sent on 09/06/22
== END ==
PROVIDERS: Student in an Organized Health Care Education/Training Program; Family Provider Family Medicine; PCP Family Medicine; Visit Provider Internal Medicine Hematology & Oncology
DX: C64.2 Malignant neoplasm of left kidney, except renal pelvis (principal)
CPT/HCPCS: 36415; 71250; 71260; 74150; 74176; 74177; 78306; 80048; 80053; 82310; 82570; 83615; 83735; 83970; 84156; 84443; 85025; 96360; 96361; 96365; 96366; 96374; 96375; 99205; 99214; 99215; A9503; C8929; J2405; J3489; Q9957; Q9967

== ENCOUNTER → 2022-10-01 10:51 | Outpatient (CLI) | payer MEDICARE, MEDICAID, SELFPAY ==
[2022-10-01 11:17] LABS: Add Manual Diff / Slide Review NO; Basophils Absolute Auto 0 /uL (0-100); Basophils Percent Auto 0.5 % (0-2); Eosinophils Absolute Auto 200 /uL (0-450); Eosinophils Percent Auto 3.3 % (2-4); Hematocrit 35.1 % (36-46); Hemoglobin 11.9 g/dL (12.0-16.0); Lymphocytes Absolute Auto 1300 /uL (1100-4500); Lymphocytes Percent Auto 24.3 % (25-40); Mean Corpuscular HGB Conc 33.9 % (30-36); Mean Corpuscular Hemoglobin 34.1 PG (26-34); Mean Corpuscular Volume 100.6 fL (80-100); Monocytes Absolute Auto 600 /uL (0-900); Neutrophils Absolute Auto 3400 /uL (1500-7000); Neutrophils Percent Auto 60.9 % (50-75); Platelet Count 192 X10^3/uL (150-400); Red Blood Cell Count 3.49 X10^6/uL (4.0-5.2); Red Cell Distribution Width 13.2 % (11.6-14.8); White Blood Cell Count 5.5 X10^3/uL (4.5-11.0)
[2022-10-01 11:39] LABS: Alanine Aminotransferase 22 IU/L (<35); Albumin 3.3 g/dL (3.5-5.0); Albumin Globulin Ratio 1.2 (1.0-2.8); Alkaline Phosphatase 51 U/L (38-126); Aspartate Aminotransferase 27 IU/L (14-36); BUN Creatinine Ratio 15.6 (6-22); Bilirubin Total 0.3 mg/dL (0.2-1.3); Blood Urea Nitrogen 24 mg/dL (7-17); Calcium 8.9 mg/dL (8.4-10.2); Carbon Dioxide 31 mmol/L (22-32); Chloride 105 mmol/L (98-107); Estimated Glomerular Filt Rate 37 mL/min (>60); Globulin 2.8 g/dL (1.7-4.1); Glucose 96 mg/dL (80-110); HEMOLYSIS < 15 (0-50); Potassium 4.2 mmol/L (3.4-5.1); Sodium 139 mmol/L (137-145); Total Protein 6.1 g/dL (6.3-8.2)
[2022-10-01 12:25] LABS: Protein (Total) Urine Random 150 mg/dL (0-12); Protein Creatinine Ratio Urine 4.68 GRAM/24H
[2022-10-02 03:12] LABS: x Labcorp Estim. Avg Glu (eAG) 114 mg/dL (.); x Labcorp Hemoglobin A1c 5.6 % (4.8-5.6)
[2022-10-03 06:16] LABS: Parathyroid Hormone Int 72 pg/mL (15-65)
== END ==
PROVIDERS: Internal Medicine Hematology & Oncology; Family Provider Family Medicine; PCP Family Medicine; Referring Provider Family Medicine; Visit Provider Family Medicine
DX: C64.2 Malignant neoplasm of left kidney, except renal pelvis (principal)
CPT/HCPCS: 36415; 80053; 82570; 83036; 83970; 84156; 85025

== ENCOUNTER → 2022-12-11 12:15 | Outpatient (CLI) | payer MEDICARE, MEDICAID, SELFPAY ==
[2022-12-11 13:51] LABS: BUN Creatinine Ratio 21.4 (6-22); Blood Urea Nitrogen 34 mg/dL (7-17); Carbon Dioxide 26 mmol/L (22-32); Chloride 110 mmol/L (98-107); Estimated Glomerular Filt Rate 36 mL/min (>60); Glucose 81 mg/dL (80-110); HEMOLYSIS < 15 (0-50); Potassium 4.5 mmol/L (3.4-5.1); Sodium 140 mmol/L (137-145)
== END ==
PROVIDERS: Family Provider Family Medicine; PCP Family Medicine; Referring Provider Student in an Organized Health Care Education/Training Program; Visit Provider Student in an Organized Health Care Education/Training Program
DX: N05.9 Unspecified nephritic syndrome with unspecified morphologic changes (principal)
CPT/HCPCS: 36415; 80048

== ENCOUNTER → 2022-12-27 16:49 | Outpatient (CLI) | payer MEDICARE, MEDICAID, SELFPAY ==
[2022-12-27 20:12] LABS: Appearance Urine UA CLEAR; Bilirubin Urine UA NEGATIVE (NEGATIVE); Color Urine UA YELLOW; Glucose Urine UA NEGATIVE (Negative); Ketones Urine UA NEGATIVE (NEGATIVE); Leukocyte Esterase Urine UA NEGATIVE (NEGATIVE); Nitrite Urine UA NEGATIVE (Negative); Occult Blood Urine UA NEGATIVE (Negative); Protein Urine UA 2+ (Negative); Specific Gravity Urine UA 1.015 (1.000-1.035); Urobilinogen Urine UA 0.2 E.U./dL (0.2)
[2022-12-27 20:24] LABS: Bacteria Urine None Seen; Culture Indicated Urine Cult Not Indicated; RBC Urine 0-1/HPF (0-5/HPF); Squamous Epithelial Cell Urine 0-1 /HPF (0-5/HPF); WBC Urine None Seen (0-5/HPF)
== END ==
PROVIDERS: Family Provider Family Medicine; PCP Family Medicine; Visit Provider Family Medicine
DX: R35.0 Frequency of micturition (principal)
CPT/HCPCS: 81001

== ENCOUNTER → 2023-04-01 13:12 | Outpatient (CLI) | payer MEDICARE, MEDICAID, SELFPAY ==
[2023-04-01 15:10] LABS: BUN Creatinine Ratio 13.9 (6-22); Blood Urea Nitrogen 25 mg/dL (7-17); Calcium 9.8 mg/dL (8.4-10.2); Carbon Dioxide 27 mmol/L (22-32); Chloride 104 mmol/L (98-107); Estimated Glomerular Filt Rate 31 mL/min (>60); Glucose 86 mg/dL (80-110); HEMOLYSIS < 15 (0-50); Potassium 4.6 mmol/L (3.4-5.1); Sodium 138 mmol/L (137-145)
== END ==
PROVIDERS: Family Provider Family Medicine; PCP Family Medicine; Referring Provider Student in an Organized Health Care Education/Training Program; Visit Provider Student in an Organized Health Care Education/Training Program
DX: N05.9 Unspecified nephritic syndrome with unspecified morphologic changes (principal)
CPT/HCPCS: 36415; 80048

== ENCOUNTER 2023-04-29 13:41 | Emergency (ER) | payer MEDICARE, MEDICAID, SELFPAY ==
[2023-04-29] VITALS (19 sets, daily range): BP systolic 190–229; BP diastolic 96–129; PULSE 64–76; RESP 14–32; TEMP 36.6; O2SAT 93–99; BMI 64.4
--- NOTE | 2023-04-29 14:36 | ED_ITS ---
HPI - Extremity Problem General Chief complaint: Extremity Problem,Nontraumatic Stated complaint: leg hand and facial swelling Time Seen by Provider: 04/29/23 14:36 Source: patient and family Mode of arrival: Wheelchair History of Present Illness HPI Narrative: 67-year-old female with history of renal cell carcinoma, status post nephrectomy, hypertension with complaint of headache, slurred speech yesterday. Patient states it feels like someone was poking her in her head. She also feels like her head is swollen. Her sister at bedside also notes her arms and legs are more swollen than typical. They states her speech seems appropriate at this time and patient states that resolved. She did not appreciate any one-sided weakness or numbness tingling or other neurologic changes. Patient denies any chest pain today but had an episode yesterday. She does feel little bit more short of breath. She denies any nausea or vomiting states she has been stooling regularly with no black or bloody stools. No urinary symptoms. Patient does have a single kidney after nephrectomy for renal cell carcinoma. She is currently taking her cancer pill once daily on week days, hypertensive medication and muscle relaxers. She notes she has had prior nephrectomy, hysterectomy, cholecystectomy and . No known drug allergies. No tobacco, rare alcohol, no recreational drugs. Dr. Baker is her primary care physician. Dr. Burden is her overlock waistline joiner, Dr. Cano is her oncologist. Related Data Home Medications Medication Instructions Recorded Confirmed apremilast 30 mg tablet (Otezla) 30 mg PO BID 02/07/18 04/23/23 Albuterol Inhaler 1 puff inhalation BID 09/27/20 04/23/23 aspirin 81 mg tablet 81 mg PO DAILY 11/06/21 04/23/23 carvedilol 25 mg tablet mg PO BID 10/18/22 04/23/23 losartan 100 mg tablet 100 mg PO BID 10/18/22 04/23/23 Previous Rx's Medication Instructions Recorded 4 Point Walker #1 ea 01/08/22 blood pressure test kit-large #1 ea 01/08/22 INCONTINENCE SUPPLIES #140 ea 01/25/22 mupirocin 2 % topical ointment 1 applic topical BID #22 grams 01/25/22 4 Point Walker with 4 wheels #1 ea 05/07/22 Blood Pressure Wrist Cuff #1 ea 05/07/22 epinephrine 0.3 mg/0.3 mL 0.3 mg (0.3 mL) IM Q5-15M PRN 05/10/22 injection syringe Allergic Reaction #2 ea hydroxyzine HCl 25 mg tablet 25 mg PO QID PRN Muscle Spasm #90 05/10/22 tabs pantoprazole 40 mg tablet,delayed 40 mg PO DAILY #90 tabs 05/10/22 release (Protonix) pramipexole 0.25 mg tablet 0.25 mg PO BEDTIME #90 tabs 05/10/22 trazodone 50 mg tablet 50 mg PO BEDTIME #90 tabs 05/10/22 minocycline 100 mg capsule 100 mg PO BID #180 caps 06/05/22 menthol 0.44 %-zinc oxide 20.6 % 1 applic topical Q1H PRN skin 06/07/22 topical paste (Remedy Calazime irritation #113 grams Intensive Skin Therapy) nifedipine 30 mg tablet,extended 30 mg PO BID #180 tabs 12/27/22 release calcipotriene-betamethasone 0.005 1 applic topical DAILY #60 grams 01/02/23 %-0.064 % topical ointment nystatin 100,000 unit/gram topical 1 applic topical BID #30 grams 01/02/23 powder (Nyamyc) hydrocodone 5 mg-acetaminophen 325 1 tab PO TID PRN pain #60 tabs 04/23/23 mg tablet amlodipine 2.5 mg tablet 7.5 mg (3 x 2.5 mg) PO DAILY #21 04/29/23 tabs Allergies Allergy/AdvReac Type Severity Reaction Status Date / Time adhesive tape Allergy Severe Rash Verified 04/23/23 14:45 bee venom protein (honey bee) Allergy Unknown Verified 04/23/23 14:45 enoxaparin [From Lovenox] Allergy Unknown Verified 04/23/23 14:45 rivaroxaban [From Xarelto] AdvReac Severe Difficulty Verified 04/23/23 14:45 Breathing iodine AdvReac Unknown Verified 04/23/23 14:45 MICRO AdvReac Unknown Uncoded 04/23/23 14:45 Review of Systems Review of Systems ROS Unobtainable: All systems reviewed & are unremarkable except as noted in HPI and below Patient History Medical History Lumbar spondylolysis Bilateral knee pain CKD (chronic kidney disease) stage 3, GFR 30-59 ml/min Morbid obesity with BMI of 60.0-69.9, adult Impaired physical mobility Urinary incontinence Insomnia Right wrist tendinitis GERD (gastroesophageal reflux disease) RLS (restless legs syndrome) Renal carcinoma Hyperparathyroidism Chronic knee pain COPD (chronic obstructive pulmonary disease) Right knee sprain Plantar wart, left foot Panic attacks Neuropathy Rheumatoid arthritis Psoriasis Depression Asthma Hypertension Sleep apnea Surgical History Anesthesia History of kidney surgery (~2018) History of carpal tunnel release History of cholecystectomy (~1982) History of section (~1982) History of tonsillectomy and adenoidectomy H/O hysterectomy with oophorectomy (~1991) H/O hernia repair Family History Unknown Breast cancer Father Colon cancer Hypertension History of heart disease Mother Congestive heart failure Grandmother Diabetes mellitus Hypertension Social History marital status: unknown household members: none Smoking Status: Former smoker Tobacco: How many years used: 46 second hand exposure: No alcohol intake: current (rare) substance use type: marijuana Smoking Status: Former smoker alcohol intake frequency: holidays/special occasions only Substance Use Type: marijuana Exam Narrative Exam Narrative: GENERAL: Alert and oriented x three, obese female in mild distress. HEENT: Head normocephalic, atraumatic, EOMI, pupils reactive, face symmetric, moist mucous membranes NECK: Supple, full range of motion CARDIOVASCULAR: Regular rate and rhythm without murmurs, rubs or gallops. Patient has bilateral + lower extremity edema. RESPIRATORY: Breath sounds equal bilaterally, no wheezes rales or rhonchi. Mild tachypnea but speaks in 5-6 word sentences. No accessory muscle use. ABDOMEN: Soft, nontender. Normoactive bowel sounds all 4 quadrants. No guarding or rebound, rigidity, no mass : No CVA tenderness EXTREMITIES: Normal range of motion, no clubbing or edema. Neurovascularly intact NEUROLOGICAL: Cranial nerves II through XII grossly intact. Moving all extremities SKIN: Warm, dry, no petechiae, no rashes or lesions. Initial Vital Signs Initial Vital Signs: Vital Signs Temperature 98 F 04/29/23 13:44 Pulse Rate 73 04/29/23 13:44 Respiratory Rate 24 04/29/23 13:44 Blood Pressure 199/98 H 04/29/23 13:44 Pulse Oximetry 99 04/29/23 13:44 Oxygen Delivery Method Room Air 04/29/23 13:44 Course Orders Ordered: Discontinued Medications Amlodipine Besylate (Amlodipine 5 Mg Tablet) 7.5 mg PO NOW ONE Stop: 04/29/23 18:05 Last Admin: 04/29/23 18:14 Dose: 7.5 mg Documented By: BEATA Furosemide (Furosemide 40 Mg Tablet) 80 mg PO NOW ONE Stop: 04/29/23 17:01 Last Admin: 04/29/23 17:06 Dose: Not Given Documented By: BEATA Furosemide (Furosemide 40 Mg Tablet) 40 mg PO NOW ONE Stop: 04/29/23 17:06 Last Admin: 04/29/23 17:09 Dose: 40 mg Documented By: BEATA Furosemide 80 mg/ Sodium (Chloride) 58 mls @ 116 mls/hr IV NOW ONE Stop: 04/29/23 16:28 Last Infusion: 04/29/23 17:01 Dose: Infused Documented By: Admin: 04/29/23 16:45 Dose: 116 mls/hr Documented By: BEATA Vital Signs Vital signs: Vital Signs - 8 hr 04/29/23 13:44 04/29/23 14:16 04/29/23 14:30 Temperature 98 F Pulse Rate 73 67 Respiratory Rate 24 28 H Blood Pressure 199/98 H 193/109 H Pulse Oximetry 99 99 Oxygen Delivery Method Room Air 04/29/23 14:30 04/29/23 15:00 04/29/23 15:30 Temperature Pulse Rate 69 68 71 Respiratory Rate 29 H 26 H 28 H Blood Pressure Pulse Oximetry 98 93 95 Oxygen Delivery Method 04/29/23 15:34 04/29/23 15:34 04/29/23 15:58 Temperature Pulse Rate 69 69 Respiratory Rate 27 H 24 Blood Pressure 209/102 H Pulse Oximetry 95 96 Oxygen Delivery Method 04/29/23 15:58 04/29/23 16:00 04/29/23 16:00 Temperature Pulse Rate 67 Respiratory Rate 21 Blood Pressure 192/99 H 195/96 H Pulse Oximetry 96 Oxygen Delivery Method 04/29/23 16:30 04/29/23 16:31 04/29/23 16:31 Temperature Pulse Rate 64 65 Respiratory Rate 22 Blood Pressure 229/101 H Pulse Oximetry 95 95 Oxygen Delivery Method MDM - Extremity (Nontraumatic) Lab Data 04/29/23 15:30 04/29/23 15:30 Labs: Lab Results 04/29/23 04/29/23 Range/Units 14:40 15:30 WBC 6.3 (4.5-11.0) X10^3/uL RBC 3.66 L (4.0-5.2) X10^6/uL Hgb 12.3 (12.0-16.0) g/dL Hct 37.3 (36-46) % MCV 102.0 H (80-100) fL MCH 33.5 (26-34) PG MCHC 32.9 (30-36) % RDW 14.1 (11.6-14.8) % Plt Count 207 (150-400) X10^3/uL Neut % (Auto) 55.2 (50-75) % Lymph % (Auto) 32.2 (25-40) % [place] % (Auto) 9.5 (3-14) % Eos % (Auto) 2.1 (2-4) % Baso % (Auto) 1.0 (0-2) % Neut # (Auto) 3500 (8819-0889) /uL Lymph # (Auto) 2000 (1015-1102) /uL [place] # (Auto) 600 (0-900) /uL Eos # (Auto) 100 (0-450) /uL Baso # (Auto) 100 (0-100) /uL Sodium 142 (137-145) mmol/L Potassium 5.5 H (3.4-5.1) mmol/L Chloride 113 H (98-107) mmol/L Carbon Dioxide 29 (22-32) mmol/L BUN 44 H (7-17) mg/dL Creatinine 1.82 H (0.52-1.04) mg/dL Estimated GFR 30 L (>60) mL/min BUN/Creatinine Ratio 24.2 H (6-22) Glucose 89 (80-110) mg/dL Calcium 8.9 (8.4-10.2) mg/dL Total Bilirubin 0.5 (0.2-1.3) mg/dL AST 28 (14-36) IU/L ALT 30 (<35) IU/L Alkaline Phosphatase 59 (38-126) U/L Total Creatine Kinase 82 (30-135) U/L Troponin I < 0.012 (0.01-0.034) ng/mL NT-Pro-B Natriuret Pep 2360 H (<125) pg/mL Total Protein 6.4 (6.3-8.2) g/dL Albumin 3.4 L (3.5-5.0) g/dL Globulin 3.0 (1.7-4.1) g/dL Albumin/Globulin Ratio 1.1 (1.0-2.8) Lipase 197 (23-300) U/L Urine Color Yellow Urine Appearance Clear Urine pH 5.5 (4.5-8.0) Ur Specific [place] 1.020 (1.000-1.035) Urine Protein 2+ H (Negative) Urine Glucose (UA) Negative (Negative) g/dL Urine Ketones Negative (NEGATIVE) Urine Occult Blood Trace-intact (Negative) Urine Nitrate Negative (Negative) Urine Bilirubin Negative (NEGATIVE) Urine Urobilinogen 0.2 (0.2) E.U./dL Ur Leukocyte Esterase Negative (NEGATIVE) Urine RBC 0-1/hpf (0-5/HPF) Urine WBC 0-1/hpf (0-5/HPF) Ur Squamous Epith Cells 1-5 /hpf (0-5/HPF) Urine Bacteria None seen (None) Ur Culture Indicated? Cult not indicated Vol Urine Centrifuged 10ml (spun) Imaging Data Chest x-ray: Radiologist's Impression: Close Head CT (Signed) Shun Whitman - 04/29/23 Chest X-Ray (Signed) Shun Whitman - 04/29/23 Chest/Abdomen CT (Signed) Joie Wright - 04/23/22 Chest/Abdomen CT (Signed) Chad Eller - 10/25/21 Chest/Abdomen/Pelvis CT (Signed) Sudheer Dorsey - 04/26/21 Chest/Abdomen/Pelvis CT (Signed) Gibson Minaya - 09/14/20 Chest/Abdomen/Pelvis CT (Signed) Vinh Cano - 05/02/20 Outside DI 02/06/20 Outside DI 02/06/20 Abdomen/Pelvis CT (Signed) Norberto Fritz - 12/14/19 Chest/Abdomen/Pelvis CT (Signed) Kristy Ram - 07/15/19 Chest/Abdomen/Pelvis CT (Signed) Barrett Reed - 01/20/19 Chest/Abdomen/Pelvis CT (Signed) Riddhi Loo - 11/13/18 Extremity Ultrasound (Signed) Norberto Fritz - 07/13/18 Oncology Outside DI 06/27/18 Oncology Outside DI 06/27/18 Oncology Outside DI 06/27/18 PET, Tumor Imaging Skull-Mid Thigh (Signed) Riddhi Loo - 02/19/18 Chest/Abdomen/Pelvis CT (Signed) Elif Freeman - 02/12/18 Bone Scan Nuclear Medicine (Signed) Alexandr Conteh - 02/12/18 Oncology Outside DI 01/08/[address] [address] XRay Report Signed Patient: Belgica Da Silva MR#: [id number] : 1955 Acct:[id number] Age/Sex: 67 / F Date of Service: 04/29/23 Loc: ED Accession Number: [id number] Procedure: XR chest 1V Ordering Provider: Larissa Brooks D.O. PROCEDURE: XR CHEST 1V INDICATIONS: htn, kaba, swelling extremities. TECHNIQUE: One view of the chest was acquired. COMPARISON: None. FINDINGS: Surgical changes and devices: None. Lungs and pleura: Lungs are clear. No pleural effusions or pneumothorax. Mediastinum: Mediastinal contours appear normal. Heart size is normal. Bones and chest wall: No suspicious bony lesions. Overlying soft tissues appear unremarkable. IMPRESSION: No evidence acute pulmonary process. Dictated by: Shun Whitman M.D. on 04/29/2023 at 15:39 Approved by: Shun Whitman M.D. on 04/29/2023 at 15:40 CT scan - head: Radiologist's Impression: Close Head CT (Signed) Shun Whitman - 04/29/23 Chest X-Ray (Signed) Shun Whitman - 04/29/23 Chest/Abdomen CT (Signed) Joie Wright - 04/23/22 Chest/Abdomen CT (Signed) Chad Eller - 10/25/21 Chest/Abdomen/Pelvis CT (Signed) Sudheer Dorsey - 04/26/21 Chest/Abdomen/Pelvis CT (Signed) SabaGibson cross - 09/14/20 Chest/Abdomen/Pelvis CT (Signed) Vinh Cano - 05/02/20 Outside DI 02/06/20 Outside DI 02/06/20 Abdomen/Pelvis CT (Signed) Norberto Fritz - 12/14/19 Chest/Abdomen/Pelvis CT (Signed) Kristy Ram - 07/15/19 Chest/Abdomen/Pelvis CT (Signed) Barrett Reed - 01/20/19 Chest/Abdomen/Pelvis CT (Signed) Riddhi Loo - 11/13/18 Extremity Ultrasound (Signed) Norberto Fritz - 07/13/18 Oncology Outside DI 06/27/18 Oncology Outside DI 06/27/18 Oncology Outside DI 06/27/18 PET, Tumor Imaging Skull-Mid Thigh (Signed) Riddhi Loo - 02/19/18 Chest/Abdomen/Pelvis CT (Signed) Elif Freeman - 02/12/18 Bone Scan Nuclear Medicine (Signed) Alexandr Conteh - 02/12/18 Oncology Outside DI 01/08/18 [place] [address] CT Scan Report Signed Patient: Belgica Da Silva MR#: [id number] : 1955 Acct:[id number] Age/Sex: 67 / F Date of Service: 04/29/23 Loc: ED Accession Number: [id number] Procedure: CT head/brain wo con Ordering Provider: Larissa Brooks D.O. PROCEDURE: CT HEAD/BRAIN WO CON INDICATIONS: kaba, swelling extremities, hx renal cancer, single kidney TECHNIQUE: Noncontrast 4.5 mm thick angled axial sections acquired from the foramen magnum to the vertex, with coronal and sagittal reformats. For radiation dose reduction, the following was used: automated exposure control, adjustment of mA and/or kV according to patient size. COMPARISON: None. FINDINGS: Image quality: Diagnostic. CSF spaces: Basal cisterns are patent. No extra-axial fluid collections. The ventricles are symmetric in size and shape. Brain: No intracranial bleeds or masses. There is cerebral volume loss for age, with resultant ventricular and sulcal prominence. There are periventricular and deep white matter chronic small vessel ischemic changes. There is intracranial internal carotid artery atherosclerosis. Skull and face: Calvarium and visualized facial bones appear intact, without suspicious lesions. Sinuses: Visualized sinuses and mastoids are clear. IMPRESSION: No acute intracranial pathology. Dictated by: Shun Whitman M.D. on 04/29/2023 at 16:02 Approved by: Shun Whitman M.D. on 04/29/2023 at 16:02 ECG Data Attestation EKG: I personally reviewed and interpreted this ECG as follows: Prior ECG tracings: not available for review Interpretation: Sinus rhythm rate of 67 NE 166 QRS 88 QTC 418. No acute ST elevation or depression noted. No prior for comparison. MDM Narrative Medical decision making narrative: 67-year-old female with complaint of headache, speech issue yesterday but also swelling of extremities and history of nephrectomy. Patient's CBC shows a white count of 6.3 hemoglobin of 12.3 with platelets of 207. Chemistry showed potassium of 5.5, chloride of 113 BUN of 44 with creatinine of 1.82 was 1.8 in March. Last prior to that was November of 2022 at 1.5. LFTs are negative troponins negative and BNP is 23 60. UA shows 2+ protein some trace blood but 0 1 white cells 0-1 RBCs 1-[address] is negative for acute change, this was obtained as patient was quite hypertensive upon arrival. Chest x-ray is negative for pulmonary edema or other acute change. Patient was given a dose of Lasix here in the department 80 mg based on her current creatinine. She notes she is on water pills but are not on her medication list in the EMR. She forgot her list today. Discussed with patient I think she is having some fluid overload as well as hypertension we will discuss with her nephrology team. Her creatinine does appear to be at least close to baseline based on most recent lab. Spoke with Dr. Pacheco, recommends increasing amlodipine from 5 mg to 7.5 mg today, home blood pressure monitoring over the next several days and call 1st thing tomorrow morning set up follow up with her overlock waistline joiner. He will relay a message as well to help with follow-up. Patient is currently taking losartan 100 mg daily, carvedilol 25 mg b.i.d., amlodipine 5 mg daily Lasix 10 mg, HCT 25 mg daily, prazosin 2 mg. There was discussion the other alternatives would be clonidine 0.1 mg t.i.d. or hydralazine if they were not helpful in the future. Discharge Plan Departure Patient Disposition: Home Clinical Impression: Hypertension Clinical Impression: (Ruled Out): Pulmonary embolism Activity Restrictions/Additional Instructions: Follow up with nephrology, call tomorrow for an appointment. I did speak with your nephrology team and they would like you to monitor your blood pressure and call to update them with your results. Please increase your amlodipine to 7.5 mg (You have been prescribed a 2.5mg tablet, take a 2.5mg tablet with your regular 5mg tablet for a total of 7.5mg). Prescription sent to [facility]. You had amlodipine 7.5 mg this evening, take your other home medications at your normal time this evening. Please return for new or worsening symptoms severe headaches, increased chest pain or shortness of breath, increased swelling in your extremities or other new or concerning changes Prescriptions: New amlodipine 2.5 mg tablet 7.5 mg PO DAILY Qty: 21 0RF Rx Instructions: Take 7.5mg (you can take a 2.5mg tablet with your home 5mg tablet) once daily. No Action mupirocin 2 % ointment 1 applic topical BID Qty: 22 1RF (DME) INCONTINENCE SUPPLIES EXTRA LARGE package See Rx Instructions .Route .MEDSUPPLY Qty: 140 0RF Rx Instructions: ADULT SIZED DISPOSABLE INCONTINENCE PRODUCT PROTECTIVE UNDERWEAR/PULL-ON epinephrine 0.3 mg/0.3 mL syringe 0.3 mg IM Q5-15M PRN (Reason: Allergic Reaction) Qty: 2 1RF Rx Instructions: do not exceed 3 doses per episode hydroxyzine HCl 25 mg tablet 25 mg PO QID PRN (Reason: Muscle Spasm) Qty: 90 3RF pantoprazole [Protonix] 40 mg tablet,delayed release (DR/EC) 40 mg PO DAILY Qty: 90 3RF pramipexole 0.25 mg tablet 0.25 mg PO BEDTIME Qty: 90 3RF trazodone 50 mg tablet 50 mg PO BEDTIME Qty: 90 3RF minocycline 100 mg capsule 100 mg PO BID Qty: 180 1RF hydrocodone-acetaminophen 5-325 mg tablet 1 tab PO TID PRN (Reason: pain) Qty: 60 0RF Rx Instructions: Treatment of acute right knee sprain, exempt (DME) 4 Point Walker See Rx Instructions .Route .MEDSUPPLY Qty: 1 0RF Rx Instructions: As directed (DME) blood pressure test kit-large Kit See Rx Instructions .Route Qty: 1 0RF Rx Instructions: As directed nifedipine 30 mg tablet extended release 30 mg PO BID Qty: 180 1RF Rx Instructions: 30 to 90 day supply interchange sent from [facility] [place] 10/24/22 calcipotriene-betamethasone 0.005-0.064 % ointment 1 applic topical DAILY Qty: 60 1RF Rx Instructions: Apply thin layer topically to psoriatic plaques on body nystatin [Nyamyc] 100,000 unit/gram powder 1 applic topical BID Qty: 30 2RF Rx Instructions: apply thin layer to affected area BID Albuterol Inhaler 1 puff inhalation BID (DME) 4 Point Walker with 4 wheels See Rx Instructions .Route .MEDSUPPLY Qty: 1 0RF Rx Instructions: As directed (DME) Blood Pressure Wrist Cuff See Rx Instructions .Route .MEDSUPPLY Qty: 1 0RF Rx Instructions: As directed Remedy Calazime Intensive Skin 0.44-20.6 % paste 1 applic topical Q1H PRN (Reason: skin irritation) Qty: 113 0RF Rx Instructions: while awake losartan 100 mg tablet 100 mg PO BID carvedilol 25 mg tablet PO BID Otezla 30 mg Tablet 30 mg PO BID aspirin 81 mg Tablet 81 mg PO DAILY Referrals: Teri Jaramillo MD [Physician] - Gibran Baker DO [Primary Care Provider] - Stand Alone Forms: Patient Portal/API
--- NOTE | 2023-04-29 14:45 | DI.RAD.S_ITS ---
PROCEDURE: XR CHEST 1V INDICATIONS: htn, kaba, swelling extremities. TECHNIQUE: One view of the chest was acquired. COMPARISON: None. FINDINGS: Surgical changes and devices: None. Lungs and pleura: Lungs are clear. No pleural effusions or pneumothorax. Mediastinum: Mediastinal contours appear normal. Heart size is normal. Bones and chest wall: No suspicious bony lesions. Overlying soft tissues appear unremarkable. IMPRESSION: No evidence acute pulmonary process. Dictated by: Shun Whitman M.D. on 04/29/2023 at 15:39 Approved by: Shun Whitman M.D. on 04/29/2023 at 15:40
--- NOTE | 2023-04-29 14:45 | DI.CT.S_ITS ---
PROCEDURE: CT HEAD/BRAIN WO CON INDICATIONS: kaba, swelling extremities, hx renal cancer, single kidney TECHNIQUE: Noncontrast 4.5 mm thick angled axial sections acquired from the foramen magnum to the vertex, with coronal and sagittal reformats. For radiation dose reduction, the following was used: automated exposure control, adjustment of mA and/or kV according to patient size. COMPARISON: None. FINDINGS: Image quality: Diagnostic. CSF spaces: Basal cisterns are patent. No extra-axial fluid collections. The ventricles are symmetric in size and shape. Brain: No intracranial bleeds or masses. There is cerebral volume loss for age, with resultant ventricular and sulcal prominence. There are periventricular and deep white matter chronic small vessel ischemic changes. There is intracranial internal carotid artery atherosclerosis. Skull and face: Calvarium and visualized facial bones appear intact, without suspicious lesions. Sinuses: Visualized sinuses and mastoids are clear. IMPRESSION: No acute intracranial pathology. Dictated by: Shun Whitman M.D. on 04/29/2023 at 16:02 Approved by: Shun Whitman M.D. on 04/29/2023 at 16:02
[2023-04-29 14:52] LABS: Appearance Urine UA CLEAR; Bilirubin Urine UA NEGATIVE (NEGATIVE); Color Urine UA YELLOW; Glucose Urine UA NEGATIVE (Negative); Ketones Urine UA NEGATIVE (NEGATIVE); Leukocyte Esterase Urine UA NEGATIVE (NEGATIVE); Nitrite Urine UA NEGATIVE (Negative); Occult Blood Urine UA TRACE-INTACT (Negative); Protein Urine UA 2+ (Negative); Urobilinogen Urine UA 0.2 E.U./dL (0.2)
[2023-04-29 14:57] LABS: pH Urine UA 5.5 (4.5-8.0)
[2023-04-29 15:00] LABS: Bacteria Urine None Seen; Culture Indicated Urine Cult Not Indicated; RBC Urine 0-1/HPF (0-5/HPF); Squamous Epithelial Cell Urine 1-5 /HPF (0-5/HPF); Urine Volume 10mL (spun); WBC Urine 0-1/HPF (0-5/HPF)
[2023-04-29 15:39] LABS: Add Manual Diff / Slide Review NO; Basophils Absolute Auto 100 /uL (0-100); Eosinophils Absolute Auto 100 /uL (0-450); Eosinophils Percent Auto 2.1 % (2-4); Hematocrit 37.3 % (36-46); Hemoglobin 12.3 g/dL (12.0-16.0); Lymphocytes Absolute Auto 2000 /uL (1100-4500); Lymphocytes Percent Auto 32.2 % (25-40); Mean Corpuscular HGB Conc 32.9 % (30-36); Mean Corpuscular Hemoglobin 33.5 PG (26-34); Monocytes Absolute Auto 600 /uL (0-900); Monocytes Percent Auto 9.5 % (3-14); Neutrophils Absolute Auto 3500 /uL (1500-7000); Neutrophils Percent Auto 55.2 % (50-75); Platelet Count 207 X10^3/uL (150-400); Red Blood Cell Count 3.66 X10^6/uL (4.0-5.2); Red Cell Distribution Width 14.1 % (11.6-14.8); White Blood Cell Count 6.3 X10^3/uL (4.5-11.0)
--- NOTE | 2023-04-29 15:49 | PC.NURSE ---
Pt up to bsc with stand by assist. Pt SOB upon exertion.
[2023-04-29 15:55] LABS: Alanine Aminotransferase 30 IU/L (<35); Albumin 3.4 g/dL (3.5-5.0); Albumin Globulin Ratio 1.1 (1.0-2.8); Alkaline Phosphatase 59 U/L (38-126); Aspartate Aminotransferase 28 IU/L (14-36); BUN Creatinine Ratio 24.2 (6-22); Bilirubin Total 0.5 mg/dL (0.2-1.3); Blood Urea Nitrogen 44 mg/dL (7-17); Calcium 8.9 mg/dL (8.4-10.2); Carbon Dioxide 29 mmol/L (22-32); Chloride 113 mmol/L (98-107); Creatine Kinase 82 U/L (30-135); Estimated Glomerular Filt Rate 30 mL/min (>60); Glucose 89 mg/dL (80-110); HEMOLYSIS < 15 (0-50); Lipase 197 U/L (23-300); Sodium 142 mmol/L (137-145); Total Protein 6.4 g/dL (6.3-8.2)
[2023-04-29 15:57] LABS: Potassium 5.5 mmol/L (3.4-5.1)
[2023-04-29 16:06] LABS: NT-proBNP (BNP-Adult 18+) 2360 pg/mL (<125); Troponin I < 0.012 ng/mL (0.01-0.034)
[2023-04-29] MEDS: FUROSEMIDE 80 MG in SODIUM CHLORIDE 0.9% 50 ML 116 MG IV (16:45)
[2023-04-29] MEDS: FUROSEMIDE 40 MG TABLET PO (17:09)
[2023-04-29] MEDS: AMLODIPINE 5 MG TABLET 7.5 MG PO (18:14)
== END 2023-04-29 18:50 | disposition home or self-care (01) ==
PROVIDERS: Emergency Provider Emergency Medicine; Family Provider Family Medicine; PCP Family Medicine
DX: I10 Essential (primary) hypertension (principal); R47.81 Slurred speech; Z87.891 Personal history of nicotine dependence
CPT/HCPCS: 70450; 71045; 80053; 81001; 82550; 83690; 83880; 84484; 85025; 93005; 93010; 99284; J1940

== ENCOUNTER → 2023-05-13 11:41 | Outpatient (CLI) | payer MEDICARE, MEDICAID, SELFPAY ==
--- NOTE | 2023-05-13 11:53 | DI.CT.S_ITS ---
PROCEDURE: CT CHEST ABD PEL WO CON INDICATIONS: Malignant neoplasm of left kidney, except renal pelvis TECHNIQUE: After the administration of oral contrast, 5 mm thick sections acquired from the lung apices to the symphysis pubis. 5 mm thick coronal and sagittal reformats acquired, with additional 7 mm coronal MIP reformats through the lungs. For radiation dose reduction, the following was used: automated exposure control, adjustment of mA and/or kV according to patient size. COMPARISON: [facility], CT, CT CHEST ABD PEL WO CON, 09/14/2020, 12:46. [facility], CT, CT CHEST ABDOMEN WO CON, 04/23/2022, 12:12. FINDINGS: Image quality: Diagnostic. CHEST: Lower Neck: No adenopathy seen Thyroid: Normal CT appearance. Axillae: No enlarged lymph nodes. Chest Wall: No suspicious masses. Bones: No suspicious bone lesions. Moderate multilevel bridging anterior endplate osteophytes throughout the thoracic spine. Lungs and Pleura: 0.9 cm solid nodule tethering the fissure in the superior segment left lower lobe has been present previously, but more pronounced on the current study. There is a small airspace opacity intra laterally in the lower lobe at the left lung base. There is respiratory motion throughout the lungs. No new pleural effusions. Heart: Heart size is normal. No pericardial effusion. Thoracic Vessels: The aorta and pulmonary arteries demonstrate normal size. Mediastinum and Isabel: No enlarged lymph nodes. Esophagus: No wall thickening. No hiatal hernia. ABDOMEN: Liver: No visible mass in the absence of contrast. Gallbladder: Surgically absent. Biliary ducts: No biliary dilation. Pancreas: No ductal dilation. Spleen: Size is within normal limits. Adrenal Glands: No adrenal nodules. Kidneys and Ureters: Prior left nephrectomy. No suspicious soft tissue in the nephrectomy bed. Lobulated right renal contour, similar in morphology compared to priors. No retained calculus or hydronephrosis. No perinephric inflammation. Normal ureter without calcifications. Stomach and Bowel: The stomach is normal. Small duodenal diverticula in the 3rd portion. Normal caliber small bowel loops. Normal appendix. Occasional diverticulosis of the descending colon and moderate diverticulosis of the sigmoid colon. No suspicious colon wall thickening. Peritoneum: No abnormal intraperitoneal fluid. No free air. Ventral Wall: No hernia. Abdominal Nodes: No retroperitoneal or mesenteric adenopathy by size criteria. Vessels: Aorta and inferior vena cava are normal in size. PELVIS: Pelvic Organs: Absent uterus. Ovaries are not visible. Bladder: Decompressed. Pelvic Nodes: No enlarged lymph nodes. Miscellaneous: No inguinal hernias are seen. Bones: No aggressive osseous abnormality. Severe degenerative disc and facet changes in the lower lumbar spine. Grade 1 L4-5 anterolisthesis. IMPRESSION: Status post left nephrectomy without evidence of local recurrent disease. Pulmonary nodule in the superior segment left lower lobe is slowly increasing in size, present over several prior studies. Correlate with tumor markers and consider PET-CT. No evidence of metastatic disease in the abdomen or pelvis. Dictated by: Joie Wright M.D. on 05/13/2023 at 15:45 Approved by: Joie Wright M.D. on 05/13/2023 at 16:04
[2023-05-13 14:40] LABS: Add Manual Diff / Slide Review NO; Basophils Absolute Auto 0 /uL (0-100); Basophils Percent Auto 0.8 % (0-2); Eosinophils Absolute Auto 100 /uL (0-450); Eosinophils Percent Auto 2.7 % (2-4); Hematocrit 36.5 % (36-46); Hemoglobin 11.8 g/dL (12.0-16.0); Lymphocytes Absolute Auto 1600 /uL (1100-4500); Lymphocytes Percent Auto 30.1 % (25-40); Mean Corpuscular HGB Conc 32.4 % (30-36); Mean Corpuscular Hemoglobin 33.9 PG (26-34); Mean Corpuscular Volume 104.5 fL (80-100); Monocytes Absolute Auto 500 /uL (0-900); Monocytes Percent Auto 9.7 % (3-14); Neutrophils Absolute Auto 3100 /uL (1500-7000); Neutrophils Percent Auto 56.7 % (50-75); Platelet Count 154 X10^3/uL (150-400); Red Blood Cell Count 3.49 X10^6/uL (4.0-5.2); Red Cell Distribution Width 14.9 % (11.6-14.8); White Blood Cell Count 5.4 X10^3/uL (4.5-11.0)
[2023-05-13 15:13] LABS: Alanine Aminotransferase 37 IU/L (<35); Albumin 3.5 g/dL (3.5-5.0); Albumin Globulin Ratio 1.2 (1.0-2.8); Alkaline Phosphatase 56 U/L (38-126); Aspartate Aminotransferase 33 IU/L (14-36); BUN Creatinine Ratio 18.4 (6-22); Bilirubin Total 0.5 mg/dL (0.2-1.3); Blood Urea Nitrogen 33 mg/dL (7-17); Calcium 8.8 mg/dL (8.4-10.2); Carbon Dioxide 28 mmol/L (22-32); Chloride 113 mmol/L (98-107); Estimated Glomerular Filt Rate 31 mL/min (>60); Glucose 85 mg/dL (80-110); HEMOLYSIS < 15 (0-50); Lactate Dehydrogenase 265 U/L (120-246); Sodium 143 mmol/L (137-145); Total Protein 6.5 g/dL (6.3-8.2)
== END ==
PROVIDERS: Family Provider Family Medicine; PCP Family Medicine; Referring Provider Internal Medicine Hematology & Oncology; Visit Provider Internal Medicine Hematology & Oncology
DX: C64.2 Malignant neoplasm of left kidney, except renal pelvis (principal); N05.9 Unspecified nephritic syndrome with unspecified morphologic changes; D70.9 Neutropenia, unspecified; D63.1 Anemia in chronic kidney disease; R80.9 Proteinuria, unspecified; N25.81 Secondary hyperparathyroidism of renal origin; R91.1 Solitary pulmonary nodule; K57.10 Diverticulosis of small intestine without perforation or abscess without bleeding; K57.30 Diverticulosis of large intestine without perforation or abscess without bleeding; M51.36 Other intervertebral disc degeneration, lumbar region; M47.816 Spondylosis without myelopathy or radiculopathy, lumbar region; M43.16 Spondylolisthesis, lumbar region; Z90.49 Acquired absence of other specified parts of digestive tract; Z90.5 Acquired absence of kidney
CPT/HCPCS: 36415; 71250; 74176; 80053; 82570; 83615; 83970; 84156; 85025

== ENCOUNTER → 2023-05-13 12:44 | Outpatient (CLI) | payer MEDICARE, MEDICAID, SELFPAY ==
[2023-05-13 15:42] LABS: Creatinine Urine Random 63.4 mg/dL; Protein (Total) Urine Random 111 mg/dL (0-12); Protein Creatinine Ratio Urine 1.75 GRAM/24H
[2023-05-15 08:11] LABS: Parathyroid Hormone Int 53 pg/mL (15-65)
== END ==
PROVIDERS: Family Provider Family Medicine; PCP Family Medicine; Referring Provider Student in an Organized Health Care Education/Training Program; Visit Provider Student in an Organized Health Care Education/Training Program
DX: N05.9 Unspecified nephritic syndrome with unspecified morphologic changes (principal); D70.9 Neutropenia, unspecified; D63.1 Anemia in chronic kidney disease; N25.81 Secondary hyperparathyroidism of renal origin; R80.9 Proteinuria, unspecified
CPT/HCPCS: 82570; 83970; 84156

== ENCOUNTER → 2023-07-12 11:18 | Outpatient (CLI) | payer MEDICARE, MEDICAID, SELFPAY ==
[2023-07-12 12:15] LABS: Creatinine Urine Random 84.69 mg/dL
[2023-07-12 12:23] LABS: Protein (Total) Urine Random 230 mg/dL (0-12); Protein Creatinine Ratio Urine 2.71 GRAM/24H
[2023-07-12 13:20] LABS: Hematocrit 36.3 % (36-46)
[2023-07-12 13:45] LABS: BUN Creatinine Ratio 14.2 (6-22); Blood Urea Nitrogen 30 mg/dL (7-17); Calcium 9.3 mg/dL (8.4-10.2); Carbon Dioxide 28 mmol/L (22-32); Chloride 109 mmol/L (98-107); Estimated Glomerular Filt Rate 26 mL/min (>60); Glucose 80 mg/dL (80-110); HEMOLYSIS < 15 (0-50); Sodium 142 mmol/L (137-145)
[2023-07-12 13:51] LABS: NT-proBNP (BNP-Adult 18+) 1370 pg/mL (<125)
== END ==
PROVIDERS: Family Provider Family Medicine; PCP Family Medicine; Referring Provider Student in an Organized Health Care Education/Training Program; Visit Provider Student in an Organized Health Care Education/Training Program
DX: N05.9 Unspecified nephritic syndrome with unspecified morphologic changes (principal); I50.32 Chronic diastolic (congestive) heart failure; D70.9 Neutropenia, unspecified; D63.1 Anemia in chronic kidney disease; N25.81 Secondary hyperparathyroidism of renal origin; R80.9 Proteinuria, unspecified
CPT/HCPCS: 36415; 80048; 82570; 83880; 83970; 84156; 85014; 85018

== ENCOUNTER → 2023-11-06 16:25 | Outpatient (CLI) | payer MEDICARE, MEDICAID, SELFPAY ==
[2023-11-06 17:24] LABS: Hematocrit 38.6 % (36-46); Hemoglobin 12.6 g/dL (12.0-16.0)
[2023-11-06 18:08] LABS: BUN Creatinine Ratio 19.5 (6-22); Blood Urea Nitrogen 71 mg/dL (7-17); Calcium 10.7 mg/dL (8.4-10.2); Carbon Dioxide 26 mmol/L (22-32); Chloride 97 mmol/L (98-107); Estimated Glomerular Filt Rate 13 mL/min (>60); Glucose 103 mg/dL (80-110); HEMOLYSIS 19 (0-50); Potassium 3.4 mmol/L (3.4-5.1); Sodium 135 mmol/L (137-145)
[2023-11-06 18:15] LABS: Creatinine Urine Random 84.35 mg/dL; Protein (Total) Urine Random 16 mg/dL (0-12); Protein Creatinine Ratio Urine 0.18 GRAM/24H
[2023-11-06 18:16] LABS: NT-proBNP (BNP-Adult 18+) 744 pg/mL (<125)
[2023-11-08 09:12] LABS: Parathyroid Hormone Int 12 pg/mL (15-65)
== END ==
PROVIDERS: Family Provider Family Medicine; PCP Family Medicine; Referring Provider Student in an Organized Health Care Education/Training Program; Visit Provider Student in an Organized Health Care Education/Training Program
DX: I50.32 Chronic diastolic (congestive) heart failure (principal); N05.9 Unspecified nephritic syndrome with unspecified morphologic changes; D70.9 Neutropenia, unspecified; D63.1 Anemia in chronic kidney disease; N25.81 Secondary hyperparathyroidism of renal origin; R80.9 Proteinuria, unspecified
CPT/HCPCS: 36415; 80048; 82570; 83880; 83970; 84156; 85014; 85018

== ENCOUNTER → 2023-11-22 14:16 | Outpatient (CLI) | payer MEDICARE, MEDICAID, SELFPAY ==
[2023-11-22 14:51] LABS: Hematocrit 36.7 % (36-46)
[2023-11-22 15:40] LABS: Creatinine Urine Random 94.11 mg/dL; Protein (Total) Urine Random 33 mg/dL (0-12); Protein Creatinine Ratio Urine 0.35 GRAM/24H
[2023-11-22 16:01] LABS: BUN Creatinine Ratio 19.8 (6-22); Blood Urea Nitrogen 48 mg/dL (7-17); Carbon Dioxide 25 mmol/L (22-32); Chloride 107 mmol/L (98-107); Estimated Glomerular Filt Rate 22 mL/min (>60); Glucose 98 mg/dL (80-110); HEMOLYSIS < 15 (0-50); Potassium 4.6 mmol/L (3.4-5.1); Sodium 137 mmol/L (137-145)
[2023-11-22 17:28] LABS: NT-proBNP (BNP-Adult 18+) 1240 pg/mL (<125)
[2023-11-23 09:12] LABS: Parathyroid Hormone Int 10 pg/mL (15-65)
== END ==
PROVIDERS: Family Provider Family Medicine; PCP Family Medicine; Referring Provider Student in an Organized Health Care Education/Training Program; Visit Provider Student in an Organized Health Care Education/Training Program
DX: I50.32 Chronic diastolic (congestive) heart failure (principal); N05.9 Unspecified nephritic syndrome with unspecified morphologic changes; D70.9 Neutropenia, unspecified; R80.9 Proteinuria, unspecified; N25.81 Secondary hyperparathyroidism of renal origin; D63.1 Anemia in chronic kidney disease
CPT/HCPCS: 36415; 80048; 82570; 83880; 83970; 84156; 85014; 85018

== ENCOUNTER → 2023-12-12 16:38 | Outpatient (CLI) | payer MEDICARE, MEDICAID, SELFPAY ==
[2023-12-12 17:30] LABS: Creatinine Urine Random 28.75 mg/dL; Protein (Total) Urine Random 17 mg/dL (0-12); Protein Creatinine Ratio Urine 0.59 GRAM/24H
[2023-12-12 17:42] LABS: BUN Creatinine Ratio 10.4 (6-22); Blood Urea Nitrogen 32 mg/dL (7-17); Calcium 9.8 mg/dL (8.4-10.2); Carbon Dioxide 30 mmol/L (22-32); Chloride 103 mmol/L (98-107); Estimated Glomerular Filt Rate 16 mL/min (>60); Glucose 88 mg/dL (80-110); HEMOLYSIS < 15 (0-50); Sodium 138 mmol/L (137-145)
[2023-12-12 17:48] LABS: NT-proBNP (BNP-Adult 18+) 785 pg/mL (<125)
[2023-12-12 18:27] LABS: Vitamin D 25 Hydroxy (D3) 23.4 ng/mL (30.0-100.0)
== END ==
LOC: LAB 16:39
PROVIDERS: Family Provider Family Medicine; PCP Family Medicine; Referring Provider Student in an Organized Health Care Education/Training Program; Visit Provider Student in an Organized Health Care Education/Training Program
DX: I50.32 Chronic diastolic (congestive) heart failure (principal); N25.81 Secondary hyperparathyroidism of renal origin; N05.9 Unspecified nephritic syndrome with unspecified morphologic changes; R80.9 Proteinuria, unspecified; D47.2 Monoclonal gammopathy
CPT/HCPCS: 36415; 80048; 82306; 82570; 83880; 83970; 84155; 84156; 84165; 84166

== ENCOUNTER → 2024-02-14 14:15 | Outpatient (CLI) | payer MEDICARE, MEDICAID, SELFPAY ==
[2024-02-14 15:09] LABS: HEMOLYSIS < 15 (0-50)
[2024-02-14 15:13] LABS: Potassium 5.6 mmol/L (3.4-5.1)
== END ==
PROVIDERS: Family Provider Family Medicine; PCP Family Medicine; Referring Provider Student in an Organized Health Care Education/Training Program; Visit Provider Student in an Organized Health Care Education/Training Program
DX: E87.5 Hyperkalemia (principal)
CPT/HCPCS: 36415; 84132

== ENCOUNTER → 2024-04-24 17:00 | Outpatient (CLI) | payer MEDICARE, MEDICAID, SELFPAY ==
[2024-04-24 18:13] LABS: Hematocrit 32.3 % (36-46); Hemoglobin 10.7 g/dL (12.0-16.0)
[2024-04-24 18:27] LABS: Creatinine Urine Random 113.56 mg/dL; Protein (Total) Urine Random 180 mg/dL (0-12); Protein Creatinine Ratio Urine 1.58 GRAM/24H
[2024-04-26 10:12] LABS: Parathyroid Hormone Int 159 pg/mL (15-65)
== END ==
LOC: LAB 17:01
PROVIDERS: Family Provider Family Medicine; PCP Family Medicine; Referring Provider Student in an Organized Health Care Education/Training Program; Visit Provider Student in an Organized Health Care Education/Training Program
DX: N05.9 Unspecified nephritic syndrome with unspecified morphologic changes (principal); D70.9 Neutropenia, unspecified; D63.1 Anemia in chronic kidney disease; R80.9 Proteinuria, unspecified; N25.81 Secondary hyperparathyroidism of renal origin
CPT/HCPCS: 82570; 83970; 84156; 85014; 85018

== ENCOUNTER 2025-01-19 16:20 | Emergency (ER) | payer MEDICARE, MEDICAID, SELFPAY ==
--- NOTE | 2025-01-19 16:30 | ED.GIBLEED ---
HPI - GI Bleed General Chief complaint: Nausea/Vomiting/Diarrhea Stated complaint: vomiting 4days w/ blood, cannot keep things down Time Seen by Provider: 01/19/25 16:28 History of Present Illness HPI Narrative: 69-year-old female patient with a history of hypertension, CAD, COPD/asthma, PE/anticoagulation, chronic kidney disease stage 4, renal cancer/left nephrectomy, morbid obesity with ZORAN, chronic pain with rheumatoid arthritis and depression/anxiety who complains of vomiting and diarrhea for 4 days with no fever or chills but with weakness and lightheadedness. Minimal abdominal discomfort. This morning she noticed blood in her vomit twice. Since then she has not vomited. She has had watery yellow stools with no darkness or blood. Appetite is down. Related Data Home Medications ?Medication ?Instructions ?Recorded ?Confirmed Albuterol Inhaler 1 puff inhalation BID 09/27/20 12/18/24 carvedilol 25 mg tablet mg PO BID 10/18/22 12/18/24 cabozantinib 20 mg tablet mg PO 10/03/23 12/18/24 (Cabometyx) calcitriol 0.5 mcg capsule 0.5 mcg PO DAILY 10/03/23 12/18/24 hydrochlorothiazide 50 mg tablet 50 mg PO DAILY 10/03/23 12/18/24 rivaroxaban 20 mg tablet (Xarelto) 20 mg PO DAILY 10/03/23 12/18/24 furosemide 40 mg tablet mg PO BID 12/18/24 12/18/24 Previous Rx's ?Medication ?Instructions ?Recorded 4 Point Walker #1 ea 01/08/22 4 Point Walker with 4 wheels #1 ea 05/07/22 Blood Pressure Wrist Cuff #1 ea 05/07/22 INCONTINENCE SUPPLIES #140 ea 08/19/24 amlodipine 5 mg tablet 5 mg PO BID #180 tabs 08/27/24 blood pressure test kit-large #1 ea 08/27/24 calcipotriene-betamethasone 0.005 1 applic topical DAILY #60 grams 08/27/24 %-0.064 % topical ointment epinephrine 0.3 mg/0.3 mL 0.3 mg (0.3 mL) IM Q5-15M PRN 08/27/24 injection syringe Allergic Reaction #2 ea gabapentin 300 mg capsule 300 mg PO BEDTIME #90 caps 08/27/24 hydroxyzine HCl 25 mg tablet 25 mg PO 4XD PRN anxiety #90 tabs 08/27/24 losartan 100 mg tablet 100 mg PO BID #180 tabs 08/27/24 menthol 0.44 %-zinc oxide 20.6 % 1 applic topical Q1H PRN skin 08/27/24 topical paste (Remedy Calazime irritation #113 grams Intensive Skin Therapy) mupirocin 2 % topical ointment 1 applic topical BID #22 grams 08/27/24 nystatin 100,000 unit/gram topical 1 applic topical BID #30 grams 08/27/24 powder (Nyamyc) pantoprazole 40 mg tablet,delayed 40 mg PO DAILY #90 tabs 08/27/24 release (Protonix) sertraline 25 mg tablet 25 mg PO DAILY #90 tabs 10/20/24 apremilast 30 mg tablet (Otezla) 30 mg PO BID #60 tabs 10/26/24 gabapentin 100 mg capsule 100 mg PO ONCE PM #7 caps 10/30/24 albuterol sulfate 90 mcg/actuation 2 puff inhalation Q4-6H PRN 12/18/24 aerosol inhaler shortness of breath or wheezing #8.5 grams hydrocodone 5 mg-acetaminophen 325 1 tab PO Q8H PRN pain #90 tabs 12/18/24 mg tablet hydrocodone 5 mg-acetaminophen 325 1 tab PO Q8H PRN pain #90 tabs 12/18/24 mg tablet hydrocodone 5 mg-acetaminophen 325 1 tab PO TID PRN pain #90 tabs 12/18/24 mg tablet metolazone 5 mg tablet 5 mg PO DAILY #90 tabs 12/18/24 pramipexole 0.125 mg tablet 0.125 mg PO ONCE PM #90 tabs 12/18/24 temazepam 15 mg capsule 15 mg PO BEDTIME PRN sleep #30 caps 12/18/24 lorazepam 0.5 mg tablet (Ativan) 0.5 mg PO TID PRN anxiety #7 tabs 01/19/25 promethazine 12.5 mg rectal 12.5 mg TX TID #12 ea 01/19/25 suppository Allergies Allergy/AdvReac Type Severity Reaction Status Date / Time adhesive tape Allergy Severe Rash Verified 12/18/24 13:49 bee venom protein (honey bee) Allergy Unknown Verified 12/18/24 13:49 enoxaparin (From Lovenox) Allergy Unknown Verified 12/18/24 13:49 rivaroxaban (From Xarelto) AdvReac Severe Difficulty Verified 12/18/24 13:49 Breathing iodine AdvReac Unknown Verified 12/18/24 13:49 MICRO AdvReac Unknown Uncoded 12/18/24 13:49 Review of Systems Review of Systems ROS Unobtainable: All systems reviewed & are unremarkable except as noted in HPI and below Constitutional Constitutional: Reports as per HPI Gastrointestinal Gastrointestinal: Reports as per HPI Patient History Medical History (Updated 01/19/25 @ 19:16 by Marcos Craft MD) Neuropathy of both feet CKD (chronic kidney disease) stage 4, GFR 15-29 ml/min Major depressive disorder, single episode, mild Coronary artery disease (CAD) excluded Lumbar spondylolysis CKD (chronic kidney disease) stage 3, GFR 30-59 ml/min Morbid obesity with BMI of 60.0-69.9, adult Impaired physical mobility Urinary incontinence GERD (gastroesophageal reflux disease) RLS (restless legs syndrome) Hyperparathyroidism Chronic knee pain COPD (chronic obstructive pulmonary disease) Panic attacks Neuropathy Rheumatoid arthritis Psoriasis Depression Asthma Hypertension Sleep apnea Surgical History Anesthesia History of kidney surgery (~2018) History of carpal tunnel release History of cholecystectomy (~1982) History of section (~1982) History of tonsillectomy and adenoidectomy H/O hysterectomy with oophorectomy (~1991) H/O hernia repair Family History Unknown Breast cancer Father Colon cancer Hypertension History of heart disease Mother Congestive heart failure Grandmother Diabetes mellitus Hypertension Social History marital status: unknown household members: none Tobacco: How many years used: 46 second hand exposure: No alcohol intake: current (rare) substance use type: marijuana alcohol intake frequency: holidays/special occasions only Exam Narrative Exam Narrative: General: Alert and conversant. Mild distress. Appears well nourished and well hydrated. Morbidly obese Craniofacial: No evidence of trauma. Nontender and no swelling. Eyes: PERRLA EOMI conjunctiva clear Lungs: Clear to auscultation with good air movement. No wheezing, rales or rhonchi. No respiratory distress Cardiac: Regular rate and rhythm with no appreciable murmur or gallop Abdomen: Soft, nontender with no distention or masses. Normal bowel sounds. No rebound or guarding Neuro: Alert and oriented. Cranial nerves, motor, sensory and cerebellar all grossly intact. No focal deficit Skin: Warm and normal color. No rashes Psychological: Normal affect and interaction. No evidence of delusion or psychosis. Normal mood. Initial Vital Signs Initial Vital Signs: Vital Signs Temperature 97.9 F 01/19/25 16:35 Pulse Rate 75 01/19/25 16:35 Respiratory Rate 18 01/19/25 16:35 Blood Pressure 159/72 H 01/19/25 16:35 Pulse Oximetry 97 01/19/25 16:35 Oxygen Delivery Method Room Air 01/19/25 16:35 Course Orders Ordered: ED Orders 01/19/25 16:35 CBC Auto Diff [Complete Blood Count AUTO DIFF] Stat CMP [Comprehensive Metabolic Panel] Stat Lipase Stat Discontinued Medications Sodium Chloride (Normal Saline 0.9%) 1,000 mls @ 1,000 mls/hr IV BOLUS ONE Stop: 01/19/25 17:34 Last Infusion: 01/19/25 17:55 Dose: Infused Documented By: Admin: 01/19/25 16:40 Dose: 1,000 mls/hr Documented By: ANJELICA Lorazepam (Lorazepam 0.5 Mg Tablet) 1 mg PO NOW ONE Stop: 01/19/25 19:14 Last Admin: 01/19/25 19:40 Dose: Not Given Documented By: DIMITRIOS Ondansetron HCl (Ondansetron 4 Mg/2 Ml Inj) 4 mg IV NOW ONE Stop: 01/19/25 16:36 Last Admin: 01/19/25 16:40 Dose: 4 mg Documented By: ANJELICA Promethazine HCl (Promethazine 25 Mg Supp) 25 mg TX NOW ONE Stop: 01/19/25 19:14 Last Admin: 01/19/25 19:40 Dose: Not Given Documented By: DIMITRIOS Vital Signs Vital signs: Vital Signs - 8 hr 01/19/25 16:35 01/19/25 19:57 Temperature 97.9 F Pulse Rate 75 60 Respiratory Rate 18 18 Blood Pressure 159/72 H 135/75 Pulse Oximetry 97 94 Oxygen Delivery Method Room Air Room Air MDM - GI Bleed Lab Data Attestation: I reviewed the patient's lab results. Lab results narrative: CBC and CMP essentially unremarkable 01/19/25 16:35 01/19/25 16:35 Labs: Lab Results 01/19/25 Range/Units 16:35 WBC 6.8 (4.5-11.0) X10^3/uL RBC 3.55 L (4.0-5.2) X10^6/uL Hgb 12.0 (12.0-16.0) g/dL Hct 36.5 (36-46) % MCV 102.6 H (80-100) fL MCH 33.8 (26-34) PG MCHC 32.9 (30-36) % RDW 14.0 (11.6-14.8) % Plt Count 166 (150-400) X10^3/uL Neut % (Auto) 66.1 (50-75) % Lymph % (Auto) 26.1 (25-40) % Nash % (Auto) 7.2 (3-14) % Eos % (Auto) 0.1 L (2-4) % Baso % (Auto) 0.5 (0-2) % Neut # (Auto) 4500 (5554-1443) /uL Lymph # (Auto) 1800 (3900-6460) /uL Nash # (Auto) 500 (0-900) /uL Eos # (Auto) 0 (0-450) /uL Baso # (Auto) 0 (0-100) /uL Sodium 141 (137-145) mmol/L Potassium 4.8 (3.4-5.1) mmol/L Chloride 110 H (98-107) mmol/L Carbon Dioxide 23 (22-32) mmol/L BUN 53 H (7-17) mg/dL Creatinine 2.77 H (0.52-1.04) mg/dL Estimated GFR 18 L (>60) mL/min BUN/Creatinine Ratio 19.1 (6-22) Glucose 113 H (70-99) mg/dL Calcium 8.9 (8.4-10.2) mg/dL Total Bilirubin 0.6 (0.2-1.3) mg/dL AST 44 H (14-36) IU/L ALT 24 (<35) IU/L Alkaline Phosphatase 94 (38-126) U/L Total Protein 6.8 (6.3-8.2) g/dL Albumin 3.8 (3.5-5.0) g/dL Globulin 3.0 (1.7-4.1) g/dL Albumin/Globulin Ratio 1.3 (1.0-2.8) Lipase 137 (23-300) U/L MDM Narrative Medical decision making narrative: 18:40 Patient has had no further bowel movements or vomiting but she is still nauseated. I spoke than greater depth with the patient and her niece who is with her. As it turns out, the patient's baseline grief has been exacerbated by her sister dying in her sleep within the last week or 2. She is having a very hard time coping with this. This is the mother of the niece who is with the patient here in the ER. As I discussed this with the patient she began weeping vigorously about her depression and grief. She is not suicidal. She is having a hard time with this passing of her sister. And this has affected her symptoms also. Otherwise, patient's vital signs and lab work are reassuring. It appears that she has viral gastroenteritis and 1 or 2 episodes of blood flecks in her vomitus this morning but none since then. I do not suspect a significant or serious GI bleed based on the history and watching her here in the ER along with her lab work and vitals. This problem is exacerbated by her complicated grief regarding her sister's . Patient has been trying ODT ondansetron. We will try rectal Phenergan and we will give her an IM shot of Phenergan to help her tonight with nausea and vomiting. Also agreed to give her a small supply of lorazepam for grief, insomnia and anxiety. However she is to follow up closely with her provider and with her counselor as soon as possible. To discuss all of these symptoms. Return to the ER if worse Discharge Plan Departure Patient Disposition: Home Clinical Impression: Viral gastroenteritis, Complicated grief Instructions: Viral Gastroenteritis, Coping with Grief Activity Restrictions/Additional Instructions: Plan: Hydration, rest and supportive care. Continue ODT ondansetron as needed. We will add a prescription for Phenergan rectal suppositories. Follow up closely with your primary care provider and counselor regarding dealing with grief. Small supply of lorazepam for severe anxiety and grief. Discuss further with your provider. Return to the ER if worse. Prescriptions: New promethazine 12.5 mg suppository 12.5 mg TX TID Qty: 12 0RF lorazepam [Ativan] 0.5 mg tablet 0.5 mg PO TID PRN (Reason: anxiety) Qty: 7 0RF No Action (DME) INCONTINENCE SUPPLIES EXTRA LARGE package See Rx Instructions .Route .MEDSUPPLY Qty: 140 0RF Rx Instructions: ADULT SIZED DISPOSABLE INCONTINENCE PRODUCT PROTECTIVE UNDERWEAR/PULL-ON sertraline 25 mg tablet 25 mg PO DAILY Qty: 90 3RF Otezla 30 mg tablet 30 mg PO BID Qty: 60 6RF gabapentin 100 mg capsule 100 mg PO ONCE PM Qty: 7 0RF metolazone 5 mg tablet 5 mg PO DAILY Qty: 90 3RF (DME) 4 Point Walker See Rx Instructions .Route .MEDSUPPLY Qty: 1 0RF Rx Instructions: As directed Albuterol Inhaler 1 puff inhalation BID (DME) 4 Point Walker with 4 wheels See Rx Instructions .Route .MEDSUPPLY Qty: 1 0RF Rx Instructions: As directed (DME) Blood Pressure Wrist Cuff See Rx Instructions .Route .MEDSUPPLY Qty: 1 0RF Rx Instructions: As directed carvedilol 25 mg tablet PO BID Cabometyx 20 mg tablet PO calcitriol 0.5 mcg capsule 0.5 mcg PO DAILY hydrochlorothiazide 50 mg tablet 50 mg PO DAILY Xarelto 20 mg tablet 20 mg PO DAILY amlodipine 5 mg tablet 5 mg PO BID Qty: 180 3RF (DME) blood pressure test kit-large Kit See Rx Instructions .Route Qty: 1 0RF Rx Instructions: As directed calcipotriene-betamethasone 0.005-0.064 % ointment 1 applic topical DAILY Qty: 60 1RF Rx Instructions: Apply thin layer topically to psoriatic plaques on body epinephrine 0.3 mg/0.3 mL syringe 0.3 mg IM Q5-15M PRN (Reason: Allergic Reaction) Qty: 2 1RF Rx Instructions: do not exceed 3 doses per episode hydroxyzine HCl 25 mg tablet 25 mg PO 4XD PRN (Reason: anxiety) Qty: 90 3RF losartan 100 mg tablet 100 mg PO BID Qty: 180 3RF Remedy Calazime Intensive Skin 0.44-20.6 % paste 1 applic topical Q1H PRN (Reason: skin irritation) Qty: 113 0RF Rx Instructions: while awake mupirocin 2 % ointment 1 applic topical BID Qty: 22 1RF nystatin [Nyamyc] 100,000 unit/gram powder 1 applic topical BID Qty: 30 2RF Rx Instructions: apply thin layer to affected area BID pantoprazole [Protonix] 40 mg tablet,delayed release (DR/EC) 40 mg PO DAILY Qty: 90 3RF gabapentin 300 mg capsule 300 mg PO BEDTIME Qty: 90 1RF albuterol sulfate 90 mcg/actuation HFA aerosol inhaler 2 puff inhalation Q4-6H PRN (Reason: shortness of breath or wheezing) Qty: 8.5 5RF hydrocodone-acetaminophen 5-325 mg tablet 1 tab PO Q8H PRN (Reason: pain) Qty: 90 0RF Rx Instructions: refill 3 hydrocodone-acetaminophen 5-325 mg tablet 1 tab PO Q8H PRN (Reason: pain) Qty: 90 0RF Rx Instructions: refill 2 hydrocodone-acetaminophen 5-325 mg tablet 1 tab PO TID PRN (Reason: pain) Qty: 90 0RF Rx Instructions: Treatment of acute right knee pain, exempt pramipexole 0.125 mg tablet 0.125 mg PO ONCE PM Qty: 90 3RF temazepam 15 mg capsule 15 mg PO BEDTIME PRN (Reason: sleep) Qty: 30 3RF furosemide 40 mg tablet PO BID Referrals: Gibran Baker DO [Primary Care Provider, Family Practice] Stand Alone Forms: Patient Portal/API
[2025-01-19 16:35] VITALS: BP 159/72; PULSE 75; RESP 18; TEMP 36.6; O2SAT 97; BMI 55.0
[2025-01-19] MEDS: SODIUM CHLORIDE 0.9% 1,000 ML 1000 ML IV (16:40)
[2025-01-19] MEDS: ONDANSETRON 4 MG/2 ML INJ IV (16:40)
[2025-01-19 16:43] LABS: Add Manual Diff / Slide Review NO; Hematocrit 36.5 % (36-46); Hemoglobin 12.0 g/dL (12.0-16.0); Lymphocytes Absolute Auto 1800 /uL (1100-4500); Mean Corpuscular HGB Conc 32.9 % (30-36); Mean Corpuscular Hemoglobin 33.8 PG (26-34); Mean Corpuscular Volume 102.6 fL (80-100); Platelet Count 166 X10^3/uL (150-400)
[2025-01-19 17:05] LABS: Lipase 137 U/L (23-300)
[2025-01-19 17:06] LABS: Alanine Aminotransferase 24 IU/L (<35); Albumin 3.8 g/dL (3.5-5.0); Albumin Globulin Ratio 1.3 (1.0-2.8); Alkaline Phosphatase 94 U/L (38-126); Blood Urea Nitrogen 53 mg/dL (7-17); Calcium 8.9 mg/dL (8.4-10.2); Carbon Dioxide 23 mmol/L (22-32); Chloride 110 mmol/L (98-107); Estimated Glomerular Filt Rate 18 mL/min (>60); Globulin 3.0 g/dL (1.7-4.1); Glucose 113 mg/dL (70-99); HEMOLYSIS 27 (0-50); Potassium 4.8 mmol/L (3.4-5.1); Sodium 141 mmol/L (137-145); Total Protein 6.8 g/dL (6.3-8.2)
--- NOTE | 2025-01-19 19:48 | PC.NURSE ---
Patient's o2 saturation would drop to 89% for a brief moment then come back up to 97%. Ativan medication held. notified. Med order discontinued here. cleared patient for DC.
[2025-01-19 19:57] VITALS: BP 135/75; PULSE 60; RESP 18; O2SAT 94
== END 2025-01-19 19:58 | disposition home or self-care (01) ==
PROVIDERS: Emergency Provider Emergency Medicine; PCP Family Medicine
DX: A08.4 Viral intestinal infection, unspecified (principal); F43.81 Prolonged grief disorder; Z63.4 Disappearance and death of family member
CPT/HCPCS: 80053; 83690; 85025; 96361; 96374; 99284; J2405; J7030